=== PATIENT | male | born 1945 | race Caucasian/White ===

== ENCOUNTER 2017-06-17 13:01 | Inpatient (IN) | payer MEDICARE ==
[~2017-06-17] VITALS: Ht 163.8 cm; Wt 109.0 kg
[2017-06-17] VITALS (7 sets, daily range): BP systolic 127–149; BP diastolic 63–99; PULSE 53–91; RESP 16–19; TEMP 98–98.4; O2SAT 95–98
[~2017-06-17 13:01] MED LIST: ACCU40TA10 PO; ALBU2.5I INH; ALBU8I INH; ASPI325T PO; CARV6.252 PO; FURO1TAB93 PO; GUAI600 PO; OSEL75 PO; PRED5PAK PO; SPIR25TA PO; Z.0.OXYGENDME NC
[2017-06-17] MEDS ORDERED: SODIUM CHLORIDE 0.9% FLUSH 10 ML FLUSH IVF PRN (14:00)
[2017-06-17 14:16] LABS: BASOPHIL # 0.1 TH/MM3 (0-0.2); BASOPHIL % 0.9 % (0.0-2.0); EOSINOPHIL # 0.2 TH/MM3 (0-0.4); EOSINOPHIL % 2.3 % (0.0-4.0); HEMATOCRIT 36.9 % (39.0-51.0); HEMOGLOBIN 12.3 GM/DL (13.0-17.0); LYMPH % 12.1 % (9.0-44.0); LYMPHOCYTE # 0.8 TH/MM3 (1.0-4.8); MEAN CELL VOLUME 94.3 FL (80.0-100.0); MEAN CORPUSCULAR HEMOGLOBIN 31.4 PG (27.0-34.0); MEAN CORPUSCULAR HGB CONC 33.3 % (32.0-36.0); MEAN PLATELET VOLUME 9.1 FL (7.0-11.0); MONO % 11.8 % (0.0-8.0); MONOCYTE # 0.8 TH/MM3 (0-0.9); NEUT % 72.9 % (16.0-70.0); PLATELET COUNT 195 TH/MM3 (150-450); RED BLOOD COUNT 3.91 MIL/MM3 (4.50-5.90); RED CELL DISTRIBUTION WIDTH 14.6 % (11.6-17.2); WHITE BLOOD COUNT 6.9 TH/MM3 (4.0-11.0)
[2017-06-17 14:30] LABS: INTERNATIONAL NORMALIZED RATIO 1.5 RATIO
[2017-06-17 14:31] LABS: PROTHROMBIN TIME - PATIENT 14.8 SEC (9.8-11.6)
[2017-06-17] MEDS ORDERED: CARV12.52 PO (14:35)
[2017-06-17] MEDS ORDERED: DIGO1TAB59 PO (14:35)
[2017-06-17] MEDS ORDERED: VENTAER INH (14:35)
[2017-06-17] MEDS ORDERED: TORS20TA PO (14:35)
[2017-06-17] MEDS ORDERED: EDOX1TAB5 PO (14:35)
[2017-06-17] MEDS ORDERED: AMIO200T PO (14:35)
[2017-06-17 14:46] LABS: ALBUMIN 3.3 GM/DL (3.4-5.0); ALKALINE PHOSPHATASE 63 U/L (45-117); ALT (GPT) 22 U/L (12-78); AST (GOT) 37 U/L (15-37); BICARBONATE 37.2 MEQ/L (21.0-32.0); BLOOD UREA NITROGEN 28 MG/DL (7-18); CALCIUM 9.2 MG/DL (8.5-10.1); CHLORIDE 95 MEQ/L (98-107); CREATININE 1.65 MG/DL (0.60-1.30); GLOMERULAR FILTRATION RATE 41 ML/MIN (>89); GLUCOSE,RANDOM 87 MG/DL (74-106); SODIUM (NA) 135 MEQ/L (136-145); TOTAL BILIRUBIN ADULT 0.4 MG/DL (0.2-1.0); TOTAL PROTEIN 8.7 GM/DL (6.4-8.2); TROPONIN I 0.07 NG/ML (0.02-0.05)
--- NOTE | 2017-06-17 15:54 | RADRPT ---
EXAM DATE/TIME: 06/17/2017 14:04 [place] COMPARISON: No previous studies available for comparison. INDICATIONS : Shortness of breath. MEDICAL HISTORY : Chronic obstructive pulmonary disease. SURGICAL HISTORY : Pacemaker. ENCOUNTER: Initial ACUITY: 4 - 6 days PAIN SCORE: 0/10 LOCATION: Bilateral chest FINDINGS: Left-sided pacemaker has its tip in the right ventricle. No pneumothorax is noted. The heart is mildl y prominent. A metallic stent is noted overlying the cardiac shadow. The pulmonary vascular pattern i s normal. The lungs are clear. CONCLUSION: Cardiomegaly. No acute focal pulmonary infiltrate or pulmonary vascular congestion. Bob Ernst MD on June 17, 2017 at 15:50 Board Certified Radiologist. This report was verified electronically.
[2017-06-17] MEDS ORDERED: LACTULOSE SYRUP 20 GM/30 ML CUP PO PRN (16:00)
[2017-06-17] MEDS ORDERED: ACETAMINOPHEN 325 MG TAB PO PRN (16:00)
[2017-06-17] MEDS ORDERED: BISACODYL 10 MG SUPP RECTAL PRN (16:00)
[2017-06-17] MEDS ORDERED: SODIUM CHLORIDE 0.9% FLUSH 10 ML FLUSH IV FLUSH PRN (16:00)
[2017-06-17] MEDS ORDERED: SENNOSIDES 8.6 MG TAB PO PRN (16:00)
[2017-06-17] MEDS ORDERED: MAGNESIUM HYDROXIDE SUSP 30 ML CUP PO PRN (16:00)
[2017-06-17] MEDS ORDERED: ONDANSETRON HCL 4 MG/2 ML VIAL IVP PRN (16:00)
[2017-06-17] MEDS ORDERED: TEMAZEPAM 15 MG CAP PO PRN (16:00)
[2017-06-17] MEDS ORDERED: NALOXONE HCL 0.4 MG/ML AMP IV PUSH PRN (16:00)
[2017-06-17] MEDS ORDERED: ALBUTEROL SULFATE 90 MCG/ACT HFA 8 GM INHALER INH PRN (16:00)
--- NOTE | 2017-06-17 16:16 | PD ---
HPI Chief Complaint: Cardiac Complaint Time Seen by Provider: 13:58 Travel History International Travel<30 days: No Contact w/Intl Traveler<30days: No Traveled to known affect area: No History of Present Illness HPI This is a 71-year-old male with a history of aortic stenosis who status post TAVRs procedure, cardiomyopathy, who presents at the request of his coach wirer for admission for fluid overload. According to him, he was previously on Lasix however recently they have changed him to torsemide. He has not been diuresing well and his coach wirer sent him here for admission for this diuresis. He denies any chest pain, chest pressure. He does report shortness of breath on exertion. He states he can only walk about 20 feet before becoming winded. There are no other complaints at the time of my examination. PFSH Past Medical History Hx Anticoagulant Therapy: Yes Arthritis: No Asthma: Yes (as a kid) Heart Rhythm Problems: Yes Cancer: No Cardiovascular Problems: Yes High Cholesterol: Yes Chest Pain: No Congestive Heart Failure: No COPD: Yes Diabetes: No Diminished Hearing: No GERD: No Genitourinary: No Hiatal Hernia: No Hypertension: Yes Immune Disorder: No Kidney Stones: Yes (25 years ago) Musculoskeletal: Yes (LEFT KNEE SURGERY 40 years ago) Neurologic: No Psychiatric: No Reproductive: No Respiratory: Yes (COPD) Immunizations Current: No Renal Failure: No Sickle Cell Disease: No Sleep Apnea: No Thyroid Disease: Yes (HYPOTHYROID) Ulcer: No Past Surgical History Abdominal Surgery: No AICD: Yes Arteriovenous Shunt: No Body Medical Devices: eyel lens Cardiac Surgery: Yes (AID WITH PACEMAKER) Ear Surgery: No Endocrine Surgery: No Eye Surgery: Yes Genitourinary Surgery: No Gynecologic Surgery: No Hysterectomy: Yes Insulin Pump: No Joint Replacement: No Oral Surgery: No Pacemaker: Yes Thoracic Surgery: No Other Surgery: Yes (back) Social History Alcohol Use: No Tobacco Use: Yes (quit 15 years ago) Substance Use: No Allergies-Medications (Allergen,Severity, Reaction): Coded Allergies: No Known Allergies (Verified , 07/09/15) Reported Meds & Prescriptions Reported Meds & Active Scripts Active Reported Digitek (Digoxin) 125 Mcg Tab 0.125 Mg PO DAILY Savaysa (Edoxaban) 60 Mg Tab 60 Mg PO DAILY Ventolin Hfa 18 GM Inh (Albuterol Sulfate) 90 Mcg/Act Aer 2 Puff INH Q4-6H PRN Carvedilol 12.5 Mg Tab 12.5 Mg PO BID Amiodarone (Amiodarone HCl) 200 Mg Tab 200 Mg PO DAILY Torsemide 20 Mg Tab 40 Mg PO BID Review of Systems Except as stated in HPI: all other systems reviewed are Neg General / Constitutional: No: Fever, Chills HENT: No: Headaches, Lightheadedness, Neck Pain Cardiovascular: No: Chest Pain or Discomfort, Palpitations Respiratory: Positive: Shortness of Breath, No: Cough, Wheezing Gastrointestinal: No: Nausea, Vomiting, Abdominal Pain Genitourinary: No: Dysuria, Decreased Urinary Output Musculoskeletal: No: Weakness, Pain Neurologic: No: Weakness, Dizziness, Headache Physical Exam Narrative GENERAL: Well-developed well-nourished male in mild respiratory discomfort. SKIN: Focused skin assessment warm/dry. HEAD: Atraumatic. Normocephalic. EYES: Pupils equal and round. No scleral icterus. No injection or drainage. ENT: No nasal bleeding or discharge. Mucous membranes pink and moist. NECK: Trachea midline. No JVD. Supple. CARDIOVASCULAR: Irregularly irregular with a rate in the 80s. RESPIRATORY: Bilateral basilar rales. No wheezing appreciated. GASTROINTESTINAL: Abdomen soft, non-tender, nondistended. MUSCULOSKELETAL: No obvious deformities. No clubbing. No cyanosis. 1+ edema bilaterally in the pretibial area. NEUROLOGICAL: Awake and alert. No obvious cranial nerve deficits. Motor grossly within normal limits. Normal speech. Data Data Last Documented VS Vital Signs Date Time Temp Pulse Resp B/P (MAP) Pulse Ox O2 Delivery O2 Flow Rate FiO2 06/17/17 15:45 76 16 135/73 (93) 98 Nasal Cannula 2.00 06/17/17 13:02 98.4 Orders Orders Complete Blood Count With Diff (06/17/17 13:59) Comprehensive Metabolic Panel (06/17/17 13:59) B-Type Natriuretic Peptide (06/17/17 13:59) Act Partial Throm Time (Ptt) (06/17/17 13:59) Prothrombin Time / Inr (Pt) (06/17/17 13:59) Ckmb (Isoenzyme) Profile (06/17/17 13:59) Troponin I (06/17/17 13:59) Iv Access Insert/Monitor (06/17/17 13:59) Electrocardiogram (06/17/17 13:59) Ecg Monitoring (06/17/17 13:59) Oximetry (06/17/17 13:59) Oxygen Administration (06/17/17 13:59) Chest, Single Ap (06/17/17 13:59) Sodium Chloride 0.9% Flush (Ns Flush) (06/17/17 14:00) CKMB (06/17/17 14:00) CKMB% (06/17/17 14:00) Albuterol Hfa Inh (Proair Hfa Inh) (06/17/17 16:00) Amiodarone (Cordarone) (06/18/17 09:00) Carvedilol (Coreg) (06/17/17 21:00) Digoxin (Lanoxin) (06/18/17 09:00) Edoxaban (Savaysa) (06/18/17 09:00) Torsemide (Demadex) (06/17/17 21:00) Admit To Inpatient (06/17/17 ) Vital Signs (Adult) Q4H (06/17/17 15:50) Activity Oob With Assistance (06/17/17 15:50) [place] Soaping Machine Operator / Telemetry .CONTINUOUS (06/17/17 15:50) Intake + Output CLAIR.QSHIFT (06/17/17 15:50) Diet Heart Healthy (06/17/17 Dinner) Sodium Chloride 0.9% Flush (Ns Flush) (06/17/17 16:00) Sodium Chloride 0.9% Flush (Ns Flush) (06/17/17 21:00) Acetaminophen (Tylenol) (06/17/17 16:00) Ondansetron Inj (Zofran Inj) (06/17/17 16:00) Temazepam (Restoril) (06/17/17 16:00) Basic Metabolic Panel (Bmp) (06/18/17 06:00) Complete Blood Count With Diff (06/18/17 06:00) Troponin I (06/17/17 15:50) Troponin I (06/17/17 18:50) Electrocardiogram (06/17/17 15:50) Electrocardiogram (06/17/17 18:50) Pt Request For Service (06/17/17 15:50) Case Management Consult (06/17/17 15:50) Scd Bilateral/Knee High CLAIR.BID (06/17/17 15:50) Madi Bilateral/Knee High CLAIR.QSHIFT (06/17/17 15:50) Naloxone Inj (Narcan Inj) (06/17/17 16:00) Docusate Sodium-Senna (Meaghan-Colace) (06/17/17 21:00) Magnesium Hydroxide Liq (Milk Of Magnesi (06/17/17 16:00) Sennosides (Senokot) (06/17/17 16:00) Bisacodyl Supp (Dulcolax Supp) (06/17/17 16:00) Lactulose Liq (Lactulose Liq) (06/17/17 16:00) Inpatient Certification (06/17/17 ) Consult Cardiology (06/17/17 ) Consult Nephrology (06/17/17 ) Echo 2d Comp With Doppler (06/17/17 ) Admit Order (Ed Use Only) (06/17/17 15:51) Labs Laboratory Tests Test 06/17/17 14:00 White Blood Count 6.9 TH/MM3 Red Blood Count 3.91 MIL/MM3 Hemoglobin 12.3 GM/DL Hematocrit 36.9 % Mean Corpuscular Volume 94.3 FL Mean Corpuscular Hemoglobin 31.4 PG Mean Corpuscular Hemoglobin Concent 33.3 % Red Cell Distribution Width 14.6 % Platelet Count 195 TH/MM3 Mean Platelet Volume 9.1 FL Neutrophils (%) (Auto) 72.9 % Lymphocytes (%) (Auto) 12.1 % Monocytes (%) (Auto) 11.8 % Eosinophils (%) (Auto) 2.3 % Basophils (%) (Auto) 0.9 % Neutrophils # (Auto) 5.0 TH/MM3 Lymphocytes # (Auto) 0.8 TH/MM3 Monocytes # (Auto) 0.8 TH/MM3 Eosinophils # (Auto) 0.2 TH/MM3 Basophils # (Auto) 0.1 TH/MM3 CBC Comment DIFF FINAL Differential Comment Prothrombin Time 14.8 SEC Prothromb Time International Ratio 1.5 RATIO Activated Partial Thromboplast Time 32.4 SEC Blood Urea Nitrogen 28 MG/DL Creatinine 1.65 MG/DL Random Glucose 87 MG/DL Total Protein 8.7 GM/DL Albumin 3.3 GM/DL Calcium Level 9.2 MG/DL Alkaline Phosphatase 63 U/L Aspartate Amino Transf (AST/SGOT) 37 U/L Alanine Aminotransferase (ALT/SGPT) 22 U/L Total Bilirubin 0.4 MG/DL Sodium Level 135 MEQ/L Potassium Level 5.5 MEQ/L Chloride Level 95 MEQ/L Carbon Dioxide Level 37.2 MEQ/L Anion Gap 3 MEQ/L Estimat Glomerular Filtration Rate 41 ML/MIN Total Creatine Kinase 134 U/L Creatine Kinase MB 0.6 NG/ML Troponin I 0.07 NG/ML B-Type Natriuretic Peptide 234 PG/ML MDM Medical Decision Making Medical Screen Exam Complete: Yes Emergency Medical Condition: Yes Differential Diagnosis CHF exacerbation versus pneumonia versus renal failure Narrative Course 71-year-old male sent from his doctor's office for fluid overload and diuresis. Patient states he has recently been changed from furosemide to torsemide. He believes this is not working well. He denies any chest pain, chest pressure. He has recently had a TAVRs procedure. Patient has potassium of 5.5. He is BUN and creatinine are also elevated with a creatinine of 1.65. The last creatinine that I have on record is normal from 2016. The troponin is also slightly elevated at 0.07. Chest x-ray shows mild fluid overload. The patient will be admitted to the hospital. The case was discussed with Dr. Figueroa, [facility], who is agreeable to the admission. At this point will place him under observation status. Diagnosis Primary Impression: CHF (congestive heart failure) Additional Impressions: Atrial fibrillation Acute kidney injury Hyperkalemia History of cardiomyopathy Admitting Information Admitting Physician Requests: Observation José Luis Finley MD Jun 17, 2017 16:15
--- NOTE | 2017-06-17 16:47 | PD.CONS ---
HPI Service Nephrology Consult Requested By [facility] Reason for Consult CHELSEY, fluid overload Primary Care Physician Marquez Fields MD History of Present Illness This is a very pleasant 71 y/o male. He was referred for admission by his dowel sticker operator Dr. King for fluid overload s/p TAVR nearly one month ago. He has a complex cardiac hx including A fib, s/p TAVR as mentioned above, Cardiomyopathy, EF was 10% now read as 25-30%, hx of AICD placement. He was on Spironolactone 25 mg BID and Torsemide 20 BID that was just changed from furosemide. He has been reporting fatigue and shortness of breath, weight gain. On arrival his creatinine was 1.65. In 2016 it was around 1. Today his K is also noted to be 5.5. He is on oxygen, has edema/anasarca, and we were consulted to assist with renal and diuretic management. (Lyly Costello) Review of Systems Constitutional: COMPLAINS OF: Fatigue, Weight gain, DENIES: Weight loss, Change in appetite Respiratory: COMPLAINS OF: Shortness of breath, DENIES: Sputum production Cardiovascular: COMPLAINS OF: Lower Extremity Edema Gastrointestinal: DENIES: Abdominal pain (Lyly Costello) Past Family Social History Allergies: Coded Allergies: No Known Allergies (Verified , 07/09/15) Past Medical History ASHD, cardiomyopathy, ventricular tachycardia CAD, Hx anterior [place] A fib Murmur Hyperlipidemia COPD DJD Obesity s/p TAVR Past Surgical History TAVR 05/20/17 [employer] ICD (LLQ abd) Reported Medications Digitek (Digoxin) 125 Mcg Tab 0.125 Mg PO DAILY Savaysa (Edoxaban) 60 Mg Tab 60 Mg PO DAILY Ventolin Hfa 18 GM Inh (Albuterol Sulfate) 90 Mcg/Act Aer 2 Puff INH Q4-6H PRN Carvedilol 12.5 Mg Tab 12.5 Mg PO BID Amiodarone (Amiodarone HCl) 200 Mg Tab 200 Mg PO DAILY Torsemide 20 Mg Tab 40 Mg PO BID Aldactone 25 mg po BID Albuterol sulfate 2.5mg/3ml prn Active Ordered Medications Current Medications Medications (Trade) Dose Ordered Sig/Marta Route Start Time Stop Time Status Last Admin (Proair Hfa Inh) 2 puff Q4HR PRN INH 06/17/17 16:00 (Cordarone) 200 mg DAILY PO 06/18/17 09:00 (Coreg) 12.5 mg BID PO 06/17/17 21:00 (Lanoxin) 0.125 mg DAILY PO 06/18/17 09:00 (Savaysa) 60 mg DAILY PO 06/18/17 09:00 UNV (Demadex) 40 mg BID PO 06/17/17 21:00 (NS Flush) 2 ml UNSCH PRN IV FLUSH 06/17/17 16:00 (NS Flush) 2 ml BID IV FLUSH 06/17/17 21:00 (Tylenol) 650 mg Q4H PRN PO 06/17/17 16:00 (Zofran Inj) 4 mg Q6H PRN IVP 06/17/17 16:00 (Restoril) 15 mg HS PRN PO 06/17/17 16:00 (Narcan Inj) 0.4 mg UNSCH PRN IV PUSH 06/17/17 16:00 (Meaghan-Colace) 1 tab BID PO 06/17/17 21:00 (Milk Of Magnesia Liq) 30 ml Q12H PRN PO 06/17/17 16:00 (Senokot) 17.2 mg Q12H PRN PO 06/17/17 16:00 (Dulcolax Supp) 10 mg DAILY PRN RECTAL 06/17/17 16:00 (Lactulose Liq) 30 ml DAILY PRN PO 06/17/17 16:00 Family History Mother, uterine CA Other information unrelated Social History Former smoker Uses oxygen Retired No ETOH (Lyly Costello) Physical Exam Vital Signs Vital Signs Date Time Temp Pulse Resp B/P (MAP) Pulse Ox O2 Delivery O2 Flow Rate FiO2 06/17/17 15:45 76 16 135/73 (93) 98 Nasal Cannula 2.00 06/17/17 14:01 98 Nasal Cannula 2.00 06/17/17 14:01 98 Nasal Cannula 2.00 06/17/17 13:56 98 Nasal Cannula 2.00 06/17/17 13:02 98.4 71 19 133/99 (110) 95 Physical Exam Elderly male, dyspneic on oxygen Awake, A&Ox3, no neuro deficit CV: S1/S2, irreg irreg, quiet precordium , no murmurs or rubs Resp: Diminished in bases, crackles present, shallow respirations GI: obese, soft, NT/ND, normal BS ; ICD left abdomen Ext: 2+ edema, pulses strong Skin: intact Laboratory Laboratory Tests Test 06/17/17 14:00 White Blood Count 6.9 Red Blood Count 3.91 Hemoglobin 12.3 Hematocrit 36.9 Mean Corpuscular Volume 94.3 Mean Corpuscular Hemoglobin 31.4 Mean Corpuscular Hemoglobin Concent 33.3 Red Cell Distribution Width 14.6 Platelet Count 195 Mean Platelet Volume 9.1 Neutrophils (%) (Auto) 72.9 Lymphocytes (%) (Auto) 12.1 Monocytes (%) (Auto) 11.8 Eosinophils (%) (Auto) 2.3 Basophils (%) (Auto) 0.9 Neutrophils # (Auto) 5.0 Lymphocytes # (Auto) 0.8 Monocytes # (Auto) 0.8 Eosinophils # (Auto) 0.2 Basophils # (Auto) 0.1 CBC Comment DIFF FINAL Differential Comment Prothrombin Time 14.8 Prothromb Time International Ratio 1.5 Activated Partial Thromboplast Time 32.4 Blood Urea Nitrogen 28 Creatinine 1.65 Random Glucose 87 Total Protein 8.7 Albumin 3.3 Calcium Level 9.2 Alkaline Phosphatase 63 Aspartate Amino Transf (AST/SGOT) 37 Alanine Aminotransferase (ALT/SGPT) 22 Total Bilirubin 0.4 Sodium Level 135 Potassium Level 5.5 Chloride Level 95 Carbon Dioxide Level 37.2 Anion Gap 3 Estimat Glomerular Filtration Rate 41 Total Creatine Kinase 134 Creatine Kinase MB 0.6 Troponin I 0.07 B-Type Natriuretic Peptide 234 (Lyly Costello) Result Diagram: 06/17/17 1400 06/17/17 1400 Imaging Last 72 hours Impressions Chest X-Ray 06/17/17 1359 Signed Impressions: Service Date/Time: Saturday, June 17, 2017 14:04 - CONCLUSION: Cardiomegaly. No acute focal pulmonary infiltrate or pulmonary vascular congestion. Bob Ernst MD (Lyly Costello) Assessment and Plan Problem List: (1) Acute kidney injury ICD Codes: N17.9 - Acute kidney failure, unspecified Status: Acute Plan: He had normal renal function in 2016 CHELSEY may be due to CHF exacerbation and increased renal vein pressure Needs diuresis, change to Lasix 40 mg IV BID, give a dose now Follow urine output, I/O, daily weights Follow renal function, repeat labs in AM including phosphorus level K 5.5, hold Spironolactone for now Avoid nephrotoxic agents Avoid IVF administration (2) CHF (congestive heart failure) ICD Codes: I50.9 - Heart failure, unspecified Status: Chronic Plan: Diuresis as above. (3) History of cardiomyopathy ICD Codes: Z86.79 - Personal history of other diseases of the circulatory system Status: Acute Plan: Cardiology to be consulted, appreciate recommendations On oxygen (4) Atrial fibrillation ICD Codes: I48.91 - Unspecified atrial fibrillation Status: Chronic Plan: On digoxin, amiodarone Obtain digoxin level in AM (5) Hypertension ICD Codes: I10 - Essential (primary) hypertension Status: Chronic Plan: Continue home medications (Lyly Costello) Problem List: (1) Acute kidney injury ICD Codes: N17.9 - Acute kidney failure, unspecified Status: Acute Plan: He had normal renal function in 2016 CHELSEY may be due to CHF exacerbation and increased renal vein pressure Needs diuresis, change to Lasix 40 mg IV BID, give a dose now Follow urine output, I/O, daily weights Follow renal function, repeat labs in AM including phosphorus level K 5.5, hold Spironolactone for now Avoid nephrotoxic agents Avoid IVF administration (2) CHF (congestive heart failure) ICD Codes: I50.9 - Heart failure, unspecified Status: Chronic Plan: Diuresis as above. (3) History of cardiomyopathy ICD Codes: Z86.79 - Personal history of other diseases of the circulatory system Status: Acute Plan: Cardiology to be consulted, appreciate recommendations On oxygen (4) Atrial fibrillation ICD Codes: I48.91 - Unspecified atrial fibrillation Status: Chronic Plan: On digoxin, amiodarone Obtain digoxin level in AM (5) Hypertension ICD Codes: I10 - Essential (primary) hypertension Status: Chronic Plan: Continue home medications Assessment and Plan patient was seen and examined. Agree with above assessment and plan. Start IV Lasix. Obtain UA. Obtain bilateral renal US. Temporarily suspend Spironolactone due to hyperkalemia. (Jessee Murrieta MD) Lyly Costello Jun 17, 2017 16:47 Jessee Murrieta MD Jun 17, 2017 19:27
[2017-06-17] MEDS ORDERED: FUROSEMIDE 40 MG/4 ML VIAL IV PUSH ONE (17:00)
[2017-06-17] MEDS: FUROSEMIDE 40 MG/4 ML VIAL IV PUSH SCH (18:11)
--- NOTE | 2017-06-17 18:18 | HHI.HP ---
HPI Service [facility] Primary Care Physician Marquez Fields MD Admission Diagnosis chf, acute kidney injury, recent TAVRS procedure, Diagnoses: Chief Complaint: sob Travel History International Travel<30 Days: No Contact w/Intl Traveler <30 Da: No Traveled to Known Affected Are: No History of Present Illness 71-year-old male with PMH of COPD, chronic respiratory failure on 2L at night, hypertension, hyperlipidemia, A. fib with AICD, recent TAVR who came to the emergency room with complains of sob. He was referred for admission by his job placement counselor Dr. King for fluid overload s/p TAVR nearly one month ago. He has a complex cardiac hx including A fib, s/p TAVR as mentioned above, Cardiomyopathy, EF was 10% now read as 25-30%, hx of AICD placement 25 years ago. He was on Spironolactone 25 mg BID and Torsemide 20 BID that was just changed from furosemide. He has been reporting fatigue and shortness of breath, weight gain worsening. He noticed LE edema 2 days ago worsening as well as sob progressively gettign worse. On arrival his creatinine was 1.65. In 2016 it was around 1. Today his K is also noted to be 5.5. He is on oxygen, has edema/ anasarca. Review of Systems Except as stated in HPI: all other systems reviewed are Neg Past Family Social History Past Medical History COPD, hypertension, hyperlipidemia, A. fib with AICD Past Surgical History AICD Cataract eye surgery Pineal cyst removal Tonsillectomy Recent TAVR Reported Medications Reported Meds & Active Scripts Active Reported Digitek (Digoxin) 125 Mcg Tab 0.125 Mg PO DAILY Savaysa (Edoxaban) 60 Mg Tab 60 Mg PO DAILY Ventolin Hfa 18 GM Inh (Albuterol Sulfate) 90 Mcg/Act Aer 2 Puff INH Q4-6H PRN Carvedilol 12.5 Mg Tab 12.5 Mg PO BID Amiodarone (Amiodarone HCl) 200 Mg Tab 200 Mg PO DAILY Torsemide 20 Mg Tab 40 Mg PO BID Allergies: Coded Allergies: No Known Allergies (Verified , 07/09/15) Family History Father CAD/massive of eye at the age of 57 Brother with heart problems Social History Former smoker used to smoke 1-2 PPD since the age of 12. Quit in 1991 EtOH use occasionally Denies illicit drug use Physical Exam Vital Signs Vital Signs Date Time Temp Pulse Resp B/P (MAP) Pulse Ox O2 Delivery O2 Flow Rate FiO2 06/17/17 17:12 80 16 149/69 (95) 98 Nasal Cannula 2.00 06/17/17 15:45 76 16 135/73 (93) 98 Nasal Cannula 2.00 06/17/17 14:01 98 Nasal Cannula 2.00 06/17/17 14:01 98 Nasal Cannula 2.00 06/17/17 13:56 98 Nasal Cannula 2.00 06/17/17 13:02 98.4 71 19 133/99 (110) 95 Physical Exam GENERAL: This is a well-nourished, well-developed patient, in no apparent distress. SKIN: No rashes, ecchymoses or lesions. Cool and dry. HEAD: Atraumatic. Normocephalic. No temporal or scalp tenderness. EYES: Pupils equal round and reactive. Extraocular motions intact. No scleral icterus. No injection or drainage. ENT: Nose without bleeding, purulent drainage or septal hematoma. Throat without erythema, tonsillar hypertrophy or exudate. Uvula midline. Airway patent. NECK: Trachea midline. No JVD or lymphadenopathy. Supple, nontender, no meningeal signs. CARDIOVASCULAR: Regular rate and rhythm without murmurs, gallops, or rubs. RESPIRATORY: Breath sounds decreased bilaterally. No wheezes, rales, or rhonchi. GASTROINTESTINAL: Abdomen soft, non-tender, nondistended. No hepato-splenomegaly , or palpable masses. No guarding. MUSCULOSKELETAL: Extremities without clubbing, cyanosis, 4+ edema/anasarca. No joint tenderness, effusion, or edema noted. No calf tenderness. Negative Homans sign bilaterally. NEUROLOGICAL: Awake and alert. Cranial nerves II through XII intact. Motor and sensory grossly within normal limits. Five out of 5 muscle strength in all muscle groups. Normal speech. Laboratory Laboratory Tests Test 06/17/17 14:00 06/17/17 16:28 White Blood Count 6.9 Red Blood Count 3.91 Hemoglobin 12.3 Hematocrit 36.9 Mean Corpuscular Volume 94.3 Mean Corpuscular Hemoglobin 31.4 Mean Corpuscular Hemoglobin Concent 33.3 Red Cell Distribution Width 14.6 Platelet Count 195 Mean Platelet Volume 9.1 Neutrophils (%) (Auto) 72.9 Lymphocytes (%) (Auto) 12.1 Monocytes (%) (Auto) 11.8 Eosinophils (%) (Auto) 2.3 Basophils (%) (Auto) 0.9 Neutrophils # (Auto) 5.0 Lymphocytes # (Auto) 0.8 Monocytes # (Auto) 0.8 Eosinophils # (Auto) 0.2 Basophils # (Auto) 0.1 CBC Comment DIFF FINAL Differential Comment Prothrombin Time 14.8 Prothromb Time International Ratio 1.5 Activated Partial Thromboplast Time 32.4 Blood Urea Nitrogen 28 Creatinine 1.65 Random Glucose 87 Total Protein 8.7 Albumin 3.3 Calcium Level 9.2 Alkaline Phosphatase 63 Aspartate Amino Transf (AST/SGOT) 37 Alanine Aminotransferase (ALT/SGPT) 22 Total Bilirubin 0.4 Sodium Level 135 Potassium Level 5.5 Chloride Level 95 Carbon Dioxide Level 37.2 Anion Gap 3 Estimat Glomerular Filtration Rate 41 Total Creatine Kinase 134 Creatine Kinase MB 0.6 Troponin I 0.07 B-Type Natriuretic Peptide 234 Result Diagram: 06/17/17 1400 06/17/17 1400 Imaging Last Impressions Chest X-Ray 06/17/17 1359 Signed Impressions: Service Date/Time: Saturday, June 17, 2017 14:04 - CONCLUSION: Cardiomegaly. No acute focal pulmonary infiltrate or pulmonary vascular congestion. MD Demetrice Hammond VTE Risk Assessment Caprini VTE Risk Assessment: Mod/High Risk (score >= 2) Caprini Risk Assessment Model Point Value = 1 Point Value = 2 Point Value = 3 Point Value = 5 Age 41-60 Minor surgery BMI > 25 kg/m2 Swollen legs Varicose veins or History of unexplained or recurrent spontaneous Oral contraceptives or hormone replacement Sepsis (< 1 month) Serious lung disease, including pneumonia (< 1 month) Abnormal pulmonary function Acute myocardial infarction Congestive heart failure (< 1 month) History of inflammatory bowel disease Medical patient at bed rest Age 61-74 Arthroscopic surgery Major open surgery (> 45 min) Laparoscopic surgery (> 45 min) Malignancy Confined to bed (> 72 hours) Immobilizing plaster cast Central venous access Age >= 75 History of VTE Family history of VTE Factor V Leiden Prothrombin [id number] Lupus anticoagulant Anticardiolipin antibodies Elevated serum homocysteine Heparin-induced thrombocytopenia Other congenital or acquired thrombophilia Stroke (< 1 month) Elective arthroplasty Hip, pelvis, or leg fracture Acute spinal cord injury (< 1 month) Prophylaxis Regimen Total Risk Factor Score Risk Level Prophylaxis Regimen 0-1 Low Early ambulation 2 Moderate Order ONE of the following: *Sequential Compression Device (SCD) *Heparin 5000 units SQ BID 3-4 Higher Order ONE of the following medications: *Heparin 5000 units SQ TID *Enoxaparin/Lovenox 40 mg SQ daily (WT < 150 kg, CrCl > 30 mL/min) *Enoxaparin/Lovenox 30 mg SQ daily (WT < 150 kg, CrCl > 10-29 mL/min) *Enoxaparin/Lovenox 30 mg SQ BID (WT < 150 kg, CrCl > 30 mL/min) AND/OR *Sequential Compression Device (SCD) 5 or more Highest Order ONE of the following medications: *Heparin 5000 units SQ TID (Preferred with Epidurals) *Enoxaparin/Lovenox 40 mg SQ daily (WT < 150 kg, CrCl > 30 mL/min) *Enoxaparin/Lovenox 30 mg SQ daily (WT < 150 kg, CrCl > 10-29 mL/min) *Enoxaparin/Lovenox 30 mg SQ BID (WT < 150 kg, CrCl > 30 mL/min) AND *Sequential Compression Device (SCD) Assessment and Plan Assessment and Plan CHF (congestive heart failure) with exacerbation Recent h/o TAVR continue home meds BNP in 238 on admission Start Lasix 40 mg IV BID Follow urine output, I/O, daily weights Follow renal function, repeat labs in AM 2D ECHO Consult Dr King his cardiology Dr Consult nephrology as patient also with CHELSEY, appreciate recommendations Atrial fibrillation AICD Continue home meds CHELSEY Cr 1.6 , GFR 41 on admission. Avoid nephrotoxic agents. Hold on IVF as patient with CHF exacerbation COPD DuoNeb's Oxygen support by nasal cannula, currently saturating well Hypertension Continue home medications Monitor vital signs Hyperlipidemia Continue statin Assessment and Plan DVT prophylaxis with SCDs/TEDs/ continue home savaysa Discussed Condition With Patient, nurse, ED physician. Physician Certification 2 Midnight Certification Type: Admission for Inpatient Services Order for Inpatient Services The services are ordered in accordance with Medicare regulations or non- Medicare payer requirements, as applicable. In the case of services not specified as inpatient-only, they are appropriately provided as inpatient services in accordance with the 2-midnight benchmark. Estimated LOS (days): 3 days is the estimated time the patient will need to remain in the hospital, assuming treatment plan goals are met and no additional complications. Post-Hospital Plan: Home Liliana Figueroa MD Jun 17, 2017 18:18
[2017-06-17] MEDS ORDERED: TORSEMIDE 20 MG TAB PO SCH (21:00)
[2017-06-17] MEDS: DOCUSATE SODIUM 50 MG/SENNA 8.6 MG TAB PO SCH (21:00)
[2017-06-17] MEDS: SODIUM CHLORIDE 0.9% FLUSH 10 ML FLUSH IV FLUSH SCH (22:59)
[2017-06-17] MEDS: CARVEDILOL 12.5 MG TAB PO SCH (22:59)
--- NOTE | 2017-06-17 23:00 | RADRPT ---
EXAM DATE/TIME: 06/17/2017 22:05 [facility] COMPARISON: No previous studies available for comparison. INDICATIONS : Increased BUN/Creatnine. MEDICAL HISTORY : Hypothyroidism. Myocardial infarction. Hypertension. Anticoagulant therapy. COPD. Dyspnea. Kidney sto parul. Prostate enlargement. SURGICAL HISTORY : Pacemaker. Eye surgery. Left knee surgery. ENCOUNTER: Initial ACUITY: 1 day PAIN SCORE: 0/10 LOCATION: Bilateral flank MEASUREMENTS: RIGHT KIDNEY: 9.3 x 4.1 x 5.7 cm LEFT KIDNEY: 10.8 x 3.4 x 5.7 cm FINDINGS: Examination quality less than optimal secondary to patient body habitus. RIGHT KIDNEY: Renal cortex is normal in thickness and echotexture. No hydronephrosis, stone, or mass. There is an anechoic avascular lesion in the midportion of the kidney measuring 14 mm, consistent with a simple cyst. LEFT KIDNEY: Renal cortex is normal in thickness and echotexture. No hydronephrosis, stone, or mass. BLADDER: Within normal limits given the degree of distension. CONCLUSION: No abnormality is identified to explain the abnormal laboratory values. There is no hydronephrosis. Everardo Grey MD on June 17, 2017 at 22:57 Board Certified Radiologist. This report was verified electronically.
[2017-06-18] VITALS (8 sets, daily range): BP systolic 114–132; BP diastolic 53–72; PULSE 68–82; RESP 18–20; TEMP 97.3–99; O2SAT 91–99
[2017-06-18 04:06] LABS: BASOPHIL # 0.1 TH/MM3 (0-0.2); BASOPHIL % 0.8 % (0.0-2.0); EOSINOPHIL # 0.1 TH/MM3 (0-0.4); EOSINOPHIL % 2.1 % (0.0-4.0); HEMATOCRIT 33.7 % (39.0-51.0); LYMPH % 14.7 % (9.0-44.0); MEAN CELL VOLUME 94.1 FL (80.0-100.0); MEAN CORPUSCULAR HEMOGLOBIN 30.7 PG (27.0-34.0); MEAN CORPUSCULAR HGB CONC 32.7 % (32.0-36.0); MEAN PLATELET VOLUME 8.5 FL (7.0-11.0); MONO % 11.2 % (0.0-8.0); MONOCYTE # 0.8 TH/MM3 (0-0.9); NEUT % 71.2 % (16.0-70.0); PLATELET COUNT 178 TH/MM3 (150-450); RED BLOOD COUNT 3.58 MIL/MM3 (4.50-5.90)
[2017-06-18 04:25] LABS: BICARBONATE 37.9 MEQ/L (21.0-32.0); CALCIUM 8.3 MG/DL (8.5-10.1); CREATININE 1.59 MG/DL (0.60-1.30); PHOSPHORUS 3.6 MG/DL (2.5-4.9)
[2017-06-18] MEDS: SODIUM CHLORIDE 0.9% FLUSH 10 ML FLUSH IV FLUSH SCH ×2 (07:40→21:23)
[2017-06-18] MEDS: DIGOXIN 0.125 MG TAB PO SCH (08:31)
[2017-06-18] MEDS: DOCUSATE SODIUM 50 MG/SENNA 8.6 MG TAB PO SCH ×3 (08:31→21:20)
[2017-06-18] MEDS: CARVEDILOL 12.5 MG TAB PO SCH ×2 (08:31→21:20)
[2017-06-18] MEDS: AMIODARONE 200 MG TAB PO SCH (08:31)
[2017-06-18] MEDS: FUROSEMIDE 40 MG/4 ML VIAL IV PUSH SCH ×2 (08:32→17:30)
[2017-06-18] MEDS: EDOXABAN TOSYLATE 30 MG TAB PO SCH (09:10)
[2017-06-18 10:22] LABS: BILIRUBIN, URINE NEG (NEG); BLOOD, URINE NEG (NEG); GLUCOSE,URINE NEG (NEG); HYALINE CAST, URINE 3 /lpf (RARE); KETONE, URINE NEG (NEG); NITRITE,URINE NEG (NEG); PH, URINE 6.5 (5.0-8.5); URINE COLOR LIGHT-YELLOW (YELLW/STRAW); URINE LEUKOCYTE ESTERASE NEG (NEG)
--- NOTE | 2017-06-18 11:59 | ECHRPT ---
Indication: post tavr, heart failure CONCLUSIONS Moderately dilated left ventricle. The left ventricular systolic function is severely reduced with an estimated ejection fraction less than 20%. The left atrial size is upper limits of normal. Mild mitral valve regurgitation. Trace aortic valve regurgitation. Aortic valve area is 1.6 cm. Aortic valve mean gradient is 9 mmHg. There is mild tricuspid valve regurgitation. The estimated pulmonary arterial pressure is 50.4 mmHg. BP: / HR: Rhythm: MEASUREMENTS (Male / Female) Normal Values Technical Quality:Fair 2D ECHO LV Diastolic Diameter PLAX 7.0 cm 4.2 - 5.9 / 3.9 - 5.3 cm LV Systolic Diameter PLAX 6.5 cm IVS Diastolic Thickness 0.8 cm 0.6 - 1.0 / 0.6 - 0.9 cm LVPW Diastolic Thickness 1.2 cm 0.6 - 1.0 / 0.6 - 0.9 cm LV Relative Wall Thickness 0.3 RV Internal Dim ED PLAX 2.8 cm LVOT Diameter 2.6 cm M-MODE Aortic Root Diameter MM 2.6 cm LA Systolic Diameter MM 4.1 cm LA Ao Ratio MM 1.6 DOPPLER AV Peak Velocity 219.0 cm/s AV Peak Gradient 19.2 mmHg AV Mean Gradient 9.0 mmHg AV Velocity Time Integral 40.7 cm LVOT Peak Velocity 72.9 cm/s LVOT Peak Gradient 2.1 mmHg LVOT Velocity Time Integral 12.6 cm AV Area Cont Eq vti 1.6 cm AV Area Cont Eq pk 1.8 cm LV E' Lateral Velocity 10.4 cm/s LV E' Septal Velocity 6.4 cm/s TR Peak Velocity 318.0 cm/s TR Peak Gradient 40.4 mmHg Right Atrial Pressure 10.0 mmHg Pulmonary Artery Systolic Pressu 50.4 mmHg Right Ventricular Systolic Press 50.4 mmHg FINDINGS LEFT VENTRICLE Moderately dilated left ventricle. The left ventricular systolic function is severely reduced with an estimated ejection fraction less than 20%. RIGHT VENTRICLE Normal right ventricular size and systolic function. LEFT ATRIUM The left atrial size is upper limits of normal. RIGHT ATRIUM The right atrial size is normal. ATRIAL SEPTUM Normal atrial septal thickness without atrial level shunting by limited color doppler interrogation. AORTA The aortic root and proximal ascending aorta are normal in size on limited imaging. MITRAL VALVE Structurally normal mitral valve. Mild mitral valve regurgitation. AORTIC VALVE Trace aortic valve regurgitation. Aortic valve area is 1.6 cm. Aortic valve mean gradient is 9 mmHg. TRICUSPID VALVE Structurally normal tricuspid valve. There is mild tricuspid valve regurgitation. The estimated pulmonary arterial pressure is 50.4 mmHg. PULMONARY VALVE No pulmonary valve regurgitation or stenosis. VESSELS The inferior vena cava is normal in size. PERICARDIUM No pericardial effusion. Deepak Oneil MD, FACC (Electronically Signed) Final Date:18 June 2017 11:58
--- NOTE | 2017-06-18 12:32 | HHI.NPPN ---
Subjective Renal Failure: Acute Interval History Sitting up in bed, appears comfortable. Renal function improved slightly. (Lyly Costello) Objective Data Data Vital Signs Date Time Temp Pulse Resp B/P (MAP) Pulse Ox O2 Delivery O2 Flow Rate FiO2 06/18/17 08:00 99.0 75 20 116/72 (87) 97 06/18/17 04:15 97.9 70 18 121/60 (80) 95 06/18/17 04:00 75 06/18/17 00:00 75 06/17/17 23:45 98.0 53 18 127/65 (85) 97 06/17/17 20:35 98.1 78 18 133/63 (86) 96 06/17/17 20:00 91 06/17/17 19:14 06/17/17 17:12 80 16 149/69 (95) 98 Nasal Cannula 2.00 06/17/17 15:45 76 16 135/73 (93) 98 Nasal Cannula 2.00 06/17/17 14:01 98 Nasal Cannula 2.00 06/17/17 14:01 98 Nasal Cannula 2.00 06/17/17 13:56 98 Nasal Cannula 2.00 06/17/17 13:02 98.4 71 19 133/99 (110) 95 (Lyly Costello) -: 06/18/17 0350 06/18/17 0350 Imaging Last 72 hours Impressions Chest X-Ray 06/17/17 1359 Signed Impressions: Service Date/Time: Saturday, June 17, 2017 14:04 - CONCLUSION: Cardiomegaly. No acute focal pulmonary infiltrate or pulmonary vascular congestion. Bob Ernst MD Renal Ultrasound 06/17/17 0000 Signed Impressions: Service Date/Time: Saturday, June 17, 2017 22:05 - CONCLUSION: No abnormality is identified to explain the abnormal laboratory values. There is no hydronephrosis. Everardo Grey MD (Lyly Costello) Physical Exam General Appearance: Well Developed, No Acute Distress, Comfortable, Obese (Lyly Costello) Throat Throat Exam: Oral Mucosa [place] & Moist (Lyly Costello) Pulmonary Resp Exam: Breath Sounds Equal, Crackles Resp Remarks shallow respirations (Lyly Costello) Gastrointestinal/Abdomen GI Exam: Soft, Non-Tender (Lyly Costello) Integumentary Skin Exam: Warm, Dry, Intact (Lyly Costello) Extremeties Extremities Exam: Pedal Pulses Palpable, Moderate Edema (Lyly Costello) Neurologic Neuro Exam: Alert, Awake, Oriented, Speech Clear, Moving All Extremities (Lyly Costello) Psychiatric Psych Exam: Appropriate Responses (Lyly Costello) Assessment/Plan Discussed Condition With: Patient Assessment Summary: CHELSEY/Acute Renal Failure, Anemia of CKD, Fluid/Volume Overload, CHF, Hypertension Problem List: (1) Acute kidney injury ICD Codes: N17.9 - Acute kidney failure, unspecified Status: Acute Plan: He had normal renal function in 2016 CHELSEY most likely due to CHF exacerbation and increased renal vein pressure Continue diuresis, on Lasix 40 mg IV BID Follow urine output, I/O, daily weights Follow renal function, repeat labs in AM UA unremarkable Avoid nephrotoxic agents Avoid IVF administration (2) CHF (congestive heart failure) ICD Codes: I50.9 - Heart failure, unspecified Status: Chronic Plan: Diuresis as above. EF less than 20% (3) History of cardiomyopathy ICD Codes: Z86.79 - Personal history of other diseases of the circulatory system Status: Acute Plan: Cardiology is following On oxygen (4) Atrial fibrillation ICD Codes: I48.91 - Unspecified atrial fibrillation Status: Chronic Plan: On digoxin, amiodarone Digoxin level is acceptable (5) Hypertension ICD Codes: I10 - Essential (primary) hypertension Status: Chronic Plan: Continue home medications (Lyly Costello) Plan patient was seen and examined. Agree with above assessment and plan. (Jessee Murrieta MD) Lyly Costello Jun 18, 2017 12:31 Jessee Murrieta MD Jun 18, 2017 14:34
--- NOTE | 2017-06-18 13:49 | PD.CONS ---
HPI Service Cardiology Physicians Consult Requested By Dr Figueroa Reason for Consult CHF Primary Care Physician Marquez Fields MD History of Present Illness The patient is a 71 year old male known to our practice with a cardiac history of ischemic cardiomyopathy and ventricular tachycardia s/p ICD, atrial fibrillation on NOAC, s/p recent TAVR at , and HLD. Other notable history of severe COPD and CKD. The patient presented to the office yesterday for follow for CHF exacerbation. The patient continued to fail outpatient, oral, diuretic therapy. He continued to complain of weight gain, orthopnea and SOB with minimal exertion. He was sent to the ER for diuresis IV with renal monitoring. Today, on evaluation, the patient feels less SOB and has less edema. (Rosalee Carey) Review of Systems Consitutional: COMPLAINS OF: Weight gain, DENIES: Fatigue, Fever, Chills, Weight loss Eyes: DENIES: Amaurosis Fugax, Change in vision HEENT: DENIES: Lightheadedness, Change in hearing Respiratory: COMPLAINS OF: Shortness of breath, DENIES: See HPI, Cough, Snoring , Wheezing, Sputum production Cardiovascular: COMPLAINS OF: See HPI, DENIES: Chest pain, Palpitations, Syncope, Tachycardia Gastrointestinal: DENIES: Nausea, Vomiting, Change in bowel habits, Reflux, Bloody stools, Melena Genitourinary: DENIES: Urinary incontinence, Difficulty voiding Integumentary: DENIES: Rash Neurologic: DENIES: Tingling or numbness, Memory problems, Poor Balance, Stroke symptoms Musculoskeletal: DENIES: Joint pain, Muscle pain, Limited range of motion, Back pain Psychiatric: DENIES: Anxiety, Depression, Sleep disturbances Hematologic: DENIES: Bruising tendencies, Bleeding tendencies Endocrine: COMPLAINS OF: Weight gain, DENIES: Weight loss, Thyroid disease ( Rosalee Carey) Past Family Social History Allergies: Coded Allergies: No Known Allergies (Verified , 07/09/15) Past Medical History See HPI Past Surgical History TAVR 05/2017 ICD generator change 02/2013 ICD generator change our 06/2003 Reported Medications Reported Meds & Active Scripts Active Reported Digitek (Digoxin) 125 Mcg Tab 0.125 Mg PO DAILY Savaysa (Edoxaban) 60 Mg Tab 60 Mg PO DAILY Ventolin Hfa 18 GM Inh (Albuterol Sulfate) 90 Mcg/Act Aer 2 Puff INH Q4-6H PRN Carvedilol 12.5 Mg Tab 12.5 Mg PO BID Amiodarone (Amiodarone HCl) 200 Mg Tab 200 Mg PO DAILY Torsemide 20 Mg Tab 40 Mg PO BID Active Ordered Medications Current Medications Medications (Trade) Dose Ordered Sig/Marta Route Start Time Stop Time Status Last Admin (Proair Hfa Inh) 2 puff Q4HR PRN INH 06/17/17 16:00 (Cordarone) 200 mg DAILY PO 06/18/17 09:00 06/18/17 08:31 (Coreg) 12.5 mg BID PO 06/17/17 21:00 06/18/17 08:31 (Lanoxin) 0.125 mg DAILY PO 06/18/17 09:00 06/18/17 08:31 (Savaysa) 30 mg DAILY PO 06/18/17 09:00 06/18/17 09:10 (NS Flush) 2 ml UNSCH PRN IV FLUSH 06/17/17 16:00 (NS Flush) 2 ml BID IV FLUSH 06/17/17 21:00 06/18/17 07:40 (Tylenol) 650 mg Q4H PRN PO 06/17/17 16:00 (Zofran Inj) 4 mg Q6H PRN IVP 06/17/17 16:00 (Restoril) 15 mg HS PRN PO 06/17/17 16:00 (Narcan Inj) 0.4 mg UNSCH PRN IV PUSH 06/17/17 16:00 (Meaghan-Colace) 1 tab BID PO 06/17/17 21:00 06/18/17 08:31 (Milk Of Magnesia Liq) 30 ml Q12H PRN PO 06/17/17 16:00 (Senokot) 17.2 mg Q12H PRN PO 06/17/17 16:00 (Dulcolax Supp) 10 mg DAILY PRN RECTAL 06/17/17 16:00 (Lactulose Liq) 30 ml DAILY PRN PO 06/17/17 16:00 (Lasix Inj) 40 mg BID@,18 IV PUSH 06/17/17 18:00 06/18/17 08:32 Family History non contributory Social History Former smoker, no ETOH, , lives with (Rosalee Carey) Physical Exam Vital Signs Vital Signs Date Time Temp Pulse Resp B/P (MAP) Pulse Ox O2 Delivery O2 Flow Rate FiO2 06/18/17 12:00 97.3 68 20 119/53 (75) 91 06/18/17 08:00 99.0 75 20 116/72 (87) 97 06/18/17 04:15 97.9 70 18 121/60 (80) 95 06/18/17 04:00 75 06/18/17 00:00 75 06/17/17 23:45 98.0 53 18 127/65 (85) 97 06/17/17 20:35 98.1 78 18 133/63 (86) 96 06/17/17 20:00 91 06/17/17 19:14 06/17/17 17:12 80 16 149/69 (95) 98 Nasal Cannula 2.00 06/17/17 15:45 76 16 135/73 (93) 98 Nasal Cannula 2.00 06/17/17 14:01 98 Nasal Cannula 2.00 06/17/17 14:01 98 Nasal Cannula 2.00 06/17/17 13:56 98 Nasal Cannula 2.00 Physical Exam GENERAL: Obese male, sitting up in the chair, NAD SKIN: Warm and dry. HEAD: Atraumatic. Normocephalic. EYES: Pupils equal and round. No scleral icterus. No injection or drainage. ENT: No nasal bleeding or discharge. Mucous membranes pink and moist. NECK: Trachea midline. CARDIOVASCULAR: Irreg irreg, reg rate, 2/6 systolic murmur RESPIRATORY: No accessory muscle use. Breath sounds equal bilaterally. rales GASTROINTESTINAL: Abdomen soft, non-tender, nondistended. MUSCULOSKELETAL: Extremities without clubbing, cyanosis. 1+ BLE edema NEUROLOGICAL: Awake and alert. No obvious cranial nerve deficits. Motor grossly within normal limits. Five out of 5 muscle strength in the arms and legs. Normal speech. PSYCHIATRIC: Appropriate mood and affect; insight and judgment normal. Laboratory Laboratory Tests Test 06/17/17 14:00 06/17/17 21:00 06/18/17 03:50 06/18/17 10:05 White Blood Count 6.9 7.0 Red Blood Count 3.91 3.58 Hemoglobin 12.3 11.0 Hematocrit 36.9 33.7 Mean Corpuscular Volume 94.3 94.1 Mean Corpuscular Hemoglobin 31.4 30.7 Mean Corpuscular Hemoglobin Concent 33.3 32.7 Red Cell Distribution Width 14.6 14.0 Platelet Count 195 178 Mean Platelet Volume 9.1 8.5 Neutrophils (%) (Auto) 72.9 71.2 Lymphocytes (%) (Auto) 12.1 14.7 Monocytes (%) (Auto) 11.8 11.2 Eosinophils (%) (Auto) 2.3 2.1 Basophils (%) (Auto) 0.9 0.8 Neutrophils # (Auto) 5.0 5.0 Lymphocytes # (Auto) 0.8 1.0 Monocytes # (Auto) 0.8 0.8 Eosinophils # (Auto) 0.2 0.1 Basophils # (Auto) 0.1 0.1 CBC Comment DIFF FINAL DIFF FINAL Differential Comment Prothrombin Time 14.8 Prothromb Time International Ratio 1.5 Activated Partial Thromboplast Time 32.4 Blood Urea Nitrogen 28 28 Creatinine 1.65 1.59 Random Glucose 87 119 Total Protein 8.7 Albumin 3.3 Calcium Level 9.2 8.3 Alkaline Phosphatase 63 Aspartate Amino Transf (AST/SGOT) 37 Alanine Aminotransferase (ALT/SGPT) 22 Total Bilirubin 0.4 Sodium Level 135 138 Potassium Level 5.5 4.1 Chloride Level 95 96 Carbon Dioxide Level 37.2 37.9 Anion Gap 3 4 Estimat Glomerular Filtration Rate 41 43 Total Creatine Kinase 134 Creatine Kinase MB 0.6 Troponin I 0.07 0.07 0.13 B-Type Natriuretic Peptide 234 Phosphorus Level 3.6 Digoxin Level 1.3 Urine Color LIGHT-YELLOW Urine Turbidity CLEAR Urine pH 6.5 Urine Specific [place] 1.007 Urine Protein NEG Urine Glucose (UA) NEG Urine Ketones NEG Urine Occult Blood NEG Urine Nitrite NEG Urine Bilirubin NEG Urine Urobilinogen LESS THAN 2.0 Urine Leukocyte Esterase NEG Urine RBC 1 Urine WBC LESS THAN 1 Urine Hyaline Casts 3 Microscopic Urinalysis Comment CULT NOT INDICATED (Rosalee Carey) Result Diagram: 06/18/17 0350 06/18/17 0350 Imaging Last 72 hours Impressions Chest X-Ray 06/17/17 1359 Signed Impressions: Service Date/Time: Saturday, June 17, 2017 14:04 - CONCLUSION: Cardiomegaly. No acute focal pulmonary infiltrate or pulmonary vascular congestion. Bob Ernst MD Renal Ultrasound 06/17/17 0000 Signed Impressions: Service Date/Time: Saturday, June 17, 2017 22:05 - CONCLUSION: No abnormality is identified to explain the abnormal laboratory values. There is no hydronephrosis. Everardo Grey MD (Rosalee Carey) Assessment and Plan Assessment and Plan Acute on chronic systolic CHF exacerbation TAVR 05/2017 @ [facility] Atrial fibrillation on NOAC (Envisage study participant) Ischemic cardiomyopathy ICD Abnormal EKG RBBB, LAHB Ventricular tachycardia PLAN Continue diuresis IV today and transition tomorrow Labwork follow up Albuterol PRN Cardiac rehab referral after discharge The patient was seen and evaluated by Dr King who completed face to face encounter and physical exam and participated in evaluation and management. (Rosalee Carey) Assessment and Plan The exam, history, and the medical decision-making described in the above note were completed with the assistance of the mid-level provider. I reviewed and agree with the findings presented. I attest that I had a [id number] encounter with the patient on the same day, and personally performed and documented my assessment and findings in the medical record. CHF much improved , anticipate d/c in am (Lashon King MD) Rosalee Carey Jun 18, 2017 13:49 Lashon King MD Jun 18, 2017 18:06
--- NOTE | 2017-06-18 14:56 | HHI.PR ---
Subjective Remarks Follow-up heart failure. He is feeling better on room air ambulating in the hallway. He wants to go home tomorrow. Discussed with RN Objective Vitals Vital Signs Date Time Temp Pulse Resp B/P (MAP) Pulse Ox O2 Delivery O2 Flow Rate FiO2 06/18/17 12:00 97.3 68 20 119/53 (75) 91 06/18/17 08:00 99.0 75 20 116/72 (87) 97 06/18/17 04:15 97.9 70 18 121/60 (80) 95 06/18/17 04:00 75 06/18/17 00:00 75 06/17/17 23:45 98.0 53 18 127/65 (85) 97 06/17/17 20:35 98.1 78 18 133/63 (86) 96 06/17/17 20:00 91 06/17/17 19:14 06/17/17 17:12 80 16 149/69 (95) 98 Nasal Cannula 2.00 06/17/17 15:45 76 16 135/73 (93) 98 Nasal Cannula 2.00 I/O 06/17/17 06/17/17 06/17/17 06/18/17 06/18/17 06/18/17 07:00 15:00 23:00 07:00 15:00 23:00 Intake Total 360 ml Output Total 500 ml 800 ml Balance -500 ml -440 ml Intake Oral 360 ml Output Urine Total 500 ml 800 ml # Bowel Movements 0 Result Diagram: 06/18/17 0350 06/18/17 0350 Imaging Last Impressions Chest X-Ray 06/17/17 1359 Signed Impressions: Service Date/Time: Saturday, June 17, 2017 14:04 - CONCLUSION: Cardiomegaly. No acute focal pulmonary infiltrate or pulmonary vascular congestion. Bob Ernst MD Renal Ultrasound 06/17/17 0000 Signed Impressions: Service Date/Time: Saturday, June 17, 2017 22:05 - CONCLUSION: No abnormality is identified to explain the abnormal laboratory values. There is no hydronephrosis. Everardo Grey MD Objective Remarks GENERAL: This is a well-nourished, well-developed patient, in no apparent distress. SKIN: No rashes, ecchymoses or lesions. Cool and dry. CARDIOVASCULAR: Regular rate and rhythm without murmurs, gallops, or rubs. RESPIRATORY: Breath sounds decreased bilaterally. No wheezes, rales, or rhonchi. GASTROINTESTINAL: Abdomen soft, non-tender, nondistended. No guarding. MUSCULOSKELETAL: Extremities without clubbing, cyanosis with bilateral lower extremity pitting. No joint tenderness, effusion, or edema noted. No calf tenderness. Negative Homans sign bilaterally. NEUROLOGICAL: Awake and alert. Cranial nerves II through XII intact. Motor and sensory grossly within normal limits. Five out of 5 muscle strength in all muscle groups. Normal speech. Procedures none A/P Problem List: (1) CHF (congestive heart failure) ICD Code: I50.9 - Heart failure, unspecified Status: Chronic Assessment and Plan Acute on chronic systolic CHF (congestive heart failure) with exacerbation Recent h/o TAVR continue home meds Improving continue IV diuresis and switch to by mouth tomorrow. Continue Coreg unable to start BLANCA inhibitor secondary to kidney dysfunction. Follow-up renal function and echo. Atrial fibrillation AICD Continue BB and NOAC CHELSEY Cr 1.6 , GFR 41 on admission. Avoid nephrotoxic agents. Hold on IVF as patient with CHF exacerbation COPD DuoNeb's Oxygen support by nasal cannula, currently saturating well Elevated troponin. Denies chest pain. Likely secondary to above. Negative cardiac catheterization recently prior to the aVR per patient. Hypertension Continue home medications Monitor vital signs Hyperlipidemia Continue statin DVT prophylaxis with SCDs/TEDs/ continue home savaysa Discharge Planning Possible discharge in the morning Hai Dill MD Jun 18, 2017 14:56
[2017-06-18] MEDS ORDERED: FURO40TA PO (14:59)
--- NOTE | 2017-06-18 14:59 | HHI.DCPOC ---
Discharge Care Plan Diagnosis: (1) CHF (congestive heart failure) Your Health Problems Are: Difficulty with ADL Exercise Tolerance Goals to Promote Your Health * To prevent worsening of your condition and complications * To maintain your health at the optimal level Directions to Meet Your Goals Take your medications as prescribed Follow your dietary instruction Follow activity as directed Keep your appointments as scheduled Take your immunizations and boosters as scheduled If your symptoms worsen call your PCP, if no PCP go to Urgent Care Center or Emergency Room Smoking is Dangerous to Your Health. Avoid second hand smoke Call the 24-hour hour crisis hotline for domestic abuse at Hai Dill MD Jun 18, 2017 14:59
--- NOTE | 2017-06-18 15:40 | EKG ---
Date Performed: 06/17/2017 Time Performed: 14:18:06 PTAGE: 71 years EKG: ATRIAL FIBRILLATION MARKED LEFT AXIS DEVIATION INTRAVENTRICULAR CONDUCTION DELAY When chayo red to previous tracing, The patient is now in atral Fibrillation. ABNORMAL ECG PREVIOUS TRACING : 05/30/2015 10.37 DOCTOR: Lashon King Interpretating Date/Time 06/18/2017 15:39:18
--- NOTE | 2017-06-18 15:40 | EKG ---
Date Performed: 06/17/2017 Time Performed: 16:28:50 PTAGE: 71 years EKG: ATRIAL FIBRILLATION WITH ABERRANT CONDUCTION OR VENTRICULAR PREMATURE COMPLEXES MARKED LEFT AXIS DEVIATION INTRAVENTRICULAR CONDUCTION DELAY When compared to previous tracing, the patient cont inues in atrial fibrillation. ABNORMAL ECG PREVIOUS TRACING : 06/17/2017 14.18 DOCTOR: Lashon King Interpretating Date/Time 06/18/2017 15:40:10
--- NOTE | 2017-06-18 15:42 | EKG ---
Date Performed: 06/17/2017 Time Performed: 22:27:14 PTAGE: 71 years EKG: ATRIAL FIBRILLATION WITH ABERRANT CONDUCTION OR VENTRICULAR PREMATURE COMPLEXES RIGHT BUNDL E BRANCH BLOCK LEFT ANTERIOR FASCICULAR BLOCK MODERATE T-WAVE ABNORMALITY, CONSIDER LATERAL ISCHEMIA When compared to previous tracing, the patient continues in atrial Fibrillation. ABNORMAL ECG PREVIOUS TRACING : 06/17/2017 16.28 DOCTOR: Lashon King Interpretating Date/Time 06/18/2017 15:41:03
[2017-06-19] VITALS: BP_SYST 11; BP_SYST 110; BP_DIAS 70; PULSE 64; PULSE 75; RESP 18; TEMP 98.6; O2SAT 98
[2017-06-19 04:00] VITALS: BP 133/77; PULSE 79; PULSE 80; RESP 20; TEMP 97.3; O2SAT 97
[2017-06-19] MEDS: SODIUM CHLORIDE 0.9% FLUSH 10 ML FLUSH IV FLUSH SCH (06:54)
[2017-06-19 07:16] LABS: BICARBONATE 36.3 MEQ/L (21.0-32.0); CALCIUM 8.1 MG/DL (8.5-10.1); CREATININE 1.5 MG/DL (0.60-1.30); MAGNESIUM 2.3 MG/DL (1.5-2.5)
[2017-06-19 08:00] VITALS: BP 134/65; PULSE 74; RESP 18; TEMP 97.7; O2SAT 98
[2017-06-19] MEDS: CARVEDILOL 12.5 MG TAB PO SCH (08:16)
[2017-06-19] MEDS: DOCUSATE SODIUM 50 MG/SENNA 8.6 MG TAB PO SCH (08:16)
[2017-06-19] MEDS: DIGOXIN 0.125 MG TAB PO SCH (08:16)
[2017-06-19] MEDS: AMIODARONE 200 MG TAB PO SCH (08:17)
[2017-06-19] MEDS: EDOXABAN TOSYLATE 30 MG TAB PO SCH (08:17)
[2017-06-19] MEDS ORDERED: FUROSEMIDE 40 MG TAB PO SCH (09:00)
[2017-06-19] MEDS ORDERED: POTASSIUM CHLORIDE 10 MEQ CONTROLLED RELEASE TAB PO ONE (09:15)
--- NOTE | 2017-06-19 10:22 | PD.CARD.PN ---
Subjective Subjective Remarks The patient feels better, less swelling, SOB improving (Rosalee Carey) Subjective Remarks The exam, history, and the medical decision-making described in the above note were completed with the assistance of the mid-level provider. I reviewed and agree with the findings presented. I attest that I had a [id number] encounter with the patient on the same day, and personally performed and documented my assessment and findings in the medical record. Much better chf , will d/c fu in 2 weeks my office (Lashon King MD) Objective Medications Current Medications Medications (Trade) Dose Ordered Sig/Marta Route Start Time Stop Time Status Last Admin (Proair Hfa Inh) 2 puff Q4HR PRN INH 06/17/17 16:00 (Cordarone) 200 mg DAILY PO 06/18/17 09:00 06/19/17 08:17 (Coreg) 12.5 mg BID PO 06/17/17 21:00 06/19/17 08:16 (Lanoxin) 0.125 mg DAILY PO 06/18/17 09:00 06/19/17 08:16 (Savaysa) 30 mg DAILY PO 06/18/17 09:00 06/19/17 08:17 (NS Flush) 2 ml UNSCH PRN IV FLUSH 06/17/17 16:00 (NS Flush) 2 ml BID IV FLUSH 06/17/17 21:00 06/19/17 06:54 (Tylenol) 650 mg Q4H PRN PO 06/17/17 16:00 (Zofran Inj) 4 mg Q6H PRN IVP 06/17/17 16:00 (Restoril) 15 mg HS PRN PO 06/17/17 16:00 (Narcan Inj) 0.4 mg UNSCH PRN IV PUSH 06/17/17 16:00 (Meaghan-Colace) 1 tab BID PO 06/17/17 21:00 06/19/17 08:16 (Milk Of Magnesia Liq) 30 ml Q12H PRN PO 06/17/17 16:00 (Senokot) 17.2 mg Q12H PRN PO 06/17/17 16:00 (Dulcolax Supp) 10 mg DAILY PRN RECTAL 06/17/17 16:00 (Lactulose Liq) 30 ml DAILY PRN PO 06/17/17 16:00 (Lasix) 40 mg BID@,18 PO 06/19/17 09:00 06/19/17 08:17 Vital Signs / I&O Vital Signs Date Time Temp Pulse Resp B/P (MAP) Pulse Ox O2 Delivery O2 Flow Rate FiO2 06/19/17 08:00 97.7 74 18 134/65 (88) 98 06/19/17 04:00 97.3 80 20 133/77 (95) 97 06/19/17 04:00 79 06/19/17 00:00 98.6 64 18 110/70 (83) 98 06/19/17 00:00 75 06/19/17 00:00 98.6 64 18 11/70 (51) 98 06/18/17 20:00 76 06/18/17 20:00 98.3 81 20 114/69 (84) 99 06/18/17 17:36 99 Nasal Cannula 2.00 06/18/17 16:00 75 06/18/17 16:00 98.0 74 20 132/62 (85) 99 06/18/17 12:00 97.3 68 20 119/53 (75) 91 06/18/17 12:00 73 I/O 06/18/17 06/18/17 06/18/17 06/19/17 06/19/17 06/19/17 07:00 15:00 23:00 07:00 15:00 23:00 Intake Total 360 ml 720 ml 480 ml Output Total 800 ml 650 ml 1000 ml Balance -440 ml 720 ml -650 ml -520 ml Intake Oral 360 ml 720 ml 480 ml Output Urine Total 800 ml 650 ml 1000 ml # Voids 4 # Bowel Movements 0 1 2 Physical Exam GENERAL: Obese male, NAD SKIN: Warm and dry. HEAD: Normocephalic. EYES: No scleral icterus. No injection or drainage. NECK: Supple, trachea midline. CARDIOVASCULAR: Irreg irreg, reg rate RESPIRATORY: Breath sounds equal bilaterally. No accessory muscle use. GASTROINTESTINAL: Abdomen soft, non-tender, nondistended. MUSCULOSKELETAL: No cyanosis, pretibial edema BACK: Nontender without obvious deformity. s. Laboratory Laboratory Tests Test 06/19/17 06:00 Blood Urea Nitrogen 29 MG/DL Creatinine 1.50 MG/DL Random Glucose 116 MG/DL Calcium Level 8.1 MG/DL Magnesium Level 2.3 MG/DL Sodium Level 136 MEQ/L Potassium Level 3.8 MEQ/L Chloride Level 95 MEQ/L Carbon Dioxide Level 36.3 MEQ/L Anion Gap 5 MEQ/L Estimat Glomerular Filtration Rate 46 ML/MIN (Rosalee Carey) Assessment and Plan Assessment and Plan Resolving acute on chronic systolic CHF exacerbation TAVR 05/2017 @ [facility] Atrial fibrillation on NOAC (Envisage study participant) Ischemic cardiomyopathy ICD Abnormal EKG RBBB, LAHB Ventricular tachycardia COPD PLAN Change from lasix to torsemide. Will need BMP follow up after discharge. Nephro to determine if okay to resume Aldactone. Albuterol PRN The patient is clear for discharge from cardiac standpoint. Follow up in the office in 1-2 weeks with Rosalee ZALDIVAR The patient was seen and evaluated by Dr King who completed face to face encounter and physical exam and participated in evaluation and management. (Rosalee Carey) Rosalee Carey Jun 19, 2017 10:22 Lashon King MD Jun 19, 2017 18:57
--- NOTE | 2017-06-19 10:45 | HHI.PR ---
Subjective Remarks Follow-up heart failure. He is doing really good ambulating in the hallway on room air. He wants to go home. Discussed with RN. Objective Vitals Vital Signs Date Time Temp Pulse Resp B/P (MAP) Pulse Ox O2 Delivery O2 Flow Rate FiO2 06/19/17 08:00 97.7 74 18 134/65 (88) 98 06/19/17 04:00 97.3 80 20 133/77 (95) 97 06/19/17 04:00 79 06/19/17 00:00 98.6 64 18 110/70 (83) 98 06/19/17 00:00 75 06/19/17 00:00 98.6 64 18 11/70 (51) 98 06/18/17 20:00 76 06/18/17 20:00 98.3 81 20 114/69 (84) 99 06/18/17 17:36 99 Nasal Cannula 2.00 06/18/17 16:00 75 06/18/17 16:00 98.0 74 20 132/62 (85) 99 06/18/17 12:00 97.3 68 20 119/53 (75) 91 06/18/17 12:00 73 I/O 06/18/17 06/18/17 06/18/17 06/19/17 06/19/17 06/19/17 07:00 15:00 23:00 07:00 15:00 23:00 Intake Total 360 ml 720 ml 480 ml Output Total 800 ml 650 ml 1000 ml Balance -440 ml 720 ml -650 ml -520 ml Intake Oral 360 ml 720 ml 480 ml Output Urine Total 800 ml 650 ml 1000 ml # Voids 4 # Bowel Movements 0 1 2 Result Diagram: 06/18/17 0350 06/19/17 0600 Imaging Last Impressions Chest X-Ray 06/17/17 1359 Signed Impressions: Service Date/Time: Saturday, June 17, 2017 14:04 - CONCLUSION: Cardiomegaly. No acute focal pulmonary infiltrate or pulmonary vascular congestion. Bob Ernst MD Renal Ultrasound 06/17/17 0000 Signed Impressions: Service Date/Time: Saturday, June 17, 2017 22:05 - CONCLUSION: No abnormality is identified to explain the abnormal laboratory values. There is no hydronephrosis. Everardo Grey MD Objective Remarks GENERAL: This is a well-nourished, well-developed patient, in no apparent distress. SKIN: No rashes, ecchymoses or lesions. Cool and dry. CARDIOVASCULAR: Regular rate and rhythm without murmurs, gallops, or rubs. RESPIRATORY: Breath sounds decreased bilaterally. No wheezes, rales, or rhonchi. GASTROINTESTINAL: Abdomen soft, non-tender, nondistended. No guarding. MUSCULOSKELETAL: Extremities without clubbing, cyanosis with bilateral lower extremity pitting. No joint tenderness, effusion, or edema noted. No calf tenderness. Negative Homans sign bilaterally. NEUROLOGICAL: Awake and alert. Cranial nerves II through XII intact. Motor and sensory grossly within normal limits. Five out of 5 muscle strength in all muscle groups. Normal speech. Procedures none A/P Problem List: (1) CHF (congestive heart failure) ICD Code: I50.9 - Heart failure, unspecified Status: Chronic Assessment and Plan Acute on chronic systolic CHF (congestive heart failure) with exacerbation Recent h/o TAVR continue home meds Improving continue diuresis with torsemide. A Aldactone has been okayed by nephrology to be started. Continue Coreg unable to start BLANCA inhibitor secondary to kidney dysfunction. EF of 20% Atrial fibrillation AICD Continue BB and NOAC CHELSEY Cr 1.6 , GFR 41 on admission. Avoid nephrotoxic agents. Hold on IVF as patient with CHF exacerbation. Improving. COPD DuoNeb's Oxygen as needed Elevated troponin. Denies chest pain. Likely secondary to above. Negative cardiac catheterization recently prior to the aVR per patient. Hypertension Continue home medications Monitor vital signs Hyperlipidemia Continue statin DVT prophylaxis with SCDs/TEDs/ continue home savaysa Discharge Planning Discharge patient to home Condition on discharge: Improved Regular Diet as tolerated Ad Jessi activity Rx written: Torsemide 20 mg twice a day and Aldactone 25 mg daily Follow-up with primary care physician, cardiology and nephrology Hai Dill MD Jun 19, 2017 10:45
[2017-06-19] MEDS ORDERED: TORS1TAB12 PO (10:46)
--- NOTE | 2017-06-19 11:17 | HHI.FF ---
Face to Face Verification Diagnosis: (1) CHF (congestive heart failure) Home Health Nursing Order: Medical education CHF education Nursing assessment with vital signs I have seen patient Edu Callejas on 06/19/17. My clinical findings support the need for the requested home health care services because: Patient has SOB I certify that my clinical findings support that this patient is homebound because: Poor cardiac reserve Hai Dill MD Jun 19, 2017 11:17
--- NOTE | 2017-06-19 11:55 | HHI.NPPN ---
Subjective Renal Failure: Acute Interval History Renal function is better. To be discharged today. (Lyly Costello) Objective Data Data Vital Signs Date Time Temp Pulse Resp B/P (MAP) Pulse Ox O2 Delivery O2 Flow Rate FiO2 06/19/17 08:00 97.7 74 18 134/65 (88) 98 06/19/17 04:00 97.3 80 20 133/77 (95) 97 06/19/17 04:00 79 06/19/17 00:00 98.6 64 18 110/70 (83) 98 06/19/17 00:00 75 06/19/17 00:00 98.6 64 18 11/70 (51) 98 06/18/17 20:00 76 06/18/17 20:00 98.3 81 20 114/69 (84) 99 06/18/17 17:36 99 Nasal Cannula 2.00 06/18/17 16:00 75 06/18/17 16:00 98.0 74 20 132/62 (85) 99 06/18/17 12:00 97.3 68 20 119/53 (75) 91 06/18/17 12:00 73 (Lyly Costello) -: 06/18/17 0350 06/19/17 0600 Imaging Last 72 hours Impressions Chest X-Ray 06/17/17 1359 Signed Impressions: Service Date/Time: Saturday, June 17, 2017 14:04 - CONCLUSION: Cardiomegaly. No acute focal pulmonary infiltrate or pulmonary vascular congestion. Bob Ernst MD Renal Ultrasound 06/17/17 0000 Signed Impressions: Service Date/Time: Saturday, June 17, 2017 22:05 - CONCLUSION: No abnormality is identified to explain the abnormal laboratory values. There is no hydronephrosis. Everardo Grey MD (Lyly Costello) Physical Exam General Appearance: Well Developed, No Acute Distress, Comfortable, Obese (Lyly Costello) Throat Throat Exam: Oral Mucosa [place] & Moist (Lyly Costello) Pulmonary Resp Exam: Breath Sounds Equal, Crackles Resp Remarks shallow respirations (Lyly Costello) Cardiology CV Exam: Irregular, Arrhythmia (Lyly Costello) Gastrointestinal/Abdomen GI Exam: Soft, Non-Tender GI Remarks PPM LLQ (Lyly Costello) Musculoskeletal MS Exam: Normal Gait, Normal Tone (Lyly Costello) Integumentary Skin Exam: Warm, Dry, Intact (Lyly Costello) Extremeties Extremities Exam: Pedal Pulses Palpable, Moderate Edema (Lyly Costello) Neurologic Neuro Exam: Alert, Awake, Oriented, Speech Clear, Moving All Extremities (Lyly Costello) Psychiatric Psych Exam: Appropriate Responses (Lyly Costello) Assessment/Plan Discussed Condition With: Patient Assessment Summary: CHELSEY/Acute Renal Failure, Anemia of CKD, Fluid/Volume Overload, CHF, Hypertension Problem List: (1) Acute kidney injury ICD Codes: N17.9 - Acute kidney failure, unspecified Status: Acute Plan: He had normal renal function in 2016 CHELSEY most likely due to CHF exacerbation and increased renal vein pressure Renal function improved. Stable for discharge. Continue diuresis, changed Torsemide 20 BID Resume Spironolactone 25 po daily Avoid nephrotoxic agents at home Avoid IVF administration (2) CHF (congestive heart failure) ICD Codes: I50.9 - Heart failure, unspecified Status: Chronic Plan: Diuresis as above. EF less than 20% (3) History of cardiomyopathy ICD Codes: Z86.79 - Personal history of other diseases of the circulatory system Status: Acute Plan: Cardiology is following On oxygen at home (4) Atrial fibrillation ICD Codes: I48.91 - Unspecified atrial fibrillation Status: Chronic Plan: On digoxin, amiodarone, Digoxin follows with cardiology after discharge (5) Hypertension ICD Codes: I10 - Essential (primary) hypertension Status: Chronic Plan: Continue home medications (Lyly Costello) Problem List: (1) Acute kidney injury ICD Codes: N17.9 - Acute kidney failure, unspecified Status: Acute Plan: He had normal renal function in 2016 CHELSEY most likely due to CHF exacerbation and increased renal vein pressure Renal function improved. Stable for discharge. Continue diuresis, changed Torsemide 20 BID Resume Spironolactone 25 po daily Avoid nephrotoxic agents at home Avoid IVF administration (2) CHF (congestive heart failure) ICD Codes: I50.9 - Heart failure, unspecified Status: Chronic Plan: Diuresis as above. EF less than 20% (3) History of cardiomyopathy ICD Codes: Z86.79 - Personal history of other diseases of the circulatory system Status: Acute Plan: Cardiology is following On oxygen at home (4) Atrial fibrillation ICD Codes: I48.91 - Unspecified atrial fibrillation Status: Chronic Plan: On digoxin, amiodarone, Digoxin follows with cardiology after discharge (5) Hypertension ICD Codes: I10 - Essential (primary) hypertension Status: Chronic Plan: Continue home medications Plan patient was seen and examined. Agree with above assessment and plan. Renal function has improved, to be discharged today. (Jessee Murrieta MD) Lyly Costello Jun 19, 2017 11:55 Jessee Murrieta MD Jun 19, 2017 17:54
[2017-06-19 12:00] VITALS: BP 112/63; PULSE 69; RESP 18; TEMP 97.9; O2SAT 98
[2017-06-19] MEDS ORDERED: SPIR25 PO (12:39)
[2017-06-19] MEDS ORDERED: TORSEMIDE 20 MG TAB PO SCH (18:00)
[2017-06-19 22:42] LABS: HEMOGLOBIN A1C 6.4 % (4.3-6.0)
== END 2017-06-19 13:29 | disposition home health service (06) | DRG 291 ==
LOC: NEPE 13:01 → NEDA 15:58 → OBSVTOIN 15:58 → N04B 19:19
PROVIDERS: ADMIT Internal Medicine; ATTEND Internal Medicine
DX: I13.0 Hypertensive heart and chronic kidney disease with heart failure and stage 1 through stage 4 chronic kidney disease, or unspecified chronic kidney disease (principal); I50.23 Acute on chronic systolic (congestive) heart failure; N17.9 Acute kidney failure, unspecified; I47.2 Ventricular tachycardia; Z68.41 Body mass index [BMI] 40.0-44.9, adult; J96.10 Chronic respiratory failure, unspecified whether with hypoxia or hypercapnia; Z99.81 Dependence on supplemental oxygen; E87.5 Hyperkalemia; J44.9 Chronic obstructive pulmonary disease, unspecified; I25.5 Ischemic cardiomyopathy; I48.91 Unspecified atrial fibrillation; I45.10 Unspecified right bundle-branch block; D63.1 Anemia in chronic kidney disease; E66.9 Obesity, unspecified; M19.90 Unspecified osteoarthritis, unspecified site; I25.10 Atherosclerotic heart disease of native coronary artery without angina pectoris; E78.5 Hyperlipidemia, unspecified; E03.9 Hypothyroidism, unspecified; N18.9 Chronic kidney disease, unspecified; R74.8 Abnormal levels of other serum enzymes; I25.2 Old myocardial infarction; Z95.810 Presence of automatic (implantable) cardiac defibrillator; Z95.2 Presence of prosthetic heart valve; Z87.891 Personal history of nicotine dependence
CPT/HCPCS: 71045; 76775; 80048; 80053; 80162; 81001; 82550; 82552; 83036; 83735; 83880; 84100; 84484; 85025; 85610; 85730; 93005; 93306; 99285; J1940

== ENCOUNTER 2017-08-28 20:05 | Inpatient (IN) | payer MEDICARE ==
[~2017-08-28] VITALS: Ht 162.6 cm; Wt 105.5 kg
[~2017-08-28 20:05] MED LIST changes: -ACCU40TA10 PO; -ALBU2.5I INH; -ALBU8I INH; +AMIO200T PO; -ASPI325T PO; +CARV12.52 PO; -CARV6.252 PO; +DIGO1TAB59 PO; +EDOX1TAB5 PO; -FURO1TAB93 PO; -GUAI600 PO; -OSEL75 PO; -PRED5PAK PO; +SPIR25 PO; -SPIR25TA PO; +TORS1TAB12 PO; +VENTAER INH; -Z.0.OXYGENDME NC
[2017-08-28 20:08] VITALS: BP 111/67; PULSE 99; RESP 34; TEMP 98.7; O2SAT 100
[2017-08-28] MEDS ORDERED: methylPREDNISolone SOD SUCC 125 MG/2 ML VIAL IV PUSH ONE (20:15)
[2017-08-28] MEDS ORDERED: SODIUM CHLORIDE 0.9% FLUSH 10 ML FLUSH IVF PRN (20:15)
[2017-08-28] MEDS ORDERED: FUROSEMIDE 100 MG/10 ML VIAL IV PUSH ONE (20:15)
[2017-08-28 20:40] VITALS: BP 138/100; PULSE 97
--- NOTE | 2017-08-28 20:49 | PD ---
HPI Chief Complaint: Respiratory Distress Time Seen by Provider: 20:09 Travel History International Travel<30 days: No Contact w/Intl Traveler<30days: No Traveled to known affect area: No History of Present Illness HPI 71-year-old male presents to the emergency department by EMS transport from home for 1 day of progressively worsening shortness of breath. Patient notes some mild increased swelling of the lower extremities. Symptoms exacerbated by exertion unable to identify alleviating factors. No report of chest pain referred neck jaw back shoulder arm or abdominal pain. Patient's had no nausea or vomiting. Patient has noted some diaphoresis. Patient has extensive past medical history that includes ischemic cardiomyopathy ventricular tachycardia with AICD, atrial fibrillation on anticoagulation aortic stenosis status post T[facility]VR at [facility] and hyperlipidemia also history of COPD and chronic kidney disease. Patient has recurrent episodes of congestive heart failure. Patient has required several admissions for failed outpatient therapy. Patient has history of dyspnea on exertion with minimal exertion. Patient is on continuous supplemental oxygen 2 L/min nasal cannula at all times. Patient this afternoon was noted to have increasing shortness of breath and upon EMS arrival O2 saturations reportedly 80% on 2 L/min nasal cannula. Patient was placed on CPAP and administered 1 sublingual nitroglycerin. Patient denies having had any chest pain and denies any chest pain at this time. Patient did not receive any diuretic prior to arrival or updraft treatments. Patient denies any recent febrile illness. Patient denies any chest pain. Patient denies any referred neck jaw back shoulder arm or abdominal pain. Patient is under the care of Dr. Fields and his casino gaming worker is Dr. King. FOR[facility]LY [facility] Past Medical History Narrative Medical Ischemic cardiomyopathy ventricular tachycardia AICD pacemaker atrial fibrillation on anticoagulation([employer] study participant-06/17/17) right bundle branch block left anterior fascicular hemiblock ventricular tachycardia COPD chronic kidney disease aortic stenosis status post TAPVR hyperlipidemia; no tobacco use; nursing notes reviewed Hx Anticoagulant Therapy: Yes Arthritis: No Asthma: Yes (as a kid) Heart Rhythm Problems: Yes (AFIB) Cancer: No Cardiovascular Problems: Yes High Cholesterol: Yes Chest Pain: Yes Congestive Heart Failure: No COPD: Yes Diabetes: No Diminished Hearing: No Endocrine: No GERD: No Genitourinary: No Hiatal Hernia: No Hypertension: Yes Immune Disorder: No Implanted Vascular Access Dvce: Yes Kidney Stones: Yes (25 years ago) Musculoskeletal: Yes (LEFT KNEE SURGERY 40 years ago) Neurologic: No Psychiatric: No Reproductive: No Respiratory: Yes (COPD) Immunizations Current: No Renal Failure: No Sickle Cell Disease: No Sleep Apnea: No Thyroid Disease: No Ulcer: No Tetanus Vaccination: > 5 Years Past Surgical History Abdominal Surgery: No AICD: Yes Arteriovenous Shunt: No Body Medical Devices: eyel lens Cardiac Surgery: Yes (AICD WITH PACEMAKER) Ear Surgery: No Endocrine Surgery: No Eye Surgery: Yes (CATARACT REMOVED) Genitourinary Surgery: No Gynecologic Surgery: No Hysterectomy: Yes Insulin Pump: No Joint Replacement: No Oral Surgery: No Pacemaker: Yes (AICD LEFT ABD) Thoracic Surgery: No Other Surgery: Yes (back) Social History Alcohol Use: No Tobacco Use: Yes Substance Use: No Allergies-Medications (Allergen,Severity, Reaction): Coded Allergies: No Known Allergies (Verified , 07/09/15) Reported Meds & Prescriptions Reported Meds & Active Scripts Active Aldactone (Spironolactone) 25 Mg Tab 25 Mg PO DAILY Reported Stiolto Respimat Inh (Tiotropium-Olodaterol Inh) 2.5-2.5 Mcg/Act Aero 2 Puff INH DAILY Sotalol (Sotalol HCl) 80 Mg Tab 80 Mg PO BID Advair Diskus Inh (Fluticasone-Salmeterol Inh) 100-50 Mcg/Blist Aer 1 Puff INH BID Rinse mouth after use. Torsemide 20 Mg Tab 20 Mg PO DAILY Digitek (Digoxin) 125 Mcg Tab 0.125 Mg PO DAILY Savaysa (Edoxaban) 60 Mg Tab 60 Mg PO DAILY Ventolin Hfa 18 GM Inh (Albuterol Sulfate) 90 Mcg/Act Aer 2 Puff INH Q4-6H PRN Carvedilol 12.5 Mg Tab 12.5 Mg PO BID Review of Systems Except as stated in HPI: all other systems reviewed are Neg General / Constitutional: No: Fever, Chills HENT: No: Congestion Cardiovascular: Positive: Diaphoresis, Dyspnea on exertion, Edema, No: Chest Pain or Discomfort, Palpitations Respiratory: Positive: Cough, Shortness of Breath, Wheezing, Orthopnea, No: Pleuritic Pain Gastrointestinal: No: Vomiting, Abdominal Pain Genitourinary: No: Decreased Urinary Output, Flank Pain Musculoskeletal: Positive: Edema, No: Pain Skin: No Rash Neurologic: No: Weakness Psychiatric: Positive: Anxiety Hematologic/Lymphatic: Positive: Easy Bruising Physical Exam Narrative GENERAL: Well-developed well-nourished obese male in obvious respiratory distress being placed on BiPAP SKIN: Warm and dry. HEAD: Normocephalic. EYES: No scleral icterus. No injection or drainage. NECK: Supple, trachea midline. No JVD or lymphadenopathy. CARDIOVASCULAR: Regular rate and rhythm without murmurs, gallops, or rubs. RESPIRATORY: Breath sounds equal bilaterally with bibasilar crackles and intermittent extra Tory wheezing. No accessory muscle use. GASTROINTESTINAL: Abdomen soft, non-tender, nondistended. MUSCULOSKELETAL: No cyanosis, 1-2+ lower extremity edema. BACK: Nontender without obvious deformity. No CVA tenderness. Data Data Last Documented VS Vital Signs Date Time Temp Pulse Resp B/P (MAP) Pulse Ox O2 Delivery O2 Flow Rate FiO2 08/28/17 23:34 95 30 08/28/17 22:27 96 31 161/77 (105) BiPAP 08/28/17 20:08 98.7 Orders Orders Complete Blood Count With Diff (08/28/17 20:10) Comprehensive Metabolic Panel (08/28/17 20:10) B-Type Natriuretic Peptide (08/28/17 20:10) Act Partial Throm Time (Ptt) (08/28/17 20:10) Prothrombin Time / Inr (Pt) (08/28/17 20:10) Magnesium (Mg) (08/28/17 20:10) Ckmb (Isoenzyme) Profile (08/28/17 20:10) Troponin I (08/28/17 20:10) Urinalysis - C+S If Indicated (08/28/17 20:10) Iv Access Insert/Monitor (08/28/17 20:10) Electrocardiogram (08/28/17 20:10) Ecg Monitoring (08/28/17 20:10) Oximetry (08/28/17 20:10) Oxygen Administration (08/28/17 20:10) Chest, Single Ap (08/28/17 20:10) Sodium Chloride 0.9% Flush (Ns Flush) (08/28/17 20:15) Methylprednisolone So Succ Inj (Solumedr (08/28/17 20:15) Albuterol-Ipratropium Neb (Duoneb Neb) (08/28/17 20:15) Furosemide Inj (Lasix Inj) (08/28/17 20:15) Resp Bipap / Cpap Non Invas Vt (08/28/17 ) Arterial Blood Gas (Abg) (08/28/17 ) Digoxin (08/28/17 20:20) Albuterol-Ipratropium Neb (Duoneb Neb) (08/28/17 21:45) Nitroglycerin 2% Oint (Nitroglycerin 2% (08/28/17 21:45) Arterial Blood Gas (Abg) (08/28/17 22:00) Admit Order (Ed Use Only) (08/28/17 ) Screw Machine Repairer / Telemetry CLAIR.Q8H (08/28/17 23:43) Diet Heart Healthy (08/29/17 Breakfast) Activity Bed Rest (08/28/17 23:43) Notify Dr: Other (08/28/17 23:43) Labs Laboratory Tests Test 08/28/17 20:20 08/28/17 21:07 08/28/17 22:48 White Blood Count 11.8 TH/MM3 Red Blood Count 3.91 MIL/MM3 Hemoglobin 11.7 GM/DL Hematocrit 37.8 % Mean Corpuscular Volume 96.6 FL Mean Corpuscular Hemoglobin 29.9 PG Mean Corpuscular Hemoglobin Concent 30.9 % Red Cell Distribution Width 16.2 % Platelet Count 212 TH/MM3 Mean Platelet Volume 9.3 FL Neutrophils (%) (Auto) 76.6 % Lymphocytes (%) (Auto) 14.4 % Monocytes (%) (Auto) 6.4 % Eosinophils (%) (Auto) 2.0 % Basophils (%) (Auto) 0.6 % Neutrophils # (Auto) 9.1 TH/MM3 Lymphocytes # (Auto) 1.7 TH/MM3 Monocytes # (Auto) 0.8 TH/MM3 Eosinophils # (Auto) 0.2 TH/MM3 Basophils # (Auto) 0.1 TH/MM3 CBC Comment DIFF FINAL Differential Comment Prothrombin Time 13.9 SEC Prothromb Time International Ratio 1.4 RATIO Activated Partial Thromboplast Time 26.1 SEC Blood Urea Nitrogen 30 MG/DL Creatinine 2.12 MG/DL Random Glucose 312 MG/DL Total Protein 8.7 GM/DL Albumin 3.3 GM/DL Calcium Level 8.8 MG/DL Magnesium Level 2.7 MG/DL Alkaline Phosphatase 70 U/L Aspartate Amino Transf (AST/SGOT) 19 U/L Alanine Aminotransferase (ALT/SGPT) 23 U/L Total Bilirubin 0.5 MG/DL Sodium Level 135 MEQ/L Potassium Level 4.7 MEQ/L Chloride Level 95 MEQ/L Carbon Dioxide Level 30.0 MEQ/L Anion Gap 10 MEQ/L Estimat Glomerular Filtration Rate 31 ML/MIN Total Creatine Kinase 51 U/L Troponin I 0.08 NG/ML B-Type Natriuretic Peptide 943 PG/ML Digoxin Level 1.0 NG/ML Blood Gas Puncture Site RT RADIAL RT RADIAL Blood Gas Patient Temperature 98.6 98.6 Blood Gas HCO3 30 mmol/L 31 mmol/L Blood Gas Base Excess 3.1 mmol/L 5.1 mmol/L Blood Gas Oxygen Saturation 99 % 97 % Arterial Blood pH 7.23 7.29 Arterial Blood Partial Pressure CO2 75 mmHg 68 mmHg Arterial Blood Partial Pressure O2 450 mmHG 139 mmHG Arterial Blood Oxygen Content 17.9 Vol % 17.3 Vol % Arterial Blood Carboxyhemoglobin 0.8 % 1.2 % Arterial Blood Methemoglobin 0.6 % 0.7 % Blood Gas Hemoglobin 12.1 G/DL 12.5 G/DL Oxygen Delivery Device BiPAP BiPAP Blood Gas Ventilator Setting IPAP 12/EPAP 8 IPAP 10/ EPAP 5 Blood Gas Inspired Oxygen 100 % 40 % MDM Medical Decision Making Medical Screen Exam Complete: Yes Emergency Medical Condition: Yes Medical Record Reviewed: Yes Interpretation(s) EKG atrial fibrillation right 90 with intraventricular conduction delay intermittent pacer spikes cxr: vascular congestion, CM CBC & BMP Diagram 08/28/17 20:20 Total Protein 8.7 H, Albumin 3.3 L, Calcium Level 8.8, Magnesium Level 2.7 H, Alkaline Phosphatase 70, Aspartate Amino Transf (AST/SGOT) 19, Alanine Aminotransferase (ALT/SGPT) 23, Total Bilirubin 0.5 Vital Signs Date Time Temp Pulse Resp B/P (MAP) Pulse Ox O2 Delivery O2 Flow Rate FiO2 08/28/17 20:40 97 138/100 (113) 08/28/17 20:32 99 BiPAP 100 08/28/17 20:11 94 32 100 CPAP 08/28/17 20:08 98.7 99 34 111/67 (82) 100 Differential Diagnosis Dyspnea, CHF, exacerbation COPD, pneumonia, PE, ACS, myocardial infarction Narrative Course ABG consistent with respiratory acidosis and hypercapnia; FiO2 increased from 100% to 50% saturations remaining 90-99% FiO2 again decreased to 40% we will repeat ABG patient is aware that should his hypercarbia persist or worsen he will require intubation and is agreeable to this. Patient reports symptomatically he feels much better and is demonstrating less work of breathing mentation remains intact lung sounds improved patient is no longer diaphoretic. Additional DuoNeb updraft administered At 10 PM labs resulted CBC is automated differential white count is minimally elevated 11,800 with stable hemoglobin 11.7 76.6% neutrophils by automated differential; coagulation studies INR is 1.4 patient is on via NOAC study protocol; chemistries remarkable for potassium of 4.7. Creatinine worsening renal function .12 CK total is 51 not elevated troponin is mildly elevated 0.08 with BNP of 943; digoxin level is 1.0; ABG performed on BiPAP 12 over8 with FiO2 100% as O2 sats 80% prior to arrival with plan for ABG at 20 minutes shows respiratory acidosis pH 7.23 with PCO2 of 75 PO2 450 and O2 sat 99% FiO2 was decreased to 50% and then shortly thereafter noted to maintain sat of 90% therefore decreased to 40% and repeat ABG obtained Patient will be admitted for congestive heart failure "acute coronary syndrome exacerbation of COPD wheezing has resolved after DuoNeb updraft 3 patient received 60 mg of Lasix IV and Nitropaste 1 inch applied to the chest wall patient reports feels clinically improved. Concern for worsening respiratory acidosis and possible need for intubation again this is discussed with patient and is aware of potential intubation intervention. ABG #2 improving resp acidosis decreased fio2 30% Critical Care Narrative Aggregate critical care time was 35 minutes. Time to perform other separately billable procedures was not included in the critical care time. My time did not include minutes spent treating any other patients simultaneously or on activities that did not directly contribute to the patient's treatment. The services I provided to this patient were to treat and/or prevent clinically significant deterioration that could result in: Respiratory arrest, myocardial infarction, I provided critical care services requiring my management, as noted below: Chart data review, documentation time, medication orders and management, vital sign assessments/reviewing monitor data, ordering and reviewing lab tests, ordering and interpreting/reviewing x-rays and diagnostic studies, care of the patient and discussion of the patient with the admitting physicians. Physician Communication Physician Communication call placed to [facility] Dr Greene admit inpatient to [facility] Diagnosis Primary Impression: CHF (congestive heart failure) Additional Impressions: COPD with acute exacerbation Respiratory acidosis Admitting Information Admitting Physician Requests: Admit Amy Smallwood MD Aug 28, 2017 20:49
[2017-08-28 20:55] LABS: AUTOMATED NEUTROPHIL # 9.1 TH/MM3 (1.8-7.7); BASOPHIL # 0.1 TH/MM3 (0-0.2); BASOPHIL % 0.6 % (0.0-2.0); EOSINOPHIL # 0.2 TH/MM3 (0-0.4); HEMATOCRIT 37.8 % (39.0-51.0); HEMOGLOBIN 11.7 GM/DL (13.0-17.0); LYMPH % 14.4 % (9.0-44.0); LYMPHOCYTE # 1.7 TH/MM3 (1.0-4.8); MEAN CELL VOLUME 96.6 FL (80.0-100.0); MEAN CORPUSCULAR HEMOGLOBIN 29.9 PG (27.0-34.0); MEAN CORPUSCULAR HGB CONC 30.9 % (32.0-36.0); MEAN PLATELET VOLUME 9.3 FL (7.0-11.0); MONO % 6.4 % (0.0-8.0); MONOCYTE # 0.8 TH/MM3 (0-0.9); NEUT % 76.6 % (16.0-70.0); PLATELET COUNT 212 TH/MM3 (150-450); RED BLOOD COUNT 3.91 MIL/MM3 (4.50-5.90); RED CELL DISTRIBUTION WIDTH 16.2 % (11.6-17.2); WHITE BLOOD COUNT 11.8 TH/MM3 (4.0-11.0)
[2017-08-28] MEDS: RESP: ALBUTEROL 2.5 MG/IPRATROPIUM 0.5 MG NEB (SCH) INH (20:59)
[2017-08-28 21:03] LABS: INTERNATIONAL NORMALIZED RATIO 1.4 RATIO; PROTHROMBIN TIME - PATIENT 13.9 SEC (9.8-11.6)
[2017-08-28] MEDS ORDERED: TIOT1AER INH (21:06)
[2017-08-28] MEDS ORDERED: TORS20TA PO (21:06)
[2017-08-28] MEDS ORDERED: SOTA80TA PO (21:06)
[2017-08-28] MEDS ORDERED: ADVA100A INH (21:06)
[2017-08-28 21:25] LABS: ALBUMIN 3.3 GM/DL (3.4-5.0); AST (GOT) 19 U/L (15-37); BLOOD UREA NITROGEN 30 MG/DL (7-18); CALCIUM 8.8 MG/DL (8.5-10.1); CHLORIDE 95 MEQ/L (98-107); CREATININE 2.12 MG/DL (0.60-1.30); GLOMERULAR FILTRATION RATE 31 ML/MIN (>89); GLUCOSE,RANDOM 312 MG/DL (74-106); MAGNESIUM 2.7 MG/DL (1.5-2.5); SODIUM (NA) 135 MEQ/L (136-145)
[2017-08-28 21:26] LABS: ALT (GPT) 23 U/L (12-78)
[2017-08-28 21:39] LABS: ALKALINE PHOSPHATASE 70 U/L (45-117); TOTAL BILIRUBIN ADULT 0.5 MG/DL (0.2-1.0); TOTAL PROTEIN 8.7 GM/DL (6.4-8.2); TROPONIN I 0.08 NG/ML (0.02-0.05)
[2017-08-28] MEDS ORDERED: RESP: ALBUTEROL 2.5 MG/IPRATROPIUM 0.5 MG NEB (SCH) NEB ONE (21:45)
[2017-08-28] MEDS ORDERED: NITROGLYCERIN 2% OINT 1 GM PACKET TOPICAL ONE (21:45)
--- NOTE | 2017-08-28 22:21 | RADRPT ---
EXAM DATE/TIME: 08/28/2017 22:05 [place] COMPARISON: CHEST SINGLE AP, June 17, 2017, 14:04. INDICATIONS : SOB. Pt unresponsive, currently on breathing treatment. MEDICAL HISTORY : Chronic obstructive pulmonary disease. Cardiomegaly. SURGICAL HISTORY : None. ENCOUNTER: Initial ACUITY: PAIN SCORE: Non-responsive. LOCATION: Bilateral chest FINDINGS: AICD apparatus is present. Prosthetic aortic valve. Cardiac silhouette is grossly stable. There is piedra [place]y bilateral interstitial and alveolar opacity which may be developing edema. CONCLUSION: Developing bilateral parenchymal opacities. Everardo Quesada MD on August 28, 2017 at 22:17 Board Certified Radiologist. This report was verified electronically.
[2017-08-28 22:27] VITALS: BP 161/77; PULSE 96; RESP 31; O2SAT 99
[2017-08-28 23:03] VITALS: O2SAT 99
[2017-08-28 23:34] VITALS: O2SAT 95
[2017-08-29] VITALS (20 sets, daily range): BP systolic 101–137; BP diastolic 46–86; PULSE 63–92; RESP 20–29; TEMP 97.3–97.9; O2SAT 92–98
[2017-08-29] MEDS ORDERED: SODIUM CHLORIDE 0.9% FLUSH 10 ML FLUSH IV FLUSH PRN (01:30)
[2017-08-29] MEDS ORDERED: GLUCAGON 1 MG/ML VIAL OTHER PRN ×2 (01:45→10:45)
[2017-08-29] MEDS ORDERED: DEXTROSE 50% IN WATER 50 ML VIAL(D50) IV PUSH PRN ×2 (01:45→10:45)
[2017-08-29] MEDS: methylPREDNISolone SOD SUCC 125 MG/2 ML VIAL IV PUSH SCH ×4 (02:23→20:54)
[2017-08-29] MEDS ORDERED: RESP: ALBUTEROL 2.5 MG/IPRATROPIUM 0.5 MG NEB (PRN) NEB (02:30)
[2017-08-29] MEDS: RESP: ALBUTEROL 2.5 MG/IPRATROPIUM 0.5 MG NEB (SCH) INH ×4 (02:59→20:03)
[2017-08-29 03:44] LABS: AUTOMATED NEUTROPHIL # 12.2 TH/MM3 (1.8-7.7); BASOPHIL % 0.2 % (0.0-2.0); HEMATOCRIT 35.3 % (39.0-51.0); HEMOGLOBIN 11.5 GM/DL (13.0-17.0); LYMPH % 2.5 % (9.0-44.0); LYMPHOCYTE # 0.3 TH/MM3 (1.0-4.8); MEAN CELL VOLUME 94.2 FL (80.0-100.0); MEAN CORPUSCULAR HEMOGLOBIN 30.8 PG (27.0-34.0); MEAN CORPUSCULAR HGB CONC 32.7 % (32.0-36.0); MEAN PLATELET VOLUME 8.7 FL (7.0-11.0); MONO % 3.3 % (0.0-8.0); MONOCYTE # 0.4 TH/MM3 (0-0.9); PLATELET COUNT 172 TH/MM3 (150-450); RED BLOOD COUNT 3.75 MIL/MM3 (4.50-5.90)
[2017-08-29] MEDS ORDERED: RESP: ALBUTEROL 2.5 MG/IPRATROPIUM 0.5 MG NEB (SCH) INH (04:00)
[2017-08-29 04:28] LABS: TROPONIN I 0.31 NG/ML (0.02-0.05)
[2017-08-29 04:36] LABS: ALBUMIN 3.3 GM/DL (3.4-5.0); ALKALINE PHOSPHATASE 62 U/L (45-117); ALT (GPT) 38 U/L (12-78); AST (GOT) 61 U/L (15-37); BLOOD UREA NITROGEN 36 MG/DL (7-18); CALCIUM 8.9 MG/DL (8.5-10.1); CHLORIDE 94 MEQ/L (98-107); GLOMERULAR FILTRATION RATE 31 ML/MIN (>89); GLUCOSE,RANDOM 160 MG/DL (74-106); SODIUM (NA) 138 MEQ/L (136-145); TOTAL BILIRUBIN ADULT 0.7 MG/DL (0.2-1.0); TOTAL PROTEIN 8.3 GM/DL (6.4-8.2)
[2017-08-29] MEDS ORDERED: HEPARIN SODIUM - SQ 10,000 UNITS/ML VIAL SQ SCH (06:00)
[2017-08-29] MEDS: BUDESONIDE-FORMOTEROL 80/4.5 MCG INHALER INH SCH ×2 (09:00→20:53)
[2017-08-29] MEDS ORDERED: NON-FORMULARY DRUG (Tiotropium-Olodaterol Inh (Stiolto Respimat Inh) 2 PUFF) INH SCH (09:00)
[2017-08-29] MEDS ORDERED: EDOXABAN TOSYLATE 60 MG TAB PO SCH (09:00)
[2017-08-29] MEDS: SODIUM CHLORIDE 0.9% FLUSH 10 ML FLUSH IV FLUSH SCH ×2 (09:15→20:55)
[2017-08-29] MEDS: SOTALOL HCL 80 MG TAB PO SCH ×2 (09:16→20:56)
[2017-08-29] MEDS: CARVEDILOL 12.5 MG TAB PO SCH ×2 (09:16→20:55)
[2017-08-29] MEDS: SPIRONOLACTONE 25 MG TAB PO SCH (09:16)
[2017-08-29] MEDS: DIGOXIN 0.125 MG TAB PO SCH (09:18)
[2017-08-29] MEDS: FUROSEMIDE 40 MG/4 ML VIAL IVP SCH ×2 (09:22→17:13)
--- NOTE | 2017-08-29 10:29 | HHI.HP ---
[facility] Service [facility] Primary Care Physician Marquez Fields MD Admission Diagnosis CHF; exac copd w/ resp acidosis Diagnoses: (1) COPD with acute exacerbation Diagnosis: Principal (2) CHF (congestive heart failure) Diagnosis: Principal (3) Hypertension (4) Atrial fibrillation Diagnosis: Secondary (5) Hyperlipidemia Diagnosis: Secondary Chief Complaint: Respiratory distress Travel History International Travel<30 Days: No Contact w/Intl Traveler <30 Da: No Traveled to Known Affected Are: No History of Present Illness Patient is a 71-year-old male who presented to the emergency department by EMS transport for progressive worsening shortness of breath it has been going on for the past day. Patient states he has had increased swelling of bilateral lower extremities. Patient also has had symptoms exacerbated by exertion. Denies any chest pain or neck pain or jaw pain or shoulder pain or abdominal pain. Patient denies any nausea vomiting. Has had some sweating and some diaphoresis. Past medical history includes ischemic cardiomyopathy. Ventricular tachycardia with an AICD placement history of atrial fibrillation on chronic anticoagulation, aortic stenosis status post TAVR , COPD and chronic kidney disease Patient is on 2 L by nasal cannula oxygen at home at all times Had worsening shortness of breath yesterday O2 sats were only 80% on 2 L. Was placed on CPAP and was given nitroglycerin by EMS his sheeter helper is Dr. King Patient has been admitted for diuresis. Review of Systems Constitutional: COMPLAINS OF: Fatigue, Weight gain, DENIES: Diaphoretic episodes, Fever, Weight loss, Chills, Dizziness, Change in appetite, Night Sweats Endocrine: DENIES: Heat/cold intolerance, Polydipsia, Polyuria, Polyphagia Eyes: DENIES: Blurred vision, Diplopia, Eye inflammation, Eye pain, Vision loss , Photosensitivity, Double Vision Ears, nose, mouth, throat: DENIES: Tinnitus, Hearing loss, Vertigo, Nasal discharge, Oral lesions, Throat pain, Hoarseness, Ear Pain Respiratory: COMPLAINS OF: Cough, Shortness of breath, DENIES: Apneas, Snoring , Wheezing, Hemoptysis, Sputum production Cardiovascular: COMPLAINS OF: Dyspnea on Exertion, Lower Extremity Edema, DENIES: Chest pain, Palpitations, Syncope, PND, Orthopnea, Claudication Gastrointestinal: DENIES: Abdominal pain, Black stools, Bloody stools, Constipation, Diarrhea, Nausea, Vomiting Genitourinary: DENIES: Sexual dysfunction, Urinary frequency Musculoskeletal: DENIES: Joint pain, Muscle aches, Stiffness, Joint Swelling, Back pain, Neck pain Integumentary: DENIES: Abnormal pigmentation, Nail changes, Pruritus, Rash Hematologic/lymphatic: DENIES: Bruising, Lymphadenopathy Immunologic/allergic: DENIES: Eczema, Urticaria Neurologic: DENIES: Abnormal gait, Headache, Localized weakness, Paresthesias, Seizures, Speech Problems, Tremor, Poor Balance Psychiatric: DENIES: Anxiety, Confusion, Mood changes, Depression, Hallucinations, Agitation, Suicidal Ideation, Homicidal Ideation, Delusions Except as stated in HPI: all other systems reviewed are Neg Past Family Social History Past Medical History Ischemic cardiomyopathy Status post AICD placement History of ventricular tachycardia AICD/pacemaker placement Atrial fibrillation on chronic anticoagulation Chronic right bundle branch block COPD Chronic kidney disease History of aortic stenosis status post TAVR Hyperlipidemia Chronic anticoagulation Hyperlipidemia History of kidney stones History of left knee surgery Past Surgical History Left knee surgery AICD/pacemaker insertion Bilateral cataract surgery with lens implants Back surgery Reported Medications Reported Meds & Active Scripts Active Aldactone (Spironolactone) 25 Mg Tab 25 Mg PO DAILY Reported Stiolto Respimat Inh (Tiotropium-Olodaterol Inh) 2.5-2.5 Mcg/Act Aero 2 Puff INH DAILY Sotalol (Sotalol HCl) 80 Mg Tab 80 Mg PO BID Advair Diskus Inh (Fluticasone-Salmeterol Inh) 100-50 Mcg/Blist Aer 1 Puff INH BID Rinse mouth after use. Torsemide 20 Mg Tab 20 Mg PO DAILY Digitek (Digoxin) 125 Mcg Tab 0.125 Mg PO DAILY Savaysa (Edoxaban) 60 Mg Tab 60 Mg PO DAILY Ventolin Hfa 18 GM Inh (Albuterol Sulfate) 90 Mcg/Act Aer 2 Puff INH Q4-6H PRN Carvedilol 12.5 Mg Tab 12.5 Mg PO BID Allergies: Coded Allergies: No Known Allergies (Verified , 07/09/15) Active Ordered Medications Current Medications Sodium Chloride (NS Flush) 2 ml UNSCH PRN IVF FLUSH AFTER USING IV ACCESS; Start 08/28/17 at 20:15; Stop 08/29/17 at 01:53; Status DC Methylprednisolone Sodium Succinate (SoluMEDROL INJ) 125 mg ONCE ONCE IV PUSH Last administered on 08/28/17at 20:18; Start 08/28/17 at 20:15; Stop 08/28/17 at 20:16; Status DC Albuterol/ Ipratropium (Duoneb Neb) 1 ampule Q15M INH Last administered on 08/28at 20:59; Start 08/28/17 at 20:15; Stop 08/28/17 at 20:31; Status DC Furosemide (Lasix Inj) 60 mg ONCE ONCE IV PUSH Last administered on 08/28/17at 20:18; Start 08/28/17 at 20:15; Stop 08/28/17 at 20:16; Status DC Albuterol/ Ipratropium (Duoneb Neb) 1 ampule ONCE ONCE NEB Last administered on 08/28/17at 22:46; Start 08/28/17 at 21:45; Stop 08/28/17 at 21:46; Status DC Nitroglycerin (Nitroglycerin 2% Oint) 1 inch ONCE ONCE TOPICAL Last administered on 08/28/17at 22:24; Start 08/28/17 at 21:45; Stop 08/28/17 at 21:46 ; Status DC Sodium Chloride (NS Flush) 2 ml BID IV FLUSH Last administered on 08/29/17at 09: 15; Start 08/29/17 at 09:00 Sodium Chloride (NS Flush) 2 ml UNSCH PRN IV FLUSH FLUSH AFTER USING IV ACCESS ; Start 08/29/17 at 01:30 Furosemide (Lasix Inj) 40 mg BID@18 IVP Last administered on 08/29/17at 09:22 ; Start 08/29/17 at 09:00 Carvedilol (Coreg) 12.5 mg BID PO Last administered on 08/29/17at 09:16; Start 08/29/17 at 09:00 Digoxin (Lanoxin) 0.125 mg DAILY PO Last administered on 08/29/17at 09:18; Start 08/29/17 at 09:00 Edoxaban (Savaysa) 60 mg DAILY PO ; Start 08/29/17 at 09:00; Stop 08/29/17 at 09 :00; Status DC Sotalol HCl (Betapace) 80 mg BID PO Last administered on 08/29/17at 09:16; Start 08/29/17 at 09:00 Spironolactone (Aldactone) 25 mg DAILY PO Last administered on 08/29/17at 09:16 ; Start 08/29/17 at 09:00 Budesonide/ Formoterol Fumarate (Symbicort 80-4.5 Mcg Inh) 2 puff BID INH ; Start 08/29/17 at 09:00 Non-Formulary Medication 2 puff DAILY INH ; Start 08/29/17 at 09:00; Stop at 09:00; Status DC Albuterol/ Ipratropium (Duoneb Neb) 1 ampule Q4HR NEB INH ; Start 08/29/17 at 04:00; Stop 08/29/17 at 04:00; Status DC Albuterol/ Ipratropium (Duoneb Neb) 1 ampule Q6HR NEB INH Last administered on 08/29/17at 09:24; Start 08/29/17 at 04:00 Methylprednisolone Sodium Succinate (SoluMEDROL INJ) 60 mg Q6H IV PUSH Last administered on 08/29/17at 09:15; Start 08/29/17 at 02:00 Dextrose (D50w (Vial) Inj) 50 ml UNSCH PRN IV PUSH HYPOGLYCEMIA-SEE COMMENTS; Start 08/29/17 at 01:45 Glucagon (Glucagon Inj) 1 mg UNSCH PRN OTHER HYPOGLYCEMIA-SEE COMMENTS; Start 08/29/17 at 01:45 Albuterol/ Ipratropium (Duoneb Neb) 1 ampule Q4HR NEB PRN NEB SOB/WHEEZING; Start 08/29/17 at 02:30 Heparin Sodium (Porcine) (Heparin Inj) 5,000 units Q8HR SQ Last administered on 08/29/17at 06:28; Start 08/29/17 at 06:00 Family History Both parents are Hypertension and cholesterol runs in the family Social History Denies any tobacco, alcohol, or illicits Lives with his Physical Exam Vital Signs Vital Signs Date Time Temp Pulse Resp B/P (MAP) Pulse Ox O2 Delivery O2 Flow Rate FiO2 08/29/17 09:27 98 Nasal Cannula 2.00 08/29/17 09:10 83 08/29/17 09:07 97.9 79 25 133/80 (97) 96 08/29/17 06:52 08/29/17 04:27 92 29 126/86 (99) 92 Nasal Cannula 2.00 08/29/17 03:10 20 95 Nasal Cannula 2.00 08/29/17 03:00 96 Nasal Cannula 2.00 08/29/17 02:59 92 30 08/29/17 02:23 81 20 120/60 (80) 92 BiPAP 30 08/29/17 01:09 87 20 137/62 (87) 94 BiPAP 30 08/28/17 23:34 95 30 08/28/17 23:03 99 40 08/28/17 22:27 96 31 161/77 (105) 99 BiPAP 40 08/28/17 20:40 97 138/100 (113) 08/28/17 20:32 99 BiPAP 100 08/28/17 20:11 94 32 100 CPAP 08/28/17 20:08 100 100 08/28/17 20:08 98.7 99 34 111/67 (82) 100 Physical Exam GENERAL: This is a well-nourished, well-developed patient, in no apparent distress. SKIN: No rashes, ecchymoses or lesions. Cool and dry. HEAD: Atraumatic. Normocephalic. No temporal or scalp tenderness. EYES: Pupils equal round and reactive. Extraocular motions intact. No scleral icterus. No injection or drainage. ENT: Nose without bleeding, purulent drainage or septal hematoma. Throat without erythema, tonsillar hypertrophy or exudate. Uvula midline. Airway patent. NECK: Trachea midline. No JVD or lymphadenopathy. Supple, nontender, no meningeal signs. CARDIOVASCULAR: IRRegular rate and rhythm without murmurs, gallops, or rubs. S1 -S2 no S3 or S4 RESPIRATORY: Clear to auscultation. Breath sounds equal bilaterally. No wheezes , rales, or rhonchi. GASTROINTESTINAL: Abdomen soft, non-tender, nondistended. No hepato-splenomegaly , or palpable masses. No guarding. MUSCULOSKELETAL: Extremities without clubbing, cyanosis, or edema. No joint tenderness, effusion, +1-+2 lower extremity edema. No calf tenderness. Negative Homans sign bilaterally. NEUROLOGICAL: Awake and alert. Cranial nerves II through XII intact. Motor and sensory grossly within normal limits. Five out of 5 muscle strength in all muscle groups. Normal speech. Insight and judgment is good Mood and behaviors appropriate Laboratory Laboratory Tests Test 08/28/17 20:20 08/28/17 21:07 08/28/17 22:48 08/29/17 01:55 White Blood Count 11.8 Red Blood Count 3.91 Hemoglobin 11.7 Hematocrit 37.8 Mean Corpuscular Volume 96.6 Mean Corpuscular Hemoglobin 29.9 Mean Corpuscular Hemoglobin Concent 30.9 Red Cell Distribution Width 16.2 Platelet Count 212 Mean Platelet Volume 9.3 Neutrophils (%) (Auto) 76.6 Lymphocytes (%) (Auto) 14.4 Monocytes (%) (Auto) 6.4 Eosinophils (%) (Auto) 2.0 Basophils (%) (Auto) 0.6 Neutrophils # (Auto) 9.1 Lymphocytes # (Auto) 1.7 Monocytes # (Auto) 0.8 Eosinophils # (Auto) 0.2 Basophils # (Auto) 0.1 CBC Comment DIFF FINAL Differential Comment Prothrombin Time 13.9 Prothromb Time International Ratio 1.4 Activated Partial Thromboplast Time 26.1 Blood Urea Nitrogen 30 Creatinine 2.12 Random Glucose 312 Total Protein 8.7 Albumin 3.3 Calcium Level 8.8 Magnesium Level 2.7 Alkaline Phosphatase 70 Aspartate Amino Transf (AST/SGOT) 19 Alanine Aminotransferase (ALT/SGPT) 23 Total Bilirubin 0.5 Sodium Level 135 Potassium Level 4.7 Chloride Level 95 Carbon Dioxide Level 30.0 Anion Gap 10 Estimat Glomerular Filtration Rate 31 Total Creatine Kinase 51 Troponin I 0.08 B-Type Natriuretic Peptide 943 Digoxin Level 1.0 Blood Gas Puncture Site RT RADIAL RT RADIAL LT RADIAL Blood Gas Patient Temperature 98.6 98.6 98.6 Blood Gas HCO3 30 31 34 Blood Gas Base Excess 3.1 5.1 8.5 Blood Gas Oxygen Saturation 99 97 90 Arterial Blood pH 7.23 7.29 7.37 Arterial Blood Partial Pressure CO2 75 68 61 Arterial Blood Partial Pressure O2 450 139 64 Arterial Blood Oxygen Content 17.9 17.3 18.1 Arterial Blood Carboxyhemoglobin 0.8 1.2 1.7 Arterial Blood Methemoglobin 0.6 0.7 0.7 Blood Gas Hemoglobin 12.1 12.5 14.4 Oxygen Delivery Device BiPAP BiPAP BIPAP Blood Gas Ventilator Setting IPAP 12/EPAP 8 IPAP 10/ EPAP 5 IPAP=10 EPAP=5 Blood Gas Inspired Oxygen 100 40 30 Test 08/29/17 03:15 White Blood Count 13.0 Red Blood Count 3.75 Hemoglobin 11.5 Hematocrit 35.3 Mean Corpuscular Volume 94.2 Mean Corpuscular Hemoglobin 30.8 Mean Corpuscular Hemoglobin Concent 32.7 Red Cell Distribution Width 16.0 Platelet Count 172 Mean Platelet Volume 8.7 Neutrophils (%) (Auto) 94.0 Lymphocytes (%) (Auto) 2.5 Monocytes (%) (Auto) 3.3 Eosinophils (%) (Auto) 0.0 Basophils (%) (Auto) 0.2 Neutrophils # (Auto) 12.2 Lymphocytes # (Auto) 0.3 Monocytes # (Auto) 0.4 Eosinophils # (Auto) 0.0 Basophils # (Auto) 0.0 CBC Comment DIFF FINAL Differential Comment Blood Urea Nitrogen 36 Creatinine 2.10 Random Glucose 160 Total Protein 8.3 Albumin 3.3 Calcium Level 8.9 Alkaline Phosphatase 62 Aspartate Amino Transf (AST/SGOT) 61 Alanine Aminotransferase (ALT/SGPT) 38 Total Bilirubin 0.7 Sodium Level 138 Potassium Level 4.9 Chloride Level 94 Carbon Dioxide Level 38.0 Anion Gap 6 Estimat Glomerular Filtration Rate 31 Total Creatine Kinase 50 Troponin I 0.31 Result Diagram: 08/29/1731408/29/17314 Imaging Last Impressions Chest X-Ray 08/28/172009 Signed Impressions: Service Date/Time: Monday, August 28, 2017 22:05 - CONCLUSION: Developing bilateral parenchymal opacities. MD Tyree Ingrami VTE Risk Assessment Caprini VTE Risk Assessment: Mod/High Risk (score >= 2) Caprini Risk Assessment Model Point Value = 1 Point Value = 2 Point Value = 3 Point Value = 5 Age 41-60 Minor surgery BMI > 25 kg/m2 Swollen legs Varicose veins or History of unexplained or recurrent spontaneous Oral contraceptives or hormone replacement Sepsis (< 1 month) Serious lung disease, including pneumonia (< 1 month) Abnormal pulmonary function Acute myocardial infarction Congestive heart failure (< 1 month) History of inflammatory bowel disease Medical patient at bed rest Age 61-74 Arthroscopic surgery Major open surgery (> 45 min) Laparoscopic surgery (> 45 min) Malignancy Confined to bed (> 72 hours) Immobilizing plaster cast Central venous access Age >= 75 History of VTE Family history of VTE Factor V Leiden Prothrombin [id number] Lupus anticoagulant Anticardiolipin antibodies Elevated serum homocysteine Heparin-induced thrombocytopenia Other congenital or acquired thrombophilia Stroke (< 1 month) Elective arthroplasty Hip, pelvis, or leg fracture Acute spinal cord injury (< 1 month) Prophylaxis Regimen Total Risk Factor Score Risk Level Prophylaxis Regimen 0-1 Low Early ambulation 2 Moderate Order ONE of the following: *Sequential Compression Device (SCD) *Heparin 5000 units SQ BID 3-4 Higher Order ONE of the following medications: *Heparin 5000 units SQ TID *Enoxaparin/Lovenox 40 mg SQ daily (WT < 150 kg, CrCl > 30 mL/min) *Enoxaparin/Lovenox 30 mg SQ daily (WT < 150 kg, CrCl > 10-29 mL/min) *Enoxaparin/Lovenox 30 mg SQ BID (WT < 150 kg, CrCl > 30 mL/min) AND/OR *Sequential Compression Device (SCD) 5 or more Highest Order ONE of the following medications: *Heparin 5000 units SQ TID (Preferred with Epidurals) *Enoxaparin/Lovenox 40 mg SQ daily (WT < 150 kg, CrCl > 30 mL/min) *Enoxaparin/Lovenox 30 mg SQ daily (WT < 150 kg, CrCl > 10-29 mL/min) *Enoxaparin/Lovenox 30 mg SQ BID (WT < 150 kg, CrCl > 30 mL/min) AND *Sequential Compression Device (SCD) Assessment and Plan Assessment and Plan Congestive heart failure exacerbation -has been diuresed -we will consult cardiology Atrial fibrillation on chronic anticoagulation study Hypertension continue current home medications Hyperlipidemia continue on statin COPD continue on neb treatments and steroids Chronic renal insufficiency monitor labs with accurate I's and O's and fluid restriction Respiratory insufficiency with chronic oxygen use History of severe aortic stenosis status post TAVR DVT and GI prophylaxis Code Status Full code Discussed Condition With Patient and RN and family and cardiology Physician Certification 2 Midnight Certification Type: Admission for Inpatient Services Order for Inpatient Services The services are ordered in accordance with Medicare regulations or non- Medicare payer requirements, as applicable. In the case of services not specified as inpatient-only, they are appropriately provided as inpatient services in accordance with the 2-midnight benchmark. Estimated LOS (days): 3 days is the estimated time the patient will need to remain in the hospital, assuming treatment plan goals are met and no additional complications. Post-Hospital Plan: Not yet determined Davonte Barcenas DO Aug 29, 2017 10:29
[2017-08-29] MEDS: PANTOPRAZOLE SOD 40 MG DELAYED RELEASE TAB PO SCH (12:16)
[2017-08-29] MEDS: INSULIN ASPART SUPPLEMENTAL SCALE SQ SCH ×3 (12:17→20:56)
[2017-08-29 13:00] LABS: TROPONIN I 0.28 NG/ML (0.02-0.05)
--- NOTE | 2017-08-29 13:21 | PD.CONS ---
HPI Service Cardiology-Dr. King. Consult Requested By Dr. Smallwood Reason for Consult CHF exacerbation-COPD w/ resp acidosis Primary Care Physician Marquez Fields MD History of Present Illness Pleasant 71 year old male well know to our practice with a past medical history of TAVR with Dr. Altamirano and Dr. Hooks 05/2017, ASHD with NV, Afib on NOAC, Vtach with medtronic ICD in place, CHF, cadriomyopathy with an EF of 28% 06/2017, CKD , and COPD/emphysema followed by Dr. Grace. He is on 2L continous oxygen at home. He arrived by EMS to ER with c/o progressively worsening SOB. He reports having increased BLE edema. Today on evaluation he reports that he is feeling much better, and breathing easier. He denies any chest pain. (JaviAugust Suzanna GONZALEZ) Review of Systems Consitutional: DENIES: Fatigue, Fever, Chills, Weight gain, Weight loss Eyes: DENIES: Amaurosis Fugax, Change in vision HEENT: DENIES: Lightheadedness, Change in hearing Respiratory: COMPLAINS OF: See HPI, Shortness of breath Cardiovascular: DENIES: See HPI, Chest pain, Palpitations, Syncope, Tachycardia Gastrointestinal: DENIES: Nausea, Vomiting, Change in bowel habits, Reflux, Bloody stools, Melena Genitourinary: DENIES: Urinary incontinence, Difficulty voiding Integumentary: DENIES: Rash Neurologic: DENIES: Tingling or numbness, Memory problems, Poor Balance, Stroke symptoms Musculoskeletal: DENIES: Joint pain, Muscle pain, Limited range of motion, Back pain Psychiatric: DENIES: Anxiety, Depression, Sleep disturbances Hematologic: DENIES: Bruising tendencies, Bleeding tendencies Endocrine: DENIES: Weight gain, Weight loss, Thyroid disease (Yissel Caldwell) Past Family Social History Allergies: Coded Allergies: No Known Allergies (Verified Allergy, Unknown, 08/29/17) sacubitril (Verified Adverse Reaction, Intermediate, 08/29/17) valsartan (Verified Adverse Reaction, Intermediate, 08/29/17) Past Medical History Aortic stenosis S/P TAVR 05/2017 ASHD, S/P anterior NV Cardiomyopathy Ventricular tachycardia, S/P Medtronic ICD placed in left lower abdomen Atrial fibrillation COPD/Emphysema Past Surgical History TAVR 05/2017 ICD placement Reported Medications Reported Meds & Active Scripts Active Aldactone (Spironolactone) 25 Mg Tab 25 Mg PO DAILY Reported Stiolto Respimat Inh (Tiotropium-Olodaterol Inh) 2.5-2.5 Mcg/Act Aero 2 Puff INH DAILY Sotalol (Sotalol HCl) 80 Mg Tab 80 Mg PO BID Advair Diskus Inh (Fluticasone-Salmeterol Inh) 100-50 Mcg/Blist Aer 1 Puff INH BID Rinse mouth after use. Torsemide 20 Mg Tab 20 Mg PO DAILY Digitek (Digoxin) 125 Mcg Tab 0.125 Mg PO DAILY Savaysa (Edoxaban) 60 Mg Tab 60 Mg PO DAILY Ventolin Hfa 18 GM Inh (Albuterol Sulfate) 90 Mcg/Act Aer 2 Puff INH Q4-6H PRN Carvedilol 12.5 Mg Tab 12.5 Mg PO BID Active Ordered Medications Current Medications Medications (Trade) Dose Ordered Sig/Marta Route Start Time Stop Time Status Last Admin (NS Flush) 2 ml BID IV FLUSH 08/29/17 09:00 08/29/17 09:15 (NS Flush) 2 ml UNSCH PRN IV FLUSH 08/29/17 01:30 (Lasix Inj) 40 mg BID@18 IVP 08/29/17 09:00 08/29/17 09:22 (Coreg) 12.5 mg BID PO 08/29/17 09:00 08/29/17 09:16 (Lanoxin) 0.125 mg DAILY PO 08/29/17 09:00 08/29/17 09:18 (Betapace) 80 mg BID PO 08/29/17 09:00 08/29/17 09:16 (Aldactone) 25 mg DAILY PO 08/29/17 09:00 08/29/17 09:16 (Symbicort 80-4.5 Mcg Inh) 2 puff BID INH 08/29/17 09:00 (Duoneb Neb) 1 ampule Q6HR NEB INH 08/29/17 04:00 08/29/17 09:24 (SoluMEDROL INJ) 60 mg Q6H IV PUSH 08/29/17 02:00 08/29/17 09:15 (Duoneb Neb) 1 ampule Q4HR NEB PRN NEB 08/29/17 02:30 (Protonix) 40 mg DAILY PO 08/29/17 10:45 08/29/17 12:16 (D50w (Vial) Inj) 50 ml UNSCH PRN IV PUSH 08/29/17 10:45 (Glucagon Inj) 1 mg UNSCH PRN OTHER 08/29/17 10:45 (NovoLOG SUPPLEMENTAL SCALE) 1 ACHS SLIDING SCALE SQ 08/29/17 12:00 08/29/17 12:17 (Savaysa) 60 mg DAILY PO 08/29/17 12:15 UNV Family History Mother: with uterine CA Social History Former smoker, no ETOH use, lives with (Shadeed,August Suzanna GONZALEZ) Physical Exam Vital Signs Vital Signs Date Time Temp Pulse Resp B/P (MAP) Pulse Ox O2 Delivery O2 Flow Rate FiO2 08/29/17 12:00 97.4 66 20 101/56 (71) 96 08/29/17 09:27 98 Nasal Cannula 2.00 08/29/17 09:10 83 08/29/17 09:07 97.9 79 25 133/80 (97) 96 08/29/17 06:52 08/29/17 04:27 92 29 126/86 (99) 92 Nasal Cannula 2.00 08/29/17 03:10 20 95 Nasal Cannula 2.00 08/29/17 03:00 96 Nasal Cannula 2.00 08/29/17 02:59 92 30 08/29/17 02:23 81 20 120/60 (80) 92 BiPAP 30 08/29/17 01:09 87 20 137/62 (87) 94 BiPAP 30 08/28/17 23:34 95 30 08/28/17 23:03 99 40 08/28/17 22:27 96 31 161/77 (105) 99 BiPAP 40 08/28/17 20:40 97 138/100 (113) 08/28/17 20:32 99 BiPAP 100 08/28/17 20:11 94 32 100 CPAP 08/28/17 20:08 100 100 08/28/17 20:08 98.7 99 34 111/67 (82) 100 Physical Exam GENERAL: Obese, pleasant elderly male, in no apparent distress SKIN: Warm and dry. HEAD: Atraumatic. Normocephalic. EYES: No injection or drainage. ENT: No nasal bleeding or discharge. Mucous membranes pink and moist. NECK: Trachea midline. No JVD. CARDIOVASCULAR: Regular rate and rhythm. RESPIRATORY: Diminished, no crackles or wheezes, on continuos oxygen GASTROINTESTINAL: Abdomen soft, non-tender, obese MUSCULOSKELETAL: 2-3+ BLE edema NEUROLOGICAL: Awake and alert. No obvious cranial nerve deficits. Motor grossly within normal limits. Five out of 5 muscle strength in the arms and legs. Normal speech. PSYCHIATRIC: Appropriate mood and affect; insight and judgment normal. Laboratory Laboratory Tests Test 08/28/17 20:20 08/28/17 21:07 08/28/17 22:48 08/29/17 01:55 White Blood Count 11.8 Red Blood Count 3.91 Hemoglobin 11.7 Hematocrit 37.8 Mean Corpuscular Volume 96.6 Mean Corpuscular Hemoglobin 29.9 Mean Corpuscular Hemoglobin Concent 30.9 Red Cell Distribution Width 16.2 Platelet Count 212 Mean Platelet Volume 9.3 Neutrophils (%) (Auto) 76.6 Lymphocytes (%) (Auto) 14.4 Monocytes (%) (Auto) 6.4 Eosinophils (%) (Auto) 2.0 Basophils (%) (Auto) 0.6 Neutrophils # (Auto) 9.1 Lymphocytes # (Auto) 1.7 Monocytes # (Auto) 0.8 Eosinophils # (Auto) 0.2 Basophils # (Auto) 0.1 CBC Comment DIFF FINAL Differential Comment Prothrombin Time 13.9 Prothromb Time International Ratio 1.4 Activated Partial Thromboplast Time 26.1 Blood Urea Nitrogen 30 Creatinine 2.12 Random Glucose 312 Total Protein 8.7 Albumin 3.3 Calcium Level 8.8 Magnesium Level 2.7 Alkaline Phosphatase 70 Aspartate Amino Transf (AST/SGOT) 19 Alanine Aminotransferase (ALT/SGPT) 23 Total Bilirubin 0.5 Sodium Level 135 Potassium Level 4.7 Chloride Level 95 Carbon Dioxide Level 30.0 Anion Gap 10 Estimat Glomerular Filtration Rate 31 Total Creatine Kinase 51 Troponin I 0.08 B-Type Natriuretic Peptide 943 Digoxin Level 1.0 Blood Gas Puncture Site RT RADIAL RT RADIAL LT RADIAL Blood Gas Patient Temperature 98.6 98.6 98.6 Blood Gas HCO3 30 31 34 Blood Gas Base Excess 3.1 5.1 8.5 Blood Gas Oxygen Saturation 99 97 90 Arterial Blood pH 7.23 7.29 7.37 Arterial Blood Partial Pressure CO2 75 68 61 Arterial Blood Partial Pressure O2 450 139 64 Arterial Blood Oxygen Content 17.9 17.3 18.1 Arterial Blood Carboxyhemoglobin 0.8 1.2 1.7 Arterial Blood Methemoglobin 0.6 0.7 0.7 Blood Gas Hemoglobin 12.1 12.5 14.4 Oxygen Delivery Device BiPAP BiPAP BIPAP Blood Gas Ventilator Setting IPAP 12/EPAP 8 IPAP 10/ EPAP 5 IPAP=10 EPAP=5 Blood Gas Inspired Oxygen 100 40 30 Test 08/29/17 03:15 08/29/17 12:12 White Blood Count 13.0 Red Blood Count 3.75 Hemoglobin 11.5 Hematocrit 35.3 Mean Corpuscular Volume 94.2 Mean Corpuscular Hemoglobin 30.8 Mean Corpuscular Hemoglobin Concent 32.7 Red Cell Distribution Width 16.0 Platelet Count 172 Mean Platelet Volume 8.7 Neutrophils (%) (Auto) 94.0 Lymphocytes (%) (Auto) 2.5 Monocytes (%) (Auto) 3.3 Eosinophils (%) (Auto) 0.0 Basophils (%) (Auto) 0.2 Neutrophils # (Auto) 12.2 Lymphocytes # (Auto) 0.3 Monocytes # (Auto) 0.4 Eosinophils # (Auto) 0.0 Basophils # (Auto) 0.0 CBC Comment DIFF FINAL Differential Comment Blood Urea Nitrogen 36 Creatinine 2.10 Random Glucose 160 Total Protein 8.3 Albumin 3.3 Calcium Level 8.9 Alkaline Phosphatase 62 Aspartate Amino Transf (AST/SGOT) 61 Alanine Aminotransferase (ALT/SGPT) 38 Total Bilirubin 0.7 Sodium Level 138 Potassium Level 4.9 Chloride Level 94 Carbon Dioxide Level 38.0 Anion Gap 6 Estimat Glomerular Filtration Rate 31 Total Creatine Kinase 50 Troponin I 0.31 (Yissel Caldwell [facility]) Result Diagram: 08/29/17 0315 08/29/17 031 Imaging Last 48 hours Impressions Chest X-Ray 08/28/172009 Signed Impressions: Service Date/Time: Monday, August 28, 2017 22:05 - CONCLUSION: Developing bilateral parenchymal opacities. Everardo Quesada MD (Yissel Caldwell [facility]) Assessment and Plan Assessment and Plan Acute on chronic systolic Congestive heart failure exacerbation COPD with acute exacerbation Respiratory Acidosis Elevated troponin CKD TAVR 05/2017 Atrial fibrillation on NOAC ([employer] study participant) Ischemic cardiomyopathy with ICD Ventricular tachycardia Elevated white count Plan Breathing improving-Continue with IV diuresis Continue home inhalers Elevated troponin-secondary to cardio/renal syndrome-low EF and elevated creatnine. No chest pain. Will continue to monitor renal function- 2.10 this AM. Will stop heparin and resume edoxaban. 60mg. Creatnine clrnc in borderline. Will order repeat chest xray and check pro-calcitonin The patient was seen and evaluated by Dr. King who completed face to face encounter and physical exam and participated in management and decision making. (Yissel Caldwell) Assessment and Plan The exam, history, and the medical decision-making described in the above note were completed with the assistance of the mid-level provider. I reviewed and agree with the findings presented. I attest that I had a [id number] encounter with the patient on the same day, and personally performed and documented my assessment and findings in the medical record. Overall doing better no chest pain, sob improving. (Lashon King MD) Yissel Caldwell Aug 29, 2017 13:21 Lashon King MD Sep 02, 2017 18:07
--- NOTE | 2017-08-29 14:24 | EKG ---
Date Performed: 08/28/2017 Time Performed: 20:01:46 PTAGE: 71 years EKG: ATRIAL FIBRILLATION MARKED LEFT AXIS DEVIATION INTRAVENTRICULAR CONDUCTION DELAY ABNORMAL E CG Compared to PREVIOUS TRACING precordial QRS complex has changed and appears more ischemic, potential ly even more acutely so. Clinical correlation is recommended. PREVIOUS TRACIN06/17/17 DOCTOR: Nitin Vergara Interpretating Date/Time 08/29/2017 14:22:57
--- NOTE | 2017-08-29 14:25 | EKG ---
Date Performed: 08/29/2017 Time Performed: 02:56:12 PTAGE: 71 years EKG: ATRIAL FIBRILLATION MARKED LEFT AXIS DEVIATION INTRAVENTRICULAR CONDUCTION DELAY Compared t o previous tracing the precordial QRS complexes are somewhat less acutely ischemic appearing ABNORMAL ECG PREVIOUS TRACING : 08/28/2017 20.01 DOCTOR: Nitin Vergara Interpretating Date/Time 08/29/2017 14:24:16
[2017-08-30] VITALS (28 sets, daily range): BP systolic 102–134; BP diastolic 60–79; PULSE 61–92; RESP 16–22; TEMP 97.8–98.1; O2SAT 92–99
[2017-08-30] MEDS: methylPREDNISolone SOD SUCC 125 MG/2 ML VIAL IV PUSH SCH ×4 (03:34→21:49)
[2017-08-30] MEDS: RESP: ALBUTEROL 2.5 MG/IPRATROPIUM 0.5 MG NEB (SCH) INH ×4 (03:47→21:11)
[2017-08-30 06:29] LABS: AUTOMATED NEUTROPHIL # 13.2 TH/MM3 (1.8-7.7); HEMATOCRIT 32.4 % (39.0-51.0); HEMOGLOBIN 10.4 GM/DL (13.0-17.0); LYMPH % 2.7 % (9.0-44.0); LYMPHOCYTE # 0.4 TH/MM3 (1.0-4.8); MEAN CELL VOLUME 93.6 FL (80.0-100.0); MEAN PLATELET VOLUME 9.1 FL (7.0-11.0); MONO % 2.4 % (0.0-8.0); MONOCYTE # 0.3 TH/MM3 (0-0.9); NEUT % 94.9 % (16.0-70.0); PLATELET COUNT 172 TH/MM3 (150-450); RED BLOOD COUNT 3.47 MIL/MM3 (4.50-5.90); RED CELL DISTRIBUTION WIDTH 15.9 % (11.6-17.2); WHITE BLOOD COUNT 13.9 TH/MM3 (4.0-11.0)
[2017-08-30 06:56] LABS: ALT (GPT) 30 U/L (12-78); AST (GOT) 22 U/L (15-37); BICARBONATE 36.5 MEQ/L (21.0-32.0); BLOOD UREA NITROGEN 47 MG/DL (7-18); CALCIUM 8.7 MG/DL (8.5-10.1); CHLORIDE 94 MEQ/L (98-107); CREATININE 2.25 MG/DL (0.60-1.30); GLOMERULAR FILTRATION RATE 29 ML/MIN (>89); GLUCOSE,RANDOM 172 MG/DL (74-106); MAGNESIUM 2.4 MG/DL (1.5-2.5); PHOSPHORUS 4.4 MG/DL (2.5-4.9); SODIUM (NA) 137 MEQ/L (136-145)
[2017-08-30 07:03] LABS: ALKALINE PHOSPHATASE 52 U/L (45-117); FREE T4 0.88 NG/DL (0.76-1.46); TOTAL BILIRUBIN ADULT 0.4 MG/DL (0.2-1.0); TOTAL PROTEIN 7.8 GM/DL (6.4-8.2)
[2017-08-30] MEDS: INSULIN ASPART SUPPLEMENTAL SCALE SQ SCH ×4 (08:00→21:51)
[2017-08-30] MEDS: CARVEDILOL 12.5 MG TAB PO SCH ×2 (08:30→21:51)
[2017-08-30] MEDS: DIGOXIN 0.125 MG TAB PO SCH (08:30)
[2017-08-30] MEDS: SPIRONOLACTONE 25 MG TAB PO SCH (08:30)
[2017-08-30] MEDS: PANTOPRAZOLE SOD 40 MG DELAYED RELEASE TAB PO SCH (08:30)
[2017-08-30] MEDS: FUROSEMIDE 40 MG/4 ML VIAL IVP SCH ×2 (08:31→18:11)
[2017-08-30] MEDS: SOTALOL HCL 80 MG TAB PO SCH ×2 (08:31→21:51)
[2017-08-30] MEDS: SODIUM CHLORIDE 0.9% FLUSH 10 ML FLUSH IV FLUSH SCH ×2 (08:31→21:49)
[2017-08-30] MEDS: BUDESONIDE-FORMOTEROL 80/4.5 MCG INHALER INH SCH ×2 (09:00→21:00)
[2017-08-30] MEDS ORDERED: EDOXABAN TOSYLATE 60 MG TAB PO SCH (09:00)
--- NOTE | 2017-08-30 10:40 | RADRPT ---
EXAM DATE/TIME: 08/30/2017 09:52 [place] COMPARISON: CHEST SINGLE AP, August 28, 2017, 22:05. INDICATIONS : Short of breath. MEDICAL HISTORY : Chronic obstructive pulmonary disease. Cardiomegaly SURGICAL HISTORY : None. ENCOUNTER: Subsequent ACUITY: 4 - 6 days PAIN SCORE: 0/10 LOCATION: Bilateral chest FINDINGS: A single view of the chest demonstrates the lungs to be symmetrically aerated without evidence of mas s, infiltrate or effusion. Left sided pacemaker wires are seen. Aortic valve replacement. Cardiomega ly. Small right pleural effusion. Pulmonary vascularity normal. The cardiomediastinal contours are un remarkable. Osseous structures are intact. CONCLUSION: Cardiomegaly. Lungs are now clear. Small right pleural effusion. Nain Dodson MD on August 30, 2017 at 10:38 Board Certified Radiologist. This report was verified electronically.
--- NOTE | 2017-08-30 11:02 | PD.CARD.PN ---
Subjective Subjective Remarks The patient states he is feeling less SOB and has less BLE edema today. No chest pain or palpitations. Objective Medications Current Medications Medications (Trade) Dose Ordered Sig/Marta Route Start Time Stop Time Status Last Admin (NS Flush) 2 ml BID IV FLUSH 08/29/17 09:00 08/30/17 08:31 (NS Flush) 2 ml UNSCH PRN IV FLUSH 08/29/17 01:30 08/30/17 03:35 (Lasix Inj) 40 mg BID@ IVP 08/29/17 09:00 08/30/17 08:31 (Coreg) 12.5 mg BID PO 08/29/17 09:00 08/30/17 08:30 (Lanoxin) 0.125 mg DAILY PO 08/29/17 09:00 08/30/17 08:30 (Betapace) 80 mg BID PO 08/29/17 09:00 08/30/17 08:31 (Aldactone) 25 mg DAILY PO 08/29/17 09:00 08/30/17 08:30 (Symbicort 80-4.5 Mcg Inh) 2 puff BID INH 08/29/17 09:00 (Duoneb Neb) 1 ampule Q6HR NEB INH 08/29/17 04:00 08/30/17 09:53 (SoluMEDROL INJ) 60 mg Q6H IV PUSH 08/29/17 02:00 08/30/17 08:31 (Duoneb Neb) 1 ampule Q4HR NEB PRN NEB 08/29/17 02:30 (Protonix) 40 mg DAILY PO 08/29/17 10:45 08/30/17 08:30 (D50w (Vial) Inj) 50 ml UNSCH PRN IV PUSH 08/29/17 10:45 (Glucagon Inj) 1 mg UNSCH PRN OTHER 08/29/17 10:45 (NovoLOG SUPPLEMENTAL SCALE) 1 ACHS SLIDING SCALE SQ 08/29/17 12:00 08/30/17 08:00 (Savaysa) 60 mg DAILY PO 08/30/17 09:00 Vital Signs / I&O Vital Signs Date Time Temp Pulse Resp B/P (MAP) Pulse Ox O2 Delivery O2 Flow Rate FiO2 08/30/17 10:00 92 08/30/17 09:55 92 Nasal Cannula 3.00 08/30/17 09:00 78 08/30/17 08:00 88 08/30/17 07:00 97.8 90 20 120/70 (87) 93 08/30/17 07:00 90 08/30/17 06:24 75 08/30/17 05:03 71 08/30/17 04:00 72 08/30/17 03:31 97.8 84 19 126/64 (84) 97 08/30/17 03:00 61 08/30/17 02:00 70 08/30/17 01:00 74 08/30/17 00:00 74 08/29/17 23:18 97.6 82 20 116/67 (83) 94 08/29/17 23:00 79 08/29/17 22:00 75 08/29/17 21:00 82 08/29/17 20:37 97.6 79 20 101/46 (64) 97 08/29/17 20:03 95 Nasal Cannula 2.00 08/29/17 20:00 78 08/29/17 19:00 70 08/29/17 17:00 97.3 66 20 125/65 (85) 96 08/29/17 16:00 63 08/29/17 12:00 77 08/29/17 12:00 97.4 66 20 101/56 (71) 96 I/O 08/29/17 08/29/17 08/29/17 08/30/17 08/30/17 08/30/17 07:00 15:00 23:00 07:00 15:00 23:00 Intake Total 558 ml 575 ml Output Total 300 ml 970 ml 575 ml Balance -300 ml -412 ml 0 ml Intake Oral 558 ml 575 ml Output Urine Total 300 ml 970 ml 575 ml Physical Exam GENERAL: Obese male in CIC SKIN: Warm and dry. HEAD: Normocephalic. EYES: No scleral icterus. No injection or drainage. NECK: Supple, trachea midline. CARDIOVASCULAR: RRR, ICD left abdomen, 1+ BLE edema RESPIRATORY: Breath sounds equal bilaterally. No accessory muscle use. GASTROINTESTINAL: Abdomen soft, non-tender, nondistended. MUSCULOSKELETAL: No cyanosis BACK: Nontender without obvious deformity. No CVA tenderness. Laboratory Laboratory Tests Test 08/29/17 12:12 08/30/17 05:35 Total Creatine Kinase 50 U/L Troponin I 0.28 NG/ML White Blood Count 13.9 TH/MM3 Red Blood Count 3.47 MIL/MM3 Hemoglobin 10.4 GM/DL Hematocrit 32.4 % Mean Corpuscular Volume 93.6 FL Mean Corpuscular Hemoglobin 30.0 PG Mean Corpuscular Hemoglobin Concent 32.0 % Red Cell Distribution Width 15.9 % Platelet Count 172 TH/MM3 Mean Platelet Volume 9.1 FL Neutrophils (%) (Auto) 94.9 % Lymphocytes (%) (Auto) 2.7 % Monocytes (%) (Auto) 2.4 % Eosinophils (%) (Auto) 0.0 % Basophils (%) (Auto) 0.0 % Neutrophils # (Auto) 13.2 TH/MM3 Lymphocytes # (Auto) 0.4 TH/MM3 Monocytes # (Auto) 0.3 TH/MM3 Eosinophils # (Auto) 0.0 TH/MM3 Basophils # (Auto) 0.0 TH/MM3 CBC Comment DIFF FINAL Differential Comment Blood Urea Nitrogen 47 MG/DL Creatinine 2.25 MG/DL Random Glucose 172 MG/DL Total Protein 7.8 GM/DL Albumin 3.0 GM/DL Calcium Level 8.7 MG/DL Phosphorus Level 4.4 MG/DL Magnesium Level 2.4 MG/DL Alkaline Phosphatase 52 U/L Aspartate Amino Transf (AST/SGOT) 22 U/L Alanine Aminotransferase (ALT/SGPT) 30 U/L Total Bilirubin 0.4 MG/DL Sodium Level 137 MEQ/L Potassium Level 4.7 MEQ/L Chloride Level 94 MEQ/L Carbon Dioxide Level 36.5 MEQ/L Anion Gap 7 MEQ/L Estimat Glomerular Filtration Rate 29 ML/MIN Free Thyroxine 0.88 NG/DL Thyroid Stimulating Hormone 3rd Gen 1.590 uIU/ML Imaging Last 24 hours Impressions Chest X-Ray 08/30/17 0000 Signed Impressions: Service Date/Time: Wednesday, August 30, 2017 09:52 - CONCLUSION: Cardiomegaly. Lungs are now clear. Small right pleural effusion. Nain Dodson MD Assessment and Plan Assessment and Plan Acute on chronic hypercapnic respiratory failure requiring NIPPV due to COPD and systolic CHF exacerbations Cardiorenal syndrome, baseline creatine 1.4 Mildly elevated troponin due to above TAVR 05/2017 Severe ischemic CMP with ICD Atrial fibrillation ASHD Plan: Decrease Sayvasa due to dosing parameters Consult Pulmonary Continue IV diuresis Continue to closely monitor Cr and electrolytes. Will continue Aldactone for now. The patient was seen and evaluated by Dr King who completed face to face encounter and physical exam and participated in evaluation and management Rosalee aCrey Aug 30, 2017 11:02
[2017-08-30 14:58] LABS: HEMOGLOBIN A1C 6.8 % (4.3-6.0)
[2017-08-30] MEDS ORDERED: PILL SPLITTER OTHER PRN (15:00)
--- NOTE | 2017-08-30 18:56 | HHI.PR ---
Subjective Remarks Patient states he is slowly improving, feels better today. He points out that he still has some edema in his ankles. He is sitting upright eating breakfast. Objective Vitals Vital Signs Date Time Temp Pulse Resp B/P (MAP) Pulse Ox O2 Delivery O2 Flow Rate FiO2 08/30/17 18:00 74 08/30/17 17:00 75 08/30/17 16:00 73 08/30/17 15:00 98.0 72 22 134/60 (84) 98 08/30/17 15:00 85 08/30/17 15:00 98 Nasal Cannula 2.00 08/30/17 14:00 75 08/30/17 13:00 76 08/30/17 12:00 82 08/30/17 11:00 72 08/30/17 11:00 98 Nasal Cannula 2.00 08/30/17 11:00 98.0 72 22 134/60 (84) 98 08/30/17 10:00 92 08/30/17 09:55 92 Nasal Cannula 3.00 08/30/17 09:00 78 08/30/17 08:00 88 08/30/17 07:00 97.8 90 20 120/70 (87) 93 08/30/17 07:00 90 08/30/17 06:24 75 08/30/17 05:03 71 08/30/17 04:00 72 08/30/17 03:31 97.8 84 19 126/64 (84) 97 08/30/17 03:00 61 08/30/17 02:00 70 08/30/17 01:00 74 08/30/17 00:00 74 08/29/17 23:18 97.6 82 20 116/67 (83) 94 08/29/17 23:00 79 08/29/17 22:00 75 08/29/17 21:00 82 08/29/17 20:37 97.6 79 20 101/46 (64) 97 08/29/17 20:03 95 Nasal Cannula 2.00 08/29/17 20:00 78 08/29/17 19:00 70 I/O 08/29/17 08/29/17 08/29/17 08/30/17 08/30/17 08/30/17 07:00 15:00 23:00 07:00 15:00 23:00 Intake Total 558 ml 575 ml 625 ml Output Total 300 ml 970 ml 575 ml 651 ml Balance -300 ml -412 ml 0 ml -26 ml Intake Oral 558 ml 575 ml 625 ml Output Urine Total 300 ml 970 ml 575 ml 650 ml Stool Total 1 ml Result Diagram: 08/30/1735 08/30/1735 Objective Remarks GENERAL: Well-nourished, obese, well-developed patient. SKIN: Warm and dry. HEAD: Normocephalic. EYES: No scleral icterus. No injection or drainage. NECK: Supple, trachea midline. No JVD or lymphadenopathy. CARDIOVASCULAR: Regular rate and rhythm without murmurs, gallops, or rubs. RESPIRATORY: Breath sounds equal bilaterally. No crackles or wheezes. No accessory muscle use. GASTROINTESTINAL: Abdomen soft, non-tender, nondistended. EXTREMITIES: No cyanosis, 2+ ankle edema NEUROLOGICAL: Awake, alert, and oriented x 3. Non-focal. A/P Problem List: (1) COPD with acute exacerbation ICD Code: J44.1 - Chronic obstructive pulmonary disease with (acute) exacerbation Status: Acute (2) CHF (congestive heart failure) ICD Code: I50.9 - Heart failure, unspecified Status: Chronic (3) Hypertension ICD Code: I10 - Essential (primary) hypertension Status: Chronic (4) Atrial fibrillation ICD Code: I48.91 - Unspecified atrial fibrillation Status: Chronic (5) Hyperlipidemia ICD Code: E78.5 - Hyperlipidemia, unspecified Status: Chronic Assessment and Plan CHF, acute on chronic systolic failure History of severe aortic stenosis,s/p TAVR Responding to diuresis, continue Lasix Continue Aldactone Monitor creatinine levels Cardiology decreased Sayvasa a due to dosing parameters Appreciate cardiology consult h/o atrial fibrillation Atrial fibrillation on NOAC ([employer] study participant) h/o COPD 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
[2017-08-30] MEDS ORDERED: DOCUSATE SODIUM 50 MG/SENNA 8.6 MG TAB PO PRN (19:00)
--- NOTE | 2017-08-30 19:26 | MB ---
cc: Latosha Reina MD, A Arab, Obeid, Dany A MD Kendrick,Marquez FLORES DATE: 08/30/2017 REASON FOR CONSULTATION: COPD and respiratory failure. HISTORY OF PRESENT ILLNESS: Mr. Callejas is a 71-year-old male who was admitted through the emergency room with increasing shortness of breath, increasing ankle edema, has known history of COPD as well as congestive heart failure. He is status post TAVR done at [facility], followed for same by Dr. Hooks. The patient has evidence of hypoxia and hypercarbia by arterial blood gas. He is on home oxygen therapy at 2 liters by nasal cannula. Denies history of fever, chills, hemoptysis, cough or expectoration. PAST MEDICAL HISTORY: 1. Chronic obstructive pulmonary disease. 2. Congestive heart failure. 3. Aortic stenosis post-TAVR. 4. Coronary artery disease, prior myocardial infarction in the past. 5. Ventricular tachycardia, status post ICD placement. 6. Atrial fibrillation. MEDICATIONS AT HOME: Include sotalol, Advair twice daily, torsemide, Digitek, Savaysa, p.r.n. albuterol and carvedilol. ALLERGIES: ENTRESTO. FAMILY HISTORY: Noncontributory. SOCIAL HISTORY: Does not smoke. Does not drink. No history of drug abuse. PHYSICAL EXAMINATION: GENERAL: The patient is alert. VITAL SIGNS: Temperature 98, pulse 84, respiration 20, blood pressure 120/60, oxygen saturation 94% on 2 liters oxygen nasal cannula. HEENT: Unremarkable. Eyes without icterus. NECK: No adenopathy. No thyroid enlargement. CHEST: A few scattered rhonchi at bases. CARDIAC: Irregularity noted. ABDOMEN: Lax, bowel sounds audible. EXTREMITIES: 2+ edema. DIAGNOSTIC STUDIES: Labs: White count 11,000; hemoglobin 11.7; hematocrit 37; platelets 212,000. Sodium 138, potassium 4.9, BUN 36, creatinine 2.1. Blood sugar at 160 upon presentation. Chest x-ray: Cardiomegaly. ____ congestion now clear. Small right pleural effusion noted. Arterial blood gas pH 7.37, pCO2 of 61, pO2 of 64. IMPRESSION: 1. Chronic obstructive pulmonary disease of severe degree. 2. Chronic respiratory failure, both hypoxic and hypercapnic. 3. Congestive heart failure. 4. Coronary artery disease. 5. Post-TAVR. 6. Status post implantable cardioverter-defibrillator placement. PLAN: The patient seems to have had worsening CHF upon presentation with clearance of his chest x-ray, and indeed he is clinically improved. His hypercapnia and respiratory acidosis is improved as well and now has a compensated respiratory acidosis. Would continue his bronchodilator therapy as well as therapy for his underlying congestive heart failure. Intravenous steroids have been given and appropriately so, may be changed to oral therapy and gradually tapered. We will follow the patient's course along with you and, depending on progress, proceed further. I do thank you for asking me to partake in Mr. Callejas's care. Latosha Reina MD WWW/DULCE , 06:49 PM , 07:25 PM
[2017-08-31] VITALS (14 sets, daily range): BP systolic 115–131; BP diastolic 67–73; PULSE 63–83; RESP 16–18; TEMP 97.5–97.7; O2SAT 96–97
[2017-08-31] MEDS: methylPREDNISolone SOD SUCC 125 MG/2 ML VIAL IV PUSH SCH ×2 (02:51→08:55)
[2017-08-31] MEDS: RESP: ALBUTEROL 2.5 MG/IPRATROPIUM 0.5 MG NEB (SCH) INH ×2 (03:17→09:59)
[2017-08-31] MEDS: BUDESONIDE-FORMOTEROL 80/4.5 MCG INHALER INH SCH (08:55)
[2017-08-31] MEDS: FUROSEMIDE 40 MG/4 ML VIAL IVP SCH (08:55)
[2017-08-31] MEDS: SPIRONOLACTONE 25 MG TAB PO SCH (08:55)
[2017-08-31] MEDS: CARVEDILOL 12.5 MG TAB PO SCH (08:56)
[2017-08-31] MEDS: SODIUM CHLORIDE 0.9% FLUSH 10 ML FLUSH IV FLUSH SCH (08:56)
[2017-08-31] MEDS: SOTALOL HCL 80 MG TAB PO SCH (08:56)
[2017-08-31] MEDS: PANTOPRAZOLE SOD 40 MG DELAYED RELEASE TAB PO SCH (08:56)
[2017-08-31] MEDS: DIGOXIN 0.125 MG TAB PO SCH (08:56)
[2017-08-31] MEDS ORDERED: EDOXABAN TOSYLATE 30 MG TAB PO SCH (09:00)
[2017-08-31] MEDS: INSULIN ASPART SUPPLEMENTAL SCALE SQ SCH ×2 (09:01→13:02)
--- NOTE | 2017-08-31 10:19 | HHI.PR ---
Subjective Remarks Patient is on 3L oxygen with good sats. Afebrile. Objective Vital Signs Vital Signs Date Time Temp Pulse Resp B/P (MAP) Pulse Ox O2 Delivery O2 Flow Rate FiO2 08/31/17 10:07 63 08/31/17 10:01 97 Nasal Cannula 3.00 08/31/17 09:33 72 08/31/17 08:00 97.5 83 18 131/67 (88) 97 08/31/17 08:00 80 08/31/17 08:00 97 Nasal Cannula 2.00 08/31/17 06:00 72 08/31/17 05:00 70 08/31/17 04:00 68 08/31/17 03:49 96 Nasal Cannula 2.00 30 08/31/17 03:49 78 16 123/73 (90) 96 08/31/17 03:00 71 08/31/17 02:00 72 08/31/17 01:00 72 08/31/17 00:00 70 08/30/17 23:00 99 Nasal Cannula 2.00 30 08/30/17 23:00 92 08/30/17 23:00 76 16 102/67 (79) 99 08/30/17 22:00 78 08/30/17 21:14 95 Nasal Cannula 3.00 08/30/17 21:00 76 08/30/17 20:20 98 Nasal Cannula 2.00 30 08/30/17 20:20 98.1 74 16 128/79 (95) 98 08/30/17 20:00 82 08/30/17 19:00 81 08/30/17 18:00 74 08/30/17 17:00 75 08/30/17 16:00 73 08/30/17 15:00 98.0 72 22 134/60 (84) 98 08/30/17 15:00 85 08/30/17 15:00 98 Nasal Cannula 2.00 08/30/17 14:00 75 08/30/17 13:00 76 08/30/17 12:00 82 08/30/17 11:00 72 08/30/17 11:00 98 Nasal Cannula 2.00 08/30/17 11:00 98.0 72 22 134/60 (84) 98 I/O 08/30/17 08/30/17 08/30/17 08/31/17 08/31/1721/18 07:00 15:00 23:00 07:00 15:00 23:00 Intake Total 575 ml 625 ml 480 ml Output Total 575 ml 651 ml 1575 ml Balance 0 ml -26 ml -1095 ml Intake Oral 575 ml 625 ml 480 ml Output Urine Total 575 ml 650 ml 1575 ml Stool Total 1 ml # Bowel Movements 0 Result Diagram: 08/30/17 0535 08/30/17 0535 Other Results Last Impressions Chest X-Ray 08/30/17 0000 Signed Impressions: Service Date/Time: Wednesday, August 30, 2017 09:52 - CONCLUSION: Cardiomegaly. Lungs are now clear. Small right pleural effusion. Nain Dodson MD Objective Remarks GENERAL: Patient is 71 yo sitting in chair in NAD SKIN: Warm and dry. HEAD: Normocephalic. EYES: No scleral icterus. No injection or drainage. NECK: Supple, trachea midline. No JVD or lymphadenopathy. CARDIOVASCULAR: Regular rate and rhythm without murmurs, gallops, or rubs. RESPIRATORY: Breath sounds equal bilaterally. No accessory muscle use. GASTROINTESTINAL: Abdomen soft, non-tender, nondistended. MUSCULOSKELETAL: No cyanosis, or edema. Neuro: Awake and alert A/P Assessment and Plan 1)Resp Insuff 2)COPD- on 2L home oxygen 3)CHF 4)Coronary artery disease. 5)Post-TAVR. 6)Status post implantable cardioverter-defibrillator placement. 7)Acute on CKD Plan Continue with oxygen keep sats >92% Bronchodilators ( Duoneb, Symbicort) Decrease Solumederol 40mg Q12 NIPPV PRN for resp distress Decrease Lasix ( patient with worsening renal function GI/DVT prophylaxis per primary team Will Bearden MD Aug 31, 2017 10:19
[2017-08-31] MEDS ORDERED: EDOX1TAB2 PO (12:50)
[2017-08-31] MEDS ORDERED: MEDR4PAK PO (12:50)
[2017-08-31] MEDS ORDERED: POTA10TA15 PO (12:50)
[2017-08-31] MEDS ORDERED: BUME2TAB PO (12:50)
--- NOTE | 2017-08-31 12:57 | HHI.FF ---
Face to Face Verification Diagnosis: (1) CHF (congestive heart failure) (2) COPD with acute exacerbation (3) Atrial fibrillation Home Health Nursing Order: Medical education Signs/symptoms of disease process CHF education Oxygen administration education Nursing assessment with vital signs I have seen patient Edu Callejas on 08/31/17. My clinical findings support the need for the requested home health care services because: Ltd mobility - disease progression Patient has SOB Deconditioned w/ increased weakness I certify that my clinical findings support that this patient is homebound because: Hx COPD- exertion dyspnea/weakness Unsteady gait/balance Unsafe to leave home unassisted Unable to use public transportation Daily weights for CHF management Handy Brian MD Aug 31, 2017 12:57
[2017-08-31] MEDS ORDERED: methylPREDNISolone SOD SUCC 40 MG/1 ML VIAL IV PUSH SCH (14:00)
--- NOTE | 2017-08-31 17:06 | HHI.DS ---
Discharge Summary Admission Date Aug 28, 2017 at 23:45 Discharge Date: Aug 31, 2017 Admitting Diagnosis CHF; exac copd w/ resp acidosis (1) COPD with acute exacerbation ICD Code: J44.1 - Chronic obstructive pulmonary disease with (acute) exacerbation Diagnosis: Principal Status: Acute (2) CHF (congestive heart failure) ICD Code: I50.9 - Heart failure, unspecified Diagnosis: Principal Status: Chronic (3) Hypertension ICD Code: I10 - Essential (primary) hypertension Status: Chronic (4) Atrial fibrillation ICD Code: I48.91 - Unspecified atrial fibrillation Diagnosis: Secondary Status: Chronic (5) Hyperlipidemia ICD Code: E78.5 - Hyperlipidemia, unspecified Diagnosis: Secondary Status: Chronic Procedures none Brief History - From Admission Patient is a 71-year-old male who presented to the emergency department by EMS transport for progressive worsening shortness of breath it has been going on for the past day. Patient states he has had increased swelling of bilateral lower extremities. Patient also has had symptoms exacerbated by exertion. Denies any chest pain or neck pain or jaw pain or shoulder pain or abdominal pain. Patient denies any nausea vomiting. Has had some sweating and some diaphoresis. Past medical history includes ischemic cardiomyopathy. Ventricular tachycardia with an AICD placement history of atrial fibrillation on chronic anticoagulation, aortic stenosis status post TAVR , COPD and chronic kidney disease Patient is on 2 L by nasal cannula oxygen at home at all times Had worsening shortness of breath yesterday O2 sats were only 80% on 2 L. Was placed on CPAP and was given nitroglycerin by EMS his die cutter operator is Dr. King Patient has been admitted for diuresis. CBC/BMP: 08/30/17 0535 08/30/17 0535 Significant Findings Laboratory Tests Test 08/28/17 20:20 08/28/17 21:07 08/28/17 22:48 08/29/17 01:55 White Blood Count 11.8 TH/MM3 (4.0-11.0) Red Blood Count 3.91 MIL/MM3 (4.50-5.90) Hemoglobin 11.7 GM/DL (13.0-17.0) Hematocrit 37.8 % (39.0-51.0) Mean Corpuscular Hemoglobin Concent 30.9 % (32.0-36.0) Neutrophils (%) (Auto) 76.6 % (16.0-70.0) Neutrophils # (Auto) 9.1 TH/MM3 (1.8-7.7) Prothrombin Time 13.9 SEC (9.8-11.6) Blood Urea Nitrogen 30 MG/DL (7-18) Creatinine 2.12 MG/DL (0.60-1.30) Random Glucose 312 MG/DL (74-106) Total Protein 8.7 GM/DL (6.4-8.2) Albumin 3.3 GM/DL (3.4-5.0) Magnesium Level 2.7 MG/DL (1.5-2.5) Sodium Level 135 MEQ/L (136-145) Chloride Level 95 MEQ/L (98-107) Estimat Glomerular Filtration Rate 31 ML/MIN (>89) Troponin I 0.08 NG/ML (0.02-0.05) B-Type Natriuretic Peptide 943 PG/ML (0-100) Blood Gas HCO3 30 mmol/L (22-26) 31 mmol/L (22-26) 34 mmol/L (22-26) Blood Gas Base Excess 3.1 mmol/L (-2-2) 5.1 mmol/L (-2-2) 8.5 mmol/L (-2-2) Arterial Blood pH 7.23 (7.380-7.420) 7.29 (7.380-7.420) 7.37 (7.380-7.420) Arterial Blood Partial Pressure CO2 75 mmHg (38-42) 68 mmHg (38-42) 61 mmHg (38-42) Arterial Blood Partial Pressure O2 450 mmHG (61-120) 139 mmHG (61-120) Test 08/29/17 03:15 08/29/17 12:12 08/30/17 05:35 White Blood Count 13.0 TH/MM3 (4.0-11.0) 13.9 TH/MM3 (4.0-11.0) Red Blood Count 3.75 MIL/MM3 (4.50-5.90) 3.47 MIL/MM3 (4.50-5.90) Hemoglobin 11.5 GM/DL (13.0-17.0) 10.4 GM/DL (13.0-17.0) Hematocrit 35.3 % (39.0-51.0) 32.4 % (39.0-51.0) Neutrophils (%) (Auto) 94.0 % (16.0-70.0) 94.9 % (16.0-70.0) Lymphocytes (%) (Auto) 2.5 % (9.0-44.0) 2.7 % (9.0-44.0) Neutrophils # (Auto) 12.2 TH/MM3 (1.8-7.7) 13.2 TH/MM3 (1.8-7.7) Lymphocytes # (Auto) 0.3 TH/MM3 (1.0-4.8) 0.4 TH/MM3 (1.0-4.8) Blood Urea Nitrogen 36 MG/DL (7-18) 47 MG/DL (7-18) Creatinine 2.10 MG/DL (0.60-1.30) 2.25 MG/DL (0.60-1.30) Random Glucose 160 MG/DL (74-106) 172 MG/DL (74-106) Total Protein 8.3 GM/DL (6.4-8.2) Albumin 3.3 GM/DL (3.4-5.0) 3.0 GM/DL (3.4-5.0) Aspartate Amino Transf (AST/SGOT) 61 U/L (15-37) Chloride Level 94 MEQ/L (98-107) 94 MEQ/L (98-107) Carbon Dioxide Level 38.0 MEQ/L (21.0-32.0) 36.5 MEQ/L (21.0-32.0) Estimat Glomerular Filtration Rate 31 ML/MIN (>89) 29 ML/MIN (>89) Troponin I 0.31 NG/ML (0.02-0.05) 0.28 NG/ML (0.02-0.05) Hemoglobin A1c 6.8 % (4.3-6.0) Procalcitonin 3.15 ng/mL (0.00-0.08) PE at Discharge GENERAL: Well-nourished, obese, well-developed patient. SKIN: Warm and dry. HEAD: Normocephalic. EYES: No scleral icterus. No injection or drainage. NECK: Supple, trachea midline. No JVD or lymphadenopathy. CARDIOVASCULAR: Regular rate and rhythm without murmurs, gallops, or rubs. RESPIRATORY: Breath sounds equal bilaterally. No crackles or wheezes. No accessory muscle use. GASTROINTESTINAL: Abdomen soft, non-tender, nondistended. EXTREMITIES: No cyanosis, 2+ ankle edema NEUROLOGICAL: Awake, alert, and oriented x 3. Non-focal. Hospital Course 71-year-old male with a history of COPD and CHF presented to the ER with shortness of breath. He responded well to therapy with IV Lasix over a 3 day stay. Today he feels he is at his baseline. He has been cleared by cardiology for discharge. He still has some residual ankle edema and I suggested that he take Bumex to get ahead of this. He will be weighing himself daily and working with home health care providers to manage his CHF and fluid overload. Pt Condition on Discharge: Good Discharge Disposition: Disch w/ Home Health Serv Discharge Time: <= 30 minutes Discharge Instructions DIET: Follow Instructions for: Heart Healthy Diet Activities you can perform: Regular-No Restrictions Handy Brian MD Aug 31, 2017 17:06
== END 2017-08-31 14:02 | disposition home health service (06) | DRG 291 ==
LOC: NEPC 20:05 → NEDA 23:45 → NEDH 08-29 04:37 → HCIS 08-29 06:44
PROVIDERS: ADMIT Family Medicine; ATTEND Family Medicine
PROC: 5A09357 Assistance with Respiratory Ventilation, Less than 24 Consecutive Hours, Continuous Positive Airway Pressure (ICD-10-PCS; principal; 2017-08-28)
DX: I13.0 Hypertensive heart and chronic kidney disease with heart failure and stage 1 through stage 4 chronic kidney disease, or unspecified chronic kidney disease (principal); I50.23 Acute on chronic systolic (congestive) heart failure; J96.21 Acute and chronic respiratory failure with hypoxia; E87.2 Acidosis; J96.22 Acute and chronic respiratory failure with hypercapnia; J44.1 Chronic obstructive pulmonary disease with (acute) exacerbation; I24.9 Acute ischemic heart disease, unspecified; Z99.81 Dependence on supplemental oxygen; I48.91 Unspecified atrial fibrillation; Z79.01 Long term (current) use of anticoagulants; Z72.0 Tobacco use; I25.5 Ischemic cardiomyopathy; Z95.810 Presence of automatic (implantable) cardiac defibrillator; Z95.2 Presence of prosthetic heart valve; Z87.442 Personal history of urinary calculi; Z86.79 Personal history of other diseases of the circulatory system; Z82.49 Family history of ischemic heart disease and other diseases of the circulatory system; E78.5 Hyperlipidemia, unspecified; E66.9 Obesity, unspecified; Z68.39 Body mass index [BMI] 39.0-39.9, adult; N18.9 Chronic kidney disease, unspecified; I25.2 Old myocardial infarction; I25.10 Atherosclerotic heart disease of native coronary artery without angina pectoris
CPT/HCPCS: 36600; 71045; 80053; 80162; 82550; 82805; 82948; 83036; 83735; 83880; 84100; 84145; 84439; 84443; 84484; 85025; 85610; 85730; 93005; 94002; 94003; 94640; 94664; 96374; 96375; J1644; J1815; J1940; J2930

== ENCOUNTER 2017-12-14 23:30 | Inpatient (IN) ==
--- NOTE | 2017-12-14 23:54 | ED ---
HPI General Chief Complaint: Shortness of Breath/Dyspnea Stated Complaint: Diff breathing Time Seen by Provider: 12/14/17 23:39 Source: patient and EMS Mode of arrival: EMS Limitations: physical limitation History of Present Illness 72-year-old male complains of shortness of breath. Patient states that the symptoms started today. Patient has history of COPD and CHF. Patient has been using nebulizer treatment at home. EMS was called. Patient was given Lasix [address] to the ED. Patient also was given BiPAP on the way to the ED. Patient denies any chest pain. Patient refused intubation with ET tube to help with his breathing. Patient has history of hypertension, ischemic cardiomyopathy, ventricular tachycardia with status post AICD placement, atrial fibrillation, aortic stenosis status post TAPVR, chronic kidney disease. Complaint: shortness of breath Onset (ago): hour(s) Severity: severe Consistency/Duration: constant Relieving factors: nothing Exacerbating factors: nothing Known history of: COPD and congestive heart failure Associated symptoms: denies other symptoms Treatment prior to arrival: oxygen, NIPPV and diuretics Related Data Home oxygen amount: none Home Medications Medication Instructions Recorded Confirmed bumetanide 2 mg PO DAILY 12/14/17 12/14/17 carvedilol 12.5 mg PO BID 12/14/17 12/14/17 Allergies Allergy/AdvReac Type Severity Reaction Status Date / Time sacubitril AdvReac Intermediate Verified 08/29/17 12:58 valsartan AdvReac Intermediate Verified 08/29/17 12:58 No Known Allergies Allergy Unknown Uncoded 08/29/17 12:58 Review of Systems Except as stated in HPI: all other systems reviewed are negative PMFSH Social History Social History Second Hand Smoke Exposure: No Smoking Status: Former smoker Tobacco Type: Cigarettes How Often Do You Have a Drink Containing Alcohol: Monthly or less Recent Travel in [facility] within the Last 8 Weeks: No Recent Out of Country Travel within the Last 8 Weeks: No Immunization History Tetanus Immunization: Unsure Hx Influenza Vaccine This Season: No Exam Narrative Exam Narrative: GENERAL: Well-nourished, well-developed patient. SKIN: Focused skin assessment warm/dry. HEAD: Normocephalic. EYES: No scleral icterus. No injection or drainage. NECK: Supple, trachea midline. No JVD or lymphadenopathy. CARDIOVASCULAR: Regular rate and rhythm without murmurs, gallops, or rubs. RESPIRATORY: Patient has decreased breath sounds bilaterally. Rhonchi at the bases. GASTROINTESTINAL: Abdomen soft, non-tender, nondistended. MUSCULOSKELETAL: +2 pitting edema lower extremity. BACK: Nontender without obvious deformity. No CVA tenderness. Neurologic exam: Patient is with mild lethargy however answer questions appropriately. No obvious focal neurologic deficit. Course Initial Documented Vital Signs Temperature 97.4 F L 12/14/17 23:34 Pulse Rate 103 H 12/14/17 23:34 Respiratory Rate 28 H 12/14/17 23:34 Blood Pressure 146/81 H 12/14/17 23:34 Pulse Oximetry 89 L 12/14/17 23:34 Last Documented Vital Signs Temperature 97.4 F L 12/14/17 23:34 Pulse Rate 86 12/15/17 00:49 Respiratory Rate 22 12/15/17 00:49 Blood Pressure 143/84 H 12/15/17 00:49 Pulse Oximetry 95 12/15/17 01:[address] [facility] Narrative Medical decision making narrative: 72-year-old male with shortness of breath. History of COPD and CHF. Patient was given Lasix 100 mg IV prior to arrival by EMS. Patient given albuterol with Atrovent unit dose treatment 1 in the ED. Continue with BiPAP. Patient refused intubation. Differential Diagnosis Differential Diagnosis: Differential diagnosis including acute exacerbation COPD , acute exacerbation CHF, pneumonia, PE, pneumothorax. Lab Data Result diagrams: 12/14/17 23:59 12/14/17 23:59 Lab Results 12/14/17 12/14/17 12/14/17 Range/Units 23:44 23:59 23:59 WBC 11.7 H (4.0-11.0) th/mm3 RBC 3.30 L (4.50-5.90) mil/mm3 Hgb 10.1 L (13.0-17.0) gm/dL Hct 32.5 L (39.0-51.0) % MCV 98.5 (80.0-100.0) fL MCH 30.7 (27.0-34.0) pg MCHC 31.1 L (32.0-36.0) % RDW 17.5 H (11.6-17.2) % Plt Count 279 (150-450) th/mm3 MPV 8.9 (7.0-11.0) fL Neut % (Auto) 85.2 H (16.0-70.0) % Lymph % (Auto) 7.0 L (9.0-44.0) % [place] % (Auto) 6.2 (0.0-8.0) % Eos % (Auto) 0.8 (0.0-4.0) % Baso % (Auto) 0.8 (0.0-2.0) % Neut # (Auto) 9.9 H (1.8-7.7) th/mm3 Lymph # (Auto) 0.8 L (1.0-4.8) th/mm3 [place] # (Auto) 0.7 (0.0-0.9) th/mm3 Eos # (Auto) 0.1 (0.0-0.4) th/mm3 Baso # (Auto) 0.1 (0.0-0.2) th/mm3 WBC Differential . Differential Comment Auto diff final PT (9.8-11.6) sec INR Ratio APTT (24.3-30.1) sec D-Dimer Quant (PE/DVT) (0.00-0.50) mg/L FEU Puncture Site Left radial Patient Temperature 98.6 O2 Saturation 93 (90-100) % ABG pH 7.30 L (7.380-7.420) ABG pCO2 80 H* (38-42) mmHg ABG pO2 88 (61-120) mmHg ABG HCO3 38 H (22-26) mmol/L ABG O2 Content 13.5 (12.0-20.0) Vol % ABG Base Excess 11.6 H (-2-2) mmol/L ABG Methemoglobin 0.6 (0-2) % Alessio Test Present Hemoglobin 10.2 L (12.0-16.0) G/DL Carboxyhemoglobin 1.7 (0-4) % O2 Delivery Device Bipap Vent Setting 15/5 Inspired O2 40 % Critical Value Yes Sodium 134 L (136-145) meq/L Potassium 3.9 (3.5-5.1) meq/L Chloride 87 L (98-107) meq/L Carbon Dioxide 39.3 H (21.0-32.0) meq/L Anion Gap 8 (5-15) meq/L BUN 43 H (7-18) mg/dL Creatinine 2.54 H (0.60-1.30) mg/dL Estimated GFR 25 L (>89) mL/min Random Glucose 288 H (74-106) mg/dL Lactic Acid (0.4-2.0) mmol/L Calcium 8.7 (8.5-10.1) mg/dL Total Bilirubin 0.6 (0.2-1.0) mg/dL AST 17 (15-37) U/L ALT 18 (12-78) U/L Alkaline Phosphatase 63 (45-117) U/L Total Creatine Kinase (39-308) U/L Troponin I 0.06 H (0.02-0.05) ng/mL B-Natriuretic Peptide (0-100) pg/mL Total Protein 8.3 H (6.4-8.2) g/dL Albumin 3.2 L (3.4-5.0) g/dL Urine Color (Yellw/Straw) Urine Clarity (Clear) Urine pH (5.0-8.5) Ur Specific [place] (1.002-1.035) Urine Protein (Neg-Trace) mg/dL Urine Glucose (UA) (Negative) mg/dL Urine Ketones (Negative) mg/dL Urine Occult Blood (Negative) Urine Nitrate (Negative) Urine Bilirubin (Negative) Urine Urobilinogen (Less than 2) mg/dL Ur Leukocyte Esterase (Negative) Urine RBC (0-3) /hpf Urine WBC (0-5) /hpf Ur Squamous Epith Cells (0-5) /hpf Amorphous Sediment (None) /hpf Urine Bacteria (None) /hpf Hyaline Casts (0-3) /lpf Urine Mucus (Occasional) /lpf Micro UA Comment Urine Culture Comments Digoxin (0.8-2.0) ng/mL 12/14/17 12/14/17 12/14/17 Range/Units 23:59 23:59 23:59 WBC (4.0-11.0) th/mm3 RBC (4.50-5.90) mil/mm3 Hgb (13.0-17.0) gm/dL Hct (39.0-51.0) % MCV (80.0-100.0) fL MCH (27.0-34.0) pg MCHC (32.0-36.0) % RDW (11.6-17.2) % Plt Count (150-450) th/mm3 MPV (7.0-11.0) fL Neut % (Auto) (16.0-70.0) % Lymph % (Auto) (9.0-44.0) % [place] % (Auto) (0.0-8.0) % Eos % (Auto) (0.0-4.0) % Baso % (Auto) (0.0-2.0) % Neut # (Auto) (1.8-7.7) th/mm3 Lymph # (Auto) (1.0-4.8) th/mm3 [place] # (Auto) (0.0-0.9) th/mm3 Eos # (Auto) (0.0-0.4) th/mm3 Baso # (Auto) (0.0-0.2) th/mm3 WBC Differential Differential Comment PT 13.3 H (9.8-11.6) sec INR 1.3 Ratio APTT 25.3 (24.3-30.1) sec D-Dimer Quant (PE/DVT) 1.77 H (0.00-0.50) mg/L FEU Puncture Site Patient Temperature O2 Saturation (90-100) % ABG pH (7.380-7.420) ABG pCO2 (38-42) mmHg ABG pO2 (61-120) mmHg ABG HCO3 (22-26) mmol/L ABG O2 Content (12.0-20.0) Vol % ABG Base Excess (-2-2) mmol/L ABG Methemoglobin (0-2) % Alessio Test Hemoglobin (12.0-16.0) G/DL Carboxyhemoglobin (0-4) % O2 Delivery Device Vent Setting Inspired O2 % Critical Value Sodium (136-145) meq/L Potassium (3.5-5.1) meq/L Chloride (98-107) meq/L Carbon Dioxide (21.0-32.0) meq/L Anion Gap (5-15) meq/L BUN (7-18) mg/dL Creatinine (0.60-1.30) mg/dL Estimated GFR (>89) mL/min Random Glucose (74-106) mg/dL Lactic Acid (0.4-2.0) mmol/L Calcium (8.5-10.1) mg/dL Total Bilirubin (0.2-1.0) mg/dL AST (15-37) U/L ALT (12-78) U/L Alkaline Phosphatase (45-117) U/L Total Creatine Kinase 30 L (39-308) U/L Troponin I (0.02-0.05) ng/mL B-Natriuretic Peptide 642 H (0-100) pg/mL Total Protein (6.4-8.2) g/dL Albumin (3.4-5.0) g/dL Urine Color (Yellw/Straw) Urine Clarity (Clear) Urine pH (5.0-8.5) Ur Specific [place] (1.002-1.035) Urine Protein (Neg-Trace) mg/dL Urine Glucose (UA) (Negative) mg/dL Urine Ketones (Negative) mg/dL Urine Occult Blood (Negative) Urine Nitrate (Negative) Urine Bilirubin (Negative) Urine Urobilinogen (Less than 2) mg/dL Ur Leukocyte Esterase (Negative) Urine RBC (0-3) /hpf Urine WBC (0-5) /hpf Ur Squamous Epith Cells (0-5) /hpf Amorphous Sediment (None) /hpf Urine Bacteria (None) /hpf Hyaline Casts (0-3) /lpf Urine Mucus (Occasional) /lpf Micro UA Comment Urine Culture Comments Digoxin 0.5 L (0.8-2.0) ng/mL 12/14/17 12/15/17 12/15/17 Range/Units 23:59 00:15 01:04 WBC (4.0-11.0) th/mm3 RBC (4.50-5.90) mil/mm3 Hgb (13.0-17.0) gm/dL Hct (39.0-51.0) % MCV (80.0-100.0) fL MCH (27.0-34.0) pg MCHC (32.0-36.0) % RDW (11.6-17.2) % Plt Count (150-450) th/mm3 MPV (7.0-11.0) fL Neut % (Auto) (16.0-70.0) % Lymph % (Auto) (9.0-44.0) % [place] % (Auto) (0.0-8.0) % Eos % (Auto) (0.0-4.0) % Baso % (Auto) (0.0-2.0) % Neut # (Auto) (1.8-7.7) th/mm3 Lymph # (Auto) (1.0-4.8) th/mm3 [place] # (Auto) (0.0-0.9) th/mm3 Eos # (Auto) (0.0-0.4) th/mm3 Baso # (Auto) (0.0-0.2) th/mm3 WBC Differential Differential Comment PT (9.8-11.6) sec INR Ratio APTT (24.3-30.1) sec D-Dimer Quant (PE/DVT) (0.00-0.50) mg/L FEU Puncture Site Left radial Patient Temperature 98.6 O2 Saturation 93 (90-100) % ABG pH 7.34 L (7.380-7.420) ABG pCO2 71 H* (38-42) mmHg ABG pO2 86 (61-120) mmHg ABG HCO3 37 H (22-26) mmol/L ABG O2 Content 13.4 (12.0-20.0) Vol % ABG Base Excess 10.9 H (-2-2) mmol/L ABG Methemoglobin 1.0 (0-2) % Alessio Test Present Hemoglobin 10.1 L (12.0-16.0) G/DL Carboxyhemoglobin 2.1 (0-4) % O2 Delivery Device Bipap Vent Setting 15/5 Inspired O2 35 % Critical Value Yes Sodium (136-145) meq/L Potassium (3.5-5.1) meq/L Chloride (98-107) meq/L Carbon Dioxide (21.0-32.0) meq/L Anion Gap (5-15) meq/L BUN (7-18) mg/dL Creatinine (0.60-1.30) mg/dL Estimated GFR (>89) mL/min Random Glucose (74-106) mg/dL Lactic Acid 3.8 H (0.4-2.0) mmol/L Calcium (8.5-10.1) mg/dL Total Bilirubin (0.2-1.0) mg/dL AST (15-37) U/L ALT (12-78) U/L Alkaline Phosphatase (45-117) U/L Total Creatine Kinase (39-308) U/L Troponin I (0.02-0.05) ng/mL B-Natriuretic Peptide (0-100) pg/mL Total Protein (6.4-8.2) g/dL Albumin (3.4-5.0) g/dL Urine Color [place] (Yellw/Straw) Urine Clarity Cloudy H (Clear) Urine pH 5.0 (5.0-8.5) Ur Specific [place] 1.013 (1.002-1.035) Urine Protein 30 H (Neg-Trace) mg/dL Urine Glucose (UA) Negative (Negative) mg/dL Urine Ketones Negative (Negative) mg/dL Urine Occult Blood Moderate H (Negative) Urine Nitrate Negative (Negative) Urine Bilirubin Negative (Negative) Urine Urobilinogen 4 or greater (Less than 2) mg/dL Ur Leukocyte Esterase Negative (Negative) Urine RBC Less than 1 (0-3) /hpf Urine WBC 1 (0-5) /hpf Ur Squamous Epith Cells <1 (0-5) /hpf Amorphous Sediment Rare H (None) /hpf Urine Bacteria Rare H (None) /hpf Hyaline Casts 81 (0-3) /lpf Urine Mucus Few H (Occasional) /lpf Micro UA Comment Cath-culture ind Urine Culture Comments Cath-cult indicated Digoxin (0.8-2.0) ng/mL Imaging Data Radiologist's impression: Chest X-Ray 12/14/17 23:40 CONCLUSION: 1. Interval development of ill-defined areas of opacity in the medial right lung suggesting pulmonary edema. 2. Stable cardiomegaly and right pleural effusion. Discharge Plan Discharge Disposition Patient Disposition: 30 Still Patient Discharge Details Diagnosis: CHF exacerbation, CKD (chronic kidney disease) stage 4, GFR 15-29 ml/min Physicians Team ED Provider: Manuelito Hernandez Primary Care Provider: Marquez Fields Rxs /Orders / Referrals /Forms Prescriptions: No Action carvedilol 12.5 mg Tablet 12.5 mg PO BID RF: 0 bumetanide 2 mg Tablet 2 mg PO DAILY RF: 0 Discharge Interventions Interventions: Vital Signs Last Done: 12/15/17 00:49 Status ED Status: With Doctor
[2017-12-15 00:11] LABS: Baso # (Auto) 0.1 th/mm3 (0.0-0.2); Baso % (Auto) 0.8 % (0.0-2.0); Eos # (Auto) 0.1 th/mm3 (0.0-0.4); Eos % (Auto) 0.8 % (0.0-4.0); Hematocrit 32.5 % (39.0-51.0); Hemoglobin 10.1 gm/dL (13.0-17.0); Lymph # (Auto) 0.8 th/mm3 (1.0-4.8); Mean Corpuscular HGB Conc 31.1 % (32.0-36.0); Mean Corpuscular Hemoglobin 30.7 pg (27.0-34.0); Mean Corpuscular Volume 98.5 fL (80.0-100.0); Mean Platelet Volume 8.9 fL (7.0-11.0); Mono # (Auto) 0.7 th/mm3 (0.0-0.9); Mono % (Auto) 6.2 % (0.0-8.0); Neut # (Auto) 9.9 th/mm3 (1.8-7.7); Neut % (Auto) 85.2 % (16.0-70.0); Platelet Count 279 th/mm3 (150-450); Red Cell Distribution Width 17.5 % (11.6-17.2); White Blood Count 11.7 th/mm3 (4.0-11.0)
--- NOTE | 2017-12-15 00:11 | XR ---
EXAM DATE: 12/15/2017 12:02 AM EDT AGE/SEX: 72 years / Male INDICATIONS: Shortness of breath worsening over the past few days. CLINICAL DATA: This is the patient's initial encounter. Patient reports that signs and symptoms have been present for 2 days and indicates a pain score of 2/10. MEDICAL/SURGICAL HISTORY: . Chronic obstructive pulmonary disease. Pacemaker. COMPARISON: [facility] [place], CHEST SINGLE AP, 08/30/2017. . FINDINGS: There is ill-defined opacity in the central right lung causing indistinctness of the central bronchop ulmonary markings. There is associated peribronchial thickening. Stable appearance to the mild indist inctness of the left central bronchopulmonary markings. Cardiomegaly stable from prior. Portions of b oth hemidiaphragms remain well delineated. There is persistent thickening inferolateral pleura on the right side characteristic of pleural effusion. Cardiac pacer leads and aortic valve prosthesis in pl celi. CONCLUSION: 1. Interval development of ill-defined areas of opacity in the medial right lung suggesting pulmonar y edema. 2. Stable cardiomegaly and right pleural effusion. Electronically signed by: Martin Snyder MD 12/15/2017 12:10 AM EDT
[2017-12-15 00:19] LABS: ABG Base Excess 11.6 mmol/L (-2-2); ABG PCO2 80 mmHg (38-42); ABG PO2 88 mmHg (61-120)
[2017-12-15 00:22] LABS: Activated Partial Thrombo Time 25.3 sec (24.3-30.1); INR 1.3 Ratio; Prothrombin Time 13.3 sec (9.8-11.6)
[2017-12-15 00:23] LABS: Alanine Aminotransferase 18 U/L (12-78); Albumin 3.2 g/dL (3.4-5.0); Anion Gap 8 meq/L (5-15); Aspartate Aminotransferase 17 U/L (15-37); Blood Urea Nitrogen 43 mg/dL (7-18); Calcium 8.7 mg/dL (8.5-10.1); Carbon Dioxide 39.3 meq/L (21.0-32.0); Chloride 87 meq/L (98-107); Glomerular Filtration Rate 25 mL/min (>89); Glucose,Random 288 mg/dL (74-106); Potassium 3.9 meq/L (3.5-5.1); Sodium 134 meq/L (136-145)
[2017-12-15 00:24] LABS: D-Dimer 1.77 mg/L FEU (0.00-0.50)
[2017-12-15 00:27] LABS: Alkaline Phosphatase 63 U/L (45-117); Total Protein 8.3 g/dL (6.4-8.2); Troponin I 0.06 ng/mL (0.02-0.05)
[2017-12-15 01:04] LABS: Amorphous Sediment,Urine Rare /hpf; Bacteria,Urine Rare /hpf; Bilirubin,Urine Negative (Negative); Clarity,Urine Cloudy (Clear); Color,Urine Amber (Yellw/Straw); Glucose,Urine (UA) Negative (Negative); Hyaline Casts,Urine 81 /lpf (0-3); Leukocyte Esterase,Urine Negative (Negative); Mucus,Urine Few /lpf (Occasional); Nitrite,Urine Negative (Negative); Specific Gravity,Urine 1.013 (1.002-1.035); Squamous Epithelial Cell,Urine <1 /hpf (0-5); Urobilinogen,Urine 4 or Greater mg/dL (Less than 2)
[2017-12-15 01:14] LABS: Digoxin 0.5 ng/mL (0.8-2.0)
[2017-12-15 01:16] LABS: ABG Base Excess 10.9 mmol/L (-2-2); ABG PCO2 71 mmHg (38-42); ABG PO2 86 mmHg (61-120)
[2017-12-15] MEDS ORDERED: Temazepam 15 MG Capsule PO PRN (03:56)
[2017-12-15] MEDS ORDERED: Bisacodyl 10 MG Supp RECTAL PRN (03:56)
[2017-12-15] MEDS ORDERED: Acetaminophen 325 MG Tablet PO PRN (03:56)
[2017-12-15] MEDS ORDERED: Chlorhexidine Gluconate 2% 1 Pack (2 Cloths) TOPICAL PRN (04:00)
--- NOTE | 2017-12-15 04:49 | P.HPIM ---
History of Present Illness Primary Care Physician: Marquez Fields MD History of Present Illness: This is a 72-year-old male with PMH of HTN, CHF (Echo 06/18/2017 with EF <20%), CAD, COPD, h/o AICD and s/p AVR who was brought to the ER by EMS for severe SOB. S/p Lasix 100mg IV and started on CPAP by EMS for respiratory failure, on arrival to ER pt w/ persistent hypoxia, O2 sat 89% on BIPAP, pt refusing intubation. Denies c/o chest pain, cough or sick contacts. Follows w/ Dr. King as outpatient, notes he has appt on Saturday. BP 146/81, HR 103, O2 sat 89% on 40% FiO2, Afebrile. Currently BP 112/60, HR 68, O2 sat 96% on 35% FiO2, appears much more comfortable. WBC 11.7. INR 1.3. Initial ABG with pH 7.30, PCO2 80, PO2 88, repeat ABG pH 7.34, PCO2 71, PO2 86. Creatinine 2.54, previously 2.25 on 08/30/2017. Lactic Acid 3.8. Troponin 0.06. BNP 642. UA with mild bacteriuria. CXR w/ pulmonary edema and right pleural effusion. - Diagnosis (1) CHF (congestive heart failure) (2) Hypoxia (3) COPD (chronic obstructive pulmonary disease) (4) Elevated troponin (5) Renal insufficiency Inpatient Certification: I certify that the inpatient services were ordered in accordance with Medicare regulations governing the order. This includes certification that hospital inpatient services are reasonable and necessary and in the case of services not specified as inpatient-only under 42 CFR 419.22(n), that they are appropriately provided as inpatient services in accordance to with the 2-midnight benchmark under 43 CFR 412.3(e) Estimated Total Length of Stay (Days): 2 Plans for Post Hospital Care: Not yet determined Review of Systems PAST FAMILY HISTORY: Reviewed. No h/o DM or CAD All other systems reviewed negative except as stated in HPI PMFSH - History History Provided By: Patient - Tobacco History Second Hand Smoke Exposure: No Tobacco Use In Past 30 Days: No Smoking Status: Former smoker Tobacco Type: Cigarettes - Alcohol History How Often Do You Have a Drink Containing Alcohol: Monthly or less - Travel History Recent Travel in the [facility] Within the Last 8 Weeks: No Recent Travel Out of the Country Within the Last 8 Weeks: No - Immunization History Tetanus Immunization: Unsure Hx Influenza Vaccine This Season: No Medications and Allergies Active Medications: Active Medications Acetaminophen (Tylenol) 650 mg PO Q4H PRN PRN Reason: Temp > 100.4 Al Hydroxide/Mg Hydroxide (Milk Of Magnesia Liq) 30 ml PO Q12H PRN PRN Reason: Mild Constipation Bisacodyl (Dulcolax Supp) 10 mg RECTAL DAILY PRN PRN Reason: SEVERE CONSITIPATION Chlorhexidine Gluconate (Chlorhexidine 2% Cloth) 3 pack TOPICAL DAILY@0400 ELENI Stop: 12/20/17 03:59 Chlorhexidine Gluconate (Chlorhexidine 2% Cloth) 3 pack TOPICAL DAILY@0400 PRN PRN Reason: Extra cloth needed Stop: 12/20/17 03:59 Furosemide (Lasix Inj) 40 mg IV.PUSH BID@0900,1800 ELENI Heparin Sodium (Porcine) (Heparin Inj) 5,000 units SQ Q12H ELENI Levofloxacin/Dextrose (Levaquin 750 Mg Premix Inj) 150 mls @ 100 mls/hr IV.SIG Q48H ELENI Lactulose (Lactulose Liq) 30 ml PO DAILY PRN PRN Reason: SEVERE CONSITIPATION Ondansetron HCl (Zofran Inj) 4 mg IV.PUSH Q6H PRN PRN Reason: NAUSEA OR VOMITING Senna/Docusate Sodium (Meaghan-Colace) 1 tab PO BID ELENI Sennosides (Senokot) 17.2 mg PO Q12H PRN PRN Reason: Moderate Constipation Temazepam (Restoril) 15 mg PO HS PRN PRN Reason: INSOMNIA Allergies Allergy/AdvReac Type Severity Reaction Status Date / Time sacubitril AdvReac Intermediate Verified 08/29/17 12:58 valsartan AdvReac Intermediate Verified 08/29/17 12:58 No Known Allergies Allergy Unknown Uncoded 08/29/17 12:58 Home Medications Medication Instructions Recorded Confirmed Type bumetanide 2 mg PO DAILY 12/14/17 12/14/17 History carvedilol 12.5 mg PO BID 12/14/17 12/14/17 History Exam Vital signs: Vital Signs 12/14/17 23:34 12/14/17 23:42 12/14/17 23:45 Temperature 97.4 F L Pulse Rate 103 H 90 Respiratory Rate 28 H 24 Blood Pressure 146/81 H Pulse Oximetry 89 L 99 96 12/15/17 00:06 12/15/17 00:49 12/15/17 01:55 Temperature Pulse Rate 89 86 Respiratory Rate 28 H 22 Blood Pressure 143/84 H Pulse Oximetry 96 95 12/15/17 03:54 Temperature Pulse Rate 68 Respiratory Rate 22 Blood Pressure 112/60 Pulse Oximetry 96 Intake & Output 12/14/17 12/14/17 12/15/17 06:59 18:59 06:59 Weight 110 kg Narrative: PE: GENERAL: Very pleasant elderly white male in no acute distress. Currently on BiPAP, resting comfortably. at bedside. HEENT: PERRLA, EOMI. No scleral icterus or conjunctival pallor. No lid lag or facial droop. CARDIOVASCULAR: Regular rate and rhythm. No obvious murmurs to auscultation. No chest tenderness to palpation. RESPIRATORY: No obvious rhonchi or wheezing. Clear to auscultation. Breath sounds equal bilaterally. GASTROINTESTINAL: Abdomen soft, non-tender, nondistended. BS normal. MUSCULOSKELETAL: Extremities without clubbing, cyanosis. +2edema. No obvious deformities. NEUROLOGICAL: Awake, alert and oriented x4. No focal neurologic deficits. Moving both upper and lower extremities spontaneously. Results - Labs CBC & Chem 7: 12/14/17 23:59 12/14/17 23:59 Labs: Short CBC 12/14/17 Range/Units 23:59 WBC 11.7 H (4.0-11.0) th/mm3 Hgb 10.1 L (13.0-17.0) gm/dL Hct 32.5 L (39.0-51.0) % Plt Count 279 (150-450) th/mm3 BMP 12/14/17 23:59 Sodium 134 L Potassium 3.9 Chloride 87 L Carbon Dioxide 39.3 H BUN 43 H Creatinine 2.54 H Calcium 8.7 Cardiac Enzymes 12/14/17 12/14/17 Range/Units 23:59 23:59 Total Creatine Kinase 30 L (39-308) U/L Troponin I 0.06 H (0.02-0.05) ng/mL Liver Function 12/14/17 Range/Units 23:59 Total Bilirubin 0.6 (0.2-1.0) mg/dL AST 17 (15-37) U/L ALT 18 (12-78) U/L Alkaline Phosphatase 63 (45-117) U/L Albumin 3.2 L (3.4-5.0) g/dL Urine 12/15/17 Range/Units 00:15 Urine Color Anjana (Yellw/Straw) Urine Clarity Cloudy H (Clear) Urine pH 5.0 (5.0-8.5) Ur Specific [place] 1.013 (1.002-1.035) Urine Protein 30 H (Neg-Trace) mg/dL Urine Glucose (UA) Negative (Negative) mg/dL - Imaging Impressions Chest X-Ray 12/14/17 23:40 CONCLUSION: 1. Interval development of ill-defined areas of opacity in the medial right lung suggesting pulmonary edema. 2. Stable cardiomegaly and right pleural effusion. Caprini VTE Risk Assessment Caprini VTE Risk Assessment: No/Low Risk (score <= 1) Caprini Risk Assessment Model: Point Value = 1 Point Value = 2 Point Value = 3 Point Value = 5 Age 41-60 Minor surgery BMI > 25 kg/m2 Swollen legs Varicose veins or History of unexplained or recurrent spontaneous Oral contraceptives or hormone replacement Sepsis (< 1 month) Serious lung disease, including pneumonia (< 1 month) Abnormal pulmonary function Acute myocardial infarction Congestive heart failure (< 1 month) History of inflammatory bowel disease Medical patient at bed rest Age 61-74 Arthroscopic surgery Major open surgery (> 45 min) Laparoscopic surgery (> 45 min) Malignancy Confined to bed (> 72 hours) Immobilizing plaster cast Central venous access Age >= 75 History of VTE Family history of VTE Factor V Leiden Prothrombin [id number] Lupus anticoagulant Anticardiolipin antibodies Elevated serum homocysteine Heparin-induced thrombocytopenia Other congenital or acquired thrombophilia Stroke (< 1 month) Elective arthroplasty Hip, pelvis, or leg fracture Acute spinal cord injury (< 1 month) Prophylaxis Regimen: Total Risk Factor Score Risk Level Prophylaxis Regimen 0-1 Low Early ambulation 2 Moderate Order ONE of the following: *Sequential Compression Device (SCD) *Heparin 5000 units SQ BID 3-4 Higher Order ONE of the following medications: *Heparin 5000 units SQ TID *Enoxaparin/Lovenox 40 mg SQ daily (WT < 150 kg, CrCl > 30 mL/min) *Enoxaparin/Lovenox 30 mg SQ daily (WT < 150 kg, CrCl > 10-29 mL/min) *Enoxaparin/Lovenox 30 mg SQ BID (WT < 150 kg, CrCl > 30 mL/min) AND/OR *Sequential Compression Device (SCD) 5 or more Highest Order ONE of the following medications: *Heparin 5000 units SQ TID (Preferred with Epidurals) *Enoxaparin/Lovenox 40 mg SQ daily (WT < 150 kg, CrCl > 30 mL/min) *Enoxaparin/Lovenox 30 mg SQ daily (WT < 150 kg, CrCl > 10-29 mL/min) *Enoxaparin/Lovenox 30 mg SQ BID (WT < 150 kg, CrCl > 30 mL/min) AND *Sequential Compression Device (SCD) Assessment and Plan - Assessment (1) CHF (congestive heart failure) Code(s): I50.9 - Heart failure, unspecified Status: Acute (2) Hypoxia Code(s): R09.02 - Hypoxemia Status: Acute (3) COPD (chronic obstructive pulmonary disease) Code(s): J44.9 - Chronic obstructive pulmonary disease, unspecified Status: Acute (4) Elevated troponin Code(s): R74.8 - Abnormal levels of other serum enzymes Status: Acute (5) Renal insufficiency Code(s): N28.9 - Disorder of kidney and ureter, unspecified Status: Acute - Plan A/P: 1. CHF: Acute on Chronic. Systolic. Echo 06/18/17 w/ EF <20%, h/o AICD, s/p Lasix 100mg IV by EMS, CXR w/ pulmonary congestion and pleural effusion, continue w/ diuresis, monitor I/O. Follows w/ Dr. King as outpatient, will consult for further evaluation/recommendations. 2. Hypoxia: Multifactorial, secondary to CHF/fluid overload and COPD w/ hypercapnic respiratory failure, continue BIPAP, wean as toleratd. Will admit to ICU for close monitoring, repeat ABG, clinically improved at this time. 3. Elevated Trop: likely secondary to Acute CHF and demand ischemia from hypoxia, initial trop 0.06, will check serial cardiac enzymes for trend. 4. COPD: Chronic Respiratory Failure w/ Acute Exacerbation. Severe. Associated w/ hypercapnic respiratory failure, CO2 80, repeat 71, will continue BIPAP, repeat ABG. Solu-Medrol, DuoNeb, Symbicort. 5. Renal Insufficiency: Creatinine 2.54, previously 2.25 on 08/30/17, Monitor I /O, caution w/ diuresis, repeat labs in am. Check U/a to eval for UTI. 6. DVT Prophylaxis: Heparin sq 7. Social work for d/c planning as needed 8. Case discussed w/ ER physician at length, labs/records/imaging reviewed by me.
[2017-12-15] MEDS: Chlorhexidine Gluconate 2% 1 Pack (2 Cloths) TOPICAL SCH (05:26)
[2017-12-15] MEDS: Senna/Docusate Sodium 8.6/50 MG Tablet PO SCH ×2 (08:36→20:18)
--- NOTE | 2017-12-15 08:46 | ECG ---
Date Performed: 12/14/2017 Time Performed: 23:37:16 PTAGE: 72 years EKG: Sinus rhythm MARKED LEFT AXIS DEVIATION INTRAVENTRICULAR CONDUCTION DELAY ABNORMAL ECG Since the PREVIOUS TRACING , no significant change noted DOCTOR: Adriana Gamble Interpretating Date/Time 12/15/2017 08:44:15
[2017-12-15] MEDS ORDERED: Heparin - SQ 10,000 UNITS/ML Vial SQ SCH (09:00)
[2017-12-15 09:40] LABS: ABG Base Excess 16.7 mmol/L (-2-2); ABG PCO2 70 mmHg (38-42); ABG PO2 91 mmHG (61-120)
--- NOTE | 2017-12-15 10:07 | P.PN ---
Subjective Interval history: F/U CHF. Better tolerating NC. Admits to fluid indiscretion Physical Exam Vital signs: Vital Signs 12/14/17 23:34 12/14/17 23:42 12/14/17 23:45 Temperature 97.4 F L Pulse Rate 103 H 90 Respiratory Rate 28 H 24 Blood Pressure 146/81 H Pulse Oximetry 89 L 99 96 12/15/17 00:06 12/15/17 00:49 12/15/17 01:55 Temperature Pulse Rate 89 86 Respiratory Rate 28 H 22 Blood Pressure 143/84 H Pulse Oximetry 96 95 12/15/17 03:54 12/15/17 05:29 12/15/17 06:00 Temperature Pulse Rate 68 70 Respiratory Rate 22 Blood Pressure 112/60 Pulse Oximetry 96 99 94 L Intake & Output 12/14/17 12/15/17 12/15/17 18:59 06:59 18:59 Intake Total 150 / 150 Balance 150 / 150 Weight 97 kg Intake: IV 150 / 150 Levaquin 750 mg Premix Inj 150 150 / 150 ML @ 100 mls/hr IV.SIG Q48H ELENI Rx#:[id number] Other: Weight On Admission 97 kg Narrative: GENERAL: Very pleasant elderly white male in no acute distress. Currently onNC , resting comfortably. at bedside. CARDIOVASCULAR: Regular rate and rhythm. No obvious murmurs to auscultation. No chest tenderness to palpation. RESPIRATORY: No obvious rhonchi or wheezing. Clear to auscultation. Breath sounds equal bilaterally. GASTROINTESTINAL: Abdomen soft, non-tender, nondistended. BS normal. MUSCULOSKELETAL: Extremities without clubbing, cyanosis. +2edema. No obvious deformities. NEUROLOGICAL: Awake, alert and oriented x4. No focal neurologic deficits. Moving both upper and lower extremities spontaneously. - Urinary Catheter Management Indwelling Urethral Catheter Cath placed during this visit: yes Reason for continuing: Hourly intake/output Insertion date: 12/15/17 Insertion time: 00:00 Results - Labs CBC & Chem 7: 12/14/17 23:59 12/14/17 23:59 Laboratory Results - last 24 hr 12/14/17 12/14/17 12/14/17 23:44 23:59 23:59 WBC 11.7 H RBC 3.30 L Hgb 10.1 L Hct 32.5 L MCV 98.5 MCH 30.7 MCHC 31.1 L RDW 17.5 H Plt Count 279 MPV 8.9 Neut % (Auto) 85.2 H Lymph % (Auto) 7.0 L Wolfe % (Auto) 6.2 Eos % (Auto) 0.8 Baso % (Auto) 0.8 Neut # (Auto) 9.9 H Lymph # (Auto) 0.8 L Wolfe # (Auto) 0.7 Eos # (Auto) 0.1 Baso # (Auto) 0.1 WBC Differential . Differential Comment Auto diff final PT INR APTT D-Dimer Quant (PE/DVT) Puncture Site Left radial Patient Temperature 98.6 O2 Saturation 93 ABG pH 7.30 L ABG pCO2 80 H* ABG pO2 88 ABG HCO3 38 H ABG O2 Content 13.5 ABG Base Excess 11.6 H ABG Methemoglobin 0.6 Alessio Test Present Hemoglobin 10.2 L Carboxyhemoglobin 1.7 O2 Delivery Device Bipap Vent Setting 15/5 Inspired O2 40 Critical Value Yes Sodium 134 L Potassium 3.9 Chloride 87 L Carbon Dioxide 39.3 H Anion Gap 8 BUN 43 H Creatinine 2.54 H Estimated GFR 25 L Random Glucose 288 H Lactic Acid Calcium 8.7 Total Bilirubin 0.6 AST 17 ALT 18 Alkaline Phosphatase 63 Total Creatine Kinase Troponin I 0.06 H B-Natriuretic Peptide Total Protein 8.3 H Albumin 3.2 L Urine Color Urine Clarity Urine pH Ur Specific [place] Urine Protein Urine Glucose (UA) Urine Ketones Urine Occult Blood Urine Nitrate Urine Bilirubin Urine Urobilinogen Ur Leukocyte Esterase Urine RBC Urine WBC Ur Squamous Epith Cells Amorphous Sediment Urine Bacteria Hyaline Casts Urine Mucus Micro UA Comment Urine Culture Comments Digoxin 12/14/17 12/14/17 12/14/17 23:59 23:59 23:59 WBC RBC Hgb Hct MCV MCH MCHC RDW Plt Count MPV Neut % (Auto) Lymph % (Auto) Wolfe % (Auto) Eos % (Auto) Baso % (Auto) Neut # (Auto) Lymph # (Auto) Wolfe # (Auto) Eos # (Auto) Baso # (Auto) WBC Differential Differential Comment PT 13.3 H INR 1.3 APTT 25.3 D-Dimer Quant (PE/DVT) 1.77 H Puncture Site Patient Temperature O2 Saturation ABG pH ABG pCO2 ABG pO2 ABG HCO3 ABG O2 Content ABG Base Excess ABG Methemoglobin Alessio Test Hemoglobin Carboxyhemoglobin O2 Delivery Device Vent Setting Inspired O2 Critical Value Sodium Potassium Chloride Carbon Dioxide Anion Gap BUN Creatinine Estimated GFR Random Glucose Lactic Acid Calcium Total Bilirubin AST ALT Alkaline Phosphatase Total Creatine Kinase 30 L Troponin I B-Natriuretic Peptide 642 H Total Protein Albumin Urine Color Urine Clarity Urine pH Ur Specific [place] Urine Protein Urine Glucose (UA) Urine Ketones Urine Occult Blood Urine Nitrate Urine Bilirubin Urine Urobilinogen Ur Leukocyte Esterase Urine RBC Urine WBC Ur Squamous Epith Cells Amorphous Sediment Urine Bacteria Hyaline Casts Urine Mucus Micro UA Comment Urine Culture Comments Digoxin 0.5 L 12/14/17 12/15/17 12/15/17 23:59 00:15 01:04 WBC RBC Hgb Hct MCV MCH MCHC RDW Plt Count MPV Neut % (Auto) Lymph % (Auto) Wolfe % (Auto) Eos % (Auto) Baso % (Auto) Neut # (Auto) Lymph # (Auto) Wolfe # (Auto) Eos # (Auto) Baso # (Auto) WBC Differential Differential Comment PT INR APTT D-Dimer Quant (PE/DVT) Puncture Site Left radial Patient Temperature 98.6 O2 Saturation 93 ABG pH 7.34 L ABG pCO2 71 H* ABG pO2 86 ABG HCO3 37 H ABG O2 Content 13.4 ABG Base Excess 10.9 H ABG Methemoglobin 1.0 Alessio Test Present Hemoglobin 10.1 L Carboxyhemoglobin 2.1 O2 Delivery Device Bipap Vent Setting 15/5 Inspired O2 35 Critical Value Yes Sodium Potassium Chloride Carbon Dioxide Anion Gap BUN Creatinine Estimated GFR Random Glucose Lactic Acid 3.8 H Calcium Total Bilirubin AST ALT Alkaline Phosphatase Total Creatine Kinase Troponin I B-Natriuretic Peptide Total Protein Albumin Urine Color Anjana Urine Clarity Cloudy H Urine pH 5.0 Ur Specific [place] 1.013 Urine Protein 30 H Urine Glucose (UA) Negative Urine Ketones Negative Urine Occult Blood Moderate H Urine Nitrate Negative Urine Bilirubin Negative Urine Urobilinogen 4 or greater Ur Leukocyte Esterase Negative Urine RBC Less than 1 Urine WBC 1 Ur Squamous Epith Cells <1 Amorphous Sediment Rare H Urine Bacteria Rare H Hyaline Casts 81 Urine Mucus Few H Micro UA Comment Cath-culture ind Urine Culture Comments Cath-cult indicated Digoxin 12/15/17 12/15/17 08:16 09:25 WBC RBC Hgb Hct MCV MCH MCHC RDW Plt Count MPV Neut % (Auto) Lymph % (Auto) Wolfe % (Auto) Eos % (Auto) Baso % (Auto) Neut # (Auto) Lymph # (Auto) Wolfe # (Auto) Eos # (Auto) Baso # (Auto) WBC Differential Differential Comment PT INR APTT D-Dimer Quant (PE/DVT) Puncture Site Right radial Patient Temperature 98.6 O2 Saturation 93 ABG pH 7.40 ABG pCO2 70 H* ABG pO2 91 ABG HCO3 43 H ABG O2 Content 13.1 ABG Base Excess 16.7 H ABG Methemoglobin 1.6 Alessio Test Present Hemoglobin 9.9 L Carboxyhemoglobin 2.3 O2 Delivery Device Bipap Vent Setting 12/+5 Inspired O2 35 Critical Value Yes Sodium Potassium Chloride Carbon Dioxide Anion Gap BUN Creatinine Estimated GFR Random Glucose Lactic Acid 1.7 Calcium Total Bilirubin AST ALT Alkaline Phosphatase Total Creatine Kinase Troponin I B-Natriuretic Peptide Total Protein Albumin Urine Color Urine Clarity Urine pH Ur Specific [place] Urine Protein Urine Glucose (UA) Urine Ketones Urine Occult Blood Urine Nitrate Urine Bilirubin Urine Urobilinogen Ur Leukocyte Esterase Urine RBC Urine WBC Ur Squamous Epith Cells Amorphous Sediment Urine Bacteria Hyaline Casts Urine Mucus Micro UA Comment Urine Culture Comments Digoxin - Imaging Impressions Chest X-Ray 12/14/17 23:40 CONCLUSION: 1. Interval development of ill-defined areas of opacity in the medial right lung suggesting pulmonary edema. 2. Stable cardiomegaly and right pleural effusion. - Procedures BIPAP Assessment and Plan - Assessment (1) CHF (congestive heart failure) Code(s): I50.9 - Heart failure, unspecified Status: Acute (2) Hypoxia Code(s): R09.02 - Hypoxemia Status: Acute (3) COPD (chronic obstructive pulmonary disease) Code(s): J44.9 - Chronic obstructive pulmonary disease, unspecified Status: Acute (4) Elevated troponin Code(s): R74.8 - Abnormal levels of other serum enzymes Status: Acute (5) Renal insufficiency Code(s): N28.9 - Disorder of kidney and ureter, unspecified Status: Acute - Plan 1. CHF: Acute on Chronic. Systolic. Echo 06/18/17 w/ EF <20%, h/o AICD, s/p Lasix 100mg IV by EMS, CXR w/ pulmonary congestion and pleural effusion, continue w/ diuresis, monitor I/O. Follows w/ Dr. King as outpatient, will consult for further evaluation/recommendations. Improving ct IV lasix. Unable to start BALNCA 2/2 kidney dysfunction allergic to sacubitril and ARB 2. Hypoxia: Multifactorial, secondary to CHF/fluid overload and COPD w/ hypercapnic respiratory failure, continue BIPAP prn. Improving hx RAFAEL ff by Dr Grace CPAP to be delivered after dc 3. Elevated Trop: likely secondary to Acute CHF and demand ischemia from hypoxia, initial trop 0.06, will check serial cardiac enzymes for trend. 4. COPD: Chronic Respiratory Failure w/ Acute Exacerbation. Severe. Associated w/ hypercapnic respiratory failure, CO2 80, repeat 71, will continue BIPAP prn, repeat ABG. Nebs prn and Levaquin switch to po 5. CKD stage 4: Creatinine 2.54, previously 2.25 on 08/30/17, Monitor I/O, caution w/ diuresis, repeat labs in am. Abnormal UA on abx 6. DVT Prophylaxis: Heparin sq RN to complete med list PT If stable transfer to floor in am Discharge Planning: C vs snf
[2017-12-15] MEDS: levoFLOXacin 750 MG Tablet PO SCH (11:58)
[2017-12-15] MEDS ORDERED: TRELEGY ELLIPTA 100 MCG PO SCH (13:00)
--- NOTE | 2017-12-15 14:08 | MB ---
cc: Maverick Torres MD DATE: 12/15/2017 REASON FOR CONSULTATION: Elevated BUN and creatinine, for evaluation. HISTORY OF PRESENT ILLNESS: This is a 72-year-old male with a past medical history of hypertension, ischemic heart disease with congestive heart failure and low ejection fraction of less than 20%, chronic obstructive pulmonary disease and possible chronic kidney disease, came to the hospital with complaint of worsening shortness of breath. I was called to see the patient because of elevated BUN and creatinine. The patient was found to have a creatinine of 2.5 on admission. Looking back, his previous labs, it looked like his creatinine has been in the range of 2.1 and 1.5. The patient has been taking the diuretics including the Bumex and spironolactone at home and he noticed that he has worsening swelling of the legs and worsening shortness of breath. He denies any dysuria, hematuria or difficulty in passing urine. The patient denies any known history of renal disease, but looking back, it seems like his creatinine was elevated last 5-6 months. He is feeling better since he came in here. His breathing is improved. Currently, still with nasal cannula. Denies taking any nonsteroidal anti-inflammatory drugs. There is no history of nausea, vomiting or diarrhea. PAST MEDICAL HISTORY: Hypertension, ischemic heart disease, congestive heart failure, chronic obstructive pulmonary disease, chronic kidney disease. PAST SURGICAL HISTORY: History of cardiac catheterization done in the past. REVIEW OF SYSTEMS: There is no history of fever. No headache, dizziness or blurring of vision. He has worsening shortness of breath. There is no chest pain. No palpitation. He has mild cough which is mainly dry. There is no sputum. Has increased swelling of both legs. No dysuria, hematuria or difficulty in passing urine. SOCIAL HISTORY: The patient is . He has past history of smoking. No history of heavy alcoholism. FAMILY HISTORY: Noncontributory. ALLERGIES: HE IS ALLERGIC TO VALSARTAN, SACUBITRIL. MEDICATIONS: Currently, he is on following medications: 1. Tylenol as needed. 2. Albuterol as needed. 3. Dulcolax. 4. Coreg 12.5 mg b.i.d. 5. Lasix 40 mg IV twice a day. 6. Lactulose p.r.n. 7. Levaquin 750 mg q. 48 hours. 8. Zofran as needed. 9. Meaghan-Colace as needed. 10. Senokot as needed. PHYSICAL EXAMINATION: GENERAL: The patient is awake, alert. He is not in acute distress. VITAL SIGNS: His last blood pressure is 112/60, temperature is 97.4, oxygen saturation on 40% is 94%. HEENT: Pupils are mid constricted. Nonicteric sclerae. Conjunctivae are pale. NECK: Supple. JVD is slightly elevated. LUNGS: The patient has bilateral good air entry with occasional wheezing. HEART: S1, S2. Regular rate and rhythm. ABDOMEN: Soft, lax. There is no tenderness. Bowel sounds positive. EXTREMITIES: He has 1+ edema bilaterally. INVESTIGATIONS: WBC count is 11.7, hemoglobin 10.1, platelet count 279, neutrophils 85.2%. Blood gas showing pH of 7.30 and a pCO2 of 80 with pO2 of 88. Sodium 134, potassium 3.9, chloride 87, bicarbonate 39.3, BUN 43, creatinine 2.5. Creatinine kinase 30, troponin-I 0.06, albumin 3.2, total protein is 8.3. Urinalysis showing cloudy urine with protein of 30. Digoxin level was 0.5. IMAGING STUDIES: The patient has a chest x-ray done, which shows that there is an ill-defined opacity in the mid right lung suggesting of pulmonary edema, stable cardiomegaly, right pleural effusion. ASSESSMENT AND PLAN: 1. Congestive heart failure with fluid overload status. 2. Chronic kidney disease and acute kidney injury. 3. Hypertension. 4. Chronic obstructive pulmonary disease. 5. Anemia. 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 There is some acute worsening, could be cardiorenal syndrome, but I agree with continuing diuretics at the present time. Get ultrasound of the kidneys. Get the serum protein electrophoresis, since he has anemia also, and I agree with continuing the diuretic and follow urine output and the BUN and creatinine. Try to keep him in the negative fluid balance. Thank you for the consultation. Avoid nephrotoxins. I will follow the patient while he is in the hospital. MD JERALD Fishman/CONNIE , 01:32 PM , 01:46 PM
--- NOTE | 2017-12-15 14:31 | US ---
EXAM DATE: 12/15/2017 2:26 PM EDT AGE/SEX: 72 years / Male INDICATIONS: Increased BUN/creatinine. CLINICAL DATA: This is the patient's subsequent encounter. Patient reports that signs and symptoms h ave been present for 2 days and indicates a pain score of 0/10. MEDICAL/SURGICAL HISTORY: . Hypothyroidism. Myocardial infarction. Hypertension. Anticoagulant therapy. COPD. Dyspnea. Kidney stones. Prostate enlargement. . Pacemaker. Eye surgery. Left knee lester praful. COMPARISON: [facility] – [place], US KIDNEY/RENAL/BLADDER, 06/17/2017. . MEASUREMENTS: Right Kidney:__9.3 x 5.4 x 6.1 cm Left Kidney:__9.8 x 4.1 x 5.0 cm FINDINGS: There is no hydronephrosis. Right renal cyst measures up to 1.6 cm in diameter. Kidneys are echogenic . No perinephric fluid. Incidental left pleural effusion. CONCLUSION: 1. Echogenic kidneys characteristic of medical renal disease. Small right renal cyst. No hydronephro sis. Electronically signed by: Osei Duran MD 12/15/2017 2:30 PM EDT
[2017-12-15] MEDS ORDERED: EDOXABAN 60 MG PO ONE (19:00)
--- NOTE | 2017-12-15 19:19 | MB ---
cc: Hermes Levy MD DATE: 12/15/2017 REFERRING PHYSICIAN: Hai Dill PRIMARY CARE PHYSICIAN: Dr. Marquez Fields FURNITURE REPRODUCER: Dr. King REASON FOR CONSULTATION: Asked to evaluate patient with congestive heart failure. HISTORY OF PRESENT ILLNESS: Edu Callejas is a very pleasant 72-year-old gentleman with a past medical history significant for hypertension, coronary artery disease, COPD, congestive heart failure, aortic valve stenosis, status post TAVR. He was admitted for severe, rapidly progressive shortness of breath. In the emergency room, he was noted to have severe respiratory distress and was placed on CPAP. He was noted to have severe persistent hypoxia, O2 saturation in the 80s. He refused intubation. He denies associated chest pain. His congestive heart failure fortunately has largely resolved. This afternoon, he is conversant, on nasal cannula. He offers no complaints of chest pain. His shortness of breath is about the same. PRESENT MEDICATIONS: Acetaminophen, Milk of Magnesia, Dulcolax, Lasix 40 mg b.i.d., heparin 5000 units every 12 hours, levofloxacin, lactulose, Zofran, temazepam. ALLERGIES: SACUBITRIL, VALSARTAN. HOME MEDICATIONS: Bumex and carvedilol. PAST MEDICAL HISTORY: As above, congestive heart failure attributed to his chronic and acute systolic dysfunction, COPD, chronic renal insufficiency. PAST SURGICAL HISTORY: Status post AICD and TAVR. SOCIAL HISTORY: He stopped smoking more than 20 years ago. No significant alcohol use. REVIEW OF SYSTEMS: As above. A 12-point review of systems reviewed and noted. No recent fever, chills, cough and sputum production. No recent gastrointestinal and genitourinary symptoms. PHYSICAL EXAMINATION: VITAL SIGNS: Afebrile, pulse 66, respirations 20, blood pressure 120/61, O2 saturation 99%, 2 liters nasal cannula. HEENT, NECK: He is anicteric. PERRLA. No xanthelasmas, increased JVD. No carotid bruit. LUNGS: Bibasilar crackles. HEART: Regular rate and rhythm, 2/6 systolic murmur, left upper sternal border. ABDOMEN: Soft and nontender. EXTREMITIES: Trace edema. LABORATORY DATA: WBC 11.7, hemoglobin is 10.1, hematocrit 32.5, platelet count is 279,000. Sodium 134, potassium 3.9, BUN 43, creatinine 2.54. Troponin 0.06, 0.12. INR is 1.3. D-dimer 1.77. IMPRESSION: 1. Congestive heart failure due to acute on chronic systolic dysfunction. 2. Status post transcatheter aortic valve replacement. 3. History of cardiomyopathy. 4. Hypertension. 5. Acute on chronic renal insufficiency. 6. Status post automatic implantable cardioverter/defibrillator, no discharge. PLAN: 1. Continue IV Lasix diuresis as systolic blood pressure and creatinine tolerates. 2. Nitro paste 1 inch every 6 hours. 3. Medications reviewed. He has been placed on edoxaban for anticoagulation. 4. Dr. King will return in a.m. Thank you for allowing me to contribute to the patient's care. Thank you for this consultation. MD PAIGE Hendricks/DAIANA , 06:51 PM , 07:01 PM MTDKali
[2017-12-15] MEDS: Carvedilol 12.5 MG Tablet PO SCH (20:18)
[2017-12-16 04:24] LABS: Baso % (Auto) 0.3 % (0.0-2.0); Eos % (Auto) 0.1 % (0.0-4.0); Hematocrit 29.2 % (39.0-51.0); Hemoglobin 9.1 gm/dL (13.0-17.0); Lymph # (Auto) 0.6 th/mm3 (1.0-4.8); Lymph % (Auto) 4.6 % (9.0-44.0); Mean Corpuscular HGB Conc 31.4 % (32.0-36.0); Mean Corpuscular Hemoglobin 29.9 pg (27.0-34.0); Mean Corpuscular Volume 95.2 fL (80.0-100.0); Mean Platelet Volume 8.8 fL (7.0-11.0); Mono # (Auto) 0.6 th/mm3 (0.0-0.9); Mono % (Auto) 5.3 % (0.0-8.0); Neut # (Auto) 10.8 th/mm3 (1.8-7.7); Neut % (Auto) 89.7 % (16.0-70.0); Platelet Count 223 th/mm3 (150-450); Red Blood Count 3.06 mil/mm3 (4.50-5.90); Red Cell Distribution Width 17.6 % (11.6-17.2)
[2017-12-16 04:53] LABS: Alanine Aminotransferase 16 U/L (12-78); Albumin 2.8 g/dL (3.4-5.0); Alkaline Phosphatase 57 U/L (45-117); Anion Gap 11 meq/L (5-15); Aspartate Aminotransferase 22 U/L (15-37); Blood Urea Nitrogen 43 mg/dL (7-18); Calcium 8.6 mg/dL (8.5-10.1); Carbon Dioxide 39.2 meq/L (21.0-32.0); Chloride 85 meq/L (98-107); Glomerular Filtration Rate 28 mL/min (>89); Glucose,Random 117 mg/dL (74-106); Phosphorus 3.7 mg/dL (2.5-4.9); Potassium 3.8 meq/L (3.5-5.1); Sodium 135 meq/L (136-145); Total Protein 7.7 g/dL (6.4-8.2)
[2017-12-16 05:05] LABS: ABG Base Excess 14.8 mmol/L (-2-2); ABG PCO2 69 mmHg (38-42); ABG PO2 77 mmHG (61-120)
[2017-12-16] MEDS: Chlorhexidine Gluconate 2% 1 Pack (2 Cloths) TOPICAL SCH (05:21)
--- NOTE | 2017-12-16 08:21 | P.PN ---
Subjective Interval history: f/U CHF. Developed SOB last night placed on BIPAP. Dw RN to wean Physical Exam Vital signs: Vital Signs 12/15/17 14:46 12/15/17 15:00 12/15/17 15:01 Temperature Pulse Rate 69 65 65 Respiratory Rate 30 H 30 H 33 H Blood Pressure 107/58 L Pulse Oximetry 95 98 98 12/15/17 16:00 12/15/17 20:00 12/15/17 23:30 Temperature 96.9 F L Pulse Rate 66 66 Respiratory Rate 30 H 20 Blood Pressure 120/61 142/80 H Pulse Oximetry 99 98 99 12/16/17 00:00 12/16/17 04:00 12/16/17 04:51 Temperature 97.2 F L 98.1 F Pulse Rate 68 81 Respiratory Rate 28 H 22 Blood Pressure 168/80 H 133/82 Pulse Oximetry 98 98 96 12/16/17 07:38 Temperature Pulse Rate Respiratory Rate Blood Pressure Pulse Oximetry 95 Intake & Output 12/15/17 12/16/17 12/16/17 18:59 06:59 18:59 Intake Total 480 / 480 Output Total 950 / 950 Balance -470 / -470 Weight 96.6 kg Intake: Oral 480 / 480 Output: Urine 950 / 950 Other: # Voids 4 Date of Last Bowel Movement 12/15/17 Narrative: GENERAL: Very pleasant elderly white male is critically ill on BIPap CARDIOVASCULAR: Regular rate and rhythm. No obvious murmurs to auscultation. No chest tenderness to palpation. RESPIRATORY: No obvious rhonchi or wheezing. Decreased breath sounds equal bilaterally. GASTROINTESTINAL: Abdomen soft, non-tender, nondistended. BS normal. MUSCULOSKELETAL: Extremities without clubbing, cyanosis. +2edema. No obvious deformities. NEUROLOGICAL: Awake, alert and oriented x4. No focal neurologic deficits. Moving both upper and lower extremities spontaneously. - Urinary Catheter Management Indwelling Urethral Catheter Cath placed during this visit: yes, but has since been removed by the nurse Reason for continuing: Hourly intake/output Insertion date: 12/15/17 Insertion time: 00:00 Removal date: 12/15/17 Removal time: 10:00 Results - Labs CBC & Chem 7: 12/16/17 03:58 12/16/17 03:58 Laboratory Results - last 24 hr 12/15/17 12/15/17 12/15/17 05:00 08:16 09:25 WBC RBC Hgb Hct MCV MCH MCHC RDW Plt Count MPV Neut % (Auto) Lymph % (Auto) Mills % (Auto) Eos % (Auto) Baso % (Auto) Neut # (Auto) Lymph # (Auto) Mills # (Auto) Eos # (Auto) Baso # (Auto) WBC Differential Differential Comment Puncture Site Right radial Patient Temperature 98.6 O2 Saturation 93 ABG pH 7.40 ABG pCO2 70 H* ABG pO2 91 ABG HCO3 43 H ABG O2 Content 13.1 ABG Base Excess 16.7 H ABG Methemoglobin 1.6 Alessio Test Present Hemoglobin 9.9 L Carboxyhemoglobin 2.3 O2 Delivery Device Bipap Vent Setting 12/+5 Inspired O2 35 Critical Value Yes Sodium Potassium Chloride Carbon Dioxide Anion Gap BUN Creatinine Estimated GFR POC Glucose Random Glucose Lactic Acid 1.7 Calcium Phosphorus Total Bilirubin AST ALT Alkaline Phosphatase Troponin I Total Protein Total Protein (PEP) Albumin Nasal Screen MRSA (PCR) Not detected 12/15/17 12/15/17 12/16/17 13:40 19:47 03:58 WBC 12.0 H RBC 3.06 L Hgb 9.1 L Hct 29.2 L MCV 95.2 MCH 29.9 MCHC 31.4 L RDW 17.6 H Plt Count 223 MPV 8.8 Neut % (Auto) 89.7 H Lymph % (Auto) 4.6 L Mills % (Auto) 5.3 Eos % (Auto) 0.1 Baso % (Auto) 0.3 Neut # (Auto) 10.8 H Lymph # (Auto) 0.6 L Mills # (Auto) 0.6 Eos # (Auto) 0.0 Baso # (Auto) 0.0 WBC Differential . Differential Comment Auto diff final Puncture Site Patient Temperature O2 Saturation ABG pH ABG pCO2 ABG pO2 ABG HCO3 ABG O2 Content ABG Base Excess ABG Methemoglobin Alessio Test Hemoglobin Carboxyhemoglobin O2 Delivery Device Vent Setting Inspired O2 Critical Value Sodium Potassium Chloride Carbon Dioxide Anion Gap BUN Creatinine Estimated GFR POC Glucose 212 H Random Glucose Lactic Acid Calcium Phosphorus Total Bilirubin AST ALT Alkaline Phosphatase Troponin I 0.12 H Total Protein Total Protein (PEP) Albumin Nasal Screen MRSA (PCR) 12/16/17 12/16/17 03:58 04:50 WBC RBC Hgb Hct MCV MCH MCHC RDW Plt Count MPV Neut % (Auto) Lymph % (Auto) Mills % (Auto) Eos % (Auto) Baso % (Auto) Neut # (Auto) Lymph # (Auto) Mills # (Auto) Eos # (Auto) Baso # (Auto) WBC Differential Differential Comment Puncture Site Left radial Patient Temperature 98.6 O2 Saturation 91 ABG pH 7.39 ABG pCO2 69 H* ABG pO2 77 ABG HCO3 41 H ABG O2 Content 12.2 ABG Base Excess 14.8 H ABG Methemoglobin 1.4 Alessio Test Present Hemoglobin 9.5 L Carboxyhemoglobin 2.2 O2 Delivery Device Bipap Vent Setting 12ipap/5epap Inspired O2 35 Critical Value Yes Sodium 135 L Potassium 3.8 Chloride 85 L Carbon Dioxide 39.2 H Anion Gap 11 BUN 43 H Creatinine 2.27 H Estimated GFR 28 L POC Glucose Random Glucose 117 H D Lactic Acid Calcium 8.6 Phosphorus 3.7 Total Bilirubin 0.9 AST 22 ALT 16 Alkaline Phosphatase 57 Troponin I Total Protein 7.7 D Total Protein (PEP) 7.7 Albumin 2.8 L Nasal Screen MRSA (PCR) - Imaging Impressions Abdomen/Bladder Ultrasound 12/15/17 00:00 CONCLUSION: 1. Echogenic kidneys characteristic of medical renal disease. Small right renal cyst. No hydronephrosis. - Procedures BIPAP Assessment and Plan - Assessment (1) CHF (congestive heart failure) Code(s): I50.9 - Heart failure, unspecified Status: Acute (2) Hypoxia Code(s): R09.02 - Hypoxemia Status: Acute (3) COPD (chronic obstructive pulmonary disease) Code(s): J44.9 - Chronic obstructive pulmonary disease, unspecified Status: Acute (4) Elevated troponin Code(s): R74.8 - Abnormal levels of other serum enzymes Status: Acute (5) Renal insufficiency Code(s): N28.9 - Disorder of kidney and ureter, unspecified Status: Acute - Plan 1. CHF: Acute on Chronic. Systolic. Echo 06/18/17 w/ EF <20%, h/o AICD, s/p Lasix 100mg IV by EMS, CXR w/ pulmonary congestion and pleural effusion, continue w/ diuresis, monitor I/O. Follows w/ Dr. King as outpatient, will consult for further evaluation/recommendations. Improving ct IV lasix. Unable to start BLANCA 2/2 kidney dysfunction allergic to sacubitril and ARB 2. Acute on chronic hypercapnic respiratory failure: Multifactorial, secondary to CHF/fluid overload and COPD. Hx RAFAEL ff by Dr Grace CPAP to be delivered after dc. ABG 7.39/69/77 on BIPAP / 35% 3. NSTEMI: likely secondary to Acute CHF and demand ischemia from hypoxia. Start asa ct BB and NTP 4. COPD: Chronic Respiratory Failure w/ Acute Exacerbation. Severe. As above continue BIPAP then wean, repeat ABG. Nebs prn and Levaquin switch to po 5. CKD stage 4: Creatinine 2.54, previously 2.25 on 08/30/17, Monitor I/O, caution w/ diuresis, repeat labs in am. 6. Abnormal UA on abx 7. DVT Prophylaxis: Edoxaban PT Discharge Planning: Keep in ICU he is critically ill hi likelihood of decompensation requiring intubation C vs snf
[2017-12-16] MEDS: Senna/Docusate Sodium 8.6/50 MG Tablet PO SCH ×2 (08:33→22:15)
[2017-12-16] MEDS: EDOXABAN 60 MG PO SCH (08:34)
[2017-12-16] MEDS: Carvedilol 12.5 MG Tablet PO SCH ×3 (08:35→22:14)
--- NOTE | 2017-12-16 14:43 | P.CONCA ---
History of Present Illness Service: Cardiology Consult date: 12/16/17 Primary Care Provider: Marquez Fields MD Family Provider: Lashon King MD History of Present Illness: Pleasant 71-year-old male well known to our practice with a past medical history of ASHD, cardiomyopathy, V. tach status post Medtr[employer] ICD placed in the left lower abdomen, aortic stenosis status post TAVR with Dr. Altamirano May 2017, atrial fibrillation, and severe COPD. He reports that last week he had signs of fluid buildup and was instructed by our office to increase his diuretics he reports that he felt better, until Saturday after being out with his he became short of breath and a VAC was called. He reports since admission his breathing has improved significantly. He denies any chest pain. Review of Systems Constitutional: Reports weakness Cardiovascular: Reports shortness of breath, Reports shortness of breath with activity Respiratory: Reports shortness of breath with activity PMFSH - History History Provided By: Patient - Medical History Medical History: Medical History (Last Updated 12/16/17 @ 14:42 by August Shade) Aortic stenosis (Chronic) V-tach (Chronic) Arteriosclerotic heart disease (ASHD) (Chronic) - Tobacco History Second Hand Smoke Exposure: No Tobacco Use In Past 30 Days: No Smoking Status: Former smoker Tobacco Type: Cigarettes - Alcohol History How Often Do You Have a Drink Containing Alcohol: Never - Substance Use History Substance History: No History of Abuse - Travel History Recent Travel in the [place] Within the Last 8 Weeks: No Recent Travel Out of the Country Within the Last 8 Weeks: No - Immunization History Tetanus Immunization: Unsure Hx Influenza Vaccine This Season: No Medications and Allergies Active Medications: Active Medications Acetaminophen (Tylenol) 650 mg PO Q4H PRN PRN Reason: Temp > 100.4 Albuterol (Albuterol Neb (Prn)) 2.5 mg NEB Q8HR NEB PRN PRN Reason: DYSPNEA Aspirin (Ecotrin) 81 mg PO DAILY [facility] Last Admin: 12/16/17 08:49 Dose: 81 mg Bisacodyl (Dulcolax Supp) 10 mg RECTAL DAILY PRN PRN Reason: SEVERE CONSITIPATION Carvedilol (Coreg) 12.5 mg PO BID [facility] Last Admin: 12/16/17 08:35 Dose: 12.5 mg Chlorhexidine Gluconate (Chlorhexidine 2% Cloth) 3 pack TOPICAL DAILY@0400 [facility] Stop: 12/20/17 03:59 Last Admin: 12/16/17 05:21 Dose: 3 pack Chlorhexidine Gluconate (Chlorhexidine 2% Cloth) 3 pack TOPICAL DAILY@0400 PRN PRN Reason: Extra cloth needed Stop: 12/20/17 03:59 Edoxaban (Savaysa) 60 mg PO DAILY [facility] Last Admin: 12/16/17 08:34 Dose: 60 mg Furosemide (Lasix Inj) 40 mg IV.PUSH BID@0900,1800 [facility] Last Admin: 12/16/17 08:49 Dose: 40 mg Lactulose (Lactulose Liq) 30 ml PO DAILY PRN PRN Reason: SEVERE CONSITIPATION Levofloxacin (Levaquin) 750 mg PO Q48H [facility] Stop: 12/20/17 10:59 Last Admin: 12/15/17 11:58 Dose: 750 mg Ondansetron HCl (Zofran Inj) 4 mg IV.PUSH Q6H PRN PRN Reason: NAUSEA OR VOMITING Patient Own Medication - ( Trelegy Ellipta 100 Mcg) 1 each PO DAILY [facility] Last Admin: 12/15/17 17:28 Dose: Not Given Senna/Docusate Sodium (Meaghan-Colace) 1 tab PO BID [facility] Last Admin: 12/16/17 08:33 Dose: 1 tab Sennosides (Senokot) 17.2 mg PO Q12H PRN PRN Reason: Moderate Constipation Allergies Allergy/AdvReac Type Severity Reaction Status Date / Time sacubitril AdvReac Intermediate Verified 08/29/17 12:58 valsartan AdvReac Intermediate Verified 08/29/17 12:58 No Known Allergies Allergy Unknown Uncoded 08/29/17 12:58 Home Medications Medication Instructions Recorded Confirmed Type bumetanide 2 mg PO DAILY 12/14/17 12/14/17 History carvedilol 12.5 mg PO BID 12/14/17 12/14/17 History Trelegy Ellipta 100 mcg PO DAILY [facility] 12/15/17 12/15/17 History edoxaban 60 mg PO DAILY [facility] 12/15/17 12/15/17 History spironolactone See Label Instructions .ROUTE 12/15/17 12/15/17 History .COMPLEX Exam Vital signs: Vital Signs 12/15/17 14:46 12/15/17 15:00 12/15/17 15:01 Temperature Pulse Rate 69 65 65 Respiratory Rate 30 H 30 H 33 H Blood Pressure 107/58 L Pulse Oximetry 95 98 98 12/15/17 16:00 12/15/17 20:00 12/15/17 23:30 Temperature 96.9 F L Pulse Rate 66 66 Respiratory Rate 30 H 20 Blood Pressure 120/61 142/80 H Pulse Oximetry 99 98 99 12/16/17 00:00 12/16/17 04:00 12/16/17 04:51 Temperature 97.2 F L 98.1 F Pulse Rate 68 81 Respiratory Rate 28 H 22 Blood Pressure 168/80 H 133/82 Pulse Oximetry 98 98 96 12/16/17 07:38 12/16/17 08:00 12/16/17 12:00 Temperature 97.5 F L 98 F Pulse Rate 66 69 Respiratory Rate 28 H 26 H Blood Pressure 138/78 129/60 Pulse Oximetry 95 92 L 99 Intake & Output 12/15/17 12/16/17 12/16/17 18:59 06:59 18:59 Intake Total 480 / 480 Output Total 950 / 950 Balance -470 / -470 Weight 96.6 kg Intake: Oral 480 / 480 Output: Urine 950 / 950 Other: # Voids 4 Date of Last Bowel Movement 12/15/17 12/15/17 - Constitutional no acute distress - Routine HEENT Exam Head: Present: normocephalic, atraumatic Eye: Present: normal accommodation ENT: Present: mucous membranes moist - Routine Neck Exam Present: supple - Routine Respiratory Exam Present: diminished air movement - Routine Cardiovascular Exam Present: irregularly irregular Comments: paced - Routine Abdominal Exam Present: soft, distended - Routine Extremities Exam Present: full ROM - Routine Skin Exam Present: intact Comments: ICD in left lower abdomen - Routine Neurological Exam Present: alert, oriented X3 Results 12/16/17 03:58 12/16/17 03:58 Cardiac Enzymes 12/15/17 12/16/17 Range/Units 13:40 03:58 AST 22 (15-37) U/L Troponin I 0.12 H (0.02-0.05) ng/mL CBC 12/16/17 Range/Units 03:58 WBC 12.0 H (4.0-11.0) th/mm3 RBC 3.06 L (4.50-5.90) mil/mm3 Hgb 9.1 L (13.0-17.0) gm/dL Hct 29.2 L (39.0-51.0) % Plt Count 223 (150-450) th/mm3 Neut # (Auto) 10.8 H (1.8-7.7) th/mm3 Lymph # (Auto) 0.6 L (1.0-4.8) th/mm3 [place] # (Auto) 0.6 (0.0-0.9) th/mm3 Eos # (Auto) 0.0 (0.0-0.4) th/mm3 Baso # (Auto) 0.0 (0.0-0.2) th/mm3 Comprehensive Metabolic Panel 12/16/17 Range/Units 03:58 Sodium 135 L (136-145) meq/L Potassium 3.8 (3.5-5.1) meq/L Chloride 85 L (98-107) meq/L Carbon Dioxide 39.2 H (21.0-32.0) meq/L BUN 43 H (7-18) mg/dL Creatinine 2.27 H (0.60-1.30) mg/dL Calcium 8.6 (8.5-10.1) mg/dL AST 22 (15-37) U/L ALT 16 (12-78) U/L Alkaline Phosphatase 57 (45-117) U/L Total Protein 7.7 D (6.4-8.2) g/dL Albumin 2.8 L (3.4-5.0) g/dL Intake and Output 12/15/17 12/16/17 12/16/17 22:59 06:59 14:59 Intake Total 480 / 480 Output Total 950 / 950 Balance -470 / -470 Intake: Oral 480 / 480 Output: Urine 950 / 950 Other: # Voids 4 Date of Last Bowel Movement 12/15/17 12/15/17 Weight 96.6 kg Assessment and Plan - Plan Acute on chronic systolic heart failure Atrial fibrillation COPD exacerbation Renal insufficiency UTI Anemia -EF low, ICD in place. Will continue with IV diuresis and careful monitoring of renal function. Breathing has improved when compared to yesterday. Troponin elevated, secondary to CHF and COPD exacerbation. Pt denies any chest pain. Will increase coreg to 25 mg BID. Will also adjust ICD baseline HR. -Continues on Savaysa -Pulmonary following -Nephrology following. Will repeat BMP in AM -Currently on levaquin for UTI. Will consider resuming sotalol once Levaquin in DCd. -Will repeat CBC in AM. The patient was seen and evaluated by Dr. King who completed face to face encounter and physical exam and participated in care, management, and decision making. Code Status: Full Discussed Condition With: Nurse and
--- NOTE | 2017-12-16 15:33 | P.PNNP ---
Subjective Interval history: Reports mild shortness of breath. Bilateral lower extremity edema. Creatinine has improved at 2.27/ <Valentina Aponte - Last Filed: 12/16/17 15:23> Physical Exam Vital signs: Vital Signs 12/15/17 16:00 12/15/17 20:00 12/15/17 23:30 Temperature 96.9 F L Pulse Rate 66 66 Respiratory Rate 30 H 20 Blood Pressure 120/61 142/80 H Pulse Oximetry 99 98 99 12/16/17 00:00 12/16/17 04:00 12/16/17 04:51 Temperature 97.2 F L 98.1 F Pulse Rate 68 81 Respiratory Rate 28 H 22 Blood Pressure 168/80 H 133/82 Pulse Oximetry 98 98 96 12/16/17 07:38 12/16/17 08:00 12/16/17 12:00 Temperature 97.5 F L 98 F Pulse Rate 66 69 Respiratory Rate 28 H 26 H Blood Pressure 138/78 129/60 Pulse Oximetry 95 92 L 99 Intake & Output 12/15/17 12/16/17 12/16/17 18:59 06:59 18:59 Intake Total 480 / 480 Output Total 950 / 950 Balance -470 / -470 Weight 96.6 kg Intake: Oral 480 / 480 Output: Urine 950 / 950 Other: # Voids 4 Date of Last Bowel Movement 12/15/17 12/15/17 Narrative: GENERAL: Alert and oriented. at bedside. HEENT: No scleral icterus or conjunctival pallor. No lid lag or facial droop. CARDIOVASCULAR: No obvious murmurs to auscultation. No chest tenderness to palpation. RESPIRATORY: Clear to auscultation. Breath sounds equal bilaterally. GASTROINTESTINAL: Abdomen soft, non-tender, nondistended. BS normal. MUSCULOSKELETAL: Extremities without clubbing, cyanosis. +2edema. No obvious deformities. NEUROLOGICAL:Moving both upper and lower extremities spontaneously. - Urinary Catheter Management Indwelling Urethral Catheter Cath placed during this visit: yes, but has since been removed by the nurse Reason for continuing: Hourly intake/output Insertion date: 12/15/17 Insertion time: 00:00 Removal date: 12/15/17 Removal time: 10:00 <Valentina Aponte - Last Filed: 12/16/17 15:23> Vital signs: Vital Signs 12/16/17 23:48 12/17/17 00:00 12/17/17 01:20 Temperature 98.4 F Pulse Rate 62 53 L Respiratory Rate 23 Blood Pressure 119/60 Pulse Oximetry 95 91 L 12/17/17 03:20 12/17/17 03:48 12/17/17 04:00 Temperature 97.9 F Pulse Rate 51 L 43 L Respiratory Rate 27 H Blood Pressure 117/54 L Pulse Oximetry 98 98 12/17/17 05:00 12/17/17 07:00 12/17/17 08:00 Temperature Pulse Rate 67 64 59 L Respiratory Rate 21 Blood Pressure Pulse Oximetry 90 L 12/17/17 08:01 12/17/17 08:07 12/17/17 09:00 Temperature Pulse Rate 59 L 52 L Respiratory Rate 26 H 26 H Blood Pressure 104/55 L 105/53 L Pulse Oximetry 96 100 99 12/17/17 10:00 12/17/17 11:00 12/17/17 12:00 Temperature Pulse Rate 64 66 60 Respiratory Rate 23 31 H 29 H Blood Pressure 116/56 L 126/60 Pulse Oximetry 89 L 98 98 12/17/17 12:01 12/17/17 13:00 12/17/17 16:00 Temperature Pulse Rate 59 L 63 63 Respiratory Rate 35 H 28 H Blood Pressure 117/56 L Pulse Oximetry 96 82 L 12/17/17 16:01 12/17/17 17:00 12/17/17 18:00 Temperature Pulse Rate 62 61 70 Respiratory Rate 29 H 26 H 29 H Blood Pressure 113/53 L 116/66 Pulse Oximetry 95 89 L 97 12/17/17 18:01 12/17/17 20:00 Temperature Pulse Rate 72 72 Respiratory Rate 35 H Blood Pressure 125/66 Pulse Oximetry 94 L Intake & Output 12/17/17 12/17/17 12/18/17 06:59 18:59 06:59 Intake Total 100 / 100 Output Total 600 / 600 700 / 700 Balance -500 / -500 -700 / -700 Weight 94.5 kg Intake: Oral 100 / 100 Output: Urine 600 / 600 700 / 700 Stool 0 / 0 Other: # Voids 5 # Incontinent Voids 0 Date of Last Bowel Movement 12/16/17 12/15/17 12/15/17 # Bowel Movements 0 # Incontinent Bowel Movements 0 - Urinary Catheter Management Indwelling Urethral Catheter Cath placed during this visit: no <Maverick Torres - Last Filed: 12/17/17 21:28> Assessment and Plan - Assessment (1) Renal insufficiency Code(s): N28.9 - Disorder of kidney and ureter, unspecified Status: Acute Plan: Acute kidney injury with creatinine of 2.54 on day of consult CHELSEY could be related to cardiorenal syndrome. 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 Renal ultrasound echogenic kidneys characteristic of medical renal disease. Small right renal cyst. No hydronephrosis. Creatinine is improving at 2.27 Continue lasix SPEP pending Follow urine output and the BUN and creatinine. Avoid nephrotoxins. Labs in AM <Valentina Aponte - Last Filed: 12/16/17 15:23> - Assessment (1) Renal insufficiency Code(s): N28.9 - Disorder of kidney and ureter, unspecified Status: Acute - Attending Attestation Patient seen and examined, agree with above. Creatinine is slightly better. Continue diuretics, keep in negative fluid balance. Follow the urine out put and BMP. <Maverick Torres - Last Filed: 12/17/17 21:28>
[2017-12-17 06:12] LABS: Hematocrit 26.9 % (39.0-51.0); Hemoglobin 8.7 gm/dL (13.0-17.0); Mean Corpuscular HGB Conc 32.3 % (32.0-36.0); Mean Corpuscular Hemoglobin 30.7 pg (27.0-34.0); Mean Platelet Volume 8.5 fL (7.0-11.0); Platelet Count 203 th/mm3 (150-450); Red Blood Count 2.83 mil/mm3 (4.50-5.90); Red Cell Distribution Width 17.7 % (11.6-17.2); White Blood Count 8.8 th/mm3 (4.0-11.0)
[2017-12-17 06:32] LABS: Calcium 8.7 mg/dL (8.5-10.1); Magnesium 2.3 mg/dL (1.5-2.5); Potassium 3.5 meq/L (3.5-5.1)
--- NOTE | 2017-12-17 07:42 | ECG ---
Date Performed: 12/15/2017 Time Performed: 23:02:44 PTAGE: 72 years EKG: Sinus rhythm with PAC(s). Left axis deviation RBBB with left anterior fascicular block Lateral T wave changes may be due to myocardial ischemia Abnormal ECG NO PREVIOUS TRACING DOCTOR: Asuncion Mayberry Interpretating Date/Time 12/17/2017 07:36:58
[2017-12-17] MEDS: Senna/Docusate Sodium 8.6/50 MG Tablet PO SCH ×2 (09:28→20:10)
[2017-12-17] MEDS: Carvedilol 12.5 MG Tablet PO SCH ×2 (09:29→20:10)
[2017-12-17] MEDS: EDOXABAN 60 MG PO SCH (09:29)
[2017-12-17] MEDS: Chlorhexidine Gluconate 2% 1 Pack (2 Cloths) TOPICAL SCH (09:29)
--- NOTE | 2017-12-17 09:33 | P.DCO ---
- Occupational Therapy Order: Evaluate and treat, Improve ADL, Gross motor coordination - Home Health Nursing Order: Medical education, CHF education, Oxygen administration education - Certification I have seen patient Edu Callejas on 12/17/17. My clinical findings support the need for the requested home health care services because: Patient has SOB I certify that my clinical findings support that this patient is homebound because: Poor cardiac reserve
--- NOTE | 2017-12-17 09:41 | P.PNNP ---
Subjective Interval history: Sitting on side of bed with at bedside. Creatinine continues to improve at 2.18 today. No shortness of breath. Mild lower extremity edema. <Valentina Aponte - Last Filed: 12/17/17 14:05> Physical Exam Vital signs: Vital Signs 12/16/17 12:00 12/16/17 16:00 12/16/17 19:54 Temperature 98 F 97.9 F Pulse Rate 69 71 Respiratory Rate 26 H 24 Blood Pressure 129/60 140/102 H Pulse Oximetry 99 98 95 12/16/17 20:00 12/16/17 23:48 12/17/17 00:00 Temperature 98.3 F 98.4 F Pulse Rate 42 L 62 Respiratory Rate 30 H 23 Blood Pressure 115/56 L 119/60 Pulse Oximetry 92 L 95 91 L 12/17/17 01:20 12/17/17 03:20 12/17/17 03:48 Temperature Pulse Rate 53 L 51 L Respiratory Rate Blood Pressure Pulse Oximetry 98 12/17/17 04:00 12/17/17 05:00 12/17/17 08:07 Temperature 97.9 F Pulse Rate 43 L 67 Respiratory Rate 27 H Blood Pressure 117/54 L Pulse Oximetry 98 100 Intake & Output 12/16/17 12/17/17 12/17/17 18:59 06:59 18:59 Intake Total 600 / 600 100 / 100 Output Total 940 / 940 600 / 600 Balance -340 / -340 -500 / -500 Weight 94.5 kg Intake: Oral 600 / 600 100 / 100 Output: Urine 940 / 940 600 / 600 Stool 0 / 0 Other: # Voids 5 # Incontinent Voids 0 Date of Last Bowel Movement 12/16/17 # Bowel Movements 0 # Incontinent Bowel Movements 0 Narrative: GENERAL: Alert and oriented. at bedside. HEENT: No scleral icterus or conjunctival pallor. No lid lag or facial droop. CARDIOVASCULAR: No obvious murmurs to auscultation. No chest tenderness to palpation. RESPIRATORY: Clear to auscultation. Breath sounds equal bilaterally. GASTROINTESTINAL: Abdomen soft, non-tender, nondistended. BS normal. MUSCULOSKELETAL: Extremities without clubbing, cyanosis. +1 edema. No obvious deformities. NEUROLOGICAL:Moving both upper and lower extremities spontaneously. - Urinary Catheter Management Indwelling Urethral Catheter Cath placed during this visit: yes, but has since been removed by the nurse Reason for continuing: Hourly intake/output Insertion date: 12/15/17 Insertion time: 00:00 Removal date: 12/15/17 Removal time: 10:00 <Valentina Aponte - Last Filed: 12/17/17 14:05> Vital signs: Vital Signs 12/16/17 23:48 12/17/17 00:00 12/17/17 01:20 Temperature 98.4 F Pulse Rate 62 53 L Respiratory Rate 23 Blood Pressure 119/60 Pulse Oximetry 95 91 L 12/17/17 03:20 12/17/17 03:48 12/17/17 04:00 Temperature 97.9 F Pulse Rate 51 L 43 L Respiratory Rate 27 H Blood Pressure 117/54 L Pulse Oximetry 98 98 12/17/17 05:00 12/17/17 07:00 12/17/17 08:00 Temperature Pulse Rate 67 64 59 L Respiratory Rate 21 Blood Pressure Pulse Oximetry 90 L 12/17/17 08:01 12/17/17 08:07 12/17/17 09:00 Temperature Pulse Rate 59 L 52 L Respiratory Rate 26 H 26 H Blood Pressure 104/55 L 105/53 L Pulse Oximetry 96 100 99 12/17/17 10:00 12/17/17 11:00 12/17/17 12:00 Temperature Pulse Rate 64 66 60 Respiratory Rate 23 31 H 29 H Blood Pressure 116/56 L 126/60 Pulse Oximetry 89 L 98 98 12/17/17 12:01 12/17/17 13:00 12/17/17 16:00 Temperature Pulse Rate 59 L 63 63 Respiratory Rate 35 H 28 H Blood Pressure 117/56 L Pulse Oximetry 96 82 L 12/17/17 16:01 12/17/17 17:00 12/17/17 18:00 Temperature Pulse Rate 62 61 70 Respiratory Rate 29 H 26 H 29 H Blood Pressure 113/53 L 116/66 Pulse Oximetry 95 89 L 97 12/17/17 18:01 12/17/17 20:00 Temperature Pulse Rate 72 72 Respiratory Rate 35 H Blood Pressure 125/66 Pulse Oximetry 94 L Intake & Output 12/17/17 12/17/17 12/18/17 06:59 18:59 06:59 Intake Total 100 / 100 Output Total 600 / 600 700 / 700 Balance -500 / -500 -700 / -700 Weight 94.5 kg Intake: Oral 100 / 100 Output: Urine 600 / 600 700 / 700 Stool 0 / 0 Other: # Voids 5 # Incontinent Voids 0 Date of Last Bowel Movement 12/16/17 12/15/17 12/15/17 # Bowel Movements 0 # Incontinent Bowel Movements 0 - Urinary Catheter Management Indwelling Urethral Catheter Cath placed during this visit: no <Maverick Torres - Last Filed: 12/17/17 21:29> Assessment and Plan - Assessment (1) Renal insufficiency Code(s): N28.9 - Disorder of kidney and ureter, unspecified Status: Acute Plan: Acute kidney injury with creatinine of 2.54 on day of consult CHELSEY could be related to cardiorenal syndrome. 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 Creatinine at 2.25 on 08/30/17 Renal ultrasound echogenic kidneys characteristic of medical renal disease. Small right renal cyst. No hydronephrosis. Creatinine is improving at 2.19 from 2.27 Continue lasix SPEP pending Follow urine output and the BUN and creatinine. Avoid nephrotoxins. Labs in AM <Valentina Aponte - Last Filed: 12/17/17 14:05> - Assessment (1) Renal insufficiency Code(s): N28.9 - Disorder of kidney and ureter, unspecified Status: Acute - Attending Attestation Patient seen and examined, agree with above. Creatinine is slightly better, Continue Lasix, has an element of CHELSEY also with chronic kidney disease. <Maverick Torres - Last Filed: 12/17/17 21:29>
--- NOTE | 2017-12-17 10:11 | P.PN ---
Subjective Interval history: F/u SOB. Feels better no SOB was on BIPAP for 4 hrs last night (denies he was SOB) Physical Exam Vital signs: Vital Signs 12/16/17 12:00 12/16/17 16:00 12/16/17 19:54 Temperature 98 F 97.9 F Pulse Rate 69 71 Respiratory Rate 26 H 24 Blood Pressure 129/60 140/102 H Pulse Oximetry 99 98 95 12/16/17 20:00 12/16/17 23:48 12/17/17 00:00 Temperature 98.3 F 98.4 F Pulse Rate 42 L 62 Respiratory Rate 30 H 23 Blood Pressure 115/56 L 119/60 Pulse Oximetry 92 L 95 91 L 12/17/17 01:20 12/17/17 03:20 12/17/17 03:48 Temperature Pulse Rate 53 L 51 L Respiratory Rate Blood Pressure Pulse Oximetry 98 12/17/17 04:00 12/17/17 05:00 12/17/17 08:07 Temperature 97.9 F Pulse Rate 43 L 67 Respiratory Rate 27 H Blood Pressure 117/54 L Pulse Oximetry 98 100 Intake & Output 12/16/17 12/17/17 12/17/17 18:59 06:59 18:59 Intake Total 600 / 600 100 / 100 Output Total 940 / 940 600 / 600 Balance -340 / -340 -500 / -500 Weight 94.5 kg Intake: Oral 600 / 600 100 / 100 Output: Urine 940 / 940 600 / 600 Stool 0 / 0 Other: # Voids 5 # Incontinent Voids 0 Date of Last Bowel Movement 12/16/17 # Bowel Movements 0 # Incontinent Bowel Movements 0 Narrative: GENERAL: Alert and oriented on 5L at bedside. HEENT: No scleral icterus or conjunctival pallor. No lid lag or facial droop. CARDIOVASCULAR: No obvious murmurs to auscultation. No chest tenderness to palpation. RESPIRATORY: Clear to auscultation. Breath sounds equal bilaterally. GASTROINTESTINAL: Abdomen soft, non-tender, nondistended. BS normal. MUSCULOSKELETAL: Extremities without clubbing, cyanosis. +2edema which is improving. No obvious deformities. NEUROLOGICAL:Moving both upper and lower extremities spontaneously. - Urinary Catheter Management Indwelling Urethral Catheter Cath placed during this visit: yes, but has since been removed by the nurse Reason for continuing: Hourly intake/output Insertion date: 12/15/17 Insertion time: 00:00 Removal date: 12/15/17 Removal time: 10:00 Results - Labs CBC & Chem 7: 12/17/17 05:20 12/17/17 05:20 Laboratory Results - last 24 hr 12/16/17 12/17/17 12/17/17 15:51 05:20 05:20 WBC 8.8 RBC 2.83 L Hgb 8.7 L Hct 26.9 L MCV 95.0 MCH 30.7 MCHC 32.3 RDW 17.7 H Plt Count 203 MPV 8.5 Sodium 135 L Potassium 3.5 Chloride 86 L Carbon Dioxide 41.0 H Anion Gap 8 BUN 47 H Creatinine 2.18 H Estimated GFR 30 L POC Glucose 136 H Random Glucose 103 Calcium 8.7 Magnesium 2.3 Microbiology 12/15/17 00:15 Catheterized Urine Urine Culture - Final No growth in 48 hours 12/14/17 23:55 Blood - Peripheral Aerobic Blood Culture - Preliminary No growth in 1 day 12/14/17 23:55 Blood - Peripheral Anaerobic Blood Culture - Preliminary No growth in 1 day 12/14/17 23:59 Blood - Peripheral Aerobic Blood Culture - Preliminary No growth in 1 day 12/14/17 23:59 Blood - Peripheral Anaerobic Blood Culture - Preliminary No growth in 1 day - Procedures BIPAP Assessment and Plan - Assessment (1) CHF (congestive heart failure) Code(s): I50.9 - Heart failure, unspecified Status: Acute (2) Hypoxia Code(s): R09.02 - Hypoxemia Status: Acute (3) COPD (chronic obstructive pulmonary disease) Code(s): J44.9 - Chronic obstructive pulmonary disease, unspecified Status: Acute (4) Elevated troponin Code(s): R74.8 - Abnormal levels of other serum enzymes Status: Acute (5) Renal insufficiency Code(s): N28.9 - Disorder of kidney and ureter, unspecified Status: Acute - Plan 1. CHF: Acute on Chronic. Systolic. Echo 06/18/17 w/ EF <20%, h/o AICD, s/p Lasix 100mg IV by EMS, CXR w/ pulmonary congestion and pleural effusion, continue w/ diuresis, monitor I/O. Follows w/ Dr. King as outpatient, will consult for further evaluation/recommendations. Improving ct IV lasix. Unable to start BLANCA 2/2 kidney dysfunction allergic to sacubitril and ARB 2. Acute on chronic hypercapnic respiratory failure: Multifactorial, secondary to CHF/fluid overload and COPD. Hx RAFAEL ff by Dr Grace CPAP to be delivered after dc. ABG 7.39/69/77 on BIPAP / 35%. Improving on 5L. Wean to baseline increase activity 3. NSTEMI: likely secondary to Acute CHF and demand ischemia from hypoxia.Ct asa and BB . NTP dc by cards 4. COPD: Chronic Respiratory Failure w/ Acute Exacerbation. Severe. As above continue BIPAP then wean, repeat ABG prn. Nebs prn and Levaquin switch to po 5. CKD stage 4: Creatinine 2.54, previously 2.25 on 08/30/17, Monitor I/O, caution w/ diuresis, repeat labs in am. Improving 6. Abnormal UA on abx , cx NGTD 7. DVT Prophylaxis: Edoxaban PT Discharge Planning: Stable to floor HHC vs snf
[2017-12-17] MEDS: levoFLOXacin 750 MG Tablet PO SCH (11:27)
--- NOTE | 2017-12-17 14:23 | P.PNCA ---
Subjective Interval history: Patient sitting on side of bed. in room with him. He reports feeling much better today. Edema has improved, breathing has improved. He is diuresing well. Creatinine has improved. He continues on o2 @5L. Pulmonary consulted. Physical Exam Vital signs: Vital Signs 12/16/17 16:00 12/16/17 19:54 12/16/17 20:00 Temperature 97.9 F 98.3 F Pulse Rate 71 42 L Respiratory Rate 24 30 H Blood Pressure 140/102 H 115/56 L Pulse Oximetry 98 95 92 L 12/16/17 23:48 12/17/17 00:00 12/17/17 01:20 Temperature 98.4 F Pulse Rate 62 53 L Respiratory Rate 23 Blood Pressure 119/60 Pulse Oximetry 95 91 L 12/17/17 03:20 12/17/17 03:48 12/17/17 04:00 Temperature 97.9 F Pulse Rate 51 L 43 L Respiratory Rate 27 H Blood Pressure 117/54 L Pulse Oximetry 98 98 12/17/17 05:00 12/17/17 07:00 12/17/17 08:00 Temperature Pulse Rate 67 64 59 L Respiratory Rate 21 Blood Pressure Pulse Oximetry 90 L 12/17/17 08:01 12/17/17 08:07 12/17/17 09:00 Temperature Pulse Rate 59 L 52 L Respiratory Rate 26 H 26 H Blood Pressure 104/55 L 105/53 L Pulse Oximetry 96 100 99 12/17/17 10:00 12/17/17 11:00 12/17/17 12:00 Temperature Pulse Rate 64 66 60 Respiratory Rate 23 31 H 29 H Blood Pressure 116/56 L 126/60 Pulse Oximetry 89 L 98 98 12/17/17 12:01 12/17/17 13:00 Temperature Pulse Rate 59 L 63 Respiratory Rate 35 H Blood Pressure 117/56 L Pulse Oximetry 96 Intake & Output 12/16/17 12/17/17 12/17/17 18:59 06:59 18:59 Intake Total 600 / 600 100 / 100 Output Total 940 / 940 600 / 600 Balance -340 / -340 -500 / -500 Weight 94.5 kg Intake: Oral 600 / 600 100 / 100 Output: Urine 940 / 940 600 / 600 Stool 0 / 0 Other: # Voids 5 # Incontinent Voids 0 Date of Last Bowel Movement 12/16/17 12/15/17 # Bowel Movements 0 # Incontinent Bowel Movements 0 - Constitutional no acute distress - Routine HEENT Exam Head: Present: atraumatic Eye: Present: normal accommodation ENT: Present: mucous membranes moist - Routine Neck Exam Present: supple - Routine Respiratory Exam Present: diminished air movement - Routine Cardiovascular Exam Present: irregularly irregular - Routine Abdominal Exam Comments: round - Routine Skin Exam Present: intact - Routine Neurological Exam Present: alert, oriented X3 - Routine Psychiatric Exam Present: normal affect, cooperative, good insight - Urinary Catheter Management Indwelling Urethral Catheter Cath placed during this visit: yes, but has since been removed by the nurse Reason for continuing: Hourly intake/output Insertion date: 12/15/17 Insertion time: 00:00 Removal date: 12/15/17 Removal time: 10:00 Assessment and Plan - Plan Acute on chronic systolic heart failure Atrial fibrillation COPD exacerbation Renal insufficiency UTI Anemia -EF low, ICD in place. Will continue with IV diuresis and careful monitoring of renal function. Breathing and edema have improved. Troponin elevated, secondary to CHF and COPD exacerbation. Pt denies any chest pain. Continues on coreg. -Continues on Savaysa, no issues with bleeding. -Pulmonary consulted. -Nephrology following. Creatnine improved 2.18 this AM. -Currently on levaquin for UTI. Will consider resuming sotalol once Levaquin in DCd. -Hgb trending down. Will repeat CBC in AM. The patient was seen and evaluated by Dr. King who completed face to face encounter and physical exam and participated in care, management, and decision making. Code Status: Full code Discussed Condition With: and nurse
--- NOTE | 2017-12-17 23:06 | P.PN ---
Subjective Interval history: ALERT NO SOB Physical Exam Vital signs: Vital Signs 12/16/17 23:48 12/17/17 00:00 12/17/17 01:20 Temperature 98.4 F Pulse Rate 62 53 L Respiratory Rate 23 Blood Pressure 119/60 Pulse Oximetry 95 91 L 12/17/17 03:20 12/17/17 03:48 12/17/17 04:00 Temperature 97.9 F Pulse Rate 51 L 43 L Respiratory Rate 27 H Blood Pressure 117/54 L Pulse Oximetry 98 98 12/17/17 05:00 12/17/17 07:00 12/17/17 08:00 Temperature Pulse Rate 67 64 59 L Respiratory Rate 21 Blood Pressure Pulse Oximetry 90 L 12/17/17 08:01 12/17/17 08:07 12/17/17 09:00 Temperature Pulse Rate 59 L 52 L Respiratory Rate 26 H 26 H Blood Pressure 104/55 L 105/53 L Pulse Oximetry 96 100 99 12/17/17 10:00 12/17/17 11:00 12/17/17 12:00 Temperature Pulse Rate 64 66 60 Respiratory Rate 23 31 H 29 H Blood Pressure 116/56 L 126/60 Pulse Oximetry 89 L 98 98 12/17/17 12:01 12/17/17 13:00 12/17/17 16:00 Temperature Pulse Rate 59 L 63 63 Respiratory Rate 35 H 28 H Blood Pressure 117/56 L Pulse Oximetry 96 82 L 12/17/17 16:01 12/17/17 17:00 12/17/17 18:00 Temperature Pulse Rate 62 61 70 Respiratory Rate 29 H 26 H 29 H Blood Pressure 113/53 L 116/66 Pulse Oximetry 95 89 L 97 12/17/17 18:01 12/17/17 20:00 Temperature Pulse Rate 72 72 Respiratory Rate 35 H Blood Pressure 125/66 Pulse Oximetry 94 L Intake & Output 12/17/17 12/17/17 12/18/17 06:59 18:59 06:59 Intake Total 100 / 100 Output Total 600 / 600 700 / 700 Balance -500 / -500 -700 / -700 Weight 94.5 kg Intake: Oral 100 / 100 Output: Urine 600 / 600 700 / 700 Stool 0 / 0 Other: # Voids 5 # Incontinent Voids 0 Date of Last Bowel Movement 12/16/17 12/15/17 12/15/17 # Bowel Movements 0 # Incontinent Bowel Movements 0 Narrative: GENERAL: Alert and oriented. at bedside. HEENT: No scleral icterus or conjunctival pallor. No lid lag or facial droop. CARDIOVASCULAR: No obvious murmurs to auscultation. No chest tenderness to palpation. RESPIRATORY: Clear to auscultation. Breath sounds equal bilaterally. GASTROINTESTINAL: Abdomen soft, non-tender, nondistended. BS normal. MUSCULOSKELETAL: Extremities without clubbing, cyanosis. +1 edema. No obvious deformities. NEUROLOGICAL:Moving both upper and lower extremities spontaneously. - Urinary Catheter Management Indwelling Urethral Catheter Cath placed during this visit: yes, but has since been removed by the nurse Reason for continuing: Hourly intake/output Insertion date: 12/15/17 Insertion time: 00:00 Removal date: 12/15/17 Removal time: 10:00 Results - Labs CBC & Chem 7: 12/17/17 05:20 12/17/17 05:20 Laboratory Results - last 24 hr 12/17/17 12/17/17 05:20 05:20 WBC 8.8 RBC 2.83 L Hgb 8.7 L Hct 26.9 L MCV 95.0 MCH 30.7 MCHC 32.3 RDW 17.7 H Plt Count 203 MPV 8.5 Sodium 135 L Potassium 3.5 Chloride 86 L Carbon Dioxide 41.0 H Anion Gap 8 BUN 47 H Creatinine 2.18 H Estimated GFR 30 L Random Glucose 103 Calcium 8.7 Magnesium 2.3 Microbiology 12/14/17 23:55 Blood - Peripheral Aerobic Blood Culture - Preliminary No growth in 2 days 12/14/17 23:55 Blood - Peripheral Anaerobic Blood Culture - Preliminary No growth in 2 days 12/14/17 23:59 Blood - Peripheral Aerobic Blood Culture - Preliminary No growth in 2 days 12/14/17 23:59 Blood - Peripheral Anaerobic Blood Culture - Preliminary No growth in 2 days 12/15/17 00:15 Catheterized Urine Urine Culture - Final No growth in 48 hours - Procedures BIPAP Assessment and Plan - Plan IMPRESSION COPD CHF RENAL INSUFFICIENCY PLAN O2 NEEDED BRONCHODILATOR THERAPY CARDIOLOGY FOLLOWING CXRAY
--- NOTE | 2017-12-18 04:58 | XR ---
EXAM DATE: 12/18/2017 4:55 AM EDT AGE/SEX: 72 years / Male INDICATIONS: Shortness of breath. CLINICAL DATA: This is the patient's subsequent encounter. Patient reports that signs and symptoms h ave been present for 4 - 6 days and indicates a pain score of Nonresponsive. MEDICAL/SURGICAL HISTORY: Chronic obstructive pulmonary disease. Pacemaker. COMPARISON: C, CHEST 1V SINGLE AP, 12/14/2017. . FINDINGS: Mild alveolar and interstitial infiltrates are noted, with improved aeration since previous study. Th ere are bilateral effusions. Pacer/ICD lead again noted. Cardiomegaly. Osseous structures are intact. CONCLUSION: Improved aeration of both lungs since the previous study. Electronically signed by: Phil Cruz MD 12/18/2017 4:57 AM EDT
[2017-12-18 06:10] LABS: Baso # (Auto) 0.1 th/mm3 (0.0-0.2); Baso % (Auto) 0.6 % (0.0-2.0); Eos # (Auto) 0.1 th/mm3 (0.0-0.4); Eos % (Auto) 1.1 % (0.0-4.0); Hematocrit 27.9 % (39.0-51.0); Hemoglobin 9.2 gm/dL (13.0-17.0); Lymph # (Auto) 0.8 th/mm3 (1.0-4.8); Lymph % (Auto) 8.9 % (9.0-44.0); Mean Corpuscular HGB Conc 32.8 % (32.0-36.0); Mean Corpuscular Hemoglobin 31.4 pg (27.0-34.0); Mean Corpuscular Volume 95.7 fL (80.0-100.0); Mean Platelet Volume 8.6 fL (7.0-11.0); Mono # (Auto) 0.7 th/mm3 (0.0-0.9); Mono % (Auto) 7.6 % (0.0-8.0); Neut # (Auto) 7.1 th/mm3 (1.8-7.7); Neut % (Auto) 81.8 % (16.0-70.0); Platelet Count 211 th/mm3 (150-450); Red Blood Count 2.92 mil/mm3 (4.50-5.90); Red Cell Distribution Width 17.2 % (11.6-17.2); White Blood Count 8.7 th/mm3 (4.0-11.0)
[2017-12-18 06:33] LABS: Calcium 8.8 mg/dL (8.5-10.1); Carbon Dioxide 38.5 meq/L (21.0-32.0); Magnesium 2.3 mg/dL (1.5-2.5); Potassium 3.9 meq/L (3.5-5.1)
[2017-12-18] MEDS: Chlorhexidine Gluconate 2% 1 Pack (2 Cloths) TOPICAL SCH (06:57)
[2017-12-18 08:35] VITALS: O2SAT 92
[2017-12-18] MEDS: EDOXABAN 60 MG PO SCH (09:06)
[2017-12-18] MEDS: Senna/Docusate Sodium 8.6/50 MG Tablet PO SCH (09:06)
[2017-12-18] MEDS: Carvedilol 12.5 MG Tablet PO SCH (09:06)
[2017-12-18 09:34] VITALS: BP 133/53; PULSE 52; RESP 26; TEMP 98.3
--- NOTE | 2017-12-18 09:56 | P.PNCA ---
<Shadeed,August - Last Filed: 12/18/17 09:51> Subjective Interval history: Doing well this AM. Did not require BiPap over night. Reports breathing has improved significantly overnight. at bedside. Pt reports he is ready to go home. Edema has improved. Creatinine is stable. Physical Exam Vital signs: Vital Signs 12/17/17 10:00 12/17/17 11:00 12/17/17 12:00 Temperature Pulse Rate 64 66 60 Respiratory Rate 23 31 H 29 H Blood Pressure 116/56 L 126/60 Pulse Oximetry 89 L 98 98 12/17/17 12:01 12/17/17 13:00 12/17/17 16:00 Temperature Pulse Rate 59 L 63 63 Respiratory Rate 35 H 28 H Blood Pressure 117/56 L Pulse Oximetry 96 82 L 12/17/17 16:01 12/17/17 17:00 12/17/17 18:00 Temperature Pulse Rate 62 61 70 Respiratory Rate 29 H 26 H 29 H Blood Pressure 113/53 L 116/66 Pulse Oximetry 95 89 L 97 12/17/17 18:01 12/17/17 20:00 12/18/17 00:00 Temperature 98.5 F 98.8 F Pulse Rate 72 88 88 Respiratory Rate 35 H 20 20 Blood Pressure 125/66 143/83 H 139/71 Pulse Oximetry 94 L 93 L 94 L 12/18/17 04:00 12/18/17 08:00 12/18/17 08:01 Temperature 97.8 F 98.3 F Pulse Rate 52 L 54 L 52 L Respiratory Rate 21 16 26 H Blood Pressure 92/55 L 133/53 L Pulse Oximetry 95 100 96 12/18/17 08:34 Temperature Pulse Rate Respiratory Rate Blood Pressure Pulse Oximetry 92 L Intake & Output 12/17/17 12/18/17 12/18/17 18:59 06:59 18:59 Intake Total 250 / 250 Output Total 700 / 700 1300 / 1300 Balance -700 / -700 -1050 / -1050 Weight 95 kg Intake: Oral 250 / 250 Output: Urine 700 / 700 1300 / 1300 Stool 0 / 0 Other: # Incontinent Voids 0 Date of Last Bowel Movement 12/15/17 12/15/17 12/15/17 # Bowel Movements 0 # Incontinent Bowel Movements 0 - Constitutional no acute distress - Routine HEENT Exam Head: Present: normocephalic, atraumatic Eye: Present: normal accommodation ENT: Present: mucous membranes moist - Routine Neck Exam Present: supple - Routine Respiratory Exam Present: distant breath sounds - Routine Cardiovascular Exam Present: irregularly irregular - Routine Abdominal Exam Comments: round - Routine Skin Exam Present: intact - Routine Neurological Exam Present: alert, oriented X3 - Detailed Neurological Exam: Coma Scale Eye Opening: Spontaneous Verbal Response: Oriented Motor Response: Obey commands [place] Coma Scale Total: 15 - Routine Psychiatric Exam Present: normal affect, cooperative - Urinary Catheter Management Indwelling Urethral Catheter Cath placed during this visit: yes, but has since been removed by the nurse Reason for continuing: Hourly intake/output Insertion date: 12/15/17 Insertion time: 00:00 Removal date: 12/15/17 Removal time: 10:00 Assessment and Plan - Plan Acute on chronic systolic heart failure Atrial fibrillation COPD exacerbation Renal insufficiency UTI Anemia -EF low, ICD in place. Breathing and edema have improved with IV diuresis. -Continues on Savaysa, no issues with bleeding. -Nephrology following. Creatinine stable -Currently on levaquin for UTI. Will consider resuming sotalol once Levaquin in DCd. Patient is cleared from a cardiac standpoint for discharge home with home health and PT. Will resume home medications. Hold sotalol until antibiotics completed. Will see in office in 1-2 weeks for hospital follow up. Encouraged patient to ambulate in hallway with nurse prior to discharge. The patient was seen and evaluated by Dr. King who completed face to face encounter and physical exam and participated in care, management, and decision making. Code Status: Full Discussed Condition With: Nurse and <Lashon King - Last Filed: 12/18/17 15:15> Physical Exam Vital signs: Vital Signs 12/17/17 16:00 12/17/17 16:01 12/17/17 17:00 Temperature Pulse Rate 63 62 61 Respiratory Rate 28 H 29 H 26 H Blood Pressure 113/53 L 116/66 Pulse Oximetry 82 L 95 89 L 12/17/17 18:00 12/17/17 18:01 12/17/17 20:00 Temperature 98.5 F Pulse Rate 70 72 88 Respiratory Rate 29 H 35 H 20 Blood Pressure 125/66 143/83 H Pulse Oximetry 97 94 L 93 L 12/18/17 00:00 12/18/17 04:00 12/18/17 08:00 Temperature 98.8 F 97.8 F 98.3 F Pulse Rate 88 52 L 54 L Respiratory Rate 20 21 16 Blood Pressure 139/71 92/55 L Pulse Oximetry 94 L 95 100 12/18/17 08:01 12/18/17 08:34 Temperature Pulse Rate 52 L Respiratory Rate 26 H Blood Pressure 133/53 L Pulse Oximetry 96 92 L Intake & Output 12/17/17 12/18/17 12/18/17 18:59 06:59 18:59 Intake Total 250 / 250 Output Total 700 / 700 1300 / 1300 400 / 400 Balance -700 / -700 -1050 / -1050 -400 / -400 Weight 95 kg Intake: Oral 250 / 250 Output: Urine 700 / 700 1300 / 1300 400 / 400 Stool 0 / 0 Other: # Incontinent Voids 0 Date of Last Bowel Movement 12/15/17 12/15/17 12/15/17 # Bowel Movements 0 # Incontinent Bowel Movements 0 - Urinary Catheter Management Indwelling Urethral Catheter Cath placed during this visit: no Assessment and Plan - Attending Attestation The exam, history, and the medical decision-making described in the above note were completed with the assistance of the mid-level provider. I reviewed and agree with the findings presented. I attest that I had a [id number] encounter with the patient on the same day, and personally performed and documented my assessment and findings in the medical record. Slow improvement
--- NOTE | 2017-12-18 10:07 | P.DS ---
Date of admission: 12/15/17 03:57 Primary care physician: Marquez Fields MD Brief History from admission: This is a 72-year-old male with PMH of HTN, CHF (Echo 06/18/2017 with EF <20%), CAD, COPD, h/o AICD and s/p AVR who was brought to the ER by EMS for severe SOB. S/p Lasix 100mg IV and started on CPAP by EMS for respiratory failure, on arrival to ER pt w/ persistent hypoxia, O2 sat 89% on BIPAP, pt refusing intubation. Denies c/o chest pain, cough or sick contacts. Follows w/ Dr. King as outpatient, notes he has appt on Saturday. BP 146/81, HR 103, O2 sat 89% on 40% FiO2, Afebrile. Currently BP 112/60, HR 68, O2 sat 96% on 35% FiO2, appears much more comfortable. WBC 11.7. INR 1.3. Initial ABG with pH 7.30, PCO2 80, PO2 88, repeat ABG pH 7.34, PCO2 71, PO2 86. Creatinine 2.54, previously 2.25 on 08/30/2017. Lactic Acid 3.8. Troponin 0.06. BNP 642. UA with mild bacteriuria. CXR w/ pulmonary edema and right pleural effusion. DS: Diagnosis - Discharge Diagnosis (1) CHF (congestive heart failure) Status: Acute (2) Hypoxia Status: Acute (3) COPD (chronic obstructive pulmonary disease) Status: Acute (4) Elevated troponin Status: Acute (5) Renal insufficiency Status: Acute DS: Medications - Discharge Medications Prescriptions: aspirin 81 mg PO DAILY #30 tab carvedilol [Coreg] 25 mg PO BID #60 tab furosemide 40 mg PO BID@0900,1800 #60 tab levofloxacin 750 mg PO Q48H #2 tab DS: Summary Hospital Course: 1. CHF: Acute on Chronic. Systolic. Echo 06/18/17 w/ EF <20%, h/o AICD, s/p Lasix 100mg IV by EMS, CXR w/ pulmonary congestion and pleural effusion, continue w/ diuresis, monitor I/O. Follows w/ Dr. King as outpatient, will consult for further evaluation/recommendations. Improved ct lasix. Unable to start BLANCA 2/2 kidney dysfunction allergic to sacubitril and ARB 2. Acute on chronic hypercapnic respiratory failure: Multifactorial, secondary to CHF/fluid overload and COPD. Hx RAFAEL ff by Dr Grace CPAP to be delivered after dc. ABG 7.39/69/77 on BIPAP 12/ 35%. Improved back on baseline 3L. 3. NSTEMI: likely secondary to Acute CHF and demand ischemia from hypoxia.Ct asa and BB . NTP dc by cards 4. COPD: Chronic Respiratory Failure w/ Acute Exacerbation. Severe. As above continue BIPAP then wean, repeat ABG prn. Nebs prn and Levaquin switched to po 5. CKD stage 4: Creatinine 2.54, previously 2.25 on 08/30/17, Monitor I/O, caution w/ diuresis, repeat labs o/p. Improving 6. DVT Prophylaxis: Edoxaban PT - Time Spent with Patient Total time spent providing and/or coordinating discharge services: Greater than 30 minutes - Quality: VTE Deep Vein Thrombosis/Pulmonary Embolism Present on Admission: No Exam Vital signs: Vital Signs 12/17/17 11:00 12/17/17 12:00 12/17/17 12:01 Temperature Pulse Rate 66 60 59 L Respiratory Rate 31 H 29 H 35 H Blood Pressure 126/60 117/56 L Pulse Oximetry 98 98 96 12/17/17 13:00 12/17/17 16:00 12/17/17 16:01 Temperature Pulse Rate 63 63 62 Respiratory Rate 28 H 29 H Blood Pressure 113/53 L Pulse Oximetry 82 L 95 12/17/17 17:00 12/17/17 18:00 12/17/17 18:01 Temperature Pulse Rate 61 70 72 Respiratory Rate 26 H 29 H 35 H Blood Pressure 116/66 125/66 Pulse Oximetry 89 L 97 94 L 12/17/17 20:00 12/18/17 00:00 12/18/17 04:00 Temperature 98.5 F 98.8 F 97.8 F Pulse Rate 88 88 52 L Respiratory Rate 20 20 21 Blood Pressure 143/83 H 139/71 92/55 L Pulse Oximetry 93 L 94 L 95 12/18/17 08:00 12/18/17 08:01 12/18/17 08:34 Temperature 98.3 F Pulse Rate 54 L 52 L Respiratory Rate 16 26 H Blood Pressure 133/53 L Pulse Oximetry 100 96 92 L Intake & Output 12/17/17 12/18/17 12/18/17 18:59 06:59 18:59 Intake Total 250 / 250 Output Total 700 / 700 1300 / 1300 Balance -700 / -700 -1050 / -1050 Weight 95 kg Intake: Oral 250 / 250 Output: Urine 700 / 700 1300 / 1300 Stool 0 / 0 Other: # Incontinent Voids 0 Date of Last Bowel Movement 12/15/17 12/15/17 12/15/17 # Bowel Movements 0 # Incontinent Bowel Movements 0 Narrative: GENERAL: Alert and oriented on 5L at bedside. HEENT: No scleral icterus or conjunctival pallor. No lid lag or facial droop. CARDIOVASCULAR: No obvious murmurs to auscultation. No chest tenderness to palpation. RESPIRATORY: Clear to auscultation. Breath sounds equal bilaterally. GASTROINTESTINAL: Abdomen soft, non-tender, nondistended. BS normal. MUSCULOSKELETAL: Extremities without clubbing, cyanosis. +2edema which is improving. No obvious deformities. NEUROLOGICAL:Moving both upper and lower extremities spontaneously. Results Procedures completed during hospitalization: BIPAP Labs on day of discharge: Labs from last 24 hours 12/18/17 12/18/17 04:51 04:51 WBC 8.7 RBC 2.92 L Hgb 9.2 L Hct 27.9 L MCV 95.7 MCH 31.4 MCHC 32.8 RDW 17.2 Plt Count 211 MPV 8.6 Neut % (Auto) 81.8 H Lymph % (Auto) 8.9 L [place] % (Auto) 7.6 Eos % (Auto) 1.1 Baso % (Auto) 0.6 Neut # (Auto) 7.1 Lymph # (Auto) 0.8 L [place] # (Auto) 0.7 Eos # (Auto) 0.1 Baso # (Auto) 0.1 WBC Differential . Differential Comment Auto diff final Sodium 136 Potassium 3.9 Chloride 89 L Carbon Dioxide 38.5 H Anion Gap 9 BUN 39 H Creatinine 1.85 H Estimated GFR 36 L Random Glucose 93 Calcium 8.8 Magnesium 2.3 Preliminary micro results at discharge 12/14/17 23:55 Aerobic Blood Culture - Preliminary Blood - Peripheral No growth in 2 days Anaerobic Blood Culture - Preliminary No growth in 2 days 12/14/17 23:59 Aerobic Blood Culture - Preliminary Blood - Peripheral No growth in 2 days Anaerobic Blood Culture - Preliminary No growth in 2 days - Impressions ITS Impressions Abdomen/Bladder Ultrasound 12/15/17 00:00 CONCLUSION: 1. Echogenic kidneys characteristic of medical renal disease. Small right renal cyst. No hydronephrosis. Chest X-Ray 12/18/17 06:00 CONCLUSION: Improved aeration of both lungs since the previous study. Discharge Plan - Discharge Disposition Patient Disposition: /Home Health Service - Discharge Condition Condition: Stable - Discharge Order Discharge Orders: Discharge Order (Routine); Ordered 12/18/17 Ordered By: Hai Dill - Physicians Team Primary Care Provider: Marquez Fields Attending Provider: Hai Dill Other Providers: Hermes Levy MD ; Maverick Torres MD ; North Goins MD ; Latosha Reina MD
--- NOTE | 2017-12-18 10:12 | P.PNNP ---
Subjective Interval history: Up out of bed, in good spirits. Plans for discharge today. Creatinine at 1.85. <Valentina Aponte - Last Filed: 12/18/17 10:10> Physical Exam Vital signs: Vital Signs 12/17/17 11:00 12/17/17 12:00 12/17/17 12:01 Temperature Pulse Rate 66 60 59 L Respiratory Rate 31 H 29 H 35 H Blood Pressure 126/60 117/56 L Pulse Oximetry 98 98 96 12/17/17 13:00 12/17/17 16:00 12/17/17 16:01 Temperature Pulse Rate 63 63 62 Respiratory Rate 28 H 29 H Blood Pressure 113/53 L Pulse Oximetry 82 L 95 12/17/17 17:00 12/17/17 18:00 12/17/17 18:01 Temperature Pulse Rate 61 70 72 Respiratory Rate 26 H 29 H 35 H Blood Pressure 116/66 125/66 Pulse Oximetry 89 L 97 94 L 12/17/17 20:00 12/18/17 00:00 12/18/17 04:00 Temperature 98.5 F 98.8 F 97.8 F Pulse Rate 88 88 52 L Respiratory Rate 20 20 21 Blood Pressure 143/83 H 139/71 92/55 L Pulse Oximetry 93 L 94 L 95 12/18/17 08:00 12/18/17 08:01 12/18/17 08:34 Temperature 98.3 F Pulse Rate 54 L 52 L Respiratory Rate 16 26 H Blood Pressure 133/53 L Pulse Oximetry 100 96 92 L Intake & Output 12/17/17 12/18/17 12/18/17 18:59 06:59 18:59 Intake Total 250 / 250 Output Total 700 / 700 1300 / 1300 Balance -700 / -700 -1050 / -1050 Weight 95 kg Intake: Oral 250 / 250 Output: Urine 700 / 700 1300 / 1300 Stool 0 / 0 Other: # Incontinent Voids 0 Date of Last Bowel Movement 12/15/17 12/15/17 12/15/17 # Bowel Movements 0 # Incontinent Bowel Movements 0 Narrative: GENERAL: Alert and oriented. at bedside. HEENT: No scleral icterus or conjunctival pallor. No lid lag or facial droop. CARDIOVASCULAR: No obvious murmurs to auscultation. No chest tenderness to palpation. RESPIRATORY: Clear to auscultation. Breath sounds equal bilaterally. GASTROINTESTINAL: Abdomen soft, non-tender, nondistended. BS normal. MUSCULOSKELETAL: Extremities without clubbing, cyanosis. +1 edema. No obvious deformities. NEUROLOGICAL:Moving both upper and lower extremities spontaneously. - Urinary Catheter Management Indwelling Urethral Catheter Cath placed during this visit: yes, but has since been removed by the nurse Reason for continuing: Hourly intake/output Insertion date: 12/15/17 Insertion time: 00:00 Removal date: 12/15/17 Removal time: 10:00 <Valentina Aponte - Last Filed: 12/18/17 10:10> Vital signs: Vital Signs 12/18/17 00:00 12/18/17 04:00 12/18/17 08:00 Temperature 98.8 F 97.8 F 98.3 F Pulse Rate 88 52 L 54 L Respiratory Rate 20 21 16 Blood Pressure 139/71 92/55 L Pulse Oximetry 94 L 95 100 12/18/17 08:01 12/18/17 08:34 Temperature Pulse Rate 52 L Respiratory Rate 26 H Blood Pressure 133/53 L Pulse Oximetry 96 92 L Intake & Output 12/18/17 12/18/17 12/19/17 06:59 18:59 06:59 Intake Total 250 / 250 Output Total 1300 / 1300 400 / 400 Balance -1050 / -1050 -400 / -400 Weight 95 kg Intake: Oral 250 / 250 Output: Urine 1300 / 1300 400 / 400 Stool 0 / 0 Other: # Incontinent Voids 0 Date of Last Bowel Movement 12/15/17 12/15/17 # Bowel Movements 0 # Incontinent Bowel Movements 0 - Urinary Catheter Management Indwelling Urethral Catheter Cath placed during this visit: no <Maverick Torres - Last Filed: 12/18/17 21:17> Assessment and Plan - Assessment (1) Renal insufficiency Code(s): N28.9 - Disorder of kidney and ureter, unspecified Status: Acute Plan: Acute kidney injury with creatinine of 2.54 on day of consult CHELSEY could be related to cardiorenal syndrome. 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 Creatinine at 2.25 on 08/30/17 Renal ultrasound echogenic kidneys characteristic of medical renal disease. Small right renal cyst. No hydronephrosis. Creatinine Continues to improve at 1.85 from 2.19 Recommend to continue lasix SPEP pending, can follow up outpatient Follow urine output and the BUN and creatinine. Avoid nephrotoxins. Plans for discharge home today. Will need to be followed by Nephrology outpatient. Recommend follow up in 2 weeks. <Valentina Aponte - Last Filed: 12/18/17 10:10> - Assessment (1) Renal insufficiency Code(s): N28.9 - Disorder of kidney and ureter, unspecified Status: Acute - Attending Attestation Creatinine is stable. For discharge today, continue diuretics. <Maverick Torres - Last Filed: 12/18/17 21:17>
[2017-12-18] MEDS ORDERED: Furosemide 40 MG Tablet PO SCH (18:00)
[2017-12-20] MEDS ORDERED: Etomidate Inj 40 MG/20 ML Vial IV.PUSH ONE ×2 (17:28→17:32)
[2017-12-20] MEDS ORDERED: Propofol Inj 500 MG/50 ML Vial ONE (17:29)
== END 2017-12-18 10:50 | disposition home health service (06) ==
LOC: NEPE 23:30 → NEDA 12-15 03:57 → HIMC 12-15 04:55
PROVIDERS: ADMIT Internal Medicine; ATTEND Internal Medicine

== ENCOUNTER 2018-01-09 18:31 | Inpatient (IN) ==
[2018-01-09] MEDS ORDERED: Succinylcholine Inj 200 MG/10 ML Vial IV.PUSH ONE (18:44)
[2018-01-09] MEDS ORDERED: MethylPREDNISolone Sod Succinate Inj 125 MG/2 ML Vial IV.PUSH ONE (18:44)
[2018-01-09] MEDS ORDERED: Etomidate Inj 20 MG/10 ML Ampul IV.PUSH ONE (18:44)
--- NOTE | 2018-01-09 18:55 | ED ---
HPI General Chief Complaint: Shortness of Breath/Dyspnea Stated Complaint: Evac/Respiratory Time Seen by Provider: 01/09/18 18:44 Source: EMS Mode of arrival: EMS Limitations: altered mental status and physical limitation History of Present Illness The patient is a 72-year-old male who presents to the emergency department via EMS for shortness of breath. EMS states that she was going to come to the emergency department for shortness of breath via private vehicle, however, shortness of breath had progressed and he called EMS. EMS states when they arrived the patient was awake, alert, and oriented. The patient was placed on oxygen, however, his breathing progressively worsened in route to the emergency department. According to EMS the patient has a history of congestive heart failure and COPD, uses inhalers at home. In route to the hospital the patient became more lethargic and unresponsive, they started bagging the patient via bag valve ventilation as he arrived in the emergency department. The patient was unable to answer any questions or follow commands upon arrival and was emergently abated. Related Data Home Medications Medication Instructions Recorded Confirmed edoxaban 60 mg PO DAILY NEB 12/15/17 01/09/18 tiotropium-olodaterol [Stiolto 2 puff INHALATION DAILY 01/09/18 01/09/18 Respimat] Previous Rx's Medication Instructions Recorded aspirin 81 mg PO DAILY #30 tab 12/17/17 carvedilol [Coreg] 25 mg PO BID #60 tab 12/17/17 furosemide 40 mg PO BID@0900,1800 #60 tab 12/18/17 Allergies Allergy/AdvReac Type Severity Reaction Status Date / Time sacubitril AdvReac Intermediate Verified 08/29/17 12:58 valsartan AdvReac Intermediate Verified 08/29/17 12:58 No Known Allergies Allergy Unknown Uncoded 08/29/17 12:58 Review of Systems ROS Unobtainable ROS Unobtainable: unobtainable due to mental status PMFSH Medical History Medical History COPD (chronic obstructive pulmonary disease) (Acute) CHF (congestive heart failure) (Acute) Aortic stenosis (Chronic) V-tach (Chronic) Arteriosclerotic heart disease (ASHD) (Chronic) A-fib (Acute) Social History Social History Substance History: No History of Abuse Second Hand Smoke Exposure: No Smoking Status: Former smoker Tobacco Type: Cigarettes How Often Do You Have a Drink Containing Alcohol: Never Recent Travel in [facility] within the Last 8 Weeks: No Recent Out of Country Travel within the Last 8 Weeks: No Exam Narrative Exam Narrative: GENERAL: 72-year-old male who was being bagged via bag valve ventilation upon arrival. Nonverbal. Not following commands. SKIN: Focused skin assessment warm/dry. HEAD: Atraumatic. Normocephalic. EYES: Pupils equal and round. 3 mm bilateral. ENT: No nasal bleeding or discharge. Mucous membranes pink and moist. NECK: Trachea midline. No JVD. CARDIOVASCULAR: Regular, tachycardic with a heart rate in the 120s. RESPIRATORY: Tachypnea with a respiratory rate of 36. Significantly diminished breath sounds in the left base with prolonged expiratory phase. GASTROINTESTINAL: Abdomen soft, non-tender, nondistended. No rebound tenderness. MUSCULOSKELETAL: No obvious deformities. No clubbing. No cyanosis. Bilateral pitting edema lower extremities. NEUROLOGICAL: Eyes closed, nonverbal, withdraws to pain. PSYCHIATRIC: Unable to assess. Procedures Intubation Time Out Performed: Yes Sedative: etomidate Mg Given: 20 Paralytic: succinylcholine Mg Given: 100 Laryngoscope: Pablo ET Tube Size: 8 ET Tube Uncuffed: No Tube Secured Depth (cm): 22 Tube Secured Location: lips Tube Placement Confirmation: visualized tube passing through cords, equal breath sounds bilaterally, no breath sounds over epigastrium and confirmation by capnometry Patient Tolerated Procedure: well and no complications Intubation Complications: none Course Initial Documented Vital Signs Pulse Rate 104 H 01/09/18 18:37 Respiratory Rate 32 H 01/09/18 18:37 Blood Pressure 147/93 H 01/09/18 18:37 Pulse Oximetry 99 01/09/18 18:37 Last Documented Vital Signs Temperature 98.2 F 01/09/18 19:01 Pulse Rate 72 01/09/18 19:15 Respiratory Rate 16 01/09/18 19:15 Blood Pressure 105/58 L 01/09/18 19:15 Pulse Oximetry 100 01/09/18 19:01 Sign Out Sign Out Data: Patient Sign Out occurred on 01/09/18 at 19:13. Patient's care was discussed, and care was transferred from Herman Rose MD to Majo Madrid MD. Sign Out Comment: 72-year-old male who arrived in respiratory distress. Intubated, will require admission to the intensive care unit once chest x-ray has been obtained and laboratory evaluation has been obtained. The patient received etomidate and succinylcholine, propofol drip was ordered. Blood culture and lactic acid were sent to lab. The patient does have a history of CHF and COPD. Last updated by Herman Rose MD at 01/09/18 18:59 Post-Handoff Eval: Chest x-ray shows the ET tube to be in good position. Also shows evidence of pulmonary edema. Lasix ordered. Labs show slight elevation in troponin to 0.06. Lactic acid is elevated. Patient properly sedated. He will be admitted for further management. Medical Decision Making MDM Narrative Medical decision making narrative: IV was established, labs are drawn and sent, the patient was placed on cardiac telemetry monitoring and continuous pulse oximetry monitoring. The patient was moved to trauma Suite 3, was intubated using rapid sequence intubation with 20 mg of etomidate and 100 mg of succinylcholine with a 8.0 endotracheal tube at 22 cm right lip. Postintubation chest x-ray was obtained. Alatorre catheter was established. Blood cultures and lactic acid were sent to lab. The patient was signed out to the oncoming physician at 7 PM. The patient will require admission to the intensive care unit. Medical Screen Exam Complete: Yes Emergency Medical Condition: Yes Differential Diagnosis Differential Diagnosis: Differential diagnosis includes COPD, CHF, pulmonary embolism, pneumonia, pleural effusion, respiratory distress, ARDS, aspiration pneumonia. Lab Data Result diagrams: 01/09/18 19:00 01/09/18 19:00 Lab Results 01/09/18 01/09/18 01/09/18 Range/Units 19:00 19:00 19:00 WBC 10.8 (4.0-11.0) th/mm3 RBC 3.46 L (4.50-5.90) mil/mm3 Hgb 10.2 L (13.0-17.0) gm/dL Hct 33.5 L (39.0-51.0) % MCV 96.7 (80.0-100.0) fL MCH 29.4 (27.0-34.0) pg MCHC 30.4 L (32.0-36.0) % RDW 17.5 H (11.6-17.2) % Plt Count 269 (150-450) th/mm3 MPV 8.9 (7.0-11.0) fL Neut % (Auto) 86.6 H (16.0-70.0) % Lymph % (Auto) 6.2 L (9.0-44.0) % [place] % (Auto) 6.2 (0.0-8.0) % Eos % (Auto) 0.5 (0.0-4.0) % Baso % (Auto) 0.5 (0.0-2.0) % Neut # (Auto) 9.4 H (1.8-7.7) th/mm3 Lymph # (Auto) 0.7 L (1.0-4.8) th/mm3 [place] # (Auto) 0.7 (0.0-0.9) th/mm3 Eos # (Auto) 0.1 (0.0-0.4) th/mm3 Baso # (Auto) 0.1 (0.0-0.2) th/mm3 WBC Differential . Differential Comment Auto diff final PT 14.7 H (9.8-11.6) sec INR 1.5 Ratio APTT 26.8 (24.3-30.1) sec Puncture Site Patient Temperature O2 Saturation (90-100) % ABG pH (7.380-7.420) ABG pCO2 (38-42) mmHg ABG pO2 (61-120) mmHg ABG HCO3 (22-26) mmol/L ABG O2 Content (12.0-20.0) Vol % ABG Base Excess (-2-2) mmol/L ABG Methemoglobin (0-2) % Alessio Test Hemoglobin (12.0-16.0) G/DL Carboxyhemoglobin (0-4) % O2 Delivery Device Vent Setting Inspired O2 % Critical Value Sodium 138 (136-145) meq/L Potassium 4.2 (3.5-5.1) meq/L Chloride 99 (98-107) meq/L Carbon Dioxide 28.2 (21.0-32.0) meq/L Anion Gap 11 (5-15) meq/L BUN 18 (7-18) mg/dL Creatinine 1.72 H (0.60-1.30) mg/dL Estimated GFR 39 L (>89) mL/min Random Glucose 263 H (74-106) mg/dL Lactic Acid (0.4-2.0) mmol/L Calcium 8.1 L (8.5-10.1) mg/dL Magnesium 2.1 (1.5-2.5) mg/dL Total Bilirubin 0.5 (0.2-1.0) mg/dL AST 20 (15-37) U/L ALT 15 (12-78) U/L Alkaline Phosphatase 63 (45-117) U/L Total Creatine Kinase 54 (39-308) U/L Troponin I 0.06 H (0.02-0.05) ng/mL Total Protein 7.9 (6.4-8.2) g/dL Albumin 3.0 L (3.4-5.0) g/dL Urine Color (Yellw/Straw) Urine Clarity (Clear) Urine pH (5.0-8.5) Ur Specific [place] (1.002-1.035) Urine Protein (Neg-Trace) mg/dL Urine Glucose (UA) (Negative) mg/dL Urine Ketones (Negative) mg/dL Urine Occult Blood (Negative) Urine Nitrate (Negative) Urine Bilirubin (Negative) Urine Urobilinogen (Less than 2) mg/dL Ur Leukocyte Esterase (Negative) Urine RBC (0-3) /hpf Urine WBC (0-5) /hpf Ur Squamous Epith Cells (0-5) /hpf Urine Bacteria (None) /hpf Hyaline Casts (0-3) /lpf Urine Mucus (Occasional) /lpf Micro UA Comment Ur Microscopic Review Urine Culture Comments 01/09/18 01/09/18 01/09/18 Range/Units 19:00 19:00 19:29 WBC (4.0-11.0) th/mm3 RBC (4.50-5.90) mil/mm3 Hgb (13.0-17.0) gm/dL Hct (39.0-51.0) % MCV (80.0-100.0) fL MCH (27.0-34.0) pg MCHC (32.0-36.0) % RDW (11.6-17.2) % Plt Count (150-450) th/mm3 MPV (7.0-11.0) fL Neut % (Auto) (16.0-70.0) % Lymph % (Auto) (9.0-44.0) % [place] % (Auto) (0.0-8.0) % Eos % (Auto) (0.0-4.0) % Baso % (Auto) (0.0-2.0) % Neut # (Auto) (1.8-7.7) th/mm3 Lymph # (Auto) (1.0-4.8) th/mm3 [place] # (Auto) (0.0-0.9) th/mm3 Eos # (Auto) (0.0-0.4) th/mm3 Baso # (Auto) (0.0-0.2) th/mm3 WBC Differential Differential Comment PT (9.8-11.6) sec INR Ratio APTT (24.3-30.1) sec Puncture Site Right radial Patient Temperature 98.6 O2 Saturation 98 (90-100) % ABG pH 7.33 L (7.380-7.420) ABG pCO2 59 H* (38-42) mmHg ABG pO2 325 H (61-120) mmHg ABG HCO3 31 H (22-26) mmol/L ABG O2 Content 13.5 (12.0-20.0) Vol % ABG Base Excess 5.1 H (-2-2) mmol/L ABG Methemoglobin 0.6 (0-2) % Alessio Test + Hemoglobin 9.2 L (12.0-16.0) G/DL Carboxyhemoglobin 1.9 (0-4) % O2 Delivery Device Ventilator Vent Setting Ac 16/500/+5peep Inspired O2 100 % Critical Value Yes Sodium (136-145) meq/L Potassium (3.5-5.1) meq/L Chloride (98-107) meq/L Carbon Dioxide (21.0-32.0) meq/L Anion Gap (5-15) meq/L BUN (7-18) mg/dL Creatinine (0.60-1.30) mg/dL Estimated GFR (>89) mL/min Random Glucose (74-106) mg/dL Lactic Acid 3.9 H (0.4-2.0) mmol/L Calcium (8.5-10.1) mg/dL Magnesium (1.5-2.5) mg/dL Total Bilirubin (0.2-1.0) mg/dL AST (15-37) U/L ALT (12-78) U/L Alkaline Phosphatase (45-117) U/L Total Creatine Kinase (39-308) U/L Troponin I (0.02-0.05) ng/mL Total Protein (6.4-8.2) g/dL Albumin (3.4-5.0) g/dL Urine Color Yellow (Yellw/Straw) Urine Clarity Hazy H (Clear) Urine pH 5.0 (5.0-8.5) Ur Specific [place] 1.009 (1.002-1.035) Urine Protein 100 H (Neg-Trace) mg/dL Urine Glucose (UA) Negative (Negative) mg/dL Urine Ketones Negative (Negative) mg/dL Urine Occult Blood Small H (Negative) Urine Nitrate Negative (Negative) Urine Bilirubin Negative (Negative) Urine Urobilinogen Less than 2 (Less than 2) mg/dL Ur Leukocyte Esterase Negative (Negative) Urine RBC 5 H (0-3) /hpf Urine WBC 2 (0-5) /hpf Ur Squamous Epith Cells <1 (0-5) /hpf Urine Bacteria Occasional H (None) /hpf Hyaline Casts 21 (0-3) /lpf Urine Mucus Few H (Occasional) /lpf Micro UA Comment Cath-culture ind Ur Microscopic Review Not Reportable Urine Culture Comments Cath-cult indicated Imaging Data Radiologist's impression: Chest X-Ray 01/09/18 00:00 CONCLUSION: ET tube in good position. Diffuse consolidation likely related to edema/CHF. Discharge Plan Discharge Disposition Patient Disposition: 30 Still Patient Discharge Condition Condition: Critical Discharge Details Diagnosis: Acute respiratory distress Physicians Team ED Provider: Majo Madrid Primary Care Provider: Marquez Fields Rxs /Orders / Referrals /Forms Prescriptions: No Action tiotropium-olodaterol [Stiolto Respimat] 2.5-2.5 mcg/actuation Mist 2 puff INHALATION DAILY RF: 0 edoxaban 60 mg PO DAILY NEB RF: 0 carvedilol [Coreg] 12.5 mg Tablet 25 mg PO BID Qty: 60 RF: 0 aspirin 81 mg Tablet,Delayed Release (Dr/Ec) 81 mg PO DAILY Qty: 30 RF: 0 furosemide 40 mg Tablet 40 mg PO BID@0900,1800 Qty: 60 RF: 0 Status ED Status: With Doctor
[2018-01-09] MEDS: Propofol 1000 mg/100 ml Inj 1,000 MG/100 ML BOTTLE IV.CONT PRN ×2 (19:00→23:27)
[2018-01-09 19:31] LABS: Baso # (Auto) 0.1 th/mm3 (0.0-0.2); Baso % (Auto) 0.5 % (0.0-2.0); Eos # (Auto) 0.1 th/mm3 (0.0-0.4); Eos % (Auto) 0.5 % (0.0-4.0); Hematocrit 33.5 % (39.0-51.0); Hemoglobin 10.2 gm/dL (13.0-17.0); Lymph # (Auto) 0.7 th/mm3 (1.0-4.8); Lymph % (Auto) 6.2 % (9.0-44.0); Mean Corpuscular Hemoglobin 29.4 pg (27.0-34.0); Mean Corpuscular Volume 96.7 fL (80.0-100.0); Mean Platelet Volume 8.9 fL (7.0-11.0); Mono # (Auto) 0.7 th/mm3 (0.0-0.9); Mono % (Auto) 6.2 % (0.0-8.0); Neut # (Auto) 9.4 th/mm3 (1.8-7.7); Neut % (Auto) 86.6 % (16.0-70.0); Platelet Count 269 th/mm3 (150-450); Red Blood Count 3.46 mil/mm3 (4.50-5.90); Red Cell Distribution Width 17.5 % (11.6-17.2); White Blood Count 10.8 th/mm3 (4.0-11.0)
[2018-01-09 19:37] LABS: Mean Corpuscular HGB Conc 30.4 % (32.0-36.0)
[2018-01-09 19:46] LABS: Activated Partial Thrombo Time 26.8 sec (24.3-30.1); INR 1.5 Ratio; Prothrombin Time 14.7 sec (9.8-11.6)
--- NOTE | 2018-01-09 19:46 | XR ---
EXAM DATE: 01/09/2018 6:51 PM EDT AGE/SEX: 72 years / Male INDICATIONS: Post intubation CLINICAL DATA: This is the patient's initial encounter. Patient reports that signs and symptoms have been present for 1 day and indicates a pain score of Nonresponsive. MEDICAL/SURGICAL HISTORY: . Chronic obstructive pulmonary disease. . Pacemaker. COMPARISON: [facility], CHEST 1V SINGLE AP, 12/18/2017. . FINDINGS: The patient is intubated with the tip of ET tube 3.6 cm from the marquita. There is a pacing lead seen to enter through the left subclavian approach. The leads extend into the upper abdomen. The patient a ppears to have an TAVR aortic valve prosthesis in place. The heart size is enlarged. Lungs are essent ially diffuse mixed interstitial and alveolar consolidation. CONCLUSION: ET tube in good position. Diffuse consolidation likely related to edema/CHF. Electronically signed by: Everardo Cooley MD 01/09/2018 7:45 PM EDT
[2018-01-09 19:47] LABS: Bacteria,Urine Occasional /hpf; Bilirubin,Urine Negative (Negative); Clarity,Urine Hazy (Clear); Color,Urine Yellow (Yellw/Straw); Glucose,Urine (UA) Negative (Negative); Hyaline Casts,Urine 21 /lpf (0-3); Leukocyte Esterase,Urine Negative (Negative); Mucus,Urine Few /lpf (Occasional); Nitrite,Urine Negative (Negative); Specific Gravity,Urine 1.009 (1.002-1.035); Squamous Epithelial Cell,Urine <1 /hpf (0-5)
[2018-01-09 19:48] LABS: ABG Base Excess 5.1 mmol/L (-2-2); ABG PCO2 59 mmHg (38-42); ABG PO2 325 mmHg (61-120)
[2018-01-09 19:54] LABS: Alanine Aminotransferase 15 U/L (12-78)
[2018-01-09 19:55] LABS: Anion Gap 11 meq/L (5-15); Aspartate Aminotransferase 20 U/L (15-37); Blood Urea Nitrogen 18 mg/dL (7-18); Calcium 8.1 mg/dL (8.5-10.1); Carbon Dioxide 28.2 meq/L (21.0-32.0); Chloride 99 meq/L (98-107); Glomerular Filtration Rate 39 mL/min (>89); Glucose,Random 263 mg/dL (74-106); Magnesium 2.1 mg/dL (1.5-2.5); Potassium 4.2 meq/L (3.5-5.1); Sodium 138 meq/L (136-145)
[2018-01-09 19:58] LABS: Alkaline Phosphatase 63 U/L (45-117); Total Protein 7.9 g/dL (6.4-8.2); Troponin I 0.06 ng/mL (0.02-0.05)
[2018-01-09 20:05] LABS: Creatine Kinase 54 U/L (39-308)
--- NOTE | 2018-01-09 21:37 | P.HPCC ---
History of Present Illness Primary Care Physician: Mraquez Fields MD History of Present Illness: 72-year-old male presents for shortness of breath. EMS states that he was going to come to the emergency department for shortness of breath via private vehicle, however, shortness of breath had progressed and he called EMS. EMS states when they arrived the patient was awake, alert, and oriented. The patient was placed on oxygen, however, his breathing progressively worsened in route to the emergency department. According to EMS the patient has a history of congestive heart failure and COPD, uses inhalers at home. In route to the hospital the patient became more lethargic and unresponsive, they started bagging the patient via bag valve ventilation as he arrived in the emergency department. The patient was unable to answer any questions or follow commands upon arrival and was emergently intubated by ED attending. Inpatient Certification: I certify that the inpatient services were ordered in accordance with Medicare regulations governing the order. This includes certification that hospital inpatient services are reasonable and necessary and in the case of services not specified as inpatient-only under 42 CFR 419.22(n), that they are appropriately provided as inpatient services in accordance to with the 2-midnight benchmark under 43 CFR 412.3(e) Review of Systems unobtainable due to endotracheal tube PMFSH - History History Provided By: Family Member - Medical History Medical History: Medical History (Last Updated 01/09/18 @ 19:30 by Paris Macdonald RN) COPD (chronic obstructive pulmonary disease) (Acute) CHF (congestive heart failure) (Acute) Aortic stenosis (Chronic) V-tach (Chronic) Arteriosclerotic heart disease (ASHD) (Chronic) A-fib - Tobacco History Second Hand Smoke Exposure: No Smoking Status: Former smoker Tobacco Type: Cigarettes - Alcohol History How Often Do You Have a Drink Containing Alcohol: Never - Substance Use History Substance History: No History of Abuse - Travel History Recent Travel in the [place] Within the Last 8 Weeks: No Recent Travel Out of the Country Within the Last 8 Weeks: No - Immunization History Tetanus Immunization: >5 Years Hx Influenza Vaccine This Season: No Medications and Allergies Active Medications: Active Medications Propofol (Diprivan 1000 Mg/100 Ml Inj) 1,000 mg in 100 mls @ 3 mls/hr IV.CONT TITRATE PRN; Protocol PRN Reason: Per Protocol Last Titration: 01/09/18 20:47 Dose: 40 mcg/kg/min, 24 mls/hr Current Medications Acetaminophen (Tylenol) 650 mg PO Q6H PRN PRN Reason: PAIN 1-10 AND/OR FEVER >101F Al Hydroxide/Mg Hydroxide (Milk Of Magnesia Liq) 30 ml PO Q12H PRN PRN Reason: Mild Constipation Albuterol (Duoneb Neb (Prn)) 1 ampul NEB Q2HR NEB PRN PRN Reason: WHEEZING Aspirin (Ecotrin) 81 mg PO DAILY ELENI Bisacodyl (Dulcolax Supp) 10 mg RECTAL DAILY PRN PRN Reason: SEVERE CONSITIPATION Carvedilol (Coreg) 25 mg PO BID ELENI Chlorhexidine Gluconate (Peridex 0.12% Oral Kit) 15 ml OROPHARYNG BID@0800, 2000 [facility] Chlorhexidine Gluconate (Chlorhexidine 2% Cloth) 3 pack TOPICAL DAILY@0400 ELENI Stop: 01/15/18 03:59 Chlorhexidine Gluconate (Chlorhexidine 2% Cloth) 3 pack TOPICAL DAILY@0400 PRN PRN Reason: Extra cloth needed Stop: 01/15/18 03:59 Famotidine (Pepcid Pf Inj) 10 mg IV.PUSH Q12HR ELENI Furosemide (Lasix) 40 mg PO BID@0900,1800 ELENI Furosemide (Lasix Inj) 20 mg IV.PUSH Q6H ELENI Stop: 01/10/18 16:01 Last Admin: 01/09/18 23:26 Dose: 20 mg Propofol (Diprivan 1000 Mg/100 Ml Inj) 1,000 mg in 100 mls @ 3 mls/hr IV.CONT TITRATE PRN; Protocol PRN Reason: Per Protocol Last Admin: 01/09/18 23:27 Dose: 40 mcg/kg/min, 24 mls/hr Lactulose (Lactulose Liq) 30 ml PO DAILY PRN PRN Reason: SEVERE CONSITIPATION Metoclopramide HCl (Reglan Inj) 5 mg IV.PUSH Q6HR ELENI; Protocol Last Admin: 01/09/18 23:26 Dose: 5 mg Midazolam HCl (Versed Inj) 2 mg IV.PUSH Q1H PRN PRN Reason: SEDATION Morphine Sulfate (Morphine Inj) 2 mg IV.PUSH Q2H PRN PRN Reason: PAIN SCALE 6 TO 10 Non-Formulary Medication (Edoxaban) 60 mg PO DAILY NEB ELENI Ondansetron HCl (Zofran Inj) 4 mg IV.PUSH Q6H PRN PRN Reason: NAUSEA OR VOMITING Pt:Stiolto Respimat 0 each INH DAILY [facility] Senna/Docusate Sodium (Meaghan-Colace) 1 tab PO BID [facility] Sennosides (Senokot) 17.2 mg PO Q12H PRN PRN Reason: Moderate Constipation Sodium Chloride (Ns Flush) 2 ml IV.FLUSH BID ELENI Sodium Chloride (Ns Flush) 2 ml IV.FLUSH PRN PRN PRN Reason: FLUSH AFTER USING IV ACCESS Allergies Allergy/AdvReac Type Severity Reaction Status Date / Time sacubitril AdvReac Intermediate Verified 08/29/17 12:58 valsartan AdvReac Intermediate Verified 08/29/17 12:58 No Known Allergies Allergy Unknown Uncoded 08/29/17 12:58 Home Medications Medication Instructions Recorded Confirmed Type edoxaban 60 mg PO DAILY NEB 12/15/17 01/09/18 History tiotropium-olodaterol [Stiolto 2 puff INHALATION DAILY 01/09/18 01/09/18 History Respimat] Results - Labs CBC & Chem 7: 01/10/18 03:57 01/09/18 19:00 Labs: Short CBC 01/09/18 Range/Units 19:00 WBC 10.8 (4.0-11.0) th/mm3 Hgb 10.2 L (13.0-17.0) gm/dL Hct 33.5 L (39.0-51.0) % Plt Count 269 (150-450) th/mm3 BMP 01/09/18 19:00 Sodium 138 Potassium 4.2 Chloride 99 Carbon Dioxide 28.2 BUN 18 Creatinine 1.72 H Calcium 8.1 L Cardiac Enzymes 01/09/18 Range/Units 19:00 Total Creatine Kinase 54 (39-308) U/L Troponin I 0.06 H (0.02-0.05) ng/mL Liver Function 01/09/18 Range/Units 19:00 Total Bilirubin 0.5 (0.2-1.0) mg/dL AST 20 (15-37) U/L ALT 15 (12-78) U/L Alkaline Phosphatase 63 (45-117) U/L Albumin 3.0 L (3.4-5.0) g/dL Urine 01/09/18 Range/Units 19:00 Urine Color Yellow (Yellw/Straw) Urine Clarity Hazy H (Clear) Urine pH 5.0 (5.0-8.5) Ur Specific [place]y 1.009 (1.002-1.035) Urine Protein 100 H (Neg-Trace) mg/dL Urine Glucose (UA) Negative (Negative) mg/dL - Imaging Impressions Chest X-Ray 01/09/18 00:00 CONCLUSION: ET tube in good position. Diffuse consolidation likely related to edema/CHF. Exam Vital signs: Vital Signs 01/09/18 18:37 01/09/18 18:39 01/09/18 19:01 Temperature 98.2 F Pulse Rate 104 H 112 H 88 Respiratory Rate 32 H 17 13 Blood Pressure 147/93 H 152/76 H 117/55 L Pulse Oximetry 99 100 100 01/09/18 19:15 01/09/18 20:00 01/09/18 20:50 Temperature Pulse Rate 72 58 L Respiratory Rate 16 18 18 Blood Pressure 105/58 L 113/62 Pulse Oximetry 100 98 01/09/18 21:00 01/09/18 21:20 Temperature Pulse Rate 56 L 57 L Respiratory Rate 18 18 Blood Pressure 105/57 L 111/57 L Pulse Oximetry 100 100 Intake & Output 01/09/18 01/09/18 01/10/18 06:59 18:59 06:59 Weight 100 kg - Constitutional obese, chronically ill appearing, somnolent - Routine HEENT Exam Head: Present: normocephalic, atraumatic Eye: Present: PERRL ENT: Present: mucous membranes moist - Routine Neck Exam Present: supple. Absent: JVD, carotid bruit - Routine Chest/Breast/Axilla Exam Chest wall: Absent: mass - Routine Respiratory Exam Present: patient mechanically ventilated. Absent: rhonchi, stridor, wheezes - Routine Cardiovascular Exam Present: S1, S2. Absent: murmur, gallop, rubs - Routine Abdominal Exam Present: soft, normoactive bowel sounds. Absent: tenderness, distended - Routine Extremities Exam Absent: cyanosis, clubbing, edema - Routine Skin Exam Absent: intact, cyanosis, erythema - Routine Neurological Exam Present: moving all extremities Septic Shock Reassessment Septic shock perfusion: reassessment completed Caprini VTE Risk Assessment Caprini VTE Risk Assessment: Moderate/High Risk (score >= 2) Caprini Risk Assessment Model: Point Value = 1 Point Value = 2 Point Value = 3 Point Value = 5 Age 41-60 Minor surgery BMI > 25 kg/m2 Swollen legs Varicose veins or History of unexplained or recurrent spontaneous Oral contraceptives or hormone replacement Sepsis (< 1 month) Serious lung disease, including pneumonia (< 1 month) Abnormal pulmonary function Acute myocardial infarction Congestive heart failure (< 1 month) History of inflammatory bowel disease Medical patient at bed rest Age 61-74 Arthroscopic surgery Major open surgery (> 45 min) Laparoscopic surgery (> 45 min) Malignancy Confined to bed (> 72 hours) Immobilizing plaster cast Central venous access Age >= 75 History of VTE Family history of VTE Factor V Leiden Prothrombin [id number] Lupus anticoagulant Anticardiolipin antibodies Elevated serum homocysteine Heparin-induced thrombocytopenia Other congenital or acquired thrombophilia Stroke (< 1 month) Elective arthroplasty Hip, pelvis, or leg fracture Acute spinal cord injury (< 1 month) Prophylaxis Regimen: Total Risk Factor Score Risk Level Prophylaxis Regimen 0-1 Low Early ambulation 2 Moderate Order ONE of the following: *Sequential Compression Device (SCD) *Heparin 5000 units SQ BID 3-4 Higher Order ONE of the following medications: *Heparin 5000 units SQ TID *Enoxaparin/Lovenox 40 mg SQ daily (WT < 150 kg, CrCl > 30 mL/min) *Enoxaparin/Lovenox 30 mg SQ daily (WT < 150 kg, CrCl > 10-29 mL/min) *Enoxaparin/Lovenox 30 mg SQ BID (WT < 150 kg, CrCl > 30 mL/min) AND/OR *Sequential Compression Device (SCD) 5 or more Highest Order ONE of the following medications: *Heparin 5000 units SQ TID (Preferred with Epidurals) *Enoxaparin/Lovenox 40 mg SQ daily (WT < 150 kg, CrCl > 30 mL/min) *Enoxaparin/Lovenox 30 mg SQ daily (WT < 150 kg, CrCl > 10-29 mL/min) *Enoxaparin/Lovenox 30 mg SQ BID (WT < 150 kg, CrCl > 30 mL/min) AND *Sequential Compression Device (SCD) Assessment and Plan - Assessment and Plan Plan: Respiratory failure -CHF exacerbation -Fluid overload -Vent bundle -Mechanical ventilation -Diuresis -DuoNeb's as needed -SBT daily CHF exacerbation -Continue diuresis -Series of troponins and EKG to rule out ACS -2D echo pending -Coreg COPD -DuoNeb scheduled and as needed -No indication for steroids at this time Coronary artery disease -Aspirin -Coreg -Series of troponins and EKGs Atrial fibrillation -Rate controlled with beta-vivi -Edoxaban DVT GI prophylaxis -Teds SCDs -Edoxaban -Pepcid 35 minutes of critical care
[2018-01-09] MEDS ORDERED: Morphine Inj 4 MG/ML Vial IV.PUSH PRN (21:38)
[2018-01-09] MEDS ORDERED: Bisacodyl 10 MG Supp RECTAL PRN (21:38)
[2018-01-09] MEDS ORDERED: Acetaminophen 325 MG Tablet PO PRN (21:38)
[2018-01-09] MEDS: Oral Hygiene Kit OROPHARYNG SCH (23:27)
[2018-01-10] MEDS ORDERED: Chlorhexidine Gluconate 2% 1 Pack (2 Cloths) TOPICAL PRN (04:00)
[2018-01-10 05:23] LABS: Baso % (Auto) 0.2 % (0.0-2.0); Eos # (Auto) 0.1 th/mm3 (0.0-0.4); Eos % (Auto) 0.7 % (0.0-4.0); Hematocrit 30.4 % (39.0-51.0); Hemoglobin 9.8 gm/dL (13.0-17.0); Lymph # (Auto) 0.4 th/mm3 (1.0-4.8); Mean Corpuscular HGB Conc 32.3 % (32.0-36.0); Mean Corpuscular Hemoglobin 30.1 pg (27.0-34.0); Mean Corpuscular Volume 93.1 fL (80.0-100.0); Mean Platelet Volume 9.2 fL (7.0-11.0); Mono # (Auto) 0.2 th/mm3 (0.0-0.9); Mono % (Auto) 1.9 % (0.0-8.0); Neut # (Auto) 8.4 th/mm3 (1.8-7.7); Neut % (Auto) 93.2 % (16.0-70.0); Platelet Count 212 th/mm3 (150-450); Red Blood Count 3.26 mil/mm3 (4.50-5.90); Red Cell Distribution Width 17.3 % (11.6-17.2); White Blood Count 9.1 th/mm3 (4.0-11.0)
[2018-01-10 05:28] LABS: Activated Partial Thrombo Time 26.7 sec (24.3-30.1); INR 1.3 Ratio; Prothrombin Time 13.5 sec (9.8-11.6)
[2018-01-10] MEDS: Oral Hygiene Kit OROPHARYNG SCH ×3 (05:51→15:55)
[2018-01-10] MEDS: Chlorhexidine Gluconate 2% 1 Pack (2 Cloths) TOPICAL SCH (05:51)
[2018-01-10 06:01] LABS: Alanine Aminotransferase 13 U/L (12-78); Albumin 2.9 g/dL (3.4-5.0); Alkaline Phosphatase 53 U/L (45-117); Anion Gap 11 meq/L (5-15); Aspartate Aminotransferase 14 U/L (15-37); Blood Urea Nitrogen 23 mg/dL (7-18); Calcium 8.7 mg/dL (8.5-10.1); Carbon Dioxide 33.4 meq/L (21.0-32.0); Chloride 97 meq/L (98-107); Glomerular Filtration Rate 38 mL/min (>89); Glucose,Random 166 mg/dL (74-106); Magnesium 2.4 mg/dL (1.5-2.5); Phosphorus 2.1 mg/dL (2.5-4.9); Potassium 3.3 meq/L (3.5-5.1); Sodium 141 meq/L (136-145); Total Protein 7.5 g/dL (6.4-8.2)
[2018-01-10] MEDS ORDERED: Potassium Phosphate 500 MG Soluble Tablet PO PRN ×2 (07:02)
[2018-01-10] MEDS ORDERED: Potassium Chloride 25 MEQ Effervescent Tablet PO PRN (07:02)
[2018-01-10] MEDS ORDERED: Potassium Chlor 40 mEq Premix 40 MEQ/100 ML PIGGYBACK IV.SIG PRN ×2 (07:02)
[2018-01-10] MEDS ORDERED: Sodium Phosphate Inj 30 MMOL in Sodium Chlor 0.9% Inj 250 ML IV.SIG PRN (07:02)
[2018-01-10] MEDS ORDERED: Magnesium Sulfate Inj 2 GM in Sodium Chlor 0.9% Inj 96 ML IV.SIG PRN (07:02)
[2018-01-10] MEDS ORDERED: Potassium Phosphate Inj 30 MMOL in Sodium Chlor 0.9% Inj 250 ML IV.SIG PRN (07:02)
[2018-01-10] MEDS ORDERED: Magnesium Sulfate Inj 4 GM in Sodium Chlor 0.9% Inj 92 ML IV.SIG PRN (07:02)
[2018-01-10] MEDS ORDERED: Potassium Chlor 20 mEq Premix 20 MEQ/100 ML PIGGYBACK IV.SIG PRN (07:02)
[2018-01-10] MEDS ORDERED: Magnesium Oxide 400 MG Tablet PO PRN (07:02)
[2018-01-10] MEDS: Chlorhexidine 0.12% Oral Kit 15 ML UDC OROPHARYNG SCH ×2 (07:58→21:00)
[2018-01-10] MEDS ORDERED: EDOXABAN 60 MG PO SCH (08:00)
[2018-01-10] MEDS: Carvedilol 12.5 MG Tablet PO SCH ×2 (08:07→21:14)
[2018-01-10] MEDS: Famotidine PF Inj 20 MG/2 ML Vial IV.PUSH SCH ×2 (08:08→21:14)
[2018-01-10] MEDS: Senna/Docusate Sodium 8.6/50 MG Tablet PO SCH ×2 (08:08→21:13)
[2018-01-10] MEDS: Furosemide 40 MG Tablet PO SCH ×2 (08:08→17:54)
[2018-01-10 08:13] LABS: Magnesium 2.4 mg/dL (1.5-2.5); Phosphorus 2.4 mg/dL (2.5-4.9); Potassium 3.3 meq/L (3.5-5.1)
--- NOTE | 2018-01-10 08:56 | P.PNCC ---
Subjective Subjective Remarks/Hospital Course: 72-year-old male presents for shortness of breath. EMS states that he was going to come to the emergency department for shortness of breath via private vehicle, however, shortness of breath had progressed and he called EMS. EMS states when they arrived the patient was awake, alert, and oriented. The patient was placed on oxygen, however, his breathing progressively worsened in route to the emergency department. According to EMS the patient has a history of congestive heart failure and COPD, uses inhalers at home. In route to the hospital the patient became more lethargic and unresponsive, they started bagging the patient via bag valve ventilation as he arrived in the emergency department. The patient was unable to answer any questions or follow commands upon arrival and was emergently intubated by ED attending 01/10 Patient is intubated placed on CPAP, awake and alert. Afebrile. Objective Vital Signs / I&O: Vital Signs 01/09/18 18:37 01/09/18 18:39 01/09/18 19:01 Temperature 98.2 F Pulse Rate 104 H 112 H 88 Respiratory Rate 32 H 17 13 Blood Pressure 147/93 H 152/76 H 117/55 L Pulse Oximetry 99 100 100 01/09/18 19:15 01/09/18 20:00 01/09/18 20:50 Temperature Pulse Rate 72 58 L Respiratory Rate 16 18 18 Blood Pressure 105/58 L 113/62 Pulse Oximetry 100 98 01/09/18 21:00 01/09/18 21:20 01/10/18 00:00 Temperature 98.2 F Pulse Rate 56 L 57 L 53 L Respiratory Rate 18 18 18 Blood Pressure 105/57 L 111/57 L 106/54 L Pulse Oximetry 100 100 97 01/10/18 04:00 Temperature 98.2 F Pulse Rate 53 L Respiratory Rate 18 Blood Pressure 106/54 L Pulse Oximetry 97 Intake & Output 01/09/18 01/10/18 01/10/18 18:59 06:59 18:59 Intake Total 100 / 100 Balance 100 / 100 Weight 100 kg Intake: IV 100 / 100 Diprivan 1000 mg/100 ml Inj 1, 100 / 100 000 mg In 100 ml @ 5 MCG/KG/MIN 3 mls/hr IV.CONT TITRATE PRN Rx#:[id number] Result Diagrams: 01/10/18 03:57 01/10/18 07:21 Other Results: Laboratory Results - last 12 hr 01/09/18 01/10/18 01/10/18 22:15 00:55 03:57 WBC 9.1 RBC 3.26 L Hgb 9.8 L Hct 30.4 L MCV 93.1 D MCH 30.1 MCHC 32.3 RDW 17.3 H Plt Count 212 MPV 9.2 Neut % (Auto) 93.2 H Lymph % (Auto) 4.0 L [place] % (Auto) 1.9 Eos % (Auto) 0.7 Baso % (Auto) 0.2 Neut # (Auto) 8.4 H Lymph # (Auto) 0.4 L [place] # (Auto) 0.2 Eos # (Auto) 0.1 Baso # (Auto) 0.0 WBC Differential . Differential Comment Auto diff final PT INR APTT Sodium Potassium Chloride Carbon Dioxide Anion Gap BUN Creatinine Estimated GFR Random Glucose Calcium Phosphorus Magnesium Total Bilirubin AST ALT Alkaline Phosphatase Troponin I 0.08 H Total Protein Albumin Nasal Screen MRSA (PCR) Not detected 01/10/18 01/10/18 01/10/18 03:57 03:57 07:21 WBC RBC Hgb Hct MCV MCH MCHC RDW Plt Count MPV Neut % (Auto) Lymph % (Auto) [place] % (Auto) Eos % (Auto) Baso % (Auto) Neut # (Auto) Lymph # (Auto) [place] # (Auto) Eos # (Auto) Baso # (Auto) WBC Differential Differential Comment PT 13.5 H INR 1.3 APTT 26.7 Sodium 141 Potassium 3.3 L D Chloride 97 L Carbon Dioxide 33.4 H Anion Gap 11 BUN 23 H Creatinine 1.76 H Estimated GFR 38 L Random Glucose 166 H Calcium 8.7 Phosphorus 2.1 L Magnesium 2.4 Total Bilirubin 0.8 AST 14 L ALT 13 Alkaline Phosphatase 53 Troponin I 0.05 Total Protein 7.5 Albumin 2.9 L Nasal Screen MRSA (PCR) 01/10/18 07:21 WBC RBC Hgb Hct MCV MCH MCHC RDW Plt Count MPV Neut % (Auto) Lymph % (Auto) [place] % (Auto) Eos % (Auto) Baso % (Auto) Neut # (Auto) Lymph # (Auto) [place] # (Auto) Eos # (Auto) Baso # (Auto) WBC Differential Differential Comment PT INR APTT Sodium Potassium 3.3 L Chloride Carbon Dioxide Anion Gap BUN Creatinine 1.76 H Estimated GFR 38 L Random Glucose Calcium Phosphorus 2.4 L Magnesium 2.4 Total Bilirubin AST ALT Alkaline Phosphatase Troponin I Total Protein Albumin Nasal Screen MRSA (PCR) Imaging: Chest X-Ray 01/09/18 00:00 CONCLUSION: ET tube in good position. Diffuse consolidation likely related to edema/CHF. Objective Remarks: GENERAL: Patient is 72 yo intubated SKIN: Warm and dry. HEAD: Normocephalic. EYES: No scleral icterus. No injection or drainage. NECK: Supple, trachea midline. No JVD or lymphadenopathy. CARDIOVASCULAR: Regular rate and rhythm without murmurs, gallops, or rubs. RESPIRATORY: Breath sounds equal bilaterally. No accessory muscle use. GASTROINTESTINAL: Abdomen soft, non-tender, nondistended. Neuro: Intubated Assessment and Plan - Assessment and Plan Plan: VDRF CHF exacerbation Cardiomyopathy, V. tach status post [employer] ICD COPD Coronary artery disease Atrial fibrillation Lactic acidemia CHELSEY Hypokalemia Anemia Obesity Plan Neuro: Monitor neuro status. Diprivan infusion if needed for sedation Pulm: Continue with vent support keep sats >92% Bronchodilators, ICU vent bundle SBT daily as nick. Check CXR and ABG CV: Monitor HR and BP keep MAP>65mmHg Lactic acid 3.9, recheck level On Coreg 25mg BID, Lasix 40mg BID, ASA 81 mg daily Check echo, cards eval : Monitor renal function, I/O',s, electrolytes replacement per protocol. Need K replacement today GI: On Pepcid for GI prophylaxis, on tube feeds- Jevity 1.5 with goal rate 55ml/ hr ID: Monitor for signs of infections ( Fever, WBC) Follow up on blood and urine cx Heme: Monitor CBC Endo: SSI for glycemic control DVT GI prophylaxis -Teds SCDs -Edoxaban -Pepcid Level 3
[2018-01-10] MEDS ORDERED: PT:STIOLTO RESPIMAT INH SCH (09:00)
[2018-01-10] MEDS ORDERED: Non-Formulary Drug (Tiotropium-Olodaterol [Stiolto Respimat] 2 PUFF) INHALATION SCH (09:00)
[2018-01-10] MEDS ORDERED: Dextrose 50% in Water 50 ML Vial IV.PUSH PRN (09:01)
--- NOTE | 2018-01-10 09:31 | XR ---
EXAM DATE: 01/10/2018 9:25 AM EDT AGE/SEX: 72 years / Male INDICATIONS: Short of breath, respiratory failure CLINICAL DATA: This is the patient's subsequent encounter. Patient reports that signs and symptoms h ave been present for 2 days and indicates a pain score of Nonresponsive. MEDICAL/SURGICAL HISTORY: Chronic obstructive pulmonary disease. Cardiovascular disease. . TAV R COMPARISON: [facility], CHEST 1V SINGLE AP, 01/09/2018. . FINDINGS: The cardiac silhouette is enlarged in transverse diameter. There is left lower lobe atelec tasis versus pneumonia. There are findings of congestive heart failure with interstitial and alveolar opacity bilaterally. A defibrillator device is in place via a left sided approach. CONCLUSION: Cardiomegaly and findings of congestive heart failure. There has been no significant change when com pared to the prior exam. Electronically signed by: Lj Oliveira MD 01/10/2018 9:30 AM EDT
[2018-01-10 09:43] LABS: ABG Base Excess 7.8 mmol/L (-2-2); ABG PCO2 52 mmHg (38-42); ABG PO2 87 mmHG (61-120)
--- NOTE | 2018-01-10 09:45 | ECG ---
Date Performed: 01/10/2018 Time Performed: 04:04:56 PTAGE: 72 years EKG: Sinus bradycardia IVCD Left bundle branch block Abnormal ECG Since PREVIOUS TRACING , no significant change noted PREVIOUS TRACIN01/09/2018 18.46 DOCTOR: Lj Deluca Interpretating Date/Time 01/10/2018 09:43:42
--- NOTE | 2018-01-10 09:50 | ECG ---
Date Performed: 01/09/2018 Time Performed: 18:46:03 PTAGE: 72 years EKG: Sinus rhythm MARKED LEFT AXIS DEVIATION INTRAVENTRICULAR CONDUCTION DELAY ABNORMAL ECG Since the PREVIOUS TRACING , no significant change noted PREVIOUS TRACING DOCTOR: jL Deluca Interpretating Date/Time 01/10/2018 09:48:50
--- NOTE | 2018-01-10 11:08 | P.DIET ---
Nutritional Evaluation Type of nutrition evaluation: initial Nutrition consult regarding: Tube Feeding Objective - Diagnosis Respiratory Failure - Objective % IBW: 149 (IBW = 148#) Body Weight Used for Calculations: IBW (67.3 kg) Energy Needs - Lower Range (kCal/kg): 25 Energy Needs - Upper Range (kCal/kg): 30 Lower Limit kCal/kg (kCals): 1,683 Upper Limit kCal/kg (kCals): 2,019 Lower Limit Protein Factor (Grams per Kg): 1.0 Upper Limit Protein Factor (Grams per Kg): 1.5 Lower Protein Needs (Protein): 67 Upper Protein Needs (Protein): 101 Dietitian Reviewed in Medical Record: Curent medications, Intake & Output, Labs , Medical history, Tube feeding Objective Comments: glu 166 Assessment Assessment: Pt is at high nutrition risk 2' to the need for TFing. Current order is for Jevity 1.5 @ 55 mls/hr goal. Recommend change to Glucerna 1.5 @ 45 mls/hr goal to provide 1620 kcals, 89 gms protein and 820 mls of free water. Some additional kcals will be provided by propofol (1.1 kcal/ml). Recommendations: Glucerna 1.5 @ 45 mls/hr goal Dietitian to Monitor: Lab values, Glucose level, Intake & Output, Tube feeding tolerance, Weight change, Medical course
[2018-01-10] MEDS: Insulin NovoLOG Aspart Correctional Sugar Inj SQ SCH ×3 (12:49→21:00)
[2018-01-10] MEDS ORDERED: EDOXABAN 30 MG PO ONE ×2 (16:00)
[2018-01-10] MEDS: Propofol 1000 mg/100 ml Inj 1,000 MG/100 ML BOTTLE IV.CONT PRN ×2 (16:40→22:29)
--- NOTE | 2018-01-10 18:43 | P.CONCA ---
History of Present Illness Service: Cardiology Consult date: 01/10/18 Reason for Consult: CHF Primary Care Provider: Marquez Fields MD Family Provider: Lashon King MD Chief Complaint: SOB History of Present Illness: Mr. Callejas is a 72 year old known to Dr. King. He has a history of ischemic cardiomyopathy with EF 25-30%, S/P ICD, CAD with diffuse disease of the LAD, severe aortic stenosis S/P TAVR, hypertension, hyperlipidemia, chronic atrial fibrillation, moderate pulmonary hypertension. His reports he had sudden onset of shortness of breath last night. They got in the car to come to the hospital when the shortness of breath became severe. EMS was called and patient was brought to the ED for further evaluation and management. While in transit, the patient deteriorated, became unresponsive. He was intubated upon arrival to ED. BNP 833. Troponin 0.08, 0.06. CXR - cardiomegaly, CHF. He is currently in the ICU - intubated, sedated, FIO2 40%. He has been diuresing well. Review of Systems unobtainable due to endotracheal tube PMFSH - History History Provided By: Family Member - Medical History Medical History: Medical History (Last Updated 01/09/18 @ 19:30 by Paris Macdonald RN) COPD (chronic obstructive pulmonary disease) (Acute) CHF (congestive heart failure) (Acute) Aortic stenosis (Chronic) V-tach (Chronic) Arteriosclerotic heart disease (ASHD) (Chronic) A-fib - Tobacco History Second Hand Smoke Exposure: No Smoking Status: Former smoker Tobacco Type: Cigarettes - Alcohol History How Often Do You Have a Drink Containing Alcohol: Never - Substance Use History Substance History: No History of Abuse - Travel History Recent Travel in the [facility] Within the Last 8 Weeks: No Recent Travel Out of the Country Within the Last 8 Weeks: No - Immunization History Tetanus Immunization: >5 Years Hx Influenza Vaccine This Season: No Medications and Allergies Active Medications: Active Medications Acetaminophen (Tylenol) 650 mg PO Q6H PRN PRN Reason: PAIN 1-10 AND/OR FEVER >101F Al Hydroxide/Mg Hydroxide (Milk Of Magnesia Liq) 30 ml PO Q12H PRN PRN Reason: Mild Constipation Albuterol (Duoneb Neb (Prn)) 1 ampul NEB Q2HR NEB PRN PRN Reason: WHEEZING Albuterol (Duoneb Neb ([facility])) 1 ampul NEB Q6HR NEB [facility] Last Admin: 01/10/18 15:11 Dose: 1 ampul Aspirin (Ecotrin) 81 mg PO DAILY [facility] Last Admin: 01/10/18 08:07 Dose: 81 mg Bisacodyl (Dulcolax Supp) 10 mg RECTAL DAILY PRN PRN Reason: SEVERE CONSITIPATION Carvedilol (Coreg) 25 mg PO BID [facility] Last Admin: 01/10/18 08:07 Dose: 25 mg Chlorhexidine Gluconate (Peridex 0.12% Oral Kit) 15 ml OROPHARYNG BID@0800, 2000 [facility] Last Admin: 01/10/18 07:58 Dose: 15 ml Chlorhexidine Gluconate (Chlorhexidine 2% Cloth) 3 pack TOPICAL DAILY@0400 [facility] Stop: 01/15/18 03:59 Last Admin: 01/10/18 05:51 Dose: 3 pack Chlorhexidine Gluconate (Chlorhexidine 2% Cloth) 3 pack TOPICAL DAILY@0400 PRN PRN Reason: Extra cloth needed Stop: 01/15/18 03:59 Dextrose (D50w Vial) 50 ml IV.PUSH UNSCH PRN PRN Reason: PER HYPOGLYCEMIA PROTOCOL Edoxaban (Savaysa) 30 mg PO DAILY@0800 [facility] Famotidine (Pepcid Pf Inj) 10 mg IV.PUSH Q12HR [facility] Last Admin: 01/10/18 08:08 Dose: 10 mg Furosemide (Lasix) 40 mg PO BID@0900,1800 [facility] Last Admin: 01/10/18 17:54 Dose: Not Given Glucagon (Glucagon Inj) 1 mg OTHER PRN PRN PRN Reason: for Hypoglycemia Protocol Propofol (Diprivan 1000 Mg/100 Ml Inj) 1,000 mg in 100 mls @ 3 mls/hr IV.CONT TITRATE PRN; Protocol PRN Reason: Per Protocol Last Admin: 01/10/18 16:40 Dose: 25 mcg/kg/min, 15 mls/hr Magnesium Sulfate Inj 4 gm/ (Sodium Chloride) 100 mls @ 50 mls/hr IV.SIG UNSCH PRN PRN Reason: For Magnesium 0.9 - 1.1 mg/dL Magnesium Sulfate Inj 2 gm/ (Sodium Chloride) 100 mls @ 50 mls/hr IV.SIG UNSCH PRN PRN Reason: For Magnesium 1.2 - 1.6 mg/dL Potassium Chloride (Kcl 40 Meq Premix Inj) 40 meq in 100 mls @ 25 mls/hr IV.SIG Q2H PRN PRN Reason: For Potassium 2.8 - 3.2 mEq/L Potassium Chloride (Kcl 20 Meq Premix Inj) 20 meq in 100 mls @ 50 mls/hr IV.SIG Q2H PRN PRN Reason: For Potassium 3.3 - 3.5 mEq/L Potassium Chloride (Kcl 40 Meq Premix Inj) 40 meq in 100 mls @ 25 mls/hr IV.SIG UNSCH PRN PRN Reason: For Potassium 3.3 - 3.5 mEq/L Potassium Chloride (Kcl 20 Meq Premix Inj) 20 meq in 100 mls @ 50 mls/hr IV.SIG Q2H PRN PRN Reason: For Potassium 2.8 - 3.2 mEq/L Potassium Phosphate 30 mmol/ (Sodium Chloride) 260 mls @ 42 mls/hr IV.SIG UNSCH PRN PRN Reason: SEE LABEL COMMENTS Last Admin: 01/10/18 07:58 Dose: 42 mls/hr Sodium Phosphate 30 mmol/ (Sodium Chloride) 260 mls @ 42 mls/hr IV.SIG UNSCH PRN PRN Reason: For Phosphorus < 2.5 mg/dL Insulin Aspart (Novolog Insulin Correctional Sugar Inj) 0 unit SQ Q4HR ELENI; Protocol Last Admin: 01/10/18 15:55 Dose: 1 unit Lactulose (Lactulose Liq) 30 ml PO DAILY PRN PRN Reason: SEVERE CONSITIPATION Magnesium Oxide (Mag-Ox) 800 mg PO UNSCH PRN PRN Reason: For Magnesium 1.2 - 1.6 mg/dL Metoclopramide HCl (Reglan Inj) 5 mg IV.PUSH Q6HR ELENI; Protocol Last Admin: 01/10/18 12:50 Dose: 5 mg Midazolam HCl (Versed Inj) 2 mg IV.PUSH Q1H PRN PRN Reason: SEDATION Morphine Sulfate (Morphine Inj) 2 mg IV.PUSH Q2H PRN PRN Reason: PAIN SCALE 6 TO 10 Ondansetron HCl (Zofran Inj) 4 mg IV.PUSH Q6H PRN PRN Reason: NAUSEA OR VOMITING Pt:Stiolto Respimat 0 each INH DAILY [facility] Potassium Bicarb/Potassium Chloride (K-Lyte Cl Eff) 50 meq PO UNSCH PRN PRN Reason: For Potassium 3.3 - 3.5 mEq/L Potassium Phosphate (K-Phos Original) 2,000 mg PO Q4H PRN PRN Reason: Phosphorus Less Than 2.5 mg/dL Potassium Phosphate (K-Phos Original) 2,000 mg PO UNSCH PRN PRN Reason: SEE LABEL COMMENTS Senna/Docusate Sodium (Meaghan-Colace) 1 tab PO BID [facility] Last Admin: 01/10/18 08:08 Dose: 1 tab Sennosides (Senokot) 17.2 mg PO Q12H PRN PRN Reason: Moderate Constipation Sodium Chloride (Ns Flush) 2 ml IV.FLUSH BID [facility] Last Admin: 01/10/18 08:08 Dose: 2 ml Sodium Chloride (Ns Flush) 2 ml IV.FLUSH PRN PRN PRN Reason: FLUSH AFTER USING IV ACCESS Allergies Allergy/AdvReac Type Severity Reaction Status Date / Time sacubitril AdvReac Intermediate Verified 08/29/17 12:58 valsartan AdvReac Intermediate Verified 08/29/17 12:58 No Known Allergies Allergy Unknown Uncoded 08/29/17 12:58 Home Medications Medication Instructions Recorded Confirmed Type edoxaban 60 mg PO DAILY NEB 12/15/17 01/09/18 History tiotropium-olodaterol [Stiolto 2 puff INHALATION DAILY 01/09/18 01/09/18 History Respimat] Exam Vital signs: Vital Signs 01/09/18 18:37 01/09/18 18:39 01/09/18 19:01 Temperature 98.2 F Pulse Rate 104 H 112 H 88 Respiratory Rate 32 H 17 13 Blood Pressure 147/93 H 152/76 H 117/55 L Pulse Oximetry 99 100 100 01/09/18 19:15 01/09/18 20:00 01/09/18 20:50 Temperature Pulse Rate 72 58 L Respiratory Rate 16 18 18 Blood Pressure 105/58 L 113/62 Pulse Oximetry 100 98 01/09/18 21:00 01/09/18 21:20 01/09/18 22:03 Temperature Pulse Rate 56 L 57 L 67 Respiratory Rate 18 18 25 H Blood Pressure 105/57 L 111/57 L Pulse Oximetry 100 100 98 01/09/18 22:07 01/09/18 23:00 01/09/18 23:01 Temperature Pulse Rate 59 L 53 L 53 L Respiratory Rate 18 18 18 Blood Pressure 119/56 L 103/51 L Pulse Oximetry 99 98 99 01/10/18 00:00 01/10/18 01:00 01/10/18 02:00 Temperature 98.2 F Pulse Rate 53 L 53 L 52 L Respiratory Rate 18 18 18 Blood Pressure 106/54 L 110/54 L Pulse Oximetry 97 97 97 01/10/18 02:01 01/10/18 03:00 01/10/18 03:01 Temperature Pulse Rate 52 L 53 L 52 L Respiratory Rate 18 18 18 Blood Pressure 97/53 L 110/53 L Pulse Oximetry 98 97 98 01/10/18 04:00 01/10/18 04:01 01/10/18 05:00 Temperature 98.2 F Pulse Rate 58 L 56 L 51 L Respiratory Rate 20 19 18 Blood Pressure 106/54 L 114/57 L Pulse Oximetry 99 99 96 01/10/18 05:01 01/10/18 06:00 01/10/18 07:00 Temperature Pulse Rate 52 L 52 L 79 Respiratory Rate 18 18 20 Blood Pressure 96/53 L 103/53 L 122/66 Pulse Oximetry 96 96 94 L 01/10/18 08:00 01/10/18 08:01 01/10/18 09:00 Temperature 98.9 F Pulse Rate 99 H 100 H 76 Respiratory Rate 30 H 33 H 18 Blood Pressure 125/90 125/90 Pulse Oximetry 88 L 88 L 95 01/10/18 09:01 01/10/18 09:03 01/10/18 10:00 Temperature Pulse Rate 75 72 Respiratory Rate 18 20 23 Blood Pressure 103/59 L Pulse Oximetry 96 97 97 01/10/18 10:44 01/10/18 11:00 01/10/18 11:04 Temperature Pulse Rate 70 57 L 56 L Respiratory Rate 20 18 18 Blood Pressure 122/61 103/52 L Pulse Oximetry 97 96 96 01/10/18 12:00 01/10/18 12:10 01/10/18 13:00 Temperature 97.5 F L Pulse Rate 55 L 57 L Respiratory Rate 18 18 18 Blood Pressure 104/57 L 108/54 L Pulse Oximetry 96 95 96 01/10/18 14:00 01/10/18 15:00 01/10/18 15:01 Temperature Pulse Rate 53 L 56 L 58 L Respiratory Rate 18 18 18 Blood Pressure 109/59 L 102/57 L Pulse Oximetry 97 98 98 01/10/18 15:11 01/10/18 16:00 Temperature 99.0 F Pulse Rate 81 71 Respiratory Rate 18 18 Blood Pressure 106/56 L Pulse Oximetry 100 100 Intake & Output 01/09/18 01/10/18 01/10/18 18:59 06:59 18:59 Intake Total 200 / 200 Balance 200 / 200 Weight 100 kg Intake: IV 200 / 200 Diprivan 1000 mg/100 ml Inj 1, 200 / 200 000 mg In 100 ml @ 5 MCG/KG/MIN 3 mls/hr IV.CONT TITRATE PRN Rx#:[id number] Narrative: GENERAL: Intubated, sedated. SKIN: Warm and dry. HEAD: Atraumatic. Normocephalic. EYES: Pupils equal, round, reactive to light. No scleral icterus. No injection or drainage. ENT: No nasal bleeding or discharge. Moist mucous membranes. Nonerythematous oropharynx. NECK: Trachea midline. No JVD. CARDIOVASCULAR: Regular rate, sinus rhythm. Flow murmur over the aortic valve, no gallops, no rubs. RESPIRATORY: Intubated. FiO2 40%. Respirations even, unlabored. Bibasilar crackles. GASTROINTESTINAL: Abdomen soft, non-tender, nondistended, normal active bowel sounds. OGT with TF. MUSCULOSKELETAL: 2+ BLE edema. Extremities without clubbing or cyanosis. No obvious deformities. NEUROLOGICAL: Sedated. Opens eyes to verbal command. Follows simple commands. PSYCHIATRIC: Calm. Results 01/10/18 03:57 01/10/18 07:21 Cardiac Enzymes 01/09/18 01/09/18 01/10/18 Range/Units 19:00 19:00 00:55 AST 20 (15-37) U/L Troponin I 0.06 H 0.08 H (0.02-0.05) ng/mL B-Natriuretic Peptide 833 H (0-100) pg/mL 01/10/18 01/10/18 Range/Units 03:57 07:21 AST 14 L (15-37) U/L Troponin I 0.05 (0.02-0.05) ng/mL B-Natriuretic Peptide (0-100) pg/mL Coagulation 01/09/18 01/09/18 01/10/18 Range/Units 19:00 19:00 03:57 PT 14.7 H 13.5 H (9.8-11.6) sec APTT 26.8 26.7 (24.3-30.1) sec B-Natriuretic Peptide 833 H (0-100) pg/mL CBC 01/09/18 01/10/18 Range/Units 19:00 03:57 WBC 10.8 9.1 (4.0-11.0) th/mm3 RBC 3.46 L 3.26 L (4.50-5.90) mil/mm3 Hgb 10.2 L 9.8 L (13.0-17.0) gm/dL Hct 33.5 L 30.4 L (39.0-51.0) % Plt Count 269 212 (150-450) th/mm3 Neut # (Auto) 9.4 H 8.4 H (1.8-7.7) th/mm3 Lymph # (Auto) 0.7 L 0.4 L (1.0-4.8) th/mm3 [place] # (Auto) 0.7 0.2 (0.0-0.9) th/mm3 Eos # (Auto) 0.1 0.1 (0.0-0.4) th/mm3 Baso # (Auto) 0.1 0.0 (0.0-0.2) th/mm3 Comprehensive Metabolic Panel 01/09/18 01/10/18 01/10/18 Range/Units 19:00 03:57 07:21 Sodium 138 141 (136-145) meq/L Potassium 4.2 3.3 L D 3.3 L (3.5-5.1) meq/L Chloride 99 97 L (98-107) meq/L Carbon Dioxide 28.2 33.4 H (21.0-32.0) meq/L BUN 18 23 H (7-18) mg/dL Creatinine 1.72 H 1.76 H 1.76 H (0.60-1.30) mg/dL Calcium 8.1 L 8.7 (8.5-10.1) mg/dL AST 20 14 L (15-37) U/L ALT 15 13 (12-78) U/L Alkaline Phosphatase 63 53 (45-117) U/L Total Protein 7.9 7.5 (6.4-8.2) g/dL Albumin 3.0 L 2.9 L (3.4-5.0) g/dL Intake and Output 01/10/18 01/10/18 01/10/18 06:59 14:59 22:59 Intake Total 200 / 200 Balance 200 / 200 Intake: IV 200 / 200 Diprivan 1000 mg/100 ml Inj 1, 200 / 200 000 mg In 100 ml @ 5 MCG/KG/MIN 3 mls/hr IV.CONT TITRATE PRN Rx#:[id number] Assessment and Plan - Assessment (1) CHF (congestive heart failure) Code(s): I50.9 - Heart failure, unspecified Status: Acute (2) Acute respiratory failure Code(s): J96.00 - Acute respiratory failure, unspecified whether with hypoxia or hypercapnia Status: Acute (3) Ischemic cardiomyopathy Code(s): I25.5 - Ischemic cardiomyopathy Status: Acute (4) V-tach Code(s): I47.2 - Ventricular tachycardia Status: Chronic - Plan Continue diuresis. Monitor I&O, electrolytes, renal function and BNP. Some NSVT. He has ICD. Continue beta vivi. Wean vent as tolerated. Dr. Rodriguez to cover the weekend. Code Status: Full Discussed Condition With: Dr Aguilera
[2018-01-11] MEDS: Oral Hygiene Kit OROPHARYNG SCH ×5 (00:14→23:54)
[2018-01-11] MEDS: Potassium Chlor 20 mEq Premix 20 MEQ/100 ML PIGGYBACK IV.SIG PRN ×2 (00:14→02:18)
[2018-01-11] MEDS: Insulin NovoLOG Aspart Correctional Sugar Inj SQ SCH ×7 (00:40→23:54)
[2018-01-11] MEDS: Chlorhexidine Gluconate 2% 1 Pack (2 Cloths) TOPICAL SCH (04:18)
[2018-01-11] MEDS: Propofol 1000 mg/100 ml Inj 1,000 MG/100 ML BOTTLE IV.CONT PRN ×2 (05:03→13:53)
[2018-01-11 05:04] LABS: Baso % (Auto) 0.1 % (0.0-2.0); Hematocrit 25.6 % (39.0-51.0); Hemoglobin 8.5 gm/dL (13.0-17.0); Lymph # (Auto) 0.4 th/mm3 (1.0-4.8); Lymph % (Auto) 2.4 % (9.0-44.0); Mean Corpuscular Hemoglobin 30.6 pg (27.0-34.0); Mean Corpuscular Volume 92.8 fL (80.0-100.0); Mean Platelet Volume 8.9 fL (7.0-11.0); Mono # (Auto) 0.9 th/mm3 (0.0-0.9); Mono % (Auto) 6.4 % (0.0-8.0); Neut # (Auto) 13.4 th/mm3 (1.8-7.7); Neut % (Auto) 91.1 % (16.0-70.0); Platelet Count 207 th/mm3 (150-450); Red Blood Count 2.76 mil/mm3 (4.50-5.90); Red Cell Distribution Width 17.2 % (11.6-17.2); White Blood Count 14.7 th/mm3 (4.0-11.0)
[2018-01-11 05:34] LABS: Calcium 7.9 mg/dL (8.5-10.1); Carbon Dioxide 34.1 meq/L (21.0-32.0); Magnesium 2.4 mg/dL (1.5-2.5); Potassium 3.8 meq/L (3.5-5.1)
--- NOTE | 2018-01-11 08:03 | P.PNCC ---
Subjective Subjective Remarks/Hospital Course: 72-year-old male presents for shortness of breath. EMS states that he was going to come to the emergency department for shortness of breath via private vehicle, however, shortness of breath had progressed and he called EMS. EMS states when they arrived the patient was awake, alert, and oriented. The patient was placed on oxygen, however, his breathing progressively worsened in route to the emergency department. According to EMS the patient has a history of congestive heart failure and COPD, uses inhalers at home. In route to the hospital the patient became more lethargic and unresponsive, they started bagging the patient via bag valve ventilation as he arrived in the emergency department. The patient was unable to answer any questions or follow commands upon arrival and was emergently intubated by ED attending 01/10 Patient is intubated placed on CPAP, awake and alert. Afebrile. 01/11 Patient is sedated with Diprivan and intubated. Afebrile, had short run of asymptomatic non sustained Vtach yesterday. Objective Vital Signs / I&O: Vital Signs 01/10/18 08:00 01/10/18 08:01 01/10/18 09:00 Temperature 98.9 F Pulse Rate 99 H 100 H 76 Respiratory Rate 30 H 33 H 18 Blood Pressure 125/90 125/90 Pulse Oximetry 88 L 88 L 95 01/10/18 09:01 01/10/18 09:03 01/10/18 10:00 Temperature Pulse Rate 75 72 Respiratory Rate 18 20 23 Blood Pressure 103/59 L Pulse Oximetry 96 97 97 01/10/18 10:44 01/10/18 11:00 01/10/18 11:04 Temperature Pulse Rate 70 57 L 56 L Respiratory Rate 20 18 18 Blood Pressure 122/61 103/52 L Pulse Oximetry 97 96 96 01/10/18 12:00 01/10/18 12:10 01/10/18 13:00 Temperature 97.5 F L Pulse Rate 55 L 57 L Respiratory Rate 18 18 18 Blood Pressure 104/57 L 108/54 L Pulse Oximetry 96 95 96 01/10/18 14:00 01/10/18 15:00 01/10/18 15:01 Temperature Pulse Rate 53 L 56 L 58 L Respiratory Rate 18 18 18 Blood Pressure 109/59 L 102/57 L Pulse Oximetry 97 98 98 01/10/18 15:11 01/10/18 16:00 01/10/18 17:00 Temperature 99.0 F Pulse Rate 81 71 65 Respiratory Rate 18 18 18 Blood Pressure 106/56 L 111/57 L Pulse Oximetry 100 100 98 01/10/18 18:00 01/10/18 19:00 01/10/18 20:00 Temperature 98.1 F Pulse Rate 65 66 65 Respiratory Rate 18 18 18 Blood Pressure 111/57 L 113/55 L Pulse Oximetry 98 99 99 01/10/18 20:01 01/10/18 21:00 01/10/18 21:25 Temperature Pulse Rate 53 L 51 L 56 L Respiratory Rate 18 18 18 Blood Pressure 100/55 L 105/58 L Pulse Oximetry 99 100 100 01/10/18 22:00 01/10/18 22:01 01/10/18 23:00 Temperature Pulse Rate 52 L 53 L 52 L Respiratory Rate 18 18 18 Blood Pressure 105/52 L Pulse Oximetry 96 96 96 01/10/18 23:01 01/11/18 00:00 01/11/18 00:01 Temperature 97.7 F Pulse Rate 52 L 50 L 50 L Respiratory Rate 18 18 18 Blood Pressure 110/55 L 95/53 L Pulse Oximetry 97 96 97 01/11/18 00:15 01/11/18 01:00 01/11/18 01:01 Temperature Pulse Rate 62 68 Respiratory Rate 18 18 19 Blood Pressure 122/59 L Pulse Oximetry 96 100 100 01/11/18 02:00 01/11/18 02:01 01/11/18 03:00 Temperature Pulse Rate 64 64 62 Respiratory Rate 19 20 18 Blood Pressure 118/58 L 122/58 L Pulse Oximetry 100 100 100 01/11/18 04:00 01/11/18 04:01 01/11/18 04:58 Temperature 97.8 F Pulse Rate 51 L 53 L 59 L Respiratory Rate 18 18 18 Blood Pressure 111/54 L Pulse Oximetry 100 99 01/11/18 04:59 01/11/18 05:00 01/11/18 06:00 Temperature Pulse Rate 50 L 50 L Respiratory Rate 19 18 Blood Pressure 113/57 L Pulse Oximetry 99 99 Intake & Output 01/10/18 01/11/18 01/11/18 18:59 06:59 18:59 Intake Total 648 / 648 400 / 400 828 / 828 Output Total 1325 / 1325 625 / 625 Balance -677 / -677 400 / 400 203 / 203 Weight 101.5 kg Intake: IV 260 / 260 400 / 400 Diprivan 1000 mg/100 ml Inj 1, 200 / 200 000 mg In 100 ml @ 5 MCG/KG/MIN 3 mls/hr IV.CONT TITRATE PRN Rx#:[id number] KCl 20 mEq Premix Inj 20 meq In 200 / 200 100 ml @ 50 mls/hr IV.SIG Q2H PRN Rx#:[id number] Potassium Phosphate Inj 30 MMOL 260 / 260 In NS Inj 250 ML @ 42 mls/hr IV.SIG UNSCH PRN Rx#:[id number] Tube Feeding 388 / 388 648 / 648 Tube Irrigant 180 / 180 Output: Urine Amount (Catheter) 1325 / 1325 625 / 625 Indwelling Urethral Catheter 1325 / 1325 625 / 625 Result Diagrams: 01/11/18 04:22 01/11/18 04:22 Other Results: Laboratory Results - last 12 hr 01/10/18 01/10/18 01/11/18 20:17 23:02 00:13 WBC RBC Hgb Hct MCV MCH MCHC RDW Plt Count MPV Neut % (Auto) Lymph % (Auto) [place] % (Auto) Eos % (Auto) Baso % (Auto) Neut # (Auto) Lymph # (Auto) [place] # (Auto) Eos # (Auto) Baso # (Auto) WBC Differential Differential Comment Sodium Potassium 3.4 L Chloride Carbon Dioxide Anion Gap BUN Creatinine Estimated GFR POC Glucose 204 H 218 H Random Glucose Calcium Phosphorus Magnesium B-Natriuretic Peptide 01/11/18 01/11/18 01/11/18 04:14 04:22 04:22 WBC 14.7 H RBC 2.76 L Hgb 8.5 L Hct 25.6 L MCV 92.8 MCH 30.6 MCHC 33.0 RDW 17.2 Plt Count 207 MPV 8.9 Neut % (Auto) 91.1 H Lymph % (Auto) 2.4 L [place] % (Auto) 6.4 Eos % (Auto) 0.0 Baso % (Auto) 0.1 Neut # (Auto) 13.4 H Lymph # (Auto) 0.4 L [place] # (Auto) 0.9 Eos # (Auto) 0.0 Baso # (Auto) 0.0 WBC Differential . Differential Comment Auto diff final Sodium 143 Potassium 3.8 Chloride 100 Carbon Dioxide 34.1 H Anion Gap 9 BUN 30 H Creatinine 1.73 H Estimated GFR 39 L POC Glucose 207 H Random Glucose 178 H Calcium 7.9 L D Phosphorus 3.0 Magnesium 2.4 B-Natriuretic Peptide 01/11/18 04:22 WBC RBC Hgb Hct MCV MCH MCHC RDW Plt Count MPV Neut % (Auto) Lymph % (Auto) [place] % (Auto) Eos % (Auto) Baso % (Auto) Neut # (Auto) Lymph # (Auto) [place] # (Auto) Eos # (Auto) Baso # (Auto) WBC Differential Differential Comment Sodium Potassium Chloride Carbon Dioxide Anion Gap BUN Creatinine Estimated GFR POC Glucose Random Glucose Calcium Phosphorus Magnesium B-Natriuretic Peptide 336 H Imaging: Chest X-Ray 01/10/18 08:56 CONCLUSION: Cardiomegaly and findings of congestive heart failure. There has been no significant change when compared to the prior exam. Objective Remarks: GENERAL: Patient is 72 yo intubated SKIN: Warm and dry. HEAD: Normocephalic. EYES: No scleral icterus. No injection or drainage. NECK: Supple, trachea midline. No JVD or lymphadenopathy. CARDIOVASCULAR: Regular rate and rhythm without murmurs, gallops, or rubs. RESPIRATORY: Breath sounds equal bilaterally. No accessory muscle use. GASTROINTESTINAL: Abdomen soft, non-tender, nondistended. Neuro: Intubated, sedated Assessment and Plan - Assessment and Plan Plan: VDRF CHF exacerbation Cardiomyopathy, Non sustained V. tach status post Medtr[employer] ICD COPD Coronary artery disease Atrial fibrillation Lactic acidemia CHELSEY Hypokalemia Anemia Obesity Plan Neuro: Monitor neuro status. Diprivan infusion for sedation. Daily sedation vacation Pulm: Continue with vent support keep sats >92% Bronchodilators, ICU vent bundle SBT daily as nick. Check CXR today CXR 01/10: CHF pattern CV: Monitor HR and BP keep MAP>65mmHg Lactic acid resolved 1.2 01/10 On Coreg 25mg BID, Lasix 40mg BID, ASA 81 mg daily Cards is following : Monitor renal function, I/O',s, electrolytes replacement per protocol. GI: On Pepcid for GI prophylaxis, on tube feeds- Jevity 1.5 @55ml/hr ID: Monitor for signs of infections ( Fever, WBC) Follow up on blood and urine [id number] Heme: Monitor CBC Endo: SSI for glycemic control DVT GI prophylaxis -Teds SCDs -Edoxaban -Pepcid Level 3
[2018-01-11] MEDS: Chlorhexidine 0.12% Oral Kit 15 ML UDC OROPHARYNG SCH ×2 (08:20→21:01)
[2018-01-11] MEDS: Carvedilol 12.5 MG Tablet PO SCH ×2 (08:21→21:01)
[2018-01-11] MEDS: EDOXABAN 30 MG PO SCH (08:21)
[2018-01-11] MEDS: Famotidine PF Inj 20 MG/2 ML Vial IV.PUSH SCH ×2 (08:21→21:01)
[2018-01-11] MEDS: Senna/Docusate Sodium 8.6/50 MG Tablet PO SCH ×2 (08:21→21:02)
--- NOTE | 2018-01-11 08:30 | XR ---
EXAM DATE: 01/11/2018 8:22 AM EDT AGE/SEX: 72 years / Male INDICATIONS: Shortness of breath. CLINICAL DATA: This is the patient's subsequent encounter. Patient reports that signs and symptoms h ave been present for 3 days and indicates a pain score of Nonresponsive. MEDICAL/SURGICAL HISTORY: . Chronic obstructive pulmonary disease. Cardiovascular disease. . TAVR. COMPARISON: [facility], CHEST 1V SINGLE AP, 01/10/2018. . FINDINGS: There is bilateral patchy airspace disease noted. Endotracheal tube tip at the inferior margin the cl avicles. Single lead pacer/ICD device again noted. There is cardiomegaly. There may be a small left e ffusion. Enteric tube courses beneath the diaphragm. CONCLUSION: Stable appearance of the chest. Electronically signed by: Phil Cruz MD 01/11/2018 8:29 AM EDT
--- NOTE | 2018-01-11 08:30 | P.PNCA ---
Subjective Interval history: Awake and alert on ventilator support. Follows commands. No distress. Physical Exam Vital signs: Vital Signs 01/10/18 09:00 01/10/18 09:01 01/10/18 09:03 Temperature Pulse Rate 76 75 Respiratory Rate 18 18 20 Blood Pressure 103/59 L Pulse Oximetry 95 96 97 01/10/18 10:00 01/10/18 10:44 01/10/18 11:00 Temperature Pulse Rate 72 70 57 L Respiratory Rate 23 20 18 Blood Pressure 122/61 Pulse Oximetry 97 97 96 01/10/18 11:04 01/10/18 12:00 01/10/18 12:10 Temperature 97.5 F L Pulse Rate 56 L 55 L Respiratory Rate 18 18 18 Blood Pressure 103/52 L 104/57 L Pulse Oximetry 96 96 95 01/10/18 13:00 01/10/18 14:00 01/10/18 15:00 Temperature Pulse Rate 57 L 53 L 56 L Respiratory Rate 18 18 18 Blood Pressure 108/54 L 109/59 L Pulse Oximetry 96 97 98 01/10/18 15:01 01/10/18 15:11 01/10/18 16:00 Temperature 99.0 F Pulse Rate 58 L 81 71 Respiratory Rate 18 18 18 Blood Pressure 102/57 L 106/56 L Pulse Oximetry 98 100 100 01/10/18 17:00 01/10/18 18:00 01/10/18 19:00 Temperature Pulse Rate 65 65 66 Respiratory Rate 18 18 18 Blood Pressure 111/57 L 111/57 L 113/55 L Pulse Oximetry 98 98 99 01/10/18 20:00 01/10/18 20:01 01/10/18 21:00 Temperature 98.1 F Pulse Rate 65 53 L 51 L Respiratory Rate 18 18 18 Blood Pressure 100/55 L 105/58 L Pulse Oximetry 99 99 100 01/10/18 21:25 01/10/18 22:00 01/10/18 22:01 Temperature Pulse Rate 56 L 52 L 53 L Respiratory Rate 18 18 18 Blood Pressure 105/52 L Pulse Oximetry 100 96 96 01/10/18 23:00 01/10/18 23:01 01/11/18 00:00 Temperature 97.7 F Pulse Rate 52 L 52 L 50 L Respiratory Rate 18 18 18 Blood Pressure 110/55 L Pulse Oximetry 96 97 96 01/11/18 00:01 01/11/18 00:15 01/11/18 01:00 Temperature Pulse Rate 50 L 62 Respiratory Rate 18 18 18 Blood Pressure 95/53 L Pulse Oximetry 97 96 100 01/11/18 01:01 01/11/18 02:00 01/11/18 02:01 Temperature Pulse Rate 68 64 64 Respiratory Rate 19 19 20 Blood Pressure 122/59 L 118/58 L Pulse Oximetry 100 100 100 01/11/18 03:00 01/11/18 04:00 01/11/18 04:01 Temperature 97.8 F Pulse Rate 62 51 L 53 L Respiratory Rate 18 18 18 Blood Pressure 122/58 L 111/54 L Pulse Oximetry 100 100 99 01/11/18 04:58 01/11/18 04:59 01/11/18 05:00 Temperature Pulse Rate 59 L 50 L Respiratory Rate 18 19 18 Blood Pressure 113/57 L Pulse Oximetry 99 99 01/11/18 06:00 01/11/18 08:00 Temperature Pulse Rate 50 L Respiratory Rate 20 Blood Pressure Pulse Oximetry 98 Intake & Output 01/10/18 01/11/18 01/11/18 18:59 06:59 18:59 Intake Total 648 / 648 400 / 400 828 / 828 Output Total 1325 / 1325 625 / 625 Balance -677 / -677 400 / 400 203 / 203 Weight 101.5 kg Intake: IV 260 / 260 400 / 400 Diprivan 1000 mg/100 ml Inj 1, 200 / 200 000 mg In 100 ml @ 5 MCG/KG/MIN 3 mls/hr IV.CONT TITRATE PRN Rx#:[id number] KCl 20 mEq Premix Inj 20 meq In 200 / 200 100 ml @ 50 mls/hr IV.SIG Q2H PRN Rx#:[id number] Potassium Phosphate Inj 30 MMOL 260 / 260 In NS Inj 250 ML @ 42 mls/hr IV.SIG UNSCH PRN Rx#:[id number] Tube Feeding 388 / 388 648 / 648 Tube Irrigant 180 / 180 Output: Urine Amount (Catheter) 1325 / 1325 625 / 625 Indwelling Urethral Catheter 1325 / 1325 625 / 625 - Constitutional no acute distress - Routine HEENT Exam Eye: Present: EOMI - Routine Neck Exam Present: supple - Routine Respiratory Exam Present: CTA bilaterally - Routine Cardiovascular Exam Present: RRR, S1, S2, murmur - Routine Extremities Exam Present: edema - Routine Skin Exam Present: intact - Routine Neurological Exam Present: alert - Urinary Catheter Management Indwelling Urethral Catheter Cath placed during this visit: yes Reason for continuing: Hourly intake/output Insertion date: 01/09/18 Insertion time: 19:14 Assessment and Plan - Assessment (1) CHF exacerbation Code(s): I50.9 - Heart failure, unspecified Status: Acute (2) Aortic stenosis Code(s): I35.0 - Nonrheumatic aortic (valve) stenosis Status: Acute (3) S/P TAVR (transcatheter aortic valve replacement) Code(s): Z95.2 - Presence of prosthetic heart valve Status: Acute (4) Anemia Code(s): D64.9 - Anemia, unspecified Status: Acute (5) Ischemic cardiomyopathy Code(s): I25.5 - Ischemic cardiomyopathy Status: Acute (6) Hypoxia Code(s): R09.02 - Hypoxemia Status: Acute (7) V-tach Code(s): I47.2 - Ventricular tachycardia Status: Chronic Plan: NSVT, stable. S/P ICD - Plan Continue diuresis. Monitor I&O, electrolytes, renal function and BNP. Anemia follow Hgb, will check stool OB. Some NSVT. He has ICD. Continue beta vivi. Wean vent as tolerated. Echo pending. Following with you. Discussed findings and plans with and staff developer. (1) CHF exacerbation Qualifiers: Heart failure type: unspecified Qualified Code(s): I50.9 - Heart failure, unspecified
--- NOTE | 2018-01-11 16:42 | ECHRPT ---
Indication: Heart Failure CONCLUSIONS The left ventricular systolic function is severely reduced with an estimated ejection fraction less than 20%. There is diffuse global hypokinesis with distinct regional wall motion abnormalities. Severely dilated left ventricle. Mild concentric left ventricular hypertrophy. The left atrial size is severely dilated. There is a pacemaker wire present in the right atrial cavity. Mitral annular calcification is present. Severe mitral valve regurgitation. There is an aortic valve prosthesis. Aortic valve area is 0.88 cm. Aortic valve mean gradient is 18 mmHg. Pacemaker wire is present within the right ventricular cavity. There is moderate tricuspid regurgitation. The estimated pulmonary arterial pressure is 63 mmHg. Mild pulmonary valve regurgitation. A left sided pleural effusion is present. BP: / HR: Rhythm: MEASUREMENTS (Male / Female) Normal Values Technical Quality:Fair 2D ECHO LV Diastolic Diameter PLAX 6.9 cm 4.2 - 5.9 / 3.9 - 5.3 cm LV Systolic Diameter PLAX 6.2 cm IVS Diastolic Thickness 1.3 cm 0.6 - 1.0 / 0.6 - 0.9 cm LVPW Diastolic Thickness 1.2 cm 0.6 - 1.0 / 0.6 - 0.9 cm LV Relative Wall Thickness 0.4 RV Internal Dim ED PLAX 3.5 cm LVOT Diameter 1.8 cm LA Systolic Diameter LX 5.2 cm 3.0 - 4.0 / 2.7 - 3.8 cm M-MODE Aortic Root Diameter MM 1.9 cm LA Systolic Diameter MM 4.9 cm LA Ao Ratio MM 2.6 DOPPLER AV Peak Velocity 284.0 cm/s AV Peak Gradient 32.3 mmHg AV Mean Gradient 18.0 mmHg AV Velocity Time Integral 59.3 cm LVOT Peak Velocity 107.0 cm/s LVOT Peak Gradient 4.6 mmHg LVOT Velocity Time Integral 20.4 cm AV Area Cont Eq vti 0.9 cm AV Area Cont Eq pk 1.0 cm MV Area PHT 4.2 cm Mitral E Point Velocity 92.8 cm/s Mitral A Point Velocity 44.9 cm/s Mitral E to A Ratio 2.1 LV E' Lateral Velocity 5.1 cm/s Mitral E to LV E' Lateral Ratio 18.3 LV E' Septal Velocity 2.6 cm/s Mitral E to LV E' Septal Ratio 35.6 TR Peak Velocity 364.0 cm/s TR Peak Gradient 53.0 mmHg Right Atrial Pressure 10.0 mmHg Pulmonary Artery Systolic Pressu 63.0 mmHg Right Ventricular Systolic Press 63.0 mmHg FINDINGS LEFT VENTRICLE The left ventricular systolic function is severely reduced with an estimated ejection fraction less than 20%. There is diffuse global hypokinesis with distinct regional wall motion abnormalities. Severely dilated left ventricle. Mild concentric left ventricular hypertrophy. RIGHT VENTRICLE Normal right ventricular size and systolic function. LEFT ATRIUM The left atrial size is severely dilated. RIGHT ATRIUM There is a pacemaker wire present in the right atrial cavity. ATRIAL SEPTUM Normal atrial septal thickness without atrial level shunting by limited color doppler interrogation. AORTA The aortic root and proximal ascending aorta are normal in size on limited imaging. MITRAL VALVE Mitral annular calcification is present. Severe mitral valve regurgitation. AORTIC VALVE There is an aortic valve prosthesis. Aortic valve area is 0.88 cm. Aortic valve mean gradient is 18 mmHg. TRICUSPID VALVE Pacemaker wire is present within the right ventricular cavity. Structurally normal tricuspid valve. There is moderate tricuspid regurgitation. The estimated pulmonary arterial pressure is 63 mmHg. PULMONARY VALVE Mild pulmonary valve regurgitation. VESSELS The inferior vena cava is normal in size. PERICARDIUM A left sided pleural effusion is present. Nitin Rivera MD, FACC, [facility] [place] (Electronically Signed) Final Date:11 January 2018 16:41
[2018-01-12] MEDS: Chlorhexidine Gluconate 2% 1 Pack (2 Cloths) TOPICAL SCH (04:30)
[2018-01-12] MEDS: Propofol 1000 mg/100 ml Inj 1,000 MG/100 ML BOTTLE IV.CONT PRN (04:30)
[2018-01-12] MEDS: Oral Hygiene Kit OROPHARYNG SCH ×4 (04:30→23:44)
[2018-01-12] MEDS: Insulin NovoLOG Aspart Correctional Sugar Inj SQ SCH ×6 (05:00→23:44)
[2018-01-12 05:27] LABS: Eos % (Auto) 0.2 % (0.0-4.0); Hematocrit 28.9 % (39.0-51.0); Hemoglobin 8.9 gm/dL (13.0-17.0); Lymph # (Auto) 0.7 th/mm3 (1.0-4.8); Lymph % (Auto) 5.4 % (9.0-44.0); Mean Corpuscular Hemoglobin 28.9 pg (27.0-34.0); Mean Corpuscular Volume 93.9 fL (80.0-100.0); Mean Platelet Volume 9.2 fL (7.0-11.0); Mono % (Auto) 8.4 % (0.0-8.0); Neut # (Auto) 10.8 th/mm3 (1.8-7.7); Platelet Count 207 th/mm3 (150-450); Red Blood Count 3.08 mil/mm3 (4.50-5.90); Red Cell Distribution Width 17.7 % (11.6-17.2); White Blood Count 12.6 th/mm3 (4.0-11.0)
[2018-01-12 05:28] LABS: Mean Corpuscular HGB Conc 30.7 % (32.0-36.0)
[2018-01-12 05:44] LABS: Carbon Dioxide 35.4 meq/L (21.0-32.0); Magnesium 2.6 mg/dL (1.5-2.5); Phosphorus 2.9 mg/dL (2.5-4.9); Potassium 3.3 meq/L (3.5-5.1)
--- NOTE | 2018-01-12 07:41 | P.PNCA ---
Subjective Interval history: Still on vent support but progressing well. No distress. Physical Exam Vital signs: Vital Signs 01/11/18 08:00 01/11/18 08:01 01/11/18 09:00 Temperature 97.7 F Pulse Rate 64 54 L 69 Respiratory Rate 19 14 24 Blood Pressure 114/58 L 114/57 L Pulse Oximetry 100 100 94 L 01/11/18 09:50 01/11/18 10:00 01/11/18 10:01 Temperature Pulse Rate 58 L 60 69 Respiratory Rate 22 22 24 Blood Pressure 126/61 Pulse Oximetry 100 99 01/11/18 11:00 01/11/18 11:01 01/11/18 11:53 Temperature Pulse Rate 60 61 Respiratory Rate 23 23 18 Blood Pressure 133/64 Pulse Oximetry 100 100 98 01/11/18 12:00 01/11/18 14:00 01/11/18 16:00 Temperature 98.4 F Pulse Rate 67 69 85 Respiratory Rate 22 Blood Pressure 142/70 H Pulse Oximetry 100 01/11/18 16:13 01/11/18 16:27 01/11/18 18:00 Temperature Pulse Rate 83 69 Respiratory Rate 26 H 20 Blood Pressure Pulse Oximetry 98 01/11/18 20:00 01/11/18 21:30 01/11/18 21:32 Temperature 98.5 F Pulse Rate 74 72 Respiratory Rate 22 21 21 Blood Pressure 129/58 L Pulse Oximetry 93 L 98 01/11/18 22:00 01/12/18 00:00 01/12/18 00:05 Temperature 98.3 F Pulse Rate 75 79 Respiratory Rate 23 23 Blood Pressure 105/58 L Pulse Oximetry 94 L 97 01/12/18 02:00 01/12/18 04:00 01/12/18 04:20 Temperature 98.7 F Pulse Rate 65 62 Respiratory Rate 18 18 Blood Pressure 113/67 Pulse Oximetry 100 97 01/12/18 06:00 Temperature Pulse Rate 58 L Respiratory Rate Blood Pressure Pulse Oximetry Intake & Output 01/11/18 01/12/18 01/12/18 18:59 06:59 18:59 Intake Total 1703 / 1703 950 / 950 Output Total 1525 / 1525 1150 / 1150 Balance 178 / 178 -200 / -200 Weight 101.5 kg 100 kg Intake: IV 100 / 100 100 / 100 Diprivan 1000 mg/100 ml Inj 1, 100 / 100 100 / 100 000 mg In 100 ml @ 5 MCG/KG/MIN 3 mls/hr IV.CONT TITRATE PRN Rx#:[id number] Tube Feeding 1223 / 1223 650 / 650 Tube Irrigant 180 / 180 Water Bolus Amount 200 / 200 200 / 200 Output: Urine Amount (Catheter) 1525 / 1525 1150 / 1150 Indwelling Urethral Catheter 1525 / 1525 1150 / 1150 - Constitutional no acute distress - Routine Neck Exam Present: supple - Routine Respiratory Exam Present: CTA bilaterally - Routine Cardiovascular Exam Present: RRR, S1, S2, murmur - Routine Extremities Exam Present: pulses intact - Urinary Catheter Management Indwelling Urethral Catheter Cath placed during this visit: yes Reason for continuing: Chronic Urinary Retention Insertion date: 01/09/18 Insertion time: 19:14 Assessment and Plan - Assessment (1) CHF exacerbation Code(s): I50.9 - Heart failure, unspecified Status: Acute Plan: Improving, weaning off vent. (2) Aortic stenosis Code(s): I35.0 - Nonrheumatic aortic (valve) stenosis Status: Acute (3) S/P TAVR (transcatheter aortic valve replacement) Code(s): Z95.2 - Presence of prosthetic heart valve Status: Acute Plan: stable (4) Anemia Code(s): D64.9 - Anemia, unspecified Status: Acute (5) Ischemic cardiomyopathy Code(s): I25.5 - Ischemic cardiomyopathy Status: Acute Plan: ECHO results: The left ventricular systolic function is severely reduced with an estimated ejection fraction less than 20%. There is diffuse global hypokinesis with distinct regional wall motion abnormalities. Severely dilated left ventricle. Mild concentric left ventricular hypertrophy. The left atrial size is severely dilated. There is a pacemaker wire present in the right atrial cavity. Mitral annular calcification is present. Severe mitral valve regurgitation. There is an aortic valve prosthesis. Aortic valve area is 0.88 cm. Aortic valve mean gradient is 18 mmHg. Pacemaker wire is present within the right ventricular cavity. There is moderate tricuspid regurgitation. The estimated pulmonary arterial pressure is 63 mmHg. Mild pulmonary valve regurgitation. A left sided pleural effusion is present. (6) Hypoxia Code(s): R09.02 - Hypoxemia Status: Acute (7) V-tach Code(s): I47.2 - Ventricular tachycardia Status: Chronic Plan: NSVT, stable. S/P ICD (8) Mitral regurgitation Code(s): I34.0 - Nonrheumatic mitral (valve) insufficiency Status: Acute - Plan Continue diuresis. Monitor I&O, electrolytes, renal function. Anemia follow Hgb, will check stool OB. Some NSVT. He has ICD. Continue beta vivi. Wean vent as tolerated. Echo reviewed. Following with you. Discussed findings and plans with and staff appraiser. (1) CHF exacerbation Qualifiers: Heart failure type: unspecified Qualified Code(s): I50.9 - Heart failure, unspecified
--- NOTE | 2018-01-12 07:41 | P.PNCC ---
Subjective Subjective Remarks/Hospital Course: 72-year-old male presents for shortness of breath. EMS states that he was going to come to the emergency department for shortness of breath via private vehicle, however, shortness of breath had progressed and he called EMS. EMS states when they arrived the patient was awake, alert, and oriented. The patient was placed on oxygen, however, his breathing progressively worsened in route to the emergency department. According to EMS the patient has a history of congestive heart failure and COPD, uses inhalers at home. In route to the hospital the patient became more lethargic and unresponsive, they started bagging the patient via bag valve ventilation as he arrived in the emergency department. The patient was unable to answer any questions or follow commands upon arrival and was emergently intubated by ED attending 01/10 Patient is intubated placed on CPAP, awake and alert. Afebrile. 01/11 Patient is sedated with Diprivan and intubated. Afebrile, had short run of asymptomatic non sustained Vtach yesterday. 01/12 No events overnight. Sedated and intubated. Objective Vital Signs / I&O: Vital Signs 01/11/18 08:00 01/11/18 08:01 01/11/18 09:00 Temperature 97.7 F Pulse Rate 64 54 L 69 Respiratory Rate 19 14 24 Blood Pressure 114/58 L 114/57 L Pulse Oximetry 100 100 94 L 01/11/18 09:50 01/11/18 10:00 01/11/18 10:01 Temperature Pulse Rate 58 L 60 69 Respiratory Rate 22 22 24 Blood Pressure 126/61 Pulse Oximetry 100 99 01/11/18 11:00 01/11/18 11:01 01/11/18 11:53 Temperature Pulse Rate 60 61 Respiratory Rate 23 23 18 Blood Pressure 133/64 Pulse Oximetry 100 100 98 01/11/18 12:00 01/11/18 14:00 01/11/18 16:00 Temperature 98.4 F Pulse Rate 67 69 85 Respiratory Rate 22 Blood Pressure 142/70 H Pulse Oximetry 100 01/11/18 16:13 01/11/18 16:27 01/11/18 18:00 Temperature Pulse Rate 83 69 Respiratory Rate 26 H 20 Blood Pressure Pulse Oximetry 98 01/11/18 20:00 01/11/18 21:30 01/11/18 21:32 Temperature 98.5 F Pulse Rate 74 72 Respiratory Rate 22 21 21 Blood Pressure 129/58 L Pulse Oximetry 93 L 98 01/11/18 22:00 01/12/18 00:00 01/12/18 00:05 Temperature 98.3 F Pulse Rate 75 79 Respiratory Rate 23 23 Blood Pressure 105/58 L Pulse Oximetry 94 L 97 01/12/18 02:00 01/12/18 04:00 01/12/18 04:20 Temperature 98.7 F Pulse Rate 65 62 Respiratory Rate 18 18 Blood Pressure 113/67 Pulse Oximetry 100 97 01/12/18 06:00 Temperature Pulse Rate 58 L Respiratory Rate Blood Pressure Pulse Oximetry Intake & Output 01/11/18 01/12/18 01/12/18 18:59 06:59 18:59 Intake Total 1703 / 1703 950 / 950 Output Total 1525 / 1525 1150 / 1150 Balance 178 / 178 -200 / -200 Weight 101.5 kg 100 kg Intake: IV 100 / 100 100 / 100 Diprivan 1000 mg/100 ml Inj 1, 100 / 100 100 / 100 000 mg In 100 ml @ 5 MCG/KG/MIN 3 mls/hr IV.CONT TITRATE PRN Rx#:[id number] Tube Feeding 1223 / 1223 650 / 650 Tube Irrigant 180 / 180 Water Bolus Amount 200 / 200 200 / 200 Output: Urine Amount (Catheter) 1525 / 1525 1150 / 1150 Indwelling Urethral Catheter 1525 / 1525 1150 / 1150 Result Diagrams: 01/12/18 04:25 01/12/18 04:25 Other Results: Laboratory Results - last 12 hr 01/11/18 01/11/18 01/12/18 20:52 23:43 04:25 WBC 12.6 H RBC 3.08 L Hgb 8.9 L Hct 28.9 L MCV 93.9 MCH 28.9 MCHC 30.7 L RDW 17.7 H Plt Count 207 MPV 9.2 Neut % (Auto) 86.0 H Lymph % (Auto) 5.4 L [place] % (Auto) 8.4 H Eos % (Auto) 0.2 Baso % (Auto) 0.0 Neut # (Auto) 10.8 H Lymph # (Auto) 0.7 L [place] # (Auto) 1.0 H Eos # (Auto) 0.0 Baso # (Auto) 0.0 WBC Differential . Differential Comment Auto diff final Sodium Potassium Chloride Carbon Dioxide Anion Gap BUN Creatinine Estimated GFR POC Glucose 168 H 179 H Random Glucose Calcium Phosphorus Magnesium B-Natriuretic Peptide 01/12/18 01/12/18 01/12/18 04:25 04:25 04:34 WBC RBC Hgb Hct MCV MCH MCHC RDW Plt Count MPV Neut % (Auto) Lymph % (Auto) [place] % (Auto) Eos % (Auto) Baso % (Auto) Neut # (Auto) Lymph # (Auto) [place] # (Auto) Eos # (Auto) Baso # (Auto) WBC Differential Differential Comment Sodium 146 H Potassium 3.3 L Chloride 101 Carbon Dioxide 35.4 H Anion Gap 10 BUN 33 H Creatinine 1.67 H Estimated GFR 40 L POC Glucose 179 H Random Glucose 147 H Calcium 8.0 L Phosphorus 2.9 Magnesium 2.6 H B-Natriuretic Peptide 455 H Imaging: Chest X-Ray 01/11/18 08:04 CONCLUSION: Stable appearance of the chest. Objective Remarks: GENERAL: Patient is 72 yo intubated SKIN: Warm and dry. HEAD: Normocephalic. EYES: No scleral icterus. No injection or drainage. NECK: Supple, trachea midline. No JVD or lymphadenopathy. CARDIOVASCULAR: Regular rate and rhythm without murmurs, gallops, or rubs. RESPIRATORY: Breath sounds equal bilaterally. No accessory muscle use. GASTROINTESTINAL: Abdomen soft, non-tender, nondistended. Neuro: Intubated, sedated Assessment and Plan - Assessment and Plan Plan: VDRF CHF exacerbation Cardiomyopathy, Non sustained V. tach status post Medtronic ICD COPD Coronary artery disease Atrial fibrillation Lactic acidemia CHELSEY Hypokalemia Anemia Obesity Plan Neuro: Monitor neuro status. Diprivan infusion for sedation. Daily sedation vacation Pulm: Continue with vent support keep sats >92% Bronchodilators, ICU vent bundle SBT daily as nick. Solumederol 60mg Q8, Symbicort CV: Monitor HR and BP keep MAP>65mmHg Lactic acid resolved 1.2 01/10 On Coreg 25mg BID, Lasix 40mg BID, ASA 81 mg daily Echo showed EF <20%, PAP 63mmHg Cards is following : Monitor renal function, I/O',s, electrolytes replacement per protocol. Will need K replacement today Cr: 1.67 today from 1.73, On Lasix 40mg BID Add Free water 250ml Q8, GI: On Pepcid for GI prophylaxis, on tube feeds- Jevity 1.5 @55ml/hr ID: Monitor for signs of infections ( Fever, WBC) Follow up on blood and urine cx-NGTD Heme: Monitor CBC Endo: SSI for glycemic control DVT GI prophylaxis -Teds SCDs -Edoxaban -Pepcid Level 3
[2018-01-12] MEDS: Famotidine PF Inj 20 MG/2 ML Vial IV.PUSH SCH ×2 (08:35→20:26)
[2018-01-12] MEDS: Senna/Docusate Sodium 8.6/50 MG Tablet PO SCH ×2 (08:36→20:26)
[2018-01-12] MEDS: Carvedilol 12.5 MG Tablet PO SCH ×2 (08:36→20:26)
[2018-01-12] MEDS: EDOXABAN 30 MG PO SCH (08:36)
[2018-01-12] MEDS: Chlorhexidine 0.12% Oral Kit 15 ML UDC OROPHARYNG SCH ×2 (08:36→20:33)
[2018-01-12] MEDS: Potassium Chlor 20 mEq Premix 20 MEQ/100 ML PIGGYBACK IV.SIG PRN ×2 (09:24→12:41)
[2018-01-12 12:53] LABS: ABG Base Excess 12.7 mmol/L (-2-2); ABG PCO2 58 mmHg (38-42); ABG PO2 97 mmHG (61-120)
[2018-01-12] MEDS: MethylPREDNISolone Sod Succinate Inj 125 MG/2 ML Vial IV.PUSH SCH ×2 (14:00→21:34)
[2018-01-12] MEDS: Budesonide-Formoterol 160/4.5 MCG 6 GM Inhaler INH SCH ×2 (14:40→20:26)
[2018-01-13] MEDS: Oral Hygiene Kit OROPHARYNG SCH ×2 (04:50→18:13)
[2018-01-13] MEDS: Insulin NovoLOG Aspart Correctional Sugar Inj SQ SCH ×5 (04:50→21:01)
[2018-01-13] MEDS: Chlorhexidine Gluconate 2% 1 Pack (2 Cloths) TOPICAL SCH (04:50)
[2018-01-13] MEDS: MethylPREDNISolone Sod Succinate Inj 125 MG/2 ML Vial IV.PUSH SCH ×3 (06:26→21:14)
--- NOTE | 2018-01-13 06:56 | P.PNCC ---
Subjective Subjective Remarks/Hospital Course: 72-year-old male presents for shortness of breath. EMS states that he was going to come to the emergency department for shortness of breath via private vehicle, however, shortness of breath had progressed and he called EMS. EMS states when they arrived the patient was awake, alert, and oriented. The patient was placed on oxygen, however, his breathing progressively worsened in route to the emergency department. According to EMS the patient has a history of congestive heart failure and COPD, uses inhalers at home. In route to the hospital the patient became more lethargic and unresponsive, they started bagging the patient via bag valve ventilation as he arrived in the emergency department. The patient was unable to answer any questions or follow commands upon arrival and was emergently intubated by ED attending 01/10 Patient is intubated placed on CPAP, awake and alert. Afebrile. 01/11 Patient is sedated with Diprivan and intubated. Afebrile, had short run of asymptomatic non sustained Vtach yesterday. 01/12 No events overnight. Sedated and intubated. 01/13 Patient s/p extubation yesterday on 4L oxygen. Afebrile. Objective Vital Signs / I&O: Vital Signs 01/12/18 08:00 01/12/18 10:00 01/12/18 10:46 Temperature 98.5 F Pulse Rate 86 64 67 Respiratory Rate 29 H 25 H Blood Pressure 122/63 Pulse Oximetry 98 01/12/18 12:00 01/12/18 13:33 01/12/18 13:41 Temperature 98.7 F Pulse Rate 66 87 Respiratory Rate 29 H 22 Blood Pressure 95/51 L Pulse Oximetry 100 96 01/12/18 14:00 01/12/18 16:00 01/12/18 18:00 Temperature 98.5 F Pulse Rate 93 H 91 H 100 H Respiratory Rate 31 H Blood Pressure 103/57 L Pulse Oximetry 94 L 01/12/18 20:00 01/12/18 20:10 01/12/18 20:11 Temperature 98.6 F Pulse Rate 95 H 95 H Respiratory Rate 28 H 18 Blood Pressure 114/53 L Pulse Oximetry 94 L 94 L 01/12/18 22:00 01/13/18 00:00 01/13/18 02:00 Temperature 98.7 F Pulse Rate 82 71 61 Respiratory Rate 22 Blood Pressure 110/50 L Pulse Oximetry 94 L 01/13/18 04:00 01/13/18 04:08 01/13/18 06:00 Temperature 98.6 F Pulse Rate 74 64 61 Respiratory Rate 22 16 Blood Pressure 106/53 L Pulse Oximetry 100 Intake & Output 01/12/18 01/12/18 01/13/18 06:59 18:59 06:59 Intake Total 950 / 950 400 / 400 48 / 48 Output Total 1150 / 1150 1000 / 1000 1000 / 1000 Balance -200 / -200 -600 / -600 -952 / -952 Weight 100 kg 98 kg Intake: IV 100 / 100 200 / 200 48 / 48 Diprivan 1000 mg/100 ml Inj 1, 100 / 100 48 / 48 000 mg In 100 ml @ 5 MCG/KG/MIN 3 mls/hr IV.CONT TITRATE PRN Rx#:[id number] KCl 20 mEq Premix Inj 20 meq In 200 / 200 100 ml @ 50 mls/hr IV.SIG Q2H PRN Rx#:[id number] Oral 0 / 0 Oral Supplement 0 / 0 Tube Feeding 650 / 650 0 / 0 Water Bolus Amount 200 / 200 200 / 200 Output: Urine 1000 / 1000 Stool 0 / 0 0 / 0 Urine Amount (Catheter) 1150 / 1150 1000 / 1000 Indwelling Urethral Catheter 1150 / 1150 1000 / 1000 Result Diagrams: 01/13/18 05:09 01/13/18 05:09 Other Results: Laboratory Results - last 12 hr 01/12/18 01/12/18 01/13/18 20:17 23:24 04:24 POC Glucose 184 H 172 H 165 H Imaging: Chest X-Ray 01/11/18 08:04 CONCLUSION: Stable appearance of the chest. Objective Remarks: GENERAL: Patient is 72 yo lying in bed in NAD SKIN: Warm and dry. HEAD: Normocephalic. EYES: No scleral icterus. No injection or drainage. NECK: Supple, trachea midline. No JVD or lymphadenopathy. CARDIOVASCULAR: Regular rate and rhythm without murmurs, gallops, or rubs. RESPIRATORY: Breath sounds equal bilaterally. No accessory muscle use. GASTROINTESTINAL: Abdomen soft, non-tender, nondistended. Neuro: Awake and alert Assessment and Plan - Assessment and Plan Plan: VDRF- Extubated 01/12 CHF exacerbation Cardiomyopathy, Non sustained V. tach status post Medtronic ICD COPD- On 3L home oxygen Coronary artery disease Atrial fibrillation Lactic acidemia CHELSEY Hypokalemia Anemia Obesity/ RAFAEL Plan Neuro: Awake and alert, avoid sedatives Pulm: Continue with oxygen keep sats >92% Bronchodilators, Symbicort, Solumederol 60mg Q8, CV: Monitor HR and BP keep MAP>65mmHg Lactic acid resolved 1.2 01/10 On Coreg 25mg BID, Lasix 40mg BID, ASA 81 mg daily Echo showed EF <20%, PAP 63mmHg Cards is following : Monitor renal function, I/O',s, electrolytes replacement per protocol. On Lasix 40mg BID GI: On Pepcid for GI prophylaxis, PO diet ID: Monitor for signs of infections ( Fever, WBC) blood and urine cx-NGTD Heme: Monitor CBC Endo: SSI for glycemic control DVT GI prophylaxis -Teds SCDs -Edoxaban -Pepcid Will sign off and transfer care to [facility] Level 2
[2018-01-13 07:41] LABS: Baso % (Auto) 0.2 % (0.0-2.0); Hematocrit 28.9 % (39.0-51.0); Lymph # (Auto) 0.2 th/mm3 (1.0-4.8); Lymph % (Auto) 2.5 % (9.0-44.0); Mean Corpuscular HGB Conc 31.2 % (32.0-36.0); Mean Corpuscular Volume 95.9 fL (80.0-100.0); Mean Platelet Volume 9.9 fL (7.0-11.0); Mono # (Auto) 0.2 th/mm3 (0.0-0.9); Mono % (Auto) 2.1 % (0.0-8.0); Neut # (Auto) 9.2 th/mm3 (1.8-7.7); Neut % (Auto) 95.2 % (16.0-70.0); Platelet Count 216 th/mm3 (150-450); Red Blood Count 3.02 mil/mm3 (4.50-5.90); Red Cell Distribution Width 17.7 % (11.6-17.2); White Blood Count 9.6 th/mm3 (4.0-11.0)
[2018-01-13 07:42] LABS: Calcium 8.6 mg/dL (8.5-10.1); Carbon Dioxide 39.9 meq/L (21.0-32.0); Magnesium 2.9 mg/dL (1.5-2.5); Phosphorus 4.9 mg/dL (2.5-4.9); Potassium 4.3 meq/L (3.5-5.1)
--- NOTE | 2018-01-13 09:05 | P.PNCA ---
Subjective Interval history: Extubated off vent support. Sitting up at side of bed. Feels well. No complaints. Physical Exam Vital signs: Vital Signs 01/12/18 10:00 01/12/18 10:46 01/12/18 12:00 Temperature 98.7 F Pulse Rate 64 67 66 Respiratory Rate 25 H 29 H Blood Pressure 95/51 L Pulse Oximetry 100 01/12/18 13:33 01/12/18 13:41 01/12/18 14:00 Temperature Pulse Rate 87 93 H Respiratory Rate 22 Blood Pressure Pulse Oximetry 96 01/12/18 16:00 01/12/18 18:00 01/12/18 20:00 Temperature 98.5 F 98.6 F Pulse Rate 91 H 100 H 95 H Respiratory Rate 31 H 28 H Blood Pressure 103/57 L 114/53 L Pulse Oximetry 94 L 94 L 01/12/18 20:10 01/12/18 20:11 01/12/18 22:00 Temperature Pulse Rate 95 H 82 Respiratory Rate 18 Blood Pressure Pulse Oximetry 94 L 01/13/18 00:00 01/13/18 02:00 01/13/18 04:00 Temperature 98.7 F 98.6 F Pulse Rate 71 61 74 Respiratory Rate 22 22 Blood Pressure 110/50 L 106/53 L Pulse Oximetry 94 L 100 01/13/18 04:08 01/13/18 06:00 Temperature Pulse Rate 64 61 Respiratory Rate 16 Blood Pressure Pulse Oximetry Intake & Output 01/12/18 01/13/18 01/13/18 18:59 06:59 18:59 Intake Total 400 / 400 48 / 48 Output Total 1000 / 1000 1000 / 1000 Balance -600 / -600 -952 / -952 Weight 98 kg Intake: IV 200 / 200 48 / 48 Diprivan 1000 mg/100 ml Inj 1, 48 / 48 000 mg In 100 ml @ 5 MCG/KG/MIN 3 mls/hr IV.CONT TITRATE PRN Rx#:[id number] KCl 20 mEq Premix Inj 20 meq In 200 / 200 100 ml @ 50 mls/hr IV.SIG Q2H PRN Rx#:[id number] Oral 0 / 0 Oral Supplement 0 / 0 Tube Feeding 0 / 0 Water Bolus Amount 200 / 200 Output: Urine 1000 / 1000 Stool 0 / 0 0 / 0 Urine Amount (Catheter) 1000 / 1000 Indwelling Urethral Catheter 1000 / 1000 - Constitutional no acute distress - Routine Neck Exam Present: supple - Routine Respiratory Exam Present: CTA bilaterally - Routine Cardiovascular Exam Present: RRR, S1, S2 - Routine Extremities Exam Present: pulses intact - Urinary Catheter Management Indwelling Urethral Catheter Cath placed during this visit: yes Reason for continuing: Hourly intake/output Insertion date: 01/09/18 Insertion time: 19:14 Assessment and Plan - Assessment (1) CHF exacerbation Code(s): I50.9 - Heart failure, unspecified Status: Acute Plan: Improving, weaning off vent. (2) Aortic stenosis Code(s): I35.0 - Nonrheumatic aortic (valve) stenosis Status: Acute (3) S/P TAVR (transcatheter aortic valve replacement) Code(s): Z95.2 - Presence of prosthetic heart valve Status: Acute Plan: stable (4) Anemia Code(s): D64.9 - Anemia, unspecified Status: Acute (5) Ischemic cardiomyopathy Code(s): I25.5 - Ischemic cardiomyopathy Status: Acute Plan: ECHO results: The left ventricular systolic function is severely reduced with an estimated ejection fraction less than 20%. There is diffuse global hypokinesis with distinct regional wall motion abnormalities. Severely dilated left ventricle. Mild concentric left ventricular hypertrophy. The left atrial size is severely dilated. There is a pacemaker wire present in the right atrial cavity. Mitral annular calcification is present. Severe mitral valve regurgitation. There is an aortic valve prosthesis. Aortic valve area is 0.88 cm. Aortic valve mean gradient is 18 mmHg. Pacemaker wire is present within the right ventricular cavity. There is moderate tricuspid regurgitation. The estimated pulmonary arterial pressure is 63 mmHg. Mild pulmonary valve regurgitation. A left sided pleural effusion is present. (6) Hypoxia Code(s): R09.02 - Hypoxemia Status: Acute (7) V-tach Code(s): I47.2 - Ventricular tachycardia Status: Chronic Plan: NSVT, stable. S/P ICD (8) Mitral regurgitation Code(s): I34.0 - Nonrheumatic mitral (valve) insufficiency Status: Acute - Plan Continue diuresis. Monitor I&O, electrolytes, renal function. Continue beta vivi. Intolerance to ARB. Echo reviewed. Increase activity as tolerates. Discussed findings and plans with and staffing rn. Dr. King will see tomorrow 01/14. (1) CHF exacerbation Qualifiers: Heart failure type: unspecified Qualified Code(s): I50.9 - Heart failure, unspecified
[2018-01-13] MEDS: Chlorhexidine 0.12% Oral Kit 15 ML UDC OROPHARYNG SCH ×2 (09:19→21:01)
[2018-01-13] MEDS: Senna/Docusate Sodium 8.6/50 MG Tablet PO SCH ×2 (10:45→21:13)
[2018-01-13] MEDS: Famotidine PF Inj 20 MG/2 ML Vial IV.PUSH SCH ×2 (10:46→21:12)
[2018-01-13] MEDS: Budesonide-Formoterol 160/4.5 MCG 6 GM Inhaler INH SCH ×2 (10:47→21:13)
[2018-01-13] MEDS: EDOXABAN 30 MG PO SCH (10:47)
[2018-01-13] MEDS: Carvedilol 12.5 MG Tablet PO SCH ×2 (12:31→21:20)
[2018-01-14] MEDS: Insulin NovoLOG Aspart Correctional Sugar Inj SQ SCH ×7 (01:23→23:31)
[2018-01-14] MEDS: Oral Hygiene Kit OROPHARYNG SCH ×4 (01:23→18:11)
[2018-01-14] MEDS: Chlorhexidine Gluconate 2% 1 Pack (2 Cloths) TOPICAL SCH (05:17)
[2018-01-14 06:49] LABS: Calcium 8.5 mg/dL (8.5-10.1); Carbon Dioxide 37.6 meq/L (21.0-32.0); Phosphorus 4.6 mg/dL (2.5-4.9)
[2018-01-14 06:50] LABS: Baso % (Auto) 0.1 % (0.0-2.0); Hematocrit 28.4 % (39.0-51.0); Lymph # (Auto) 0.3 th/mm3 (1.0-4.8); Lymph % (Auto) 3.8 % (9.0-44.0); Mean Corpuscular HGB Conc 31.6 % (32.0-36.0); Mean Corpuscular Hemoglobin 29.8 pg (27.0-34.0); Mean Corpuscular Volume 94.1 fL (80.0-100.0); Mean Platelet Volume 9.2 fL (7.0-11.0); Mono # (Auto) 0.3 th/mm3 (0.0-0.9); Mono % (Auto) 3.9 % (0.0-8.0); Neut # (Auto) 7.8 th/mm3 (1.8-7.7); Neut % (Auto) 92.2 % (16.0-70.0); Platelet Count 174 th/mm3 (150-450); Red Blood Count 3.02 mil/mm3 (4.50-5.90); Red Cell Distribution Width 17.6 % (11.6-17.2); White Blood Count 8.4 th/mm3 (4.0-11.0)
[2018-01-14] MEDS: Famotidine PF Inj 20 MG/2 ML Vial IV.PUSH SCH ×2 (08:33→20:22)
[2018-01-14] MEDS: EDOXABAN 30 MG PO SCH (08:33)
[2018-01-14] MEDS: Senna/Docusate Sodium 8.6/50 MG Tablet PO SCH ×2 (08:33→20:22)
[2018-01-14] MEDS: Chlorhexidine 0.12% Oral Kit 15 ML UDC OROPHARYNG SCH ×2 (08:34→20:26)
[2018-01-14] MEDS: Budesonide-Formoterol 160/4.5 MCG 6 GM Inhaler INH SCH ×2 (08:35→20:22)
[2018-01-14] MEDS: Carvedilol 12.5 MG Tablet PO SCH ×2 (11:11→20:25)
[2018-01-14] MEDS: MethylPREDNISolone Sod Succinate Inj 125 MG/2 ML Vial IV.PUSH SCH ×3 (12:56→22:37)
--- NOTE | 2018-01-14 13:28 | P.PNCA ---
Subjective Interval history: The patient was extubated. He remains hemodynamically stable on nasal cannula. He denies SOB at rest, cough or wheezing. Edema improved. No chest pain or palpitation. Telemetry reveals sinus rhythm with runs of bigeminy and paced beats. He has had runs of NSVT. Physical Exam Vital signs: Vital Signs 01/13/18 14:00 01/13/18 16:00 01/13/18 16:27 Temperature Pulse Rate 76 69 59 L Respiratory Rate 24 28 H Blood Pressure 89/54 L Pulse Oximetry 93 L 94 L 01/13/18 17:00 01/13/18 17:06 01/13/18 18:00 Temperature Pulse Rate 56 L 75 57 L Respiratory Rate 23 23 24 Blood Pressure 96/53 L Pulse Oximetry 97 92 L 01/13/18 18:01 01/13/18 19:00 01/13/18 19:05 Temperature Pulse Rate 55 L 86 Respiratory Rate 13 23 Blood Pressure 102/55 L 135/55 L Pulse Oximetry 94 L 81 L 88 L 01/13/18 20:00 01/13/18 21:21 01/13/18 22:00 Temperature 98 F Pulse Rate 60 71 Respiratory Rate 17 Blood Pressure 108/51 L Pulse Oximetry 96 99 01/14/18 00:00 01/14/18 02:00 01/14/18 04:00 Temperature 98.3 F 98.3 F Pulse Rate 55 L 57 L 54 L Respiratory Rate 18 18 Blood Pressure 99/55 L 156/86 H Pulse Oximetry 98 98 01/14/18 04:41 01/14/18 04:42 01/14/18 06:00 Temperature Pulse Rate 73 50 L Respiratory Rate 20 Blood Pressure Pulse Oximetry 98 01/14/18 10:16 Temperature Pulse Rate 55 L Respiratory Rate 15 Blood Pressure Pulse Oximetry 96 Intake & Output 01/13/18 01/14/18 01/14/18 18:59 06:59 18:59 Intake Total 550 / 550 120 / 120 Output Total 850 / 850 600 / 600 Balance -300 / -300 -480 / -480 Weight 99 kg Intake: Oral 550 / 550 120 / 120 Oral Supplement 0 / 0 Tube Feeding 0 / 0 Tube Irrigant 0 / 0 Water Bolus Amount 0 / 0 Output: Urine 850 / 850 600 / 600 Stool 0 / 0 - Constitutional no acute distress - Routine HEENT Exam Head: Present: normocephalic, atraumatic Eye: Present: EOMI - Routine Neck Exam Present: supple - Routine Respiratory Exam Present: prolonged expiratory phase, rales - Routine Cardiovascular Exam Comments: RRR with ectopic beats - Routine Abdominal Exam Present: soft Comments: Abdominal ICD - Routine Extremities Exam Comments: No edema - Routine Skin Exam Present: intact - Routine Neurological Exam Present: alert, oriented X3 - Urinary Catheter Management Indwelling Urethral Catheter Cath placed during this visit: yes Reason for continuing: Hourly intake/output Insertion date: 01/09/18 Insertion time: 19:14 Assessment and Plan - Assessment (1) CHF exacerbation Code(s): I50.9 - Heart failure, unspecified Status: Acute (2) CKD (chronic kidney disease) stage 4, GFR 15-29 ml/min Code(s): N18.4 - Chronic kidney disease, stage 4 (severe) Status: Acute (3) COPD (chronic obstructive pulmonary disease) Code(s): J44.9 - Chronic obstructive pulmonary disease, unspecified Status: Acute (4) Ischemic cardiomyopathy Code(s): I25.5 - Ischemic cardiomyopathy Status: Acute (5) S/P TAVR (transcatheter aortic valve replacement) Code(s): Z95.2 - Presence of prosthetic heart valve Status: Acute - Plan Continue diuresis. Monitor I&O, electrolytes, renal function. Continue beta vivi. Intolerance to ARB. Increase activity as tolerates. The patient has recurrent CHF exacerbations requiring hospitalization. He will need outpatient CHF monitoring. The patient was seen and evaluated by Dr King who completed face to face encounter, physical exam and participated in evaluation and management. (1) CHF exacerbation Qualifiers: Heart failure type: unspecified Qualified Code(s): I50.9 - Heart failure, unspecified
--- NOTE | 2018-01-14 15:22 | P.PNIM ---
Subjective Interval history: Patient is resting in bed comfortably, on oxygen. He states he did not have much of a warning regarding his rapid onset of shortness of breath. He denies any slowly building up ankle edema, only gained 2 pounds according to the scale prior to his CHF exacerbation. Physical Exam Vital signs: Vital Signs 01/13/18 16:00 01/13/18 16:27 01/13/18 17:00 Temperature Pulse Rate 69 59 L 56 L Respiratory Rate 24 28 H 23 Blood Pressure 89/54 L 96/53 L Pulse Oximetry 93 L 94 L 97 01/13/18 17:06 01/13/18 18:00 01/13/18 18:01 Temperature Pulse Rate 75 57 L 55 L Respiratory Rate 23 24 13 Blood Pressure 102/55 L Pulse Oximetry 92 L 94 L 01/13/18 19:00 01/13/18 19:05 01/13/18 20:00 Temperature 98 F Pulse Rate 86 60 Respiratory Rate 23 17 Blood Pressure 135/55 L 108/51 L Pulse Oximetry 81 L 88 L 96 01/13/18 21:21 01/13/18 22:00 01/14/18 00:00 Temperature 98.3 F Pulse Rate 71 55 L Respiratory Rate 18 Blood Pressure 99/55 L Pulse Oximetry 99 98 01/14/18 02:00 01/14/18 04:00 01/14/18 04:41 Temperature 98.3 F Pulse Rate 57 L 54 L 73 Respiratory Rate 18 20 Blood Pressure 156/86 H Pulse Oximetry 98 01/14/18 04:42 01/14/18 06:00 01/14/18 10:16 Temperature Pulse Rate 50 L 55 L Respiratory Rate 15 Blood Pressure Pulse Oximetry 98 96 Intake & Output 01/13/18 01/14/18 01/14/18 18:59 06:59 18:59 Intake Total 550 / 550 120 / 120 Output Total 850 / 850 600 / 600 Balance -300 / -300 -480 / -480 Weight 99 kg Intake: Oral 550 / 550 120 / 120 Oral Supplement 0 / 0 Tube Feeding 0 / 0 Tube Irrigant 0 / 0 Water Bolus Amount 0 / 0 Output: Urine 850 / 850 600 / 600 Stool 0 / 0 Narrative: GENERAL: AAOx3, no acute distress SKIN: Warm and dry. No rashes HEAD: Atruamtic, normocephalic. EYES: No scleral icterus. No injection or drainage. ENT: Moist mucous membranes, patent nares, no erythema of oropharynx. NECK: Supple, trachea midline. No JVD or lymphadenopathy. Normal thyroid. CARDIOVASCULAR: Regular rate and rhythm. 1/6 systolic ejection murmur RESPIRATORY: Breath sounds clear equal bilaterally. Mild atelectatic sounds in bases. No accessory muscle use. GASTROINTESTINAL: Abdomen soft, non-tender, nondistended, normal active bowel sounds MUSCULOSKELETAL: No cyanosis, or edema. NEURO: CN II-XII grossly intact, no focal deficits, no slurring of speech - Urinary Catheter Management Indwelling Urethral Catheter Cath placed during this visit: yes, but has since been removed by the nurse Reason for continuing: Hourly intake/output Insertion date: 01/09/18 Insertion time: 19:14 Removal date: 01/13/18 Removal time: 18:30 Results - Labs CBC & Chem 7: 01/14/18 05:51 01/14/18 05:51 Laboratory Results - last 24 hr 01/10/18 01/13/18 01/13/18 09:12 17:21 20:58 WBC RBC Hgb Hct MCV MCH MCHC RDW Plt Count MPV Neut % (Auto) Lymph % (Auto) [place] % (Auto) Eos % (Auto) Baso % (Auto) Neut # (Auto) Lymph # (Auto) [place] # (Auto) Eos # (Auto) Baso # (Auto) WBC Differential Differential Comment Critical Value Yes Sodium Potassium Chloride Carbon Dioxide Anion Gap BUN Creatinine Estimated GFR POC Glucose 218 H 228 H Random Glucose Calcium Phosphorus Magnesium B-Natriuretic Peptide 01/14/18 01/14/18 01/14/18 00:37 05:11 05:51 WBC 8.4 RBC 3.02 L Hgb 9.0 L Hct 28.4 L MCV 94.1 MCH 29.8 MCHC 31.6 L RDW 17.6 H Plt Count 174 MPV 9.2 Neut % (Auto) 92.2 H Lymph % (Auto) 3.8 L [place] % (Auto) 3.9 Eos % (Auto) 0.0 Baso % (Auto) 0.1 Neut # (Auto) 7.8 H Lymph # (Auto) 0.3 L [place] # (Auto) 0.3 Eos # (Auto) 0.0 Baso # (Auto) 0.0 WBC Differential . Differential Comment Auto diff final Critical Value Sodium Potassium Chloride Carbon Dioxide Anion Gap BUN Creatinine Estimated GFR POC Glucose 208 H 190 H Random Glucose Calcium Phosphorus Magnesium B-Natriuretic Peptide 01/14/18 01/14/18 01/14/18 05:51 05:51 08:30 WBC RBC Hgb Hct MCV MCH MCHC RDW Plt Count MPV Neut % (Auto) Lymph % (Auto) [place] % (Auto) Eos % (Auto) Baso % (Auto) Neut # (Auto) Lymph # (Auto) [place] # (Auto) Eos # (Auto) Baso # (Auto) WBC Differential Differential Comment Critical Value Sodium 143 Potassium 4.0 Chloride 99 Carbon Dioxide 37.6 H Anion Gap 6 BUN 57 H Creatinine 1.53 H Estimated GFR 45 L POC Glucose 178 H Random Glucose 166 H Calcium 8.5 Phosphorus 4.6 Magnesium 3.0 H B-Natriuretic Peptide 630 H 01/14/18 12:06 WBC RBC Hgb Hct MCV MCH MCHC RDW Plt Count MPV Neut % (Auto) Lymph % (Auto) [place] % (Auto) Eos % (Auto) Baso % (Auto) Neut # (Auto) Lymph # (Auto) [place] # (Auto) Eos # (Auto) Baso # (Auto) WBC Differential Differential Comment Critical Value Sodium Potassium Chloride Carbon Dioxide Anion Gap BUN Creatinine Estimated GFR POC Glucose 334 H Random Glucose Calcium Phosphorus Magnesium B-Natriuretic Peptide Microbiology 01/09/18 19:00 Blood - Peripheral Aerobic Blood Culture - Final No growth in 5 days 01/09/18 19:00 Blood - Peripheral Anaerobic Blood Culture - Final No growth in 5 days Assessment and Plan - Plan Acute CHF exacerbation Onset was unexpected, following 2 pounds of weight gain, patient was exerting himself prior to onset of symptoms Echocardiogram shows ejection fraction of less than 20% Continuing diuresis with Lasix Continue Coreg, aspirin Appreciate cardiology consult COPD Next exacerbation, patient uses 3 L via nasal cannula oxygen at home Continue with oxygen, Solu-Medrol 60 every 8 hours, Symbicort, duo nebs Follow-up blood cultures Acute renal insufficiency Resolving DVT prophylaxis Edoxaban
[2018-01-15 03:48] LABS: Hematocrit 28.6 % (39.0-51.0); Hemoglobin 9.2 gm/dL (13.0-17.0); Mean Corpuscular HGB Conc 32.3 % (32.0-36.0); Mean Corpuscular Hemoglobin 29.7 pg (27.0-34.0); Mean Corpuscular Volume 91.8 fL (80.0-100.0); Mean Platelet Volume 9.6 fL (7.0-11.0); Platelet Count 207 th/mm3 (150-450); Red Blood Count 3.11 mil/mm3 (4.50-5.90); Red Cell Distribution Width 17.7 % (11.6-17.2); White Blood Count 9.5 th/mm3 (4.0-11.0)
[2018-01-15 04:15] LABS: Calcium 8.3 mg/dL (8.5-10.1); Carbon Dioxide 38.1 meq/L (21.0-32.0); Potassium 3.8 meq/L (3.5-5.1)
[2018-01-15] MEDS: Oral Hygiene Kit OROPHARYNG SCH ×3 (05:04→17:04)
[2018-01-15] MEDS: Insulin NovoLOG Aspart Correctional Sugar Inj SQ SCH ×5 (05:04→21:13)
[2018-01-15] MEDS: MethylPREDNISolone Sod Succinate Inj 125 MG/2 ML Vial IV.PUSH SCH (05:58)
[2018-01-15] MEDS: Famotidine PF Inj 20 MG/2 ML Vial IV.PUSH SCH ×2 (09:25→21:05)
[2018-01-15] MEDS: Budesonide-Formoterol 160/4.5 MCG 6 GM Inhaler INH SCH ×2 (09:25→21:07)
[2018-01-15] MEDS: Senna/Docusate Sodium 8.6/50 MG Tablet PO SCH ×2 (09:25→21:05)
[2018-01-15] MEDS: Carvedilol 12.5 MG Tablet PO SCH ×2 (09:49→21:05)
[2018-01-15] MEDS: Chlorhexidine 0.12% Oral Kit 15 ML UDC OROPHARYNG SCH ×2 (09:49→21:07)
[2018-01-15] MEDS: EDOXABAN 30 MG PO SCH (09:53)
--- NOTE | 2018-01-15 13:03 | P.PNCA ---
Subjective Interval history: He was transferred out of ICU. He admits to increased BLE edema today. He has SOB with minimal exertion. He continues to have some orthopnea symptoms and cough with noriega-colored sputum. He denies CP or palpitation. No further NSVT on telemetry. No I&O negative, weight decreased compared to admission. Physical Exam Vital signs: Vital Signs 01/14/18 14:00 01/14/18 16:00 01/14/18 18:00 Temperature 98.1 F Pulse Rate 65 50 L 56 L Respiratory Rate 20 Blood Pressure 151/64 H Pulse Oximetry 100 01/14/18 20:00 01/14/18 21:16 01/14/18 23:20 Temperature 97.3 F L Pulse Rate 69 76 52 L Respiratory Rate 18 Blood Pressure 113/63 Pulse Oximetry 93 L 92 L 01/14/18 23:25 01/15/18 00:57 01/15/18 03:51 Temperature 98.2 F Pulse Rate 50 L 54 L 68 Respiratory Rate 18 Blood Pressure 121/58 L Pulse Oximetry 93 L 01/15/18 04:38 01/15/18 08:00 01/15/18 09:43 Temperature 97.2 F L 98.2 F Pulse Rate 69 67 Respiratory Rate 18 20 Blood Pressure 106/52 L 119/75 Pulse Oximetry 99 97 97 01/15/18 10:00 Temperature Pulse Rate 55 L Respiratory Rate Blood Pressure Pulse Oximetry Intake & Output 01/14/18 01/15/18 01/15/18 18:59 06:59 18:59 Intake Total 650 / 650 360 / 360 240 / 240 Output Total 800 / 800 575 / 575 300 / 300 Balance -150 / -150 -215 / -215 -60 / -60 Weight 99 kg Intake: Oral 650 / 650 360 / 360 240 / 240 Output: Urine 800 / 800 575 / 575 300 / 300 Other: # Voids 1 Date of Last Bowel Movement 01/12/18 01/14/18 # Bowel Movements 0 - Constitutional no acute distress - Routine HEENT Exam Head: Present: normocephalic, atraumatic Eye: Present: EOMI ENT: Present: mucous membranes moist - Routine Neck Exam Present: supple - Routine Respiratory Exam Present: rales - Routine Cardiovascular Exam Present: RRR Comments: Abdominal ICD - Routine Abdominal Exam Present: soft - Routine Extremities Exam Present: edema - Routine Neurological Exam Present: alert, oriented X3 - Urinary Catheter Management Indwelling Urethral Catheter Cath placed during this visit: yes, but has since been removed by the nurse Reason for continuing: Hourly intake/output Insertion date: 01/09/18 Insertion time: 19:14 Removal date: 01/13/18 Removal time: 18:30 Assessment and Plan - Assessment (1) CHF exacerbation Code(s): I50.9 - Heart failure, unspecified Status: Acute (2) COPD (chronic obstructive pulmonary disease) Code(s): J44.9 - Chronic obstructive pulmonary disease, unspecified Status: Acute (3) Ischemic cardiomyopathy Code(s): I25.5 - Ischemic cardiomyopathy Status: Chronic (4) S/P TAVR (transcatheter aortic valve replacement) Code(s): Z95.2 - Presence of prosthetic heart valve Status: Chronic (5) CKD (chronic kidney disease) stage 3, GFR 30-59 ml/min Code(s): N18.3 - Chronic kidney disease, stage 3 (moderate) Status: Chronic - Plan Continue diuresis IV. Monitor I&O, electrolytes, renal function. Continue beta vivi. Intolerance to ARB. Increase activity as tolerates. The patient has recurrent CHF exacerbations requiring hospitalization. He will need outpatient CHF monitoring. The patient was seen and evaluated by Dr Levy who completed face to face encounter, physical exam and participated in evaluation and management. ABOVE, PATIENT INTERVIEWED AND EXAMINED WITH AT BEDSIDE. CONTINUES TO DO WELL. NO COMPLAINTS OF CHEST PAIN OR SOB CONTINUE NEGATIVE FLUID BALANCE SBP AND CREATININE TOLERATES. (1) CHF exacerbation Qualifiers: Heart failure type: systolic Qualified Code(s): I50.23 - Acute on chronic systolic (congestive) heart failure
--- NOTE | 2018-01-15 13:30 | P.PNIM ---
Subjective Interval history: Follow-up for COPD and CHF exacerbation Patient stated that his breathing has improved drastically. His is at the bedside during the interview. He had a lot of question in regards to preventing CHF. Patient remains afebrile. Patient stated that he has been using incentive spirometry which is helping him cough up mucus. Physical Exam Vital signs: Vital Signs 01/14/18 14:00 01/14/18 16:00 01/14/18 18:00 Temperature 98.1 F Pulse Rate 65 50 L 56 L Respiratory Rate 20 Blood Pressure 151/64 H Pulse Oximetry 100 01/14/18 20:00 01/14/18 21:16 01/14/18 23:20 Temperature 97.3 F L Pulse Rate 69 76 52 L Respiratory Rate 18 Blood Pressure 113/63 Pulse Oximetry 93 L 92 L 01/14/18 23:25 01/15/18 00:57 01/15/18 03:51 Temperature 98.2 F Pulse Rate 50 L 54 L 68 Respiratory Rate 18 Blood Pressure 121/58 L Pulse Oximetry 93 L 01/15/18 04:38 01/15/18 08:00 01/15/18 09:43 Temperature 97.2 F L 98.2 F Pulse Rate 69 67 Respiratory Rate 18 20 Blood Pressure 106/52 L 119/75 Pulse Oximetry 99 97 97 01/15/18 10:00 Temperature Pulse Rate 55 L Respiratory Rate Blood Pressure Pulse Oximetry Intake & Output 01/14/18 01/15/18 01/15/18 18:59 06:59 18:59 Intake Total 650 / 650 360 / 360 240 / 240 Output Total 800 / 800 575 / 575 300 / 300 Balance -150 / -150 -215 / -215 -60 / -60 Weight 99 kg Intake: Oral 650 / 650 360 / 360 240 / 240 Output: Urine 800 / 800 575 / 575 300 / 300 Other: # Voids 1 Date of Last Bowel Movement 01/12/18 01/14/18 # Bowel Movements 0 - Constitutional no acute distress - Routine Respiratory Exam Present: CTA bilaterally - Routine Cardiovascular Exam Present: RRR, S1, S2 Comments: No rubs murmurs or gallops. - Routine Abdominal Exam Present: soft, normoactive bowel sounds Comments: Negative for any tenderness palpation. - Routine Extremities Exam Comments: +1 lower extremity edema - Routine Neurological Exam Present: alert, oriented X3 - Urinary Catheter Management Indwelling Urethral Catheter Cath placed during this visit: yes, but has since been removed by the nurse Reason for continuing: Hourly intake/output Insertion date: 01/09/18 Insertion time: 19:14 Removal date: 01/13/18 Removal time: 18:30 Results - Labs CBC & Chem 7: 01/15/18 03:37 01/15/18 03:37 Laboratory Results - last 24 hr 01/10/18 01/14/18 01/14/18 09:12 18:10 19:54 WBC RBC Hgb Hct MCV MCH MCHC RDW Plt Count MPV Critical Value Yes Sodium Potassium Chloride Carbon Dioxide Anion Gap BUN Creatinine Estimated GFR POC Glucose 164 H 212 H Random Glucose Calcium 01/14/18 01/15/18 01/15/18 23:28 03:37 03:37 WBC 9.5 RBC 3.11 L Hgb 9.2 L Hct 28.6 L MCV 91.8 MCH 29.7 MCHC 32.3 RDW 17.7 H Plt Count 207 MPV 9.6 Critical Value Sodium 142 Potassium 3.8 Chloride 97 L Carbon Dioxide 38.1 H Anion Gap 7 BUN 57 H Creatinine 1.41 H Estimated GFR 49 L POC Glucose 173 H Random Glucose 161 H Calcium 8.3 L 01/15/18 01/15/18 01/15/18 04:33 09:21 13:19 WBC RBC Hgb Hct MCV MCH MCHC RDW Plt Count MPV Critical Value Sodium Potassium Chloride Carbon Dioxide Anion Gap BUN Creatinine Estimated GFR POC Glucose 172 H 187 H 298 H Random Glucose Calcium Microbiology 01/09/18 19:00 Blood - Peripheral Aerobic Blood Culture - Final No growth in 5 days 01/09/18 19:00 Blood - Peripheral Anaerobic Blood Culture - Final No growth in 5 days Assessment and Plan - Plan This is a 72-year-old male with history of CHF, COPD, and chronic respiratory failure on 3 L of home oxygen who presented with shortness of breathing Acute CHF exacerbation Onset was unexpected, following 2 pounds of weight gain, patient was exerting himself prior to onset of symptoms Echocardiogram shows ejection fraction of less than 20% Lie Detector Operator consulted and following. Clinically patient is improving per lead ramp agent continue with IV Lasix. Continue Coreg, aspirin COPD exacerbation/chronic respiratory failure on 3 L of oxygen at home Improving. patient uses 3 L [facility] 20 mg p.o. twice daily. Continue with nebulizers. Follow-up blood cultures Acute renal insufficiency Resolving DVT prophylaxis Edoxaban
--- NOTE | 2018-01-15 14:35 | P.DCO ---
- Diagnosis (2) CHF exacerbation - Physical Therapy Order: Evaluate and treat, Improve ambulation, Strength and gait training - Home Health Nursing Order: Medical education, Signs/symptoms of disease process, CHF education, Oxygen administration education, Medication education-adverse effect, Nursing assessment with vital signs - Case Management Consult Yes - Certification I have seen patient Edu Callejas on 01/15/18. My clinical findings support the need for the requested home health care services because: Limited mobility due to disease progression, Patient has SOB, Deconditioned with increased weakness I certify that my clinical findings support that this patient is homebound because: Hx COPD - exertion dyspnea/weakness, Poor cardiac reserve (2) CHF exacerbation Qualifiers: Heart failure type: systolic Qualified Code(s): I50.23 - Acute on chronic systolic (congestive) heart failure
[2018-01-15] MEDS: Spironolactone 25 MG Tablet PO SCH (17:04)
[2018-01-15] MEDS: predniSONE 20 MG Tablet PO SCH (21:05)
[2018-01-16] MEDS: Insulin NovoLOG Aspart Correctional Sugar Inj SQ SCH ×4 (00:18→12:49)
[2018-01-16] MEDS: Oral Hygiene Kit OROPHARYNG SCH ×3 (00:19→12:50)
[2018-01-16 04:35] VITALS: O2SAT 99
[2018-01-16 06:36] LABS: Carbon Dioxide 38.4 meq/L (21.0-32.0); Potassium 3.7 meq/L (3.5-5.1)
[2018-01-16] MEDS: EDOXABAN 30 MG PO SCH (09:35)
[2018-01-16] MEDS: Spironolactone 25 MG Tablet PO SCH (09:35)
[2018-01-16] MEDS: Senna/Docusate Sodium 8.6/50 MG Tablet PO SCH (09:35)
[2018-01-16] MEDS: Carvedilol 12.5 MG Tablet PO SCH (09:36)
[2018-01-16] MEDS: Chlorhexidine 0.12% Oral Kit 15 ML UDC OROPHARYNG SCH (09:36)
[2018-01-16] MEDS: predniSONE 20 MG Tablet PO SCH (09:38)
[2018-01-16] MEDS: Famotidine PF Inj 20 MG/2 ML Vial IV.PUSH SCH (09:38)
[2018-01-16] MEDS: Budesonide-Formoterol 160/4.5 MCG 6 GM Inhaler INH SCH (09:39)
[2018-01-16 10:10] VITALS: PULSE 50; RESP 16
--- NOTE | 2018-01-16 11:05 | P.PNIM ---
Subjective Interval history: Follow up COPD and CHF. Patient is sitting up in chair, doing well. Denies any sob, or chest pain. Tolerating diet and feels good to go home with [facility]. Physical Exam Vital signs: Vital Signs 01/15/18 12:00 01/15/18 14:00 01/15/18 15:57 Temperature 98.0 F Pulse Rate 55 L 62 60 Respiratory Rate 18 12 Blood Pressure 114/58 L Pulse Oximetry 95 01/15/18 16:00 01/15/18 18:00 01/15/18 20:00 Temperature 98.0 F Pulse Rate 73 62 62 Respiratory Rate 18 18 Blood Pressure 134/60 102/58 L Pulse Oximetry 94 L 98 01/15/18 22:00 01/16/18 00:00 01/16/18 04:00 Temperature 97.2 F L 97.4 F L Pulse Rate 62 49 L 50 L Respiratory Rate 16 18 Blood Pressure 95/54 L 97/50 L Pulse Oximetry 98 99 01/16/18 06:00 01/16/18 10:08 Temperature Pulse Rate 54 L 50 L Respiratory Rate 16 Blood Pressure Pulse Oximetry 99 Intake & Output 01/15/18 01/16/18 01/16/18 18:59 06:59 18:59 Intake Total 960 / 960 720 / 720 Output Total 750 / 750 750 / 750 Balance 210 / 210 -30 / -30 Weight 97.5 kg Intake: Oral 960 / 960 720 / 720 Output: Urine 750 / 750 750 / 750 Other: # Voids 3 Date of Last Bowel Movement 01/14/18 01/15/18 # Bowel Movements 1 Narrative: GENERAL: This is a well-nourished, well-developed patient, in no apparent distress. CARDIOVASCULAR: Regular rate and rhythm without murmurs, gallops, or rubs. RESPIRATORY: Clear to auscultation. Breath sounds equal bilaterally. No wheezes , rales, or rhonchi. GASTROINTESTINAL: Abdomen soft, non-tender, nondistended. Normal active bowel sounds MUSCULOSKELETAL: Extremities without clubbing, cyanosis, or edema. NEURO: Alert & Oriented x4 to person, place, time, situation. Moves all ext x4 - Urinary Catheter Management Indwelling Urethral Catheter Cath placed during this visit: yes, but has since been removed by the nurse Reason for continuing: Hourly intake/output Insertion date: 01/09/18 Insertion time: 19:14 Removal date: 01/13/18 Removal time: 18:30 Results - Labs CBC & Chem 7: 01/15/18 03:37 01/16/18 05:28 Laboratory Results - last 24 hr 01/15/18 01/15/18 01/15/18 13:19 16:55 21:04 Sodium Potassium Chloride Carbon Dioxide Anion Gap BUN Creatinine Estimated GFR POC Glucose 298 H 212 H 206 H Random Glucose Calcium 01/16/18 01/16/18 01/16/18 00:16 04:26 05:28 Sodium 141 Potassium 3.7 Chloride 96 L Carbon Dioxide 38.4 H Anion Gap 7 BUN 57 H Creatinine 1.43 H Estimated GFR 48 L POC Glucose 147 H 166 H Random Glucose 150 H Calcium 8.0 L 01/16/18 07:47 Sodium Potassium Chloride Carbon Dioxide Anion Gap BUN Creatinine Estimated GFR POC Glucose 156 H Random Glucose Calcium Assessment and Plan - Assessment (1) Chronic respiratory failure Code(s): J96.10 - Chronic respiratory failure, unspecified whether with hypoxia or hypercapnia Status: Acute (2) CHF exacerbation Code(s): I50.9 - Heart failure, unspecified Status: Acute (3) CKD (chronic kidney disease) stage 4, GFR 15-29 ml/min Code(s): N18.4 - Chronic kidney disease, stage 4 (severe) Status: Chronic (4) CHF (congestive heart failure) Code(s): I50.9 - Heart failure, unspecified Status: Acute (5) Hypoxia Code(s): R09.02 - Hypoxemia Status: Acute (6) COPD (chronic obstructive pulmonary disease) Code(s): J44.9 - Chronic obstructive pulmonary disease, unspecified Status: Acute (7) Renal insufficiency Code(s): N28.9 - Disorder of kidney and ureter, unspecified Status: Acute - Plan This is a 72-year-old male with history of CHF, COPD, and chronic respiratory failure on 3 L of home oxygen who presented with shortness of breathing Acute CHF exacerbation, improving Onset was unexpected, following 2 pounds of weight gain, patient was exerting himself prior to onset of symptoms Echocardiogram shows ejection fraction of less than 20% Fisher Quahog consulted and following. 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 patient uses 3 L via nasal cannula oxygen at home Will DC Solu-Medrol and start prednisone 20 mg p.o. twice daily, cont for 4 days once discharged. Continue with nebulizers. Blood cultures show no growth Acute renal insufficiency Resolving DVT prophylaxis Edoxaban Discussed Condition With: Patient and geographic information systems director Planning: Once cleared by cardiology and [facility] is set up (2) CHF exacerbation Qualifiers: Heart failure type: systolic Qualified Code(s): I50.23 - Acute on chronic systolic (congestive) heart failure
[2018-01-16 11:46] VITALS: BP 108/53; TEMP 98
--- NOTE | 2018-01-16 14:17 | P.DS ---
Date of admission: 01/09/18 20:25 Primary care physician: Marquez Fields MD Brief History from admission: 72-year-old male presents for shortness of breath. EMS states that he was going to come to the emergency department for shortness of breath via private vehicle, however, shortness of breath had progressed and he called EMS. EMS states when they arrived the patient was awake, alert, and oriented. The patient was placed on oxygen, however, his breathing progressively worsened in route to the emergency department. According to EMS the patient has a history of congestive heart failure and COPD, uses inhalers at home. In route to the hospital the patient became more lethargic and unresponsive, they started bagging the patient via bag valve ventilation as he arrived in the emergency department. The patient was unable to answer any questions or follow commands upon arrival and was emergently intubated by ED attending. DS: Diagnosis - Discharge Diagnosis (1) Chronic respiratory failure Status: Acute (2) CHF exacerbation Status: Acute (3) CKD (chronic kidney disease) stage 4, GFR 15-29 ml/min Status: Chronic (4) CHF (congestive heart failure) Status: Acute (5) Hypoxia Status: Acute (6) COPD (chronic obstructive pulmonary disease) Status: Acute (7) Renal insufficiency Status: Acute DS: Medications - Discharge Medications Prescriptions: prednisone 20 mg PO BID #8 tab DS: Summary Hospital Course: This is a 72-year-old male with history of CHF, COPD, and chronic respiratory failure on 3 L of home oxygen who presented with shortness of breathing Acute CHF exacerbation, improving Onset was unexpected, following 2 pounds of weight gain, patient was exerting himself prior to onset of symptoms Echocardiogram shows ejection fraction of less than 20% Fur Sorter consulted and following. Clinically patient is improving per family day carer continue with IV Lasix, cleared by cardiology for follow up outpatient, cont home lasix Continue home Coreg, aspirin COPD exacerbation/chronic respiratory failure on 3 L of oxygen at home Improving. patient uses 3 L via nasal cannula oxygen at home Will DC Solu-Medrol and start prednisone 20 mg p.o. twice daily, cont for 4 days once discharged. Continue with nebulizers. Blood cultures show no growth Acute renal insufficiency 1.7-->1.4, baseline 1.5 Resolving, back to baseline, cont to monitor and follow up with PCP - Time Spent with Patient Total time spent providing and/or coordinating discharge services: Greater than 30 minutes - Quality: VTE Deep Vein Thrombosis/Pulmonary Embolism Present on Admission: No Exam Vital signs: Vital Signs 01/15/18 15:57 01/15/18 16:00 01/15/18 18:00 Temperature Pulse Rate 60 73 62 Respiratory Rate 12 18 Blood Pressure 134/60 Pulse Oximetry 94 L 01/15/18 20:00 01/15/18 22:00 01/16/18 00:00 Temperature 98.0 F 97.2 F L Pulse Rate 62 62 49 L Respiratory Rate 18 16 Blood Pressure 102/58 L 95/54 L Pulse Oximetry 98 98 01/16/18 04:00 01/16/18 06:00 01/16/18 08:00 Temperature 97.4 F L 98 F Pulse Rate 50 L 54 L 54 L Respiratory Rate 18 18 Blood Pressure 97/50 L 108/53 L Pulse Oximetry 99 94 L 01/16/18 10:08 Temperature Pulse Rate 50 L Respiratory Rate 16 Blood Pressure Pulse Oximetry 99 Intake & Output 01/15/18 01/16/18 01/16/18 18:59 06:59 18:59 Intake Total 960 / 960 720 / 720 Output Total 750 / 750 750 / 750 Balance 210 / 210 -30 / -30 Weight 97.5 kg Intake: Oral 960 / 960 720 / 720 Output: Urine 750 / 750 750 / 750 Other: # Voids 3 Date of Last Bowel Movement 01/14/18 01/15/18 # Bowel Movements 1 Results Procedures completed during hospitalization: none Labs on day of discharge: Labs from last 24 hours 01/16/18 01/16/18 01/16/18 12:36 07:47 05:28 Sodium 141 Potassium 3.7 Chloride 96 L Carbon Dioxide 38.4 H Anion Gap 7 BUN 57 H Creatinine 1.43 H Estimated GFR 48 L POC Glucose 143 H 156 H Random Glucose 150 H Calcium 8.0 L 01/16/18 01/16/18 01/15/18 04:26 00:16 21:04 Sodium Potassium Chloride Carbon Dioxide Anion Gap BUN Creatinine Estimated GFR POC Glucose 166 H 147 H 206 H Random Glucose Calcium 01/15/18 16:55 Sodium Potassium Chloride Carbon Dioxide Anion Gap BUN Creatinine Estimated GFR POC Glucose 212 H Random Glucose Calcium - Impressions ITS Impressions Chest X-Ray 01/11/18 08:04 CONCLUSION: Stable appearance of the chest. Discharge Plan - Discharge Disposition Patient Disposition: Disch W/Home Health Service - Discharge Condition Condition: Critical - Discharge Order Discharge Orders: Discharge Order (Routine); Ordered 01/16/18 Ordered By: Nella Cerda - Discharge Details Anticipated Discharge Date: 01/16/18 - Physicians Team Primary Care Provider: Marquez Fields Attending Provider: Joo Franco Other Providers: Romel Hooks MD ; North Goins MD
== END 2018-01-16 15:02 | disposition home health service (06) ==
LOC: NEPE 18:31 → NEDA 20:25 → HIMC 21:45 → N06 01-14 21:11
PROVIDERS: ADMIT Internal Medicine; ATTEND Internal Medicine

== ENCOUNTER 2018-03-01 15:14 | Inpatient (IN) ==
--- NOTE | 2018-03-01 15:30 | ED ---
HPI General Chief complaint: Respiratory Symptoms Stated complaint: SOB Time Seen by Provider: 03/01/18 15:26 Source: patient Mode of arrival: ambulatory Limitations: no limitations History of Present Illness HPI narrative: 72-year-old male patient with history of CAD, pacemaker, CHF, multiple medical issues, following with Dr. King, presents to the ER today because he has had several days history of worsening dyspnea on exertion, shortness of breath, orthopnea.. 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 He has been taking Lasix and Bumex is normal. They deny any fevers , vomiting, abdominal pains, or other symptoms. He admits that his legs have been more swollen recently. Related Data Home Medications Medication Instructions Recorded Confirmed edoxaban 60 mg PO DAILY NEB 12/15/17 03/01/18 Previous Rx's Medication Instructions Recorded aspirin 81 mg PO DAILY #30 tab 12/17/17 carvedilol [Coreg] 25 mg PO BID #60 tab 12/17/17 furosemide 40 mg PO BID@0900,1800 #60 tab 12/18/17 Allergies Allergy/AdvReac Type Severity Reaction Status Date / Time sacubitril AdvReac Intermediate Shortness Verified 01/22/18 17:32 of Breath valsartan AdvReac Intermediate Shortness Verified 01/22/18 17:32 of Breath Review of Systems ROS: all other systems reviewed are negative FOR[facility]LY [facility], [facility] Medical History Medical History COPD (chronic obstructive pulmonary disease) (Acute) CHF (congestive heart failure) (Acute) Aortic stenosis (Chronic) V-tach (Chronic) Arteriosclerotic heart disease (ASHD) (Chronic) A-fib (Acute) Social History Social History Substance History: No History of Abuse Second Hand Smoke Exposure: No Smoking Status: Former smoker Tobacco Type: Cigarettes How Often Do You Have a Drink Containing Alcohol: Never Recent Travel in [facility] within the Last 8 Weeks: No Recent Out of Country Travel within the Last 8 Weeks: No Immunization History Tetanus Immunization: <5 Years Exam Narrative Exam Narrative: GENERAL: Well-developed elderly male patient currently in mild distress. Awake and oriented x3. SKIN: Focused skin assessment warm/dry. HEAD: Atraumatic. Normocephalic. EYES: Pupils equal and round. No scleral icterus. No injection or drainage. ENT: No nasal bleeding or discharge. Mucous membranes pink and moist. NECK: Trachea midline. No JVD. CARDIOVASCULAR: Regular rate and rhythm. No murmur appreciated. RESPIRATORY: Mild accessory muscle use. Decreased at the bases bilaterally. Breath sounds equal bilaterally. GASTROINTESTINAL: Abdomen soft, non-tender, nondistended. Hepatic and splenic margins not palpable. MUSCULOSKELETAL: No obvious deformities. No clubbing. No cyanosis. Bilateral pitting edema of the legs. NEUROLOGICAL: Awake and alert. No obvious cranial nerve deficits. Motor grossly within normal limits. Normal speech. PSYCHIATRIC: Appropriate mood and affect; insight and judgment normal. Course Initial Documented Vital Signs Temperature 96.4 F L 03/01/18 15:15 Pulse Rate 49 L 03/01/18 15:15 Respiratory Rate 34 H 03/01/18 15:15 Blood Pressure 157/70 H 03/01/18 15:15 Pulse Oximetry 93 L 03/01/18 15:15 Last Documented Vital Signs Temperature 96.4 F L 03/01/18 15:15 Pulse Rate 49 L 03/01/18 15:15 Respiratory Rate 34 H 03/01/18 15:15 Blood Pressure 157/70 H 03/01/18 15:15 Pulse Oximetry 100 03/01/18 15:56 Medical Decision Making MDM Narrative Medical decision making narrative: Chest x-ray shows significant pulmonary edema. BNP is 2800. BiPAP was initiated in the ER. Lasix was given in the. And at this point, my plan would be to admit him for further treatment. Case is discussed with Dr. Brian for admission. Medical Screen Exam Complete: Yes Emergency Medical Condition: Yes Differential Diagnosis Differential Diagnosis: CHF exacerbation versus pneumonia versus dysrhythmias versus COPD Lab Data Lab results reviewed: Yes I reviewed the patient's lab results. Result diagrams: 03/01/18 15:30 Lab Results 03/01/18 03/01/18 Range/Units 15:30 15:30 Sodium 137 (136-145) meq/L Potassium 3.9 (3.5-5.1) meq/L Chloride 96 L (98-107) meq/L Carbon Dioxide 31.6 (21.0-32.0) meq/L Anion Gap 9 (5-15) meq/L BUN 31 H (7-18) mg/dL Creatinine 1.77 H (0.60-1.30) mg/dL Estimated GFR 38 L (>89) mL/min Random Glucose 189 H (74-106) mg/dL Calcium 8.3 L (8.5-10.1) mg/dL Total Bilirubin 0.8 (0.2-1.0) mg/dL AST 29 (15-37) U/L ALT 46 (12-78) U/L Alkaline Phosphatase 79 (45-117) U/L Troponin I 0.03 (0.02-0.05) ng/mL B-Natriuretic Peptide 2834 H (0-100) pg/mL Total Protein 7.6 (6.4-8.2) g/dL Albumin 3.3 L (3.4-5.0) g/dL Imaging Data Attestation: I personally reviewed and interpreted this imaging study as follows : Radiologist's impression: Chest X-Ray 03/01/18 15:26 CONCLUSION: 1. Mild to moderate pulmonary vascular congestion. 2. Cardiomegaly. Discharge Plan Discharge Disposition Patient Disposition: 30 Still Patient Discharge Condition Condition: Good Discharge Details Anticipated Discharge Date: 03/01/18 Diagnosis: CHF (congestive heart failure) Physicians Team ED Provider: Lawrence Beauchamp Primary Care Provider: Marquez Fields Rxs /Orders / Referrals /Forms Prescriptions: No Action edoxaban 60 mg PO DAILY NEB RF: 0 carvedilol [Coreg] 12.5 mg Tablet 25 mg PO BID Qty: 60 RF: 0 aspirin 81 mg Tablet,Delayed Release (Dr/Ec) 81 mg PO DAILY Qty: 30 RF: 0 furosemide 40 mg Tablet 40 mg PO BID@0900,1800 Qty: 60 RF: 0 Status ED Status: With Doctor
--- NOTE | 2018-03-01 15:53 | XR ---
EXAM DATE: 03/01/2018 3:26 PM EDT AGE/SEX: 72 years / Male INDICATIONS: Short of breath. CLINICAL DATA: This is the patient's initial encounter. Patient reports that signs and symptoms have been present for 1 day and indicates a pain score of 6/10. MEDICAL/SURGICAL HISTORY: None. None. COMPARISON: Chest x-ray dated 01/22/2018. FINDINGS: The heart is enlarged. Mild to moderate pulmonary vascular congestion is noted. Left subclavian pacem matthew has its tip in the left ventricle. Valve stent is noted overlying the cardiac shadow. Small righ t pleural effusion is noted. CONCLUSION: 1. Mild to moderate pulmonary vascular congestion. 2. Cardiomegaly. Electronically signed by: Bob Ernst MD 03/01/2018 3:52 PM EDT
[2018-03-01 16:07] LABS: Alanine Aminotransferase 46 U/L (12-78); Albumin 3.3 g/dL (3.4-5.0); Anion Gap 9 meq/L (5-15); Aspartate Aminotransferase 29 U/L (15-37); Blood Urea Nitrogen 31 mg/dL (7-18); Calcium 8.3 mg/dL (8.5-10.1); Carbon Dioxide 31.6 meq/L (21.0-32.0); Chloride 96 meq/L (98-107); Glomerular Filtration Rate 38 mL/min (>89); Glucose,Random 189 mg/dL (74-106); Potassium 3.9 meq/L (3.5-5.1); Sodium 137 meq/L (136-145)
[2018-03-01 16:11] LABS: Alkaline Phosphatase 79 U/L (45-117); Total Protein 7.6 g/dL (6.4-8.2); Troponin I 0.03 ng/mL (0.02-0.05)
[2018-03-01] MEDS ORDERED: Acetaminophen 325 MG Tablet PO PRN (16:36)
--- NOTE | 2018-03-01 17:13 | P.HP ---
History of Present Illness Primary Care Physician: Marquez Fields MD History of Present Illness: 72-year-old male with a history of systolic CHF, atrial fib, V. tach, CAD, COPD presents to the ER with shortness of breath. 3 days ago he saw his uc architect after his defibrillator fired off and when it was interrogated there may have been a dysrhythmia which prompted cardiology to change his carvedilol to sotalol. Since that time he has had increasing ankle edema and onset of mild shortness of breath yesterday that became moderate to severe today. He has waited "too long" in the past and decided to come in earlier than later today. On presentation he had hypoxemia and was placed on BiPAP which has helped him breathe more comfortably. He denies any recent infections , denies fevers, denies upper respiratory symptoms or cough. He denies any change to his urinary habits, denies any new foods, denies any new medications aside from what was mentioned above. He denies any chest pain or diaphoresis. In the last year he has lost 50 pounds due to changing to a lower calorie diet. Review of Systems All other systems reviewed negative except as stated in HPI PMFSH - History History Provided By: Patient - Medical History Medical History: Medical History (Last Reviewed 03/01/18 @ 15:29 by Lawrence Beauchamp MD) COPD (chronic obstructive pulmonary disease) (Acute) CHF (congestive heart failure) (Acute) Aortic stenosis (Chronic) V-tach (Chronic) Arteriosclerotic heart disease (ASHD) (Chronic) A-fib - Tobacco History Second Hand Smoke Exposure: No Smoking Status: Former smoker Tobacco Type: Cigarettes - Alcohol History How Often Do You Have a Drink Containing Alcohol: Never - Substance Use History Substance History: No History of Abuse - Travel History Recent Travel in the [place] Within the Last 8 Weeks: No Recent Travel Out of the Country Within the Last 8 Weeks: No - Immunization History Tetanus Immunization: <5 Years Medications and Allergies Active Medications: Active Medications Acetaminophen (Tylenol) 650 mg PO Q4H PRN PRN Reason: Temp > 100.4 Al Hydroxide/Mg Hydroxide (Milk Of Magnesia Liq) 30 ml PO Q12H PRN PRN Reason: Mild Constipation Aspirin (Ecotrin) 81 mg PO DAILY ELENI Enoxaparin Sodium (Lovenox Inj) 40 mg SQ Q24H ELENI Furosemide (Lasix Inj) 40 mg IV.PUSH DAILY ELENI Ondansetron HCl (Zofran Inj) 4 mg IV.PUSH Q6H PRN PRN Reason: NAUSEA OR VOMITING Allergies Allergy/AdvReac Type Severity Reaction Status Date / Time sacubitril AdvReac Intermediate Shortness Verified 01/22/18 17:32 of Breath valsartan AdvReac Intermediate Shortness Verified 01/22/18 17:32 of Breath Home Medications Medication Instructions Recorded Confirmed Type edoxaban 60 mg PO DAILY NEB 12/15/17 03/01/18 History Exam Vital signs: Vital Signs 03/01/18 15:15 03/01/18 15:38 03/01/18 15:56 Temperature 96.4 F L Pulse Rate 49 L Respiratory Rate 34 H Blood Pressure 157/70 H Pulse Oximetry 93 L 93 L 100 Intake & Output 02/28/18 03/01/18 03/01/18 18:59 06:59 18:59 Weight 95.254 kg Narrative: GENERAL: AAOx3, moderate dyspnea, comfortable, conversive, obese SKIN: Warm and dry, no rashes. HEAD: Atraumatic. Normocephalic. EYES: Pupils equal, round, reactive to light. No scleral icterus. No injection or drainage. ENT: No nasal bleeding or discharge. Moist mucous membranes. Nonerythematous oropharynx. NECK: Trachea midline. No JVD. Thyroid size within normal limits. CARDIOVASCULAR: Bradycardia, heart rate 49. No murmur, no gallops, no rubs. RESPIRATORY: Diminished breath sounds in bilateral bases, crackles in upper and mid lung, anterior congestive sounds. No accessory muscle use. GASTROINTESTINAL: Abdomen soft, non-tender, nondistended, normal active bowel sounds. Hepatic and splenic margins not palpable. MUSCULOSKELETAL: Extremities without clubbing or cyanosis. No obvious deformities. 1+ edema to knees NEUROLOGICAL: Awake and alert. No obvious cranial nerve deficits. Motor grossly within normal limits. No focal deficits. Five out of 5 muscle strength in the arms and legs. Normal speech. PSYCHIATRIC: Appropriate mood and affect; insight and judgment normal. Results - Labs CBC & Chem 7: 03/01/18 15:30 Labs: Laboratory Results - last 24 hr 03/01/18 03/01/18 15:30 15:30 Sodium 137 Potassium 3.9 Chloride 96 L Carbon Dioxide 31.6 Anion Gap 9 BUN 31 H Creatinine 1.77 H Estimated GFR 38 L Random Glucose 189 H Calcium 8.3 L Total Bilirubin 0.8 AST 29 ALT 46 Alkaline Phosphatase 79 Troponin I 0.03 B-Natriuretic Peptide 2834 H Total Protein 7.6 Albumin 3.3 L - Imaging Impressions Chest X-Ray 03/01/18 15:26 CONCLUSION: 1. Mild to moderate pulmonary vascular congestion. 2. Cardiomegaly. Caprini VTE Risk Assessment Caprini VTE Risk Assessment: Moderate/High Risk (score >= 2) Caprini Risk Assessment Model: Point Value = 1 Point Value = 2 Point Value = 3 Point Value = 5 Age 41-60 Minor surgery BMI > 25 kg/m2 Swollen legs Varicose veins or History of unexplained or recurrent spontaneous Oral contraceptives or hormone replacement Sepsis (< 1 month) Serious lung disease, including pneumonia (< 1 month) Abnormal pulmonary function Acute myocardial infarction Congestive heart failure (< 1 month) History of inflammatory bowel disease Medical patient at bed rest Age 61-74 Arthroscopic surgery Major open surgery (> 45 min) Laparoscopic surgery (> 45 min) Malignancy Confined to bed (> 72 hours) Immobilizing plaster cast Central venous access Age >= 75 History of VTE Family history of VTE Factor V Leiden Prothrombin [id number] Lupus anticoagulant Anticardiolipin antibodies Elevated serum homocysteine Heparin-induced thrombocytopenia Other congenital or acquired thrombophilia Stroke (< 1 month) Elective arthroplasty Hip, pelvis, or leg fracture Acute spinal cord injury (< 1 month) Prophylaxis Regimen: Total Risk Factor Score Risk Level Prophylaxis Regimen 0-1 Low Early ambulation 2 Moderate Order ONE of the following: *Sequential Compression Device (SCD) *Heparin 5000 units SQ BID 3-4 Higher Order ONE of the following medications: *Heparin 5000 units SQ TID *Enoxaparin/Lovenox 40 mg SQ daily (WT < 150 kg, CrCl > 30 mL/min) *Enoxaparin/Lovenox 30 mg SQ daily (WT < 150 kg, CrCl > 10-29 mL/min) *Enoxaparin/Lovenox 30 mg SQ BID (WT < 150 kg, CrCl > 30 mL/min) AND/OR *Sequential Compression Device (SCD) 5 or more Highest Order ONE of the following medications: *Heparin 5000 units SQ TID (Preferred with Epidurals) *Enoxaparin/Lovenox 40 mg SQ daily (WT < 150 kg, CrCl > 30 mL/min) *Enoxaparin/Lovenox 30 mg SQ daily (WT < 150 kg, CrCl > 10-29 mL/min) *Enoxaparin/Lovenox 30 mg SQ BID (WT < 150 kg, CrCl > 30 mL/min) AND *Sequential Compression Device (SCD) Assessment and Plan - Plan Acute respiratory distress Workup shows BNP in the 5000s, history of CHF Patient is currently dependent on BiPAP for maintaining oxygen is above 90% Admit to [facility] and continue BiPAP with telemetry Treat CHF exacerbation with diuresis Acute exacerbation of diastolic CHF Etiology may be medication change, 3 days ago he stopped carvedilol and started sotalol Onset of his symptoms occurred 2 days ago and became worse today We will hold sotalol for now due to bradycardia at 49 Lasix 40 mg IV twice daily Cardiac diet Consult his cardiology group Chronic renal insufficiency Creatinine 1.77, lower than the 2.0 levels observed at last admission DVT prophylaxis Lovenox
[2018-03-01] MEDS ORDERED: Enoxaparin Inj 40 MG/0.4 ML Syringe SQ SCH (18:00)
[2018-03-01 22:50] LABS: Baso # (Auto) 0.1 th/mm3 (0.0-0.2); Baso % (Auto) 1.3 % (0.0-2.0); Eos % (Auto) 0.2 % (0.0-4.0); Hematocrit 33.4 % (39.0-51.0); Hemoglobin 10.5 gm/dL (13.0-17.0); Lymph # (Auto) 0.9 th/mm3 (1.0-4.8); Lymph % (Auto) 10.5 % (9.0-44.0); Mean Corpuscular HGB Conc 31.3 % (32.0-36.0); Mean Corpuscular Volume 89.4 fL (80.0-100.0); Mono # (Auto) 0.7 th/mm3 (0.0-0.9); Neut # (Auto) 7.1 th/mm3 (1.8-7.7); Platelet Count 215 th/mm3 (150-450); Red Blood Count 3.74 mil/mm3 (4.50-5.90); White Blood Count 8.9 th/mm3 (4.0-11.0)
--- NOTE | 2018-03-02 10:32 | P.PNIM ---
Subjective Interval history: Says he is feeling a little better than yesterday. Shortness of breath is improving but still present. denies any chest pain. Physical Exam Vital signs: Vital Signs 03/01/18 15:15 03/01/18 15:38 03/01/18 15:56 Temperature 96.4 F L Pulse Rate 49 L Respiratory Rate 34 H Blood Pressure 157/70 H Pulse Oximetry 93 L 93 L 100 03/01/18 18:33 03/01/18 19:00 03/01/18 20:00 Temperature 97.8 F Pulse Rate 49 L 50 L Respiratory Rate 20 Blood Pressure 130/76 Pulse Oximetry 98 98 03/01/18 21:00 03/01/18 22:00 03/01/18 22:35 Temperature Pulse Rate 48 L 48 L Respiratory Rate Blood Pressure Pulse Oximetry 97 03/01/18 23:00 03/02/18 00:00 03/02/18 01:00 Temperature Pulse Rate 51 L 48 L 48 L Respiratory Rate 24 Blood Pressure 132/76 Pulse Oximetry 96 03/02/18 02:00 03/02/18 03:00 03/02/18 04:00 Temperature Pulse Rate 50 L 49 L 48 L Respiratory Rate 20 Blood Pressure 111/73 Pulse Oximetry 100 03/02/18 05:00 03/02/18 06:00 03/02/18 07:42 Temperature Pulse Rate 48 L 48 L Respiratory Rate Blood Pressure Pulse Oximetry 98 03/02/18 08:00 Temperature 97.4 F L Pulse Rate 50 L Respiratory Rate 18 Blood Pressure 113/65 Pulse Oximetry 100 Intake & Output 03/01/18 03/02/18 03/02/18 18:59 06:59 18:59 Intake Total 240 / 240 Output Total 500 / 500 Balance -260 / -260 Weight 95.254 kg 96.2 kg Intake: Oral 240 / 240 Output: Urine 500 / 500 Other: Date of Last Bowel Movement 03/01/18 03/01/18 # Bowel Movements 0 Weight On Admission 96.162 kg Narrative: GENERAL: Patient sitting up on edge of bed. Appears comfortable. SKIN: Warm and dry. HEAD: Normocephalic. EYES: No scleral icterus. No injection or drainage. NECK: Supple, trachea midline. No JVD. CARDIOVASCULAR: Regular rate and rhythm without murmurs, gallops, or rubs. RESPIRATORY: Breath sounds equal bilaterally. No accessory muscle use. GASTROINTESTINAL: Abdomen soft, non-tender, nondistended. MUSCULOSKELETAL: No cyanosis. +2 bilateral lower extremity edema. BACK: Nontender without obvious deformity. No CVA tenderness. Results - Labs CBC & Chem 7: 03/01/18 22:41 03/01/18 15:30 Laboratory Results - last 24 hr 03/01/18 03/01/18 03/01/18 15:30 15:30 22:41 WBC 8.9 RBC 3.74 L Hgb 10.5 L Hct 33.4 L MCV 89.4 MCH 28.0 MCHC 31.3 L RDW 19.0 H Plt Count 215 MPV 9.0 Neut % (Auto) 80.0 H Lymph % (Auto) 10.5 [place] % (Auto) 8.0 Eos % (Auto) 0.2 Baso % (Auto) 1.3 Neut # (Auto) 7.1 Lymph # (Auto) 0.9 L [place] # (Auto) 0.7 Eos # (Auto) 0.0 Baso # (Auto) 0.1 WBC Differential . Differential Comment Auto diff final Sodium 137 Potassium 3.9 Chloride 96 L Carbon Dioxide 31.6 Anion Gap 9 BUN 31 H Creatinine 1.77 H Estimated GFR 38 L Random Glucose 189 H Calcium 8.3 L Total Bilirubin 0.8 AST 29 ALT 46 Alkaline Phosphatase 79 Troponin I 0.03 B-Natriuretic Peptide 2834 H Total Protein 7.6 Albumin 3.3 L - Imaging Impressions Chest X-Ray 03/01/18 15:26 CONCLUSION: 1. Mild to moderate pulmonary vascular congestion. 2. Cardiomegaly. Assessment and Plan - Plan Acute respiratory distress Workup shows BNP in the 5000s, history of CHF Patient is currently dependent on BiPAP for maintaining oxygen is above 90% Admit to [facility] and continue BiPAP with telemetry Treat CHF exacerbation with diuresis = 03/02. Shortness of breath improving. Off BiPAP. We will continue diuresis. Follow-up electrolytes today. Follow-up cardiology recommendations. Acute exacerbation of diastolic CHF History of TAVR Etiology may be medication change, 3 days ago he stopped carvedilol and started sotalol Onset of his symptoms occurred 2 days ago and became worse today We will hold sotalol for now due to bradycardia at 49 Lasix 40 mg IV twice daily Cardiac diet Consult his cardiology group =03/02 BMP in the on admission. improving with diuresis. Continue scheduled IV Lasix. Patient is on EDOXABAN at home for recent TAVR. Will stop Lovenox. Plan to start EDOXABAN tomorrow if okay with cardiology and no procedures will be planned. Chronic renal insufficiency Creatinine 1.77, lower than the 2.0 levels observed at last admission DVT prophylaxis Lovenox Discharge Planning: Pending improvement. Pending cardiology consultation. PT consult pending. = Likely home within 2 days
[2018-03-02 13:11] LABS: Albumin 3.2 g/dL (3.4-5.0); Anion Gap 8 meq/L (5-15); Aspartate Aminotransferase 26 U/L (15-37); Blood Urea Nitrogen 32 mg/dL (7-18); Calcium 8.6 mg/dL (8.5-10.1); Carbon Dioxide 33.5 meq/L (21.0-32.0); Chloride 95 meq/L (98-107); Glomerular Filtration Rate 43 mL/min (>89); Glucose,Random 149 mg/dL (74-106); Potassium 3.5 meq/L (3.5-5.1); Sodium 136 meq/L (136-145)
[2018-03-02 13:12] LABS: Alanine Aminotransferase 51 U/L (12-78)
[2018-03-02 13:14] LABS: Alkaline Phosphatase 75 U/L (45-117); Total Protein 7.6 g/dL (6.4-8.2)
--- NOTE | 2018-03-02 14:23 | MB ---
cc: Glenn Dolan MD DATE: 03/02/2018 CARDIOLOGY CONSULTATION HISTORY OF PRESENT ILLNESS: Mr. Callejas is a 72-year-old white male, a patient of Dr. King, with history of chronic systolic congestive heart failure, atrial fibrillation, ventricular tachycardia, coronary artery disease, COPD and defibrillator placement. He saw Dr. King last week after he got shocked by his defibrillator. His carvedilol was changed to sotalol. Since last , the patient has had a 5-pound weight gain, increased ankle edema and increased shortness of breath. He presented to the emergency room, was hypoxemic, and was started on BiPAP. He has been diuresing well, but still complains of shortness of breath and peripheral edema. He has not had any angina. PAST MEDICAL HISTORY: Positive for systolic congestive heart failure, atrial fibrillation, ventricular tachycardia, coronary artery disease, COPD, defibrillator placement, aortic stenosis. MEDICATIONS: Include: 1. Edoxaban. 2. Sotalol. 3. Aspirin. 4. Carvedilol. 5. Furosemide. ALLERGIES: SACUBITRIL AND VALSARTAN. SOCIAL HISTORY: The patient does not smoke, but used to smoke in the past. He does not drink alcohol. He is , accompanied by his . FAMILY HISTORY: Negative for heart disease. REVIEW OF SYSTEMS: Otherwise negative. PHYSICAL EXAMINATION: VITAL SIGNS: Blood pressure 113/65, pulse 50 and regular. HEENT: Negative 2+ carotid upstrokes, no bruits. PULMONARY: Lungs with bibasilar crackles. Decreased breath sounds at bases. HEART: Regular. No murmur or gallop. ABDOMEN: Soft. EXTREMITIES: 1+ pitting edema, 1+ pulses. NEUROLOGIC: Grossly nonfocal. DIAGNOSTIC DATA: EKG was reviewed and showed sinus rhythm and ventricular pacing at 50 beats per minute. LABORATORY DATA: Hemoglobin 10.5, potassium 3.9, creatinine 1.77. AST 29, ALT 46. BNP 2834. IMPRESSION: 1. Acute exacerbation of chronic congestive heart failure. 2. History of TAVR. 3. Chronic renal insufficiency. 4. Coronary artery disease. 5. Chronic obstructive pulmonary disease. 6. History of ventricular tachycardia. 7. Paroxysmal atrial fibrillation. PLAN: Mr. Callejas will be monitored on telemetry. We will continue diuresis with IV furosemide. We will continue baby aspirin. He can be started back on his edoxaban. He is bradycardic and paced at 50 beats per minute. His slow rate will likely need to be reprogrammed unless his heart rate improves off beta vivi and sotalol. Dr. King, his primary melter loader, we will see him tomorrow. MD JESS Ragsdale/falguni , 10:45 AM , 10:56 AM FITO
--- NOTE | 2018-03-02 22:27 | ECG ---
Date Performed: 03/01/2018 Time Performed: 16:35:49 PTAGE: 72 years EKG: ELECTRONIC VENTRICULAR PACEMAKER ABNORMAL RHYTHM ECG PREVIOUS TRACING : 01/22/2018 17.51 Since the previous tracing, no significant change noted DOCTOR: Glenn Dolan Interpretating Date/Time 03/02/2018 22:26:04
[2018-03-03 07:01] LABS: Albumin 3.1 g/dL (3.4-5.0); Calcium 8.4 mg/dL (8.5-10.1); Carbon Dioxide 35.7 meq/L (21.0-32.0); Magnesium 2.4 mg/dL (1.5-2.5); Potassium 3.7 meq/L (3.5-5.1)
[2018-03-03] MEDS: EDOXABAN 30 MG PO SCH (09:46)
--- NOTE | 2018-03-03 14:08 | P.PNCA ---
Subjective Interval history: This morning, the patient feels better compared to admission. Shortness of breath is improved. Continues to have bilateral lower extremity edema that is greater compared to his baseline. Telemetry reviewed, continues primarily paced rhythm at approximately 50 bpm. Since admission, sotalol and Coreg were held. Medications and Allergies Allergies Allergy/AdvReac Type Severity Reaction Status Date / Time sacubitril AdvReac Intermediate Shortness Verified 01/22/18 17:32 of Breath valsartan AdvReac Intermediate Shortness Verified 01/22/18 17:32 of Breath Home Medications Medication Instructions Recorded Confirmed Type edoxaban 60 mg PO DAILY NEB 12/15/17 03/01/18 History edoxaban 60 mg PO DAILY 03/01/18 03/01/18 History Active Medications: Active Medications Acetaminophen (Tylenol) 650 mg PO Q4H PRN PRN Reason: Temp > 100.4 Al Hydroxide/Mg Hydroxide (Milk Of Magntabitha Liq) 30 ml PO Q12H PRN PRN Reason: Mild Constipation Albuterol (Duoneb Neb (Prn)) 1 ampul NEB Q4HR NEB PRN PRN Reason: SHORTNESS OF BREATH/WHEEZING Last Admin: 03/03/18 12:09 Dose: 1 ampul Aspirin (Ecotrin) 81 mg PO DAILY [facility] Last Admin: 03/03/18 09:46 Dose: 81 mg Edoxaban (Savaysa) 30 mg PO DAILY [facility] Last Admin: 03/03/18 09:46 Dose: 30 mg Furosemide (Lasix Inj) 40 mg IV.PUSH BID@0900,1800 [facility] Last Admin: 03/03/18 09:46 Dose: 40 mg Ondansetron HCl (Zofran Inj) 4 mg IV.PUSH Q6H PRN PRN Reason: NAUSEA OR VOMITING Physical Exam Vital signs: Vital Signs 03/02/18 15:00 03/02/18 16:00 03/02/18 17:00 Temperature 97.8 F Pulse Rate 48 L 50 L 48 L Respiratory Rate 20 Blood Pressure 117/68 Pulse Oximetry 98 03/02/18 18:00 03/02/18 18:13 03/02/18 19:00 Temperature Pulse Rate 48 L 50 L 50 L Respiratory Rate 16 Blood Pressure Pulse Oximetry 03/02/18 20:00 03/02/18 21:00 03/02/18 22:00 Temperature 98.1 F Pulse Rate 52 L 51 L 51 L Respiratory Rate 20 Blood Pressure 116/73 Pulse Oximetry 100 03/02/18 23:00 03/03/18 00:00 03/03/18 01:00 Temperature 98.3 F Pulse Rate 52 L 50 L 49 L Respiratory Rate 18 Blood Pressure 126/71 Pulse Oximetry 99 03/03/18 02:00 03/03/18 03:00 03/03/18 04:00 Temperature 98 F Pulse Rate 49 L 48 L 50 L Respiratory Rate 18 Blood Pressure 122/67 Pulse Oximetry 99 03/03/18 05:00 03/03/18 05:59 03/03/18 07:00 Temperature Pulse Rate 51 L 51 L 51 L Respiratory Rate Blood Pressure Pulse Oximetry 03/03/18 08:00 03/03/18 09:00 03/03/18 10:00 Temperature 98.0 F Pulse Rate 48 L 48 L 48 L Respiratory Rate 18 Blood Pressure 125/66 Pulse Oximetry 97 03/03/18 11:00 03/03/18 12:00 03/03/18 12:11 Temperature 98.0 F Pulse Rate 49 L 48 L 59 L Respiratory Rate 18 18 Blood Pressure 121/72 Pulse Oximetry 98 96 03/03/18 13:00 Temperature Pulse Rate 60 Respiratory Rate Blood Pressure Pulse Oximetry Intake & Output 03/02/18 03/03/18 03/03/18 18:59 06:59 18:59 Intake Total 480 / 480 480 / 480 Output Total 525 / 525 500 / 500 Balance -45 / -45 -20 / -20 Weight 96.3 kg Intake: Oral 480 / 480 480 / 480 Output: Urine 525 / 525 500 / 500 Other: Date of Last Bowel Movement 03/01/18 # Bowel Movements 0 - Constitutional no acute distress - Routine HEENT Exam Head: Present: normocephalic Eye: Present: EOMI ENT: Present: mucous membranes moist - Routine Neck Exam Present: supple, JVD - Routine Respiratory Exam Present: decreased breath sounds, crackles - Routine Cardiovascular Exam Comments: Bradycardic rate, regular rhythm, ICD in abdomen - Routine Abdominal Exam Present: soft - Routine Extremities Exam Present: edema - Routine Skin Exam Present: intact - Routine Neurological Exam Present: alert, oriented X3 Results 03/01/18 22:41 03/03/18 05:03 Cardiac Enzymes 03/01/18 03/01/18 03/02/18 Range/Units 15:30 15:30 11:17 AST 29 26 (15-37) U/L Troponin I 0.03 (0.02-0.05) ng/mL B-Natriuretic Peptide 2834 H (0-100) pg/mL Coagulation 03/01/18 Range/Units 15:30 B-Natriuretic Peptide 2834 H (0-100) pg/mL CBC 03/01/18 Range/Units 22:41 WBC 8.9 (4.0-11.0) th/mm3 RBC 3.74 L (4.50-5.90) mil/mm3 Hgb 10.5 L (13.0-17.0) gm/dL Hct 33.4 L (39.0-51.0) % Plt Count 215 (150-450) th/mm3 Neut # (Auto) 7.1 (1.8-7.7) th/mm3 Lymph # (Auto) 0.9 L (1.0-4.8) th/mm3 [place] # (Auto) 0.7 (0.0-0.9) th/mm3 Eos # (Auto) 0.0 (0.0-0.4) th/mm3 Baso # (Auto) 0.1 (0.0-0.2) th/mm3 Comprehensive Metabolic Panel 03/01/18 03/02/18 03/03/18 Range/Units 15:30 11:17 05:03 Sodium 137 136 138 (136-145) meq/L Potassium 3.9 3.5 3.7 (3.5-5.1) meq/L Chloride 96 L 95 L 96 L (98-107) meq/L Carbon Dioxide 31.6 33.5 H 35.7 H (21.0-32.0) meq/L BUN 31 H 32 H 33 H (7-18) mg/dL Creatinine 1.77 H 1.59 H 1.54 H (0.60-1.30) mg/dL Calcium 8.3 L 8.6 8.4 L (8.5-10.1) mg/dL AST 29 26 (15-37) U/L ALT 46 51 (12-78) U/L Alkaline Phosphatase 79 75 (45-117) U/L Total Protein 7.6 7.6 (6.4-8.2) g/dL Albumin 3.3 L 3.2 L 3.1 L (3.4-5.0) g/dL Intake and Output 03/02/18 03/03/18 03/03/18 22:59 06:59 14:59 Intake Total 480 / 480 480 / 480 Output Total 525 / 525 500 / 500 Balance -45 / -45 -20 / -20 Intake: Oral 480 / 480 480 / 480 Output: Urine 525 / 525 500 / 500 Other: Date of Last Bowel Movement 03/01/18 # Bowel Movements 0 Weight 96.3 kg - Imaging and Cardiology Imaging: Impressions Chest X-Ray 03/01/18 15:26 CONCLUSION: 1. Mild to moderate pulmonary vascular congestion. 2. Cardiomegaly. Assessment and Plan - Plan Acute on chronic systolic congestive heart failure exacerbation Ischemic and nonischemic cardiomyopathy. AICD Atrial fibrillation, anticoagulation Sayvasa COPD Resolved hypoxic respiratory failure treated with BiPAP due to above Recent AICD shock for ventricular fibrillation Atherosclerotic heart disease Aortic stenosis status post TAVR Plan: Increase base rate to 60 bpm on device Resume Coreg 3.125 mg twice daily After prolonged discussion with the patient, elected to resume sotalol 40 mg twice daily vs amiodarone for rhythm control management. Continue IV diuresis with careful monitoring of renal and electrolytes The patient was seen and evaluated by Dr. King who completed [id number] encounter and physical exam of participating in evaluation and management The exam, history, and the medical decision-making described in the above note were completed with the assistance of the mid-level provider. I reviewed and agree with the findings presented. I attest that I had a [id number] encounter with the patient on the same day, and personally performed and documented my assessment and findings in the medical record. Overall stable doing better.
--- NOTE | 2018-03-03 23:11 | P.PNIM ---
Subjective Interval history: patient says he is feeling better yesterday. Denies any chest pain . Says shortness of breath is improving. Physical Exam Vital signs: Vital Signs 03/03/18 00:00 03/03/18 01:00 03/03/18 02:00 Temperature 98.3 F Pulse Rate 50 L 49 L 49 L Respiratory Rate 18 Blood Pressure 126/71 Pulse Oximetry 99 03/03/18 03:00 03/03/18 04:00 03/03/18 05:00 Temperature 98 F Pulse Rate 48 L 50 L 51 L Respiratory Rate 18 Blood Pressure 122/67 Pulse Oximetry 99 03/03/18 05:59 03/03/18 07:00 03/03/18 08:00 Temperature 98.0 F Pulse Rate 51 L 51 L 48 L Respiratory Rate 18 Blood Pressure 125/66 Pulse Oximetry 97 03/03/18 09:00 03/03/18 10:00 03/03/18 11:00 Temperature Pulse Rate 48 L 48 L 49 L Respiratory Rate Blood Pressure Pulse Oximetry 03/03/18 12:00 03/03/18 12:11 03/03/18 13:00 Temperature 98.0 F Pulse Rate 48 L 59 L 60 Respiratory Rate 18 18 Blood Pressure 121/72 Pulse Oximetry 98 96 03/03/18 14:00 03/03/18 15:00 03/03/18 16:00 Temperature 98.0 F Pulse Rate 60 59 L 60 Respiratory Rate 18 Blood Pressure 127/67 Pulse Oximetry 96 03/03/18 17:00 03/03/18 18:00 03/03/18 19:00 Temperature Pulse Rate 60 60 60 Respiratory Rate Blood Pressure Pulse Oximetry 03/03/18 20:00 03/03/18 21:00 03/03/18 22:00 Temperature 97.5 F L Pulse Rate 59 L 64 63 Respiratory Rate 17 Blood Pressure 117/61 Pulse Oximetry 100 Intake & Output 03/03/18 03/03/18 03/04/18 06:59 18:59 06:59 Intake Total 480 / 480 620 / 620 Output Total 500 / 500 700 / 700 Balance -20 / -20 -80 / -80 Weight 96.3 kg Intake: Oral 480 / 480 620 / 620 Output: Urine 500 / 500 700 / 700 Other: # Bowel Movements 0 Narrative: GENERAL: Patient sitting up in chair at bedside. Appears comfortable. SKIN: Warm and dry. HEAD: Normocephalic. EYES: No scleral icterus. No injection or drainage. NECK: Supple, trachea midline. No JVD. CARDIOVASCULAR: Regular rate and rhythm without murmurs, gallops, or rubs. RESPIRATORY: Breath sounds equal bilaterally. No accessory muscle use. GASTROINTESTINAL: Abdomen soft, non-tender, nondistended. MUSCULOSKELETAL: No cyanosis. +2 bilateral lower extremity edema. BACK: Nontender without obvious deformity. No CVA tenderness. Results - Labs CBC & Chem 7: 03/01/18 22:41 03/03/18 05:03 Laboratory Results - last 24 hr 03/03/18 05:03 Sodium 138 Potassium 3.7 Chloride 96 L Carbon Dioxide 35.7 H Anion Gap 6 BUN 33 H Creatinine 1.54 H Estimated GFR 44 L Random Glucose 88 Calcium 8.4 L Phosphorus 4.0 Magnesium 2.4 Albumin 3.1 L Assessment and Plan - Plan Acute respiratory distress Workup shows BNP in the 4999s, history of CHF Patient is currently dependent on BiPAP for maintaining oxygen is above 90% Admit to [facility] and continue BiPAP with telemetry Treat CHF exacerbation with diuresis = 03/02. Shortness of breath improving. Off BiPAP. We will continue diuresis. Follow-up electrolytes today. Follow-up cardiology recommendations. =03/03. Cardiac output has been increased with increase in pacer rate from 50- 60 bpm. Appreciate cardiology assistance. Continue IV diuresis and monitor. Acute exacerbation of diastolic CHF History of TAVR Etiology may be medication change, 3 days ago he stopped carvedilol and started sotalol Onset of his symptoms occurred 2 days ago and became worse today We will hold sotalol for now due to bradycardia at 49 Lasix 40 mg IV twice daily Cardiac diet Consult his cardiology group =03/02 BMP in the on admission. improving with diuresis. Continue scheduled IV Lasix. Patient is on EDOXABAN at home for recent TAVR. Will stop Lovenox. =edoxaban restarted. Chronic renal insufficiency creatinine 1.5 improving. DVT prophylaxis Lovenox Discharge Planning: Pending improvement. Pending cardiology consultation. PT recommends home with home health. = Likely home in the next 1-2 days when cleared by cardiology
[2018-03-04 06:28] LABS: Baso % (Auto) 0.5 % (0.0-2.0); Eos # (Auto) 0.1 th/mm3 (0.0-0.4); Eos % (Auto) 1.4 % (0.0-4.0); Hematocrit 33.5 % (39.0-51.0); Hemoglobin 10.4 gm/dL (13.0-17.0); Lymph # (Auto) 0.8 th/mm3 (1.0-4.8); Lymph % (Auto) 9.3 % (9.0-44.0); Mean Corpuscular Hemoglobin 28.2 pg (27.0-34.0); Mean Corpuscular Volume 91.1 fL (80.0-100.0); Mean Platelet Volume 9.1 fL (7.0-11.0); Mono # (Auto) 0.9 th/mm3 (0.0-0.9); Mono % (Auto) 9.9 % (0.0-8.0); Neut # (Auto) 6.9 th/mm3 (1.8-7.7); Neut % (Auto) 78.9 % (16.0-70.0); Platelet Count 215 th/mm3 (150-450); Red Blood Count 3.68 mil/mm3 (4.50-5.90); Red Cell Distribution Width 19.6 % (11.6-17.2); White Blood Count 8.7 th/mm3 (4.0-11.0)
[2018-03-04 06:59] LABS: Albumin 3.1 g/dL (3.4-5.0); Calcium 8.6 mg/dL (8.5-10.1); Carbon Dioxide 35.2 meq/L (21.0-32.0); Magnesium 2.4 mg/dL (1.5-2.5); Potassium 3.7 meq/L (3.5-5.1)
[2018-03-04 07:00] LABS: Phosphorus 3.7 mg/dL (2.5-4.9)
--- NOTE | 2018-03-04 08:59 | P.PNCA ---
Subjective Interval history: Since yesterday, the patient states he has less shortness of breath with exertion, and overall feels better. Continues to have lower extremity edema and bibasilar rales. He is currently in negative fluid balance patient had asymptomatic nonsustained ventricular tachycardia. Sotalol reinitiated yesterday. Currently, patient is paced at 60 bpm. Had runs of sleetmute ventricular bigeminy with paced beats. Medications and Allergies Allergies Allergy/AdvReac Type Severity Reaction Status Date / Time sacubitril AdvReac Intermediate Shortness Verified 01/22/18 17:32 of Breath valsartan AdvReac Intermediate Shortness Verified 01/22/18 17:32 of Breath Home Medications Medication Instructions Recorded Confirmed Type edoxaban 60 mg PO DAILY NEB 12/15/17 03/01/18 History edoxaban 60 mg PO DAILY 03/01/18 03/01/18 History Active Medications: Active Medications Acetaminophen (Tylenol) 650 mg PO Q4H PRN PRN Reason: Temp > 100.4 Al Hydroxide/Mg Hydroxide (Milk Of Atnonio Riley) 30 ml PO Q12H PRN PRN Reason: Mild Constipation Albuterol (Duoneb Neb (Prn)) 1 ampul NEB Q4HR NEB PRN PRN Reason: SHORTNESS OF BREATH/WHEEZING Last Admin: 03/03/18 12:09 Dose: 1 ampul Aspirin (Ecotrin) 81 mg PO DAILY [facility] Last Admin: 03/03/18 09:46 Dose: 81 mg Carvedilol (Coreg) 3.125 mg PO BID [facility] Edoxaban (Savaysa) 30 mg PO DAILY [facility] Last Admin: 03/03/18 09:46 Dose: 30 mg Furosemide (Lasix Inj) 40 mg IV.PUSH BID@0900,1800 [facility] Last Admin: 03/03/18 17:19 Dose: 40 mg Miscellaneous (Pill Splitter) 1 each OTHER UNSCH PRN PRN Reason: SEE LABEL COMMENTS Ondansetron HCl (Zofran Inj) 4 mg IV.PUSH Q6H PRN PRN Reason: NAUSEA OR VOMITING Sotalol HCl (Betapace) 40 mg PO Q12H [facility] Last Admin: 03/04/18 03:57 Dose: 40 mg Physical Exam Vital signs: Vital Signs 03/03/18 09:00 03/03/18 10:00 03/03/18 11:00 Temperature Pulse Rate 48 L 48 L 49 L Respiratory Rate Blood Pressure Pulse Oximetry 03/03/18 12:00 03/03/18 12:11 03/03/18 13:00 Temperature 98.0 F Pulse Rate 48 L 59 L 60 Respiratory Rate 18 18 Blood Pressure 121/72 Pulse Oximetry 98 96 03/03/18 14:00 03/03/18 15:00 03/03/18 16:00 Temperature 98.0 F Pulse Rate 60 59 L 60 Respiratory Rate 18 Blood Pressure 127/67 Pulse Oximetry 96 03/03/18 17:00 03/03/18 18:00 03/03/18 19:00 Temperature Pulse Rate 60 60 60 Respiratory Rate Blood Pressure Pulse Oximetry 03/03/18 20:00 03/03/18 21:00 03/03/18 22:00 Temperature 97.5 F L Pulse Rate 59 L 64 63 Respiratory Rate 17 Blood Pressure 117/61 Pulse Oximetry 100 03/03/18 23:00 03/04/18 00:00 03/04/18 01:00 Temperature 97.9 F Pulse Rate 61 60 64 Respiratory Rate 16 Blood Pressure 111/58 L Pulse Oximetry 100 03/04/18 02:00 03/04/18 03:00 03/04/18 04:00 Temperature 98.0 F Pulse Rate 57 L 62 67 Respiratory Rate 17 Blood Pressure 134/76 Pulse Oximetry 99 03/04/18 05:00 03/04/18 06:00 03/04/18 08:00 Temperature 97.5 F L Pulse Rate 62 65 67 Respiratory Rate 20 Blood Pressure 110/59 L Pulse Oximetry 100 Intake & Output 03/03/18 03/04/18 03/04/18 18:59 06:59 18:59 Intake Total 620 / 620 240 / 240 Output Total 700 / 700 850 / 850 Balance -80 / -80 -610 / -610 Weight 94.3 kg Intake: Oral 620 / 620 240 / 240 Output: Urine 700 / 700 850 / 850 - Constitutional no acute distress - Routine HEENT Exam Head: Present: normocephalic Eye: Present: EOMI ENT: Present: mucous membranes moist - Routine Neck Exam Present: supple, JVD - Routine Respiratory Exam Present: rales - Routine Cardiovascular Exam Present: RRR - Routine Abdominal Exam Present: soft Comments: Abdominal AICD - Routine Extremities Exam Present: edema - Routine Skin Exam Present: intact - Routine Psychiatric Exam Present: normal affect, normal thought process Results 03/04/18 04:42 03/04/18 04:42 Cardiac Enzymes 03/02/18 Range/Units 11:17 AST 26 (15-37) U/L CBC 03/04/18 Range/Units 04:42 WBC 8.7 (4.0-11.0) th/mm3 RBC 3.68 L (4.50-5.90) mil/mm3 Hgb 10.4 L (13.0-17.0) gm/dL Hct 33.5 L (39.0-51.0) % Plt Count 215 (150-450) th/mm3 Neut # (Auto) 6.9 (1.8-7.7) th/mm3 Lymph # (Auto) 0.8 L (1.0-4.8) th/mm3 [place] # (Auto) 0.9 (0.0-0.9) th/mm3 Eos # (Auto) 0.1 (0.0-0.4) th/mm3 Baso # (Auto) 0.0 (0.0-0.2) th/mm3 Comprehensive Metabolic Panel 03/02/18 03/03/18 03/04/18 Range/Units 11:17 05:03 04:42 Sodium 136 138 140 (136-145) meq/L Potassium 3.5 3.7 3.7 (3.5-5.1) meq/L Chloride 95 L 96 L 97 L (98-107) meq/L Carbon Dioxide 33.5 H 35.7 H 35.2 H (21.0-32.0) meq/L BUN 32 H 33 H 30 H (7-18) mg/dL Creatinine 1.59 H 1.54 H 1.51 H (0.60-1.30) mg/dL Calcium 8.6 8.4 L 8.6 (8.5-10.1) mg/dL AST 26 (15-37) U/L ALT 51 (12-78) U/L Alkaline Phosphatase 75 (45-117) U/L Total Protein 7.6 (6.4-8.2) g/dL Albumin 3.2 L 3.1 L 3.1 L (3.4-5.0) g/dL Intake and Output 03/03/18 03/04/1803/04/18 22:59 06:59 14:59 Intake Total 620 / 620 240 / 240 Output Total 700 / 700 850 / 850 Balance -80 / -80 -610 / -610 Intake: Oral 620 / 620 240 / 240 Output: Urine 700 / 700 850 / 850 Other: Weight 94.3 kg Assessment and Plan - Plan Acute on chronic systolic congestive heart failure exacerbation Ischemic and nonischemic cardiomyopathy. AICD Atrial fibrillation, anticoagulation Sayvasa NSVT COPD Resolved hypoxic respiratory failure treated with BiPAP due to above Recent AICD shock for ventricular fibrillation Atherosclerotic heart disease Aortic stenosis status post TAVR Plan: Continue telemetry monitoring Continue careful monitoring of renal function and electrolytes. Continue IV diuresis to maintain negative fluid Resume Coreg 3.125 mg twice daily Continue sotalol 40 mg twice daily The patient was seen and evaluated by Dr. King who completed [id number] encounter and physical exam and participating in evaluation and management The exam, history, and the medical decision-making described in the above note were completed with the assistance of the mid-level provider. I reviewed and agree with the findings presented. I attest that I had a [id number] encounter with the patient on the same day, and personally performed and documented my assessment and findings in the medical record. had some NSVT will continue sotalol
[2018-03-04] MEDS: EDOXABAN 30 MG PO SCH (09:14)
--- NOTE | 2018-03-04 15:36 | P.PNIM ---
Subjective Interval history: Patient says he is feeling better than yesterday. Shortness of breath is much improved. Denies any chest pain. Physical Exam Vital signs: Vital Signs 03/03/18 16:00 03/03/18 17:00 03/03/18 18:00 Temperature 98.0 F Pulse Rate 60 60 60 Respiratory Rate 18 Blood Pressure 127/67 Pulse Oximetry 96 03/03/18 19:00 03/03/18 20:00 03/03/18 21:00 Temperature 97.5 F L Pulse Rate 60 59 L 64 Respiratory Rate 17 Blood Pressure 117/61 Pulse Oximetry 100 03/03/18 22:00 03/03/18 23:00 03/04/18 00:00 Temperature 97.9 F Pulse Rate 63 61 60 Respiratory Rate 16 Blood Pressure 111/58 L Pulse Oximetry 100 03/04/18 01:00 03/04/18 02:00 03/04/18 03:00 Temperature Pulse Rate 64 57 L 62 Respiratory Rate Blood Pressure Pulse Oximetry 03/04/18 04:00 03/04/18 05:00 03/04/18 06:00 Temperature 98.0 F Pulse Rate 67 62 65 Respiratory Rate 17 Blood Pressure 134/76 Pulse Oximetry 99 03/04/18 08:00 03/04/18 11:25 Temperature 97.5 F L Pulse Rate 67 60 Respiratory Rate 20 20 Blood Pressure 110/59 L 128/68 Pulse Oximetry 100 Intake & Output 03/03/18 03/04/18 03/04/18 18:59 06:59 18:59 Intake Total 620 / 620 240 / 240 Output Total 700 / 700 850 / 850 Balance -80 / -80 -610 / -610 Weight 94.3 kg Intake: Oral 620 / 620 240 / 240 Output: Urine 700 / 700 850 / 850 Narrative: GENERAL: Patient sitting up in chair at bedside as before. Appears comfortable. SKIN: Warm and dry. HEAD: Normocephalic. EYES: No scleral icterus. No injection or drainage. NECK: Supple, trachea midline. No JVD. CARDIOVASCULAR: Regular rate and rhythm without murmurs, gallops, or rubs. RESPIRATORY: Breath sounds equal bilaterally. No accessory muscle use. GASTROINTESTINAL: Abdomen soft, non-tender, nondistended. MUSCULOSKELETAL: No cyanosis. +2 bilateral lower extremity edema still present. BACK: Nontender without obvious deformity. No CVA tenderness. Results - Labs CBC & Chem 7: 03/04/18 04:42 03/04/18 04:42 Laboratory Results - last 24 hr 03/04/18 03/04/18 04:42 04:42 WBC 8.7 RBC 3.68 L Hgb 10.4 L Hct 33.5 L MCV 91.1 MCH 28.2 MCHC 31.0 L RDW 19.6 H Plt Count 215 MPV 9.1 Neut % (Auto) 78.9 H Lymph % (Auto) 9.3 [place] % (Auto) 9.9 H Eos % (Auto) 1.4 Baso % (Auto) 0.5 Neut # (Auto) 6.9 Lymph # (Auto) 0.8 L [place] # (Auto) 0.9 Eos # (Auto) 0.1 Baso # (Auto) 0.0 WBC Differential . Differential Comment Auto diff final Sodium 140 Potassium 3.7 Chloride 97 L Carbon Dioxide 35.2 H Anion Gap 8 BUN 30 H Creatinine 1.51 H Estimated GFR 45 L Random Glucose 100 Calcium 8.6 Phosphorus 3.7 Magnesium 2.4 Albumin 3.1 L Assessment and Plan - Plan Acute respiratory distress Workup shows BNP in the 4999s, history of CHF Patient is currently dependent on BiPAP for maintaining oxygen is above 90% Admit to [facility] and continue BiPAP with telemetry Treat CHF exacerbation with diuresis = 03/02. Shortness of breath improving. Off BiPAP. We will continue diuresis. Follow-up electrolytes today. Follow-up cardiology recommendations. =03/03. Cardiac output has been increased with increase in pacer rate from 50- 60 bpm. Appreciate cardiology assistance. Continue IV diuresis and monitor. = 03/04. Discussed with cardiology. Continue to watch patient. Patient had some bigeminy with paced beats overnight. We will continue diuresis Acute exacerbation of diastolic CHF History of TAVR Etiology may be medication change, 3 days ago he stopped carvedilol and started sotalol Onset of his symptoms occurred 2 days ago and became worse today We will hold sotalol for now due to bradycardia at 49 Lasix 40 mg IV twice daily Cardiac diet Consult his cardiology group =03/02 BMP in the on admission. improving with diuresis. Continue scheduled IV Lasix. Patient is on EDOXABAN at home for recent TAVR. Will stop Lovenox. =edoxaban restarted. = 03/04. Continue diuresis as above. Appreciate cardiology assistance. //Contraction alkalosis. Bicarb 35 will order some Diamox. Chronic renal insufficiency creatinine 1.5 improving. = 03/04. Kidney function stable from yesterday. Likely cardiorenal syndrome on admission. Continue to monitor DVT prophylaxis On edoxeban Discharge Planning: Pending improvement. Pending cardiology consultation. PT recommends home with home health. = Likely home in the next 1-2 days when cleared by cardiology
[2018-03-05] MEDS: EDOXABAN 30 MG PO SCH (09:58)
--- NOTE | 2018-03-05 10:15 | P.PNIM ---
Subjective Interval history: Patient says he is feeling well. Denies any chest pain or shortness of breath. Physical Exam Vital signs: Vital Signs 03/04/18 11:00 03/04/18 11:25 03/04/18 12:00 Temperature 98.5 F Pulse Rate 62 60 60 Respiratory Rate 20 20 Blood Pressure 128/68 128/68 Pulse Oximetry 98 03/04/18 13:00 03/04/18 14:00 03/04/18 15:00 Temperature Pulse Rate 60 60 60 Respiratory Rate Blood Pressure Pulse Oximetry 03/04/18 16:00 03/04/18 17:00 03/04/18 18:00 Temperature Pulse Rate 60 60 62 Respiratory Rate 18 Blood Pressure 115/53 L Pulse Oximetry 98 03/04/18 19:00 03/04/18 20:00 03/04/18 21:00 Temperature 97.5 F L Pulse Rate 60 60 63 Respiratory Rate 16 Blood Pressure 114/71 Pulse Oximetry 98 03/04/18 22:00 03/04/18 23:00 03/05/18 00:17 Temperature 97.7 F Pulse Rate 58 L 63 62 Respiratory Rate 16 Blood Pressure 93/52 L Pulse Oximetry 99 03/05/18 01:00 03/05/18 02:00 03/05/18 03:00 Temperature Pulse Rate 66 63 62 Respiratory Rate Blood Pressure Pulse Oximetry 03/05/18 04:00 03/05/18 05:00 03/05/18 06:00 Temperature 97.5 F L Pulse Rate 62 59 L 59 L Respiratory Rate 17 Blood Pressure 105/63 Pulse Oximetry 98 03/05/18 07:00 03/05/18 07:50 03/05/18 08:00 Temperature 97.4 F L 97.4 F L Pulse Rate 60 63 60 Respiratory Rate 18 18 Blood Pressure 116/58 L 116/58 L Pulse Oximetry 99 99 03/05/18 09:00 03/05/18 10:00 Temperature Pulse Rate 62 62 Respiratory Rate Blood Pressure Pulse Oximetry 99 Intake & Output 03/04/18 03/05/18 03/05/18 18:59 06:59 18:59 Intake Total 930 / 930 240 / 240 Output Total 900 / 900 575 / 575 Balance 30 / 30 -335 / -335 Weight 94.5 kg Intake: Oral 930 / 930 240 / 240 Output: Urine 900 / 900 575 / 575 Other: Date of Last Bowel Movement 03/05/18 # Bowel Movements 1 Narrative: GENERAL: Patient sitting up in chair at bedside as before. Appears comfortable. No change on exam. SKIN: Warm and dry. HEAD: Normocephalic. EYES: No scleral icterus. No injection or drainage. NECK: Supple, trachea midline. No JVD. CARDIOVASCULAR: Regular rate and rhythm without murmurs, gallops, or rubs. RESPIRATORY: Breath sounds equal bilaterally. No accessory muscle use. GASTROINTESTINAL: Abdomen soft, non-tender, nondistended. MUSCULOSKELETAL: No cyanosis. +2 bilateral lower extremity edema still present , however improved from yesterday. BACK: Nontender without obvious deformity. No CVA tenderness. Results - Labs CBC & Chem 7: 03/04/18 04:42 03/04/18 04:42 Assessment and Plan - Plan Acute respiratory distress Workup shows BNP in the 5000s, history of CHF Patient is currently dependent on BiPAP for maintaining oxygen is above 90% Admit to [facility] and continue BiPAP with telemetry Treat CHF exacerbation with diuresis = 03/02. Shortness of breath improving. Off BiPAP. We will continue diuresis. Follow-up electrolytes today. Follow-up cardiology recommendations. =03/03. Cardiac output has been increased with increase in pacer rate from 50- 60 bpm. Appreciate cardiology assistance. Continue IV diuresis and monitor. = 03/04. Discussed with cardiology. Continue to watch patient. Patient had some bigeminy with paced beats overnight. We will continue diuresis = 03/05. 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 Patient did have 10 beats of asymptomatic V. tach overnight. Uncertain of patient's V. tach burden at baseline. Appreciate cardiology assistance. Acute exacerbation of diastolic CHF History of TAVR Etiology may be medication change, 3 days ago he stopped carvedilol and started sotalol Onset of his symptoms occurred 2 days ago and became worse today We will hold sotalol for now due to bradycardia at 49 Lasix 40 mg IV twice daily Cardiac diet Consult his cardiology group =03/02 BMP in the on admission. improving with diuresis. Continue scheduled IV Lasix. Patient is on EDOXABAN at home for recent TAVR. Will stop Lovenox. =edoxaban restarted. = 03/04. Continue diuresis as above. Appreciate cardiology assistance. = 03/05. Continue diuresis. Cardiology following. Appreciate assistance. //Contraction alkalosis. -Mild can be monitored inpatient or outpatient. Chronic renal insufficiency creatinine 1.5 improving. = 03/04. Kidney function stable from yesterday. Likely cardiorenal syndrome on admission. Continue to monitor = can monitor renal function as inpatient or outpatient. DVT prophylaxis On edoxeban Discharge Planning: Pending improvement. Pending cardiology consultation. PT recommends home with home health. = Likely home in the next 1-2 days when cleared by cardiology
--- NOTE | 2018-03-05 10:33 | P.PNCA ---
Subjective Interval history: Patient sitting up in [facility], denies any complaints. Reports his breathing has improved significantly overnight. He denies any chest pain. Medications and Allergies Allergies Allergy/AdvReac Type Severity Reaction Status Date / Time sacubitril AdvReac Intermediate Shortness Verified 01/22/18 17:32 of Breath valsartan AdvReac Intermediate Shortness Verified 01/22/18 17:32 of Breath Home Medications Medication Instructions Recorded Confirmed Type edoxaban 60 mg PO DAILY NEB 12/15/17 03/01/18 History edoxaban 60 mg PO DAILY 03/01/18 03/01/18 History Active Medications: Active Medications Acetaminophen (Tylenol) 650 mg PO Q4H PRN PRN Reason: Temp > 100.4 Al Hydroxide/Mg Hydroxide (Milk Of Antonio Riley) 30 ml PO Q12H PRN PRN Reason: Mild Constipation Albuterol (Duoneb Neb (Prn)) 1 ampul NEB Q4HR NEB PRN PRN Reason: SHORTNESS OF BREATH/WHEEZING Last Admin: 03/03/18 12:09 Dose: 1 ampul Aspirin (Ecotrin) 81 mg PO DAILY [facility] Last Admin: 03/05/18 09:58 Dose: 81 mg Carvedilol (Coreg) 3.125 mg PO BID [facility] Last Admin: 03/05/18 09:58 Dose: 3.125 mg Edoxaban (Savaysa) 30 mg PO DAILY [facility] Last Admin: 03/05/18 09:58 Dose: 30 mg Furosemide (Lasix Inj) 40 mg IV.PUSH BID@0900,1800 [facility] Last Admin: 03/05/18 09:59 Dose: 40 mg Miscellaneous (Pill Splitter) 1 each OTHER UNSCH PRN PRN Reason: SEE LABEL COMMENTS Ondansetron HCl (Zofran Inj) 4 mg IV.PUSH Q6H PRN PRN Reason: NAUSEA OR VOMITING Sotalol HCl (Betapace) 40 mg PO Q12H [facility] Last Admin: 03/05/18 03:38 Dose: 40 mg Physical Exam Vital signs: Vital Signs 03/04/18 11:00 03/04/18 11:25 03/04/18 12:00 Temperature 98.5 F Pulse Rate 62 60 60 Respiratory Rate 20 20 Blood Pressure 128/68 128/68 Pulse Oximetry 98 03/04/18 13:00 03/04/18 14:00 03/04/18 15:00 Temperature Pulse Rate 60 60 60 Respiratory Rate Blood Pressure Pulse Oximetry 03/04/18 16:00 03/04/18 17:00 03/04/18 18:00 Temperature Pulse Rate 60 60 62 Respiratory Rate 18 Blood Pressure 115/53 L Pulse Oximetry 98 03/04/18 19:00 03/04/18 20:00 03/04/18 21:00 Temperature 97.5 F L Pulse Rate 60 60 63 Respiratory Rate 16 Blood Pressure 114/71 Pulse Oximetry 98 03/04/18 22:00 03/04/18 23:00 03/05/18 00:17 Temperature 97.7 F Pulse Rate 58 L 63 62 Respiratory Rate 16 Blood Pressure 93/52 L Pulse Oximetry 99 03/05/18 01:00 03/05/18 02:00 03/05/18 03:00 Temperature Pulse Rate 66 63 62 Respiratory Rate Blood Pressure Pulse Oximetry 03/05/18 04:00 03/05/18 05:00 03/05/18 06:00 Temperature 97.5 F L Pulse Rate 62 59 L 59 L Respiratory Rate 17 Blood Pressure 105/63 Pulse Oximetry 98 03/05/18 07:00 03/05/18 07:50 03/05/18 08:00 Temperature 97.4 F L 97.4 F L Pulse Rate 60 63 60 Respiratory Rate 18 18 Blood Pressure 116/58 L 116/58 L Pulse Oximetry 99 99 03/05/18 09:00 03/05/18 10:00 Temperature Pulse Rate 62 62 Respiratory Rate Blood Pressure Pulse Oximetry 99 Intake & Output 03/04/18 03/05/18 03/05/18 18:59 06:59 18:59 Intake Total 930 / 930 240 / 240 Output Total 900 / 900 575 / 575 Balance -335 / -335 Weight 94.5 kg Intake: Oral 930 / 930 240 / 240 Output: Urine 900 / 900 575 / 575 Other: Date of Last Bowel Movement 03/05/18 # Bowel Movements 1 - Constitutional no acute distress, obese - Routine HEENT Exam Head: Present: normocephalic, atraumatic Eye: Present: PERRL, normal accommodation ENT: Present: mucous membranes moist - Routine Neck Exam Present: supple - Routine Respiratory Exam Present: rales - Routine Cardiovascular Exam Comments: paced - Routine Abdominal Exam Present: soft - Routine Extremities Exam Present: edema - Routine Skin Exam Present: intact - Routine Neurological Exam Present: alert, oriented X3 - Detailed Neurological Exam: Coma Scale Eye Opening: Spontaneous Verbal Response: Oriented Motor Response: Obey commands [place] Coma Scale Total: 15 - Routine Psychiatric Exam Present: normal affect Results 03/04/18 04:42 03/04/18 04:42 CBC 03/04/18 Range/Units 04:42 WBC 8.7 (4.0-11.0) th/mm3 RBC 3.68 L (4.50-5.90) mil/mm3 Hgb 10.4 L (13.0-17.0) gm/dL Hct 33.5 L (39.0-51.0) % Plt Count 215 (150-450) th/mm3 Neut # (Auto) 6.9 (1.8-7.7) th/mm3 Lymph # (Auto) 0.8 L (1.0-4.8) th/mm3 [place] # (Auto) 0.9 (0.0-0.9) th/mm3 Eos # (Auto) 0.1 (0.0-0.4) th/mm3 Baso # (Auto) 0.0 (0.0-0.2) th/mm3 Comprehensive Metabolic Panel 03/04/18 Range/Units 04:42 Sodium 140 (136-145) meq/L Potassium 3.7 (3.5-5.1) meq/L Chloride 97 L (98-107) meq/L Carbon Dioxide 35.2 H (21.0-32.0) meq/L BUN 30 H (7-18) mg/dL Creatinine 1.51 H (0.60-1.30) mg/dL Calcium 8.6 (8.5-10.1) mg/dL Albumin 3.1 L (3.4-5.0) g/dL Intake and Output 03/04/18 03/05/18 03/05/18 22:59 06:59 14:59 Intake Total 930 / 930 240 / 240 Output Total 900 / 900 575 / 575 Balance 30 -335 / -335 Intake: Oral 930 / 930 240 / 240 Output: Urine 900 / 900 575 / 575 Other: Date of Last Bowel Movement 03/04/18 03/05/18 # Bowel Movements 1 Weight 94.5 kg Assessment and Plan - Plan Assessment Acute on chronic systolic congestive heart failure exacerbation Ischemic and nonischemic cardiomyopathy. AICD Atrial fibrillation, anticoagulation Sayvasa NSVT COPD Resolved hypoxic respiratory failure treated with BiPAP due to above Recent AICD shock for ventricular fibrillation Atherosclerotic heart disease Aortic stenosis status post TAVR Plan: Continue telemetry monitoring Continue careful monitoring of renal function and electrolytes. Continue IV diuresis to maintain negative fluid Resume Coreg 3.125 mg twice daily Continue sotalol 40 mg twice daily Will DC home on Coreg and Sotalol Will change diuretic to torsemide 20mg PO BID. Advised to follow up in office next week. Pt will need BMP in 1 week. The patient was seen and evaluated by Dr. King who completed [id number] encounter and physical exam and participating in evaluation and management The exam, history, and the medical decision-making described in the above note were completed with the assistance of the mid-level provider. I reviewed and agree with the findings presented. I attest that I had a [id number] encounter with the patient on the same day, and personally performed and documented my assessment and findings in the medical record. Slow improvement. Code Status: Full Code Discussed Condition With: Dr. Franco
[2018-03-05 10:58] VITALS: RESP 20; TEMP 97.6
[2018-03-05 16:23] VITALS: BP 96/59; O2SAT 100
--- NOTE | 2018-03-05 16:46 | P.DS ---
Date of admission: 03/01/18 18:40 Primary care physician: Marquez Fields MD Brief History from admission: 72-year-old male with a history of systolic CHF, atrial fib, V. tach, CAD, COPD presents to the ER with shortness of breath. 3 days ago he saw his big data admin after his defibrillator fired off and when it was interrogated there may have been a dysrhythmia which prompted cardiology to change his carvedilol to sotalol. Since that time he has had increasing ankle edema and onset of mild shortness of breath yesterday that became moderate to severe today. He has waited "too long" in the past and decided to come in earlier than later today. On presentation he had hypoxemia and was placed on BiPAP which has helped him breathe more comfortably. He denies any recent infections , denies fevers, denies upper respiratory symptoms or cough. He denies any change to his urinary habits, denies any new foods, denies any new medications aside from what was mentioned above. He denies any chest pain or diaphoresis. In the last year he has lost 50 pounds due to changing to a lower calorie diet. DS: Diagnosis - Discharge Diagnosis (1) CHF exacerbation Status: Acute DS: Medications - Discharge Medications Prescriptions: aspirin 81 mg PO DAILY #30 tab edoxaban [Savaysa] 30 mg PO DAILY 30 Days #30 tab torsemide 20 mg PO BID@0900,1800 30 Days tab DS: Summary Hospital Course: Acute respiratory distress Workup shows BNP in the 5000s, history of CHF Patient is currently dependent on BiPAP for maintaining oxygen is above 90% Admit to [facility]IC and continue BiPAP with telemetry Treat CHF exacerbation with diuresis = 03/02. Shortness of breath improving. Off BiPAP. We will continue diuresis. Follow-up electrolytes today. Follow-up cardiology recommendations. =03/03. Cardiac output has been increased with increase in pacer rate from 50- 60 bpm. Appreciate cardiology assistance. Continue IV diuresis and monitor. = 03/04. Discussed with cardiology. Continue to watch patient. Patient had some bigeminy with paced beats overnight. We will continue diuresis = 03/05. 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 Patient did have 10 beats of asymptomatic V. tach overnight. Uncertain of patient's V. tach burden at baseline. Appreciate cardiology assistance. Acute exacerbation of diastolic CHF History of TAVR Etiology may be medication change, 3 days ago he stopped carvedilol and started sotalol Onset of his symptoms occurred 2 days ago and became worse today We will hold sotalol for now due to bradycardia at 49 Lasix 40 mg IV twice daily Cardiac diet Consult his cardiology group =03/02 BMP in the on admission. improving with diuresis. Continue scheduled IV Lasix. Patient is on EDOXABAN at home for recent TAVR. Will stop Lovenox. =edoxaban restarted. = 03/04. Continue diuresis as above. Appreciate cardiology assistance. = 03/05. Continue diuresis. Cardiology following. Appreciate assistance. //Contraction alkalosis. -Mild can be monitored inpatient or outpatient. Chronic renal insufficiency creatinine 1.5 improving. = 03/04. Kidney function stable from yesterday. Likely cardiorenal syndrome on admission. Continue to monitor = can monitor renal function as inpatient or outpatient. DVT prophylaxis On edoxeban Discharge Planning: Pending improvement. Pending cardiology consultation. PT recommends home with home health. = Likely home in the next 1-2 days when cleared by cardiology - Time Spent with Patient Total time spent providing and/or coordinating discharge services: Greater than 30 minutes - Quality: VTE Deep Vein Thrombosis/Pulmonary Embolism Present on Admission: No Exam Vital signs: Vital Signs 03/04/18 17:00 03/04/18 18:00 03/04/18 19:00 Temperature Pulse Rate 60 62 60 Respiratory Rate Blood Pressure Pulse Oximetry 03/04/18 20:00 03/04/18 21:00 03/04/18 22:00 Temperature 97.5 F L Pulse Rate 60 63 58 L Respiratory Rate 16 Blood Pressure 114/71 Pulse Oximetry 98 03/04/18 23:00 03/05/18 00:17 03/05/18 01:00 Temperature 97.7 F Pulse Rate 63 62 66 Respiratory Rate 16 Blood Pressure 93/52 L Pulse Oximetry 99 03/05/18 02:00 03/05/18 03:00 03/05/18 04:00 Temperature 97.5 F L Pulse Rate 63 62 62 Respiratory Rate 17 Blood Pressure 105/63 Pulse Oximetry 98 03/05/18 05:00 03/05/18 06:00 03/05/18 07:00 Temperature Pulse Rate 59 L 59 L 60 Respiratory Rate Blood Pressure Pulse Oximetry 03/05/18 07:50 03/05/18 08:00 03/05/18 09:00 Temperature 97.4 F L 97.4 F L Pulse Rate 63 60 62 Respiratory Rate 18 18 Blood Pressure 116/58 L 116/58 L Pulse Oximetry 99 99 99 03/05/18 10:00 03/05/18 10:57 03/05/18 11:00 Temperature 97.6 F Pulse Rate 62 60 60 Respiratory Rate 20 Blood Pressure 106/63 Pulse Oximetry 98 03/05/18 12:00 03/05/18 13:00 03/05/18 14:00 Temperature Pulse Rate 60 64 68 Respiratory Rate Blood Pressure 106/63 Pulse Oximetry 99 03/05/18 15:00 03/05/18 16:00 Temperature Pulse Rate 60 60 Respiratory Rate 20 Blood Pressure 96/59 L Pulse Oximetry 100 Intake & Output 03/04/18 03/05/18 03/05/18 18:59 06:59 18:59 Intake Total 930 / 930 240 / 240 Output Total 900 / 900 575 / 575 Balance -335 / -335 Weight 94.5 kg Intake: Oral 930 / 930 240 / 240 Output: Urine 900 / 900 575 / 575 Other: Date of Last Bowel Movement 03/05/18 # Bowel Movements 1 Results - Impressions ITS Impressions Chest X-Ray 03/01/18 15:26 CONCLUSION: 1. Mild to moderate pulmonary vascular congestion. 2. Cardiomegaly. Discharge Plan - Discharge Disposition Patient Disposition: /Home Health Service - Discharge Condition Condition: Good - Discharge Order Discharge Orders: Cardiology Clear for Discharge (Routine); Ordered 03/05/18 Ordered By: August Shadeed - Discharge Details Anticipated Discharge Date: 03/05/18 - Physicians Team Primary Care Provider: Marquez Fields Attending Provider: Joo Franco Other Providers: Lashon King MD
--- NOTE | 2018-03-05 16:46 | P.DCO ---
- Diagnosis (1) CHF exacerbation Status: Acute - Physical Therapy Order: Evaluate and treat - Home Health Nursing Order: Medical education, CHF education, Oxygen administration education Instructions: nurse for medication management. daily weights. call MD if weight up by more than 3 pounds in 3 days or more than 5 pounds in a week. - Preforms Laminator Order: To provide: Long range planning - Case Management Consult Yes - Certification I have seen patient Edu Callejas on 03/05/18. My clinical findings support the need for the requested home health care services because: Limited mobility due to disease progression I certify that my clinical findings support that this patient is homebound because: Unsafe to leave home unassisted (1) CHF exacerbation Qualifiers: Heart failure type: systolic Qualified Code(s): I50.23 - Acute on chronic systolic (congestive) heart failure
[2018-03-05] MEDS ORDERED: Torsemide 20 MG Tablet PO SCH (18:00)
[2018-03-05 18:03] VITALS: PULSE 60
== END 2018-03-05 18:40 | disposition home health service (06) ==
LOC: NEDA 15:14 → NEPE 15:14 → HCIS 18:43
PROVIDERS: ADMIT Internal Medicine; ATTEND Internal Medicine

== ENCOUNTER 2018-07-02 12:24 | Inpatient (IN) ==
[2018-07-02 18:36] LABS: Hematocrit 39.3 % (39.0-51.0); Hemoglobin 12.6 gm/dL (13.0-17.0); Mean Corpuscular Hemoglobin 29.7 pg (27.0-34.0); Mean Platelet Volume 9.2 fL (7.0-11.0); Platelet Count 257 th/mm3 (150-450); Red Blood Count 4.23 mil/mm3 (4.50-5.90); Red Cell Distribution Width 18.5 % (11.6-17.2); White Blood Count 9.8 th/mm3 (4.0-11.0)
[2018-07-02 18:41] LABS: Activated Partial Thrombo Time 29.1 sec (23.4-31.7)
[2018-07-02 18:42] LABS: Prothrombin Time 20.2 sec (9.8-11.6)
--- NOTE | 2018-07-02 18:48 | ED ---
HPI General Chief complaint: Respiratory Symptoms Stated complaint: COPD/Cardiac Time Seen by Provider: 07/02/18 17:42 Source: patient Mode of arrival: ambulatory Limitations: no limitations History of Present Illness HPI narrative: Patient is a 72 year old male who comes in complaining of shortness of breath. He says that he has been feeling increasingly short of breath for the past week and a half. He says the shortness of breath is worse on exertion and with laying flat. He has had increased swelling of both of his legs. He denies any chest pain. He denies fevers or chills. He has had coughing. He says his doctor recently added an additional water pill to his medication regimen, but he does not seem to be producing more urine. He does have a history of COPD, but says that his albuterol has not been helping. Severity is moderate. Related Data Home Medications Medication Instructions Recorded Confirmed Saysava 30 mg PO DAILY 07/02/18 07/02/18 albuterol sulfate 2.5 mg INHALATION Q4-6H PRN 07/02/18 07/02/18 arformoterol [Brovana] 15 mcg INHALATION BID 07/02/18 07/02/18 carvedilol 3.125 mg PO BID 07/02/18 07/02/18 furosemide 40 mg PO BID 07/02/18 07/02/18 sotalol 80 mg PO Q12H 07/02/18 07/02/18 Previous Rx's Medication Instructions Recorded aspirin 81 mg PO DAILY #30 tab 03/05/18 Allergies Allergy/AdvReac Type Severity Reaction Status Date / Time sacubitril AdvReac Intermediate Shortness Verified 07/02/18 18:06 of Breath valsartan AdvReac Intermediate Shortness Verified 01/22/18 17:32 of Breath Review of Systems ROS: all other systems reviewed are negative Constitutional Denies chills and Denies fever(s) ENT Denies dizziness Cardiovascular Denies chest pain, Reports edema and Reports dyspnea on exertion Respiratory Reports cough Gastrointestinal Denies abdominal pain, Denies nausea and Denies vomiting Musculoskeletal Denies myalgias and Denies arthralgias Integumentary/Breasts Denies sores and Denies wounds Neurologic Denies focal weakness and Denies numbness [facility] Medical History Medical History COPD (chronic obstructive pulmonary disease) (Acute) CHF (congestive heart failure) (Acute) Aortic stenosis (Chronic) V-tach (Chronic) Arteriosclerotic heart disease (ASHD) (Chronic) A-fib (Acute) Social History Social History Substance History: No History of Abuse Second Hand Smoke Exposure: No Smoking Status: Never smoker Tobacco Type: Cigarettes How Often Do You Have a Drink Containing Alcohol: Never Recent Travel in [facility] within the Last 8 Weeks: No Recent Out of Country Travel within the Last 8 Weeks: No Immunization History Tetanus Immunization: <5 Years Exam Narrative Exam Narrative: GENERAL: Awake and alert, in no acute distress. SKIN: Focused skin assessment warm/dry. HEAD: Atraumatic. Normocephalic. EYES: Pupils equal and round. No scleral icterus. No injection or drainage. ENT: Mucous membranes pink and moist. NECK: Trachea midline. No JVD. CARDIOVASCULAR: Regular rate and rhythm. No murmur appreciated. RESPIRATORY: No accessory muscle use. Decreased breath sounds at both bases. Breath sounds equal bilaterally. GASTROINTESTINAL: Abdomen soft, non-tender, nondistended. MUSCULOSKELETAL: No obvious deformities. No clubbing. No cyanosis. 1+ pitting edema of bilateral lower extremities. NEUROLOGICAL: Awake and alert. No obvious cranial nerve deficits. Motor grossly within normal limits. Normal speech. PSYCHIATRIC: Appropriate mood and affect; insight and judgment normal. Course Initial Documented Vital Signs Temperature 97.9 F 07/02/18 12:55 Pulse Rate 60 07/02/18 12:55 Respiratory Rate 24 07/02/18 12:55 Blood Pressure 135/92 H 07/02/18 12:55 Pulse Oximetry 93 L 07/02/18 12:55 Last Documented Vital Signs Temperature 97.9 F 07/02/18 12:55 Pulse Rate 69 07/02/18 18:41 Respiratory Rate 16 07/02/18 18:41 Blood Pressure 150/88 H 07/02/18 18:12 Pulse Oximetry 100 07/02/18 18:12 Medical Decision Making [facility] Narrative Medical decision making narrative: Patient is a 72-year-old male who comes in complaining of shortness of breath, worse on exertion and laying flat. Exam shows decreased breath sounds to bilateral lower lungs as well as bilateral lower extremity edema. IV established, labs sent. Labs concerning worsening renal function, creatinine went from 1.5-2.53. Liver enzymes are elevated as well. Chest x-ray concerning for pulmonary edema. Patient given a small dose of Bumex. Patient will be admitted for further management. Medical Screen Exam Complete: Yes Emergency Medical Condition: Yes Differential Diagnosis Differential Diagnosis: CHF versus pneumonia versus COPD versus ACS Medical Records Medical records reviewed: Yes I reviewed the patient's medical records. Lab Data Lab results reviewed: Yes I reviewed the patient's lab results. Result diagrams: 07/02/18 17:50 07/02/18 17:50 Lab Results 07/02/18 07/02/18 07/02/18 Range/Units 17:50 17:50 17:50 WBC 9.8 (4.0-11.0) th/mm3 RBC 4.23 L (4.50-5.90) mil/mm3 Hgb 12.6 L (13.0-17.0) gm/dL Hct 39.3 (39.0-51.0) % MCV 93.0 (80.0-100.0) fL MCH 29.7 (27.0-34.0) pg MCHC 32.0 (32.0-36.0) % RDW 18.5 H (11.6-17.2) % Plt Count 257 (150-450) th/mm3 MPV 9.2 (7.0-11.0) fL Prelim Diff (Auto) Manual diff required WBC Differential Manual diff final Seg Neuts % (Manual) 83 H (16-70) % Band Neuts % (Manual) 1 (0-6) % Lymphocytes % (Manual) 11 (9-44) % Monocytes % (Manual) 5 (0-8) % Abs Neuts (Manual) 8.2 H (1.8-7.7) th/mm3 Differential Comment . Platelet Estimate Normal (Normal) Platelet Morphology Normal (Normal) Spherocytes Occ H (None) Ovalocytes 1+ H (None) PT 20.2 H (9.8-11.6) sec INR 2.0 Ratio APTT 29.1 (23.4-31.7) sec Sodium 137 (136-145) meq/L Potassium 4.1 (3.5-5.1) meq/L Chloride 97 L (98-107) meq/L Carbon Dioxide 28.4 (21.0-32.0) meq/L Anion Gap 12 (5-15) meq/L BUN 62 H (7-18) mg/dL Creatinine 2.53 H (0.60-1.30) mg/dL Estimated GFR 25 L (>89) mL/min Random Glucose 153 H (74-106) mg/dL Calcium 8.5 (8.5-10.1) mg/dL Total Bilirubin 1.4 H (0.2-1.0) mg/dL AST 433 H (15-37) U/L ALT 425 H (12-78) U/L Alkaline Phosphatase 108 (45-117) U/L Total Creatine Kinase 83 (39-308) U/L Troponin I 0.04 (0.02-0.05) ng/mL Total Protein 8.2 (6.4-8.2) g/dL Albumin 3.3 L (3.4-5.0) g/dL Imaging Data Radiologist's impression: Chest X-Ray 07/02/18 17:43 CONCLUSION: Cardiomegaly with pulmonary vascular engorgement similar to the prior examination. Tiny bilateral pleural effusions. ECG Data EKG Prior to Arrival: No Attestation: I personally reviewed and interpreted this ECG as follows: Interpretation: ECG shows a paced rhythm Discharge Plan Discharge Order Discharge Orders: ED Use Only Admit Order (Routine); Ordered 07/02/18 Ordered By: Majo Madrid Physicians Team ED Provider: Majo Madrid Primary Care Provider: Marquez Fields Rxs /Orders / Referrals /Forms Prescriptions: No Action aspirin 81 mg Tablet,Delayed Release (Dr/Ec) 81 mg PO DAILY Qty: 30 RF: 0 furosemide 40 mg Tablet 40 mg PO BID RF: 0 sotalol 80 mg Tablet 80 mg PO Q12H RF: 0 carvedilol 3.125 mg Tablet 3.125 mg PO BID RF: 0 albuterol sulfate 2.5 mg /3 mL (0.083 %) Solution For Nebulization 2.5 mg INHALATION Q4-6H PRN (Reason: Respiratory Distress) RF: 0 arformoterol [Brovana] 15 mcg/2 mL Solution For Nebulization 15 mcg INHALATION BID RF: 0 Saysava 30 mg PO DAILY RF: 0 Discharge Interventions Interventions: Vital Signs Last Done: 07/02/18 18:12 Status ED Status: Pending Admission
[2018-07-02 18:51] LABS: Alanine Aminotransferase 425 U/L (12-78)
[2018-07-02 18:56] LABS: Albumin 3.3 g/dL (3.4-5.0); Alkaline Phosphatase 108 U/L (45-117); Anion Gap 12 meq/L (5-15); Aspartate Aminotransferase 433 U/L (15-37); Blood Urea Nitrogen 62 mg/dL (7-18); Calcium 8.5 mg/dL (8.5-10.1); Carbon Dioxide 28.4 meq/L (21.0-32.0); Chloride 97 meq/L (98-107); Glomerular Filtration Rate 25 mL/min (>89); Glucose,Random 153 mg/dL (74-106); Potassium 4.1 meq/L (3.5-5.1); Sodium 137 meq/L (136-145); Total Protein 8.2 g/dL (6.4-8.2); Troponin I 0.04 ng/mL (0.02-0.05)
--- NOTE | 2018-07-02 18:58 | XR ---
EXAM DATE: 07/02/2018 6:25 PM EST AGE/SEX: 72 years / Male INDICATIONS: Short of breath. CLINICAL DATA: This is the patient's initial encounter. Patient reports that signs and symptoms have been present for 4 - 6 days and indicates a pain score of 2/10. MEDICAL/SURGICAL HISTORY: . Hypothyroidism. Myocardial infarction. Hypertension. Anticoagulant therapy. COPD. Dyspnea. Kidney stones. Prostate enlargement. . Pacemaker. Eye surgery. Left knee surg lauren. Aortic valve replacement. . [place] [facility] [place]. . FINDINGS: A single AP view of the chest demonstrates moderate cardiomegaly. Pulmonary vascular engorgement note d. No discrete infiltrate. Tiny effusions bilaterally which are stable. A stent overlies the region o f the aortic outflow tract. Pacer lead overlies left chest coursing inferiorly off the inferior mino n of the film. No pneumothorax. CONCLUSION: Cardiomegaly with pulmonary vascular engorgement similar to the prior examination. Tiny bilateral ple ural effusions. Electronically signed by: Martin Palma MD Board Certified Radiologist 07/02/2018 6:56 PM EST
[2018-07-02 19:03] LABS: Creatine Kinase 83 U/L (39-308)
[2018-07-02 19:16] LABS: Lymphocytes 11 % (9-44); Monocytes 5 % (0-8)
[2018-07-02 19:17] LABS: Ovalocytes 1+; Spherocytes Occ
[2018-07-02 19:18] LABS: Platelet Estimate Normal (Normal); Platelet Morphology Normal (Normal)
--- NOTE | 2018-07-02 19:29 | ECG ---
Date Performed: 07/02/2018 Time Performed: 18:05:45 PTAGE: 72 years EKG: V Paced Since PREVIOUS TRACING , no significant change noted PREVIOUS TRACIN03/01/2018 16.35 DOCTOR: Adriana Gamble Interpretating Date/Time 07/02/2018 19:28:51
[2018-07-02] MEDS ORDERED: Bisacodyl 10 MG Supp RECTAL PRN (20:57)
[2018-07-02] MEDS ORDERED: Heparin - SQ 10,000 UNITS/ML Vial SQ SCH (22:00)
--- NOTE | 2018-07-03 04:05 | P.HPIM ---
History of Present Illness Primary Care Physician: Marquez Fields MD 72-year-old male with a past medical history significant for congestive heart failure, COPD on 2-1/2 L of oxygen at home, coronary artery disease, atrial fibrillation anticoagulated on Savaysa and hypertension presents to the emergency department for the evaluation of shortness of breath. The patient reports he has had shortness of breath for the past 2 weeks however it acutely worsened earlier yesterday. He also states he has had lower extremity swelling for the past 3 days. He denies any chest pain. No abdominal pain. No nausea/ vomiting/diarrhea. No focal neurologic deficits. No fever/chills. No increased cough or sputum production. Inpatient Certification Inpatient Certification: I certify that the inpatient services were ordered in accordance with Medicare regulations governing the order. This includes certification that hospital inpatient services are reasonable and necessary and in the case of services not specified as inpatient-only under 42 CFR 419.22(n), that they are appropriately provided as inpatient services in accordance to with the 2-midnight benchmark under 43 CFR 412.3(e) Estimated Total Length of Stay (Days): 3 Plans for Post Hospital Care: Not yet determined Review of Systems Review of Systems: all other systems reviewed are negative PMFSH Medical History Medical History COPD (chronic obstructive pulmonary disease) (Acute) CHF (congestive heart failure) (Acute) Aortic stenosis (Chronic) V-tach (Chronic) Arteriosclerotic heart disease (ASHD) (Chronic) A-fib (Acute) Surgical History Surgical History History of aortic valve replacement (Acute) Family History Family History Other Family history normal Social History Social History Substance History: No History of Abuse Second Hand Smoke Exposure: No Smoking Status: Never smoker Tobacco Type: Cigarettes How Often Do You Have a Drink Containing Alcohol: Never Recent Travel in [place] within the Last 8 Weeks: No Recent Out of Country Travel within the Last 8 Weeks: No Immunization History Tetanus Immunization: <5 Years Medications and Allergies Allergies Allergy/AdvReac Type Severity Reaction Status Date / Time sacubitril AdvReac Intermediate Shortness Verified 07/02/18 18:06 of Breath valsartan AdvReac Intermediate Shortness Verified 01/22/18 17:32 of Breath Home Medications Medication Instructions Recorded Confirmed Type albuterol sulfate 2.5 mg INHALATION Q4-6H PRN 07/02/18 07/02/18 History arformoterol [Brovana] 15 mcg INHALATION BID 07/02/18 07/02/18 History carvedilol 3.125 mg PO BID 07/02/18 07/02/18 History furosemide 40 mg PO BID 07/02/18 07/02/18 History sotalol 80 mg PO Q12H 07/02/18 07/02/18 History edoxaban [Savaysa] 30 mg PO DAILY 07/03/18 07/03/18 History Active Medications: Active Medications Bisacodyl (Dulcolax Supp) 10 mg RECTAL DAILY PRN PRN Reason: SEVERE CONSITIPATION Bumetanide (Bumex Inj) 1 mg IV.PUSH BID@0900,1800 [facility] Heparin Sodium (Porcine) (Heparin Inj) 5,000 units SQ Q8H [facility] Last Admin: 07/02/18 23:43 Dose: 5,000 units Lactulose (Lactulose Liq) 30 ml PO DAILY PRN PRN Reason: SEVERE CONSITIPATION Ondansetron HCl (Zofran Inj) 4 mg IV.PUSH Q6H PRN PRN Reason: NAUSEA OR VOMITING Sennosides (Senokot) 17.2 mg PO Q12H PRN PRN Reason: Moderate Constipation Sodium Chloride (Ns Flush) 2 ml IV.FLUSH BID [facility] Last Admin: 07/02/18 23:43 Dose: 2 ml Sodium Chloride (Ns Flush) 2 ml IV.FLUSH PRN PRN PRN Reason: FLUSH AFTER USING IV ACCESS Physical Exam Vital signs: Vital Signs 07/02/18 12:55 07/02/18 18:12 07/02/18 18:41 Temperature 97.9 F Pulse Rate 60 63 69 Respiratory Rate 24 27 H 16 Blood Pressure 135/92 H 150/88 H Pulse Oximetry 93 L 100 07/02/18 21:30 07/02/18 21:46 07/03/18 02:08 Temperature Pulse Rate 84 63 Respiratory Rate 22 16 Blood Pressure 145/65 H 149/83 H Pulse Oximetry 98 100 99 Intake & Output 07/02/18 07/02/18 07/03/18 06:59 18:59 06:59 Output Total 220 / 220 Balance -220 / -220 Weight 96.162 kg Output: Urine 220 / 220 Other: # Voids 1 Narrative: Gen.: No acute distress Head: Normocephalic. Atraumatic. EENT: Pupils equal round and reactive to light. Nose without drainage. Airway intact. Throat without injection. Cardiovascular: Regular rate and rhythm. No murmurs, rubs or gallops. Respiratory: Bilateral expiratory wheezes Abdomen: Soft, nontender, nondistended. No peritoneal signs. Musculoskeletal: No gross deformities. 2+ bilateral lower extremity pitting edema Skin: No obvious rashes or erythema. Neuro: Sensory and motor grossly intact. Cranial nerves II through XII grossly intact. Results Labs CBC & Chem 7: 07/02/18 17:50 07/02/18 17:50 Imaging Impressions Chest X-Ray 07/02/18 17:43 CONCLUSION: Cardiomegaly with pulmonary vascular engorgement similar to the prior examination. Tiny bilateral pleural effusions. Caprini VTE Risk Assessment Caprini VTE Risk Assessment: Moderate/High Risk (score >= 2) Caprini Risk Assessment Model: Point Value = 1 Point Value = 2 Point Value = 3 Point Value = 5 Age 41-60 Minor surgery BMI > 25 kg/m2 Swollen legs Varicose veins or History of unexplained or recurrent spontaneous Oral contraceptives or hormone replacement Sepsis (< 1 month) Serious lung disease, including pneumonia (< 1 month) Abnormal pulmonary function Acute myocardial infarction Congestive heart failure (< 1 month) History of inflammatory bowel disease Medical patient at bed rest Age 61-74 Arthroscopic surgery Major open surgery (> 45 min) Laparoscopic surgery (> 45 min) Malignancy Confined to bed (> 72 hours) Immobilizing plaster cast Central venous access Age >= 75 History of VTE Family history of VTE Factor V Leiden Prothrombin [id number] Lupus anticoagulant Anticardiolipin antibodies Elevated serum homocysteine Heparin-induced thrombocytopenia Other congenital or acquired thrombophilia Stroke (< 1 month) Elective arthroplasty Hip, pelvis, or leg fracture Acute spinal cord injury (< 1 month) Prophylaxis Regimen: Total Risk Factor Score Risk Level Prophylaxis Regimen 0-1 Low Early ambulation 2 Moderate Order ONE of the following: *Sequential Compression Device (SCD) *Heparin 5000 units SQ BID 3-4 Higher Order ONE of the following medications: *Heparin 5000 units SQ TID *Enoxaparin/Lovenox 40 mg SQ daily (WT < 150 kg, CrCl > 30 mL/min) *Enoxaparin/Lovenox 30 mg SQ daily (WT < 150 kg, CrCl > 10-29 mL/min) *Enoxaparin/Lovenox 30 mg SQ BID (WT < 150 kg, CrCl > 30 mL/min) AND/OR *Sequential Compression Device (SCD) 5 or more Highest Order ONE of the following medications: *Heparin 5000 units SQ TID (Preferred with Epidurals) *Enoxaparin/Lovenox 40 mg SQ daily (WT < 150 kg, CrCl > 30 mL/min) *Enoxaparin/Lovenox 30 mg SQ daily (WT < 150 kg, CrCl > 10-29 mL/min) *Enoxaparin/Lovenox 30 mg SQ BID (WT < 150 kg, CrCl > 30 mL/min) AND *Sequential Compression Device (SCD) Assessment and Plan Plan Assessment/plan: 1. Shortness of breath Patient with history of COPD and CHF Duo nebs, IV steroids IV Bumex Supplemental oxygen 2. Acute renal failure BUN/Creatinine 62/2.53 Baseline creatinine 1.5 Nephrology consulted, appreciate assistance with diuresis in the setting of acute renal failure 3. Atrial fibrillation Continue anticoagulation with Savaysa Resume home beta-vivi once medication reconciliation completed 4. Transaminitis Patient with newly elevated LFTs Hepatitis profile pending Monitor CMP FEN Heart healthy and renal diet Electrolytes: Monitor and replete as needed Savaysa
[2018-07-03] MEDS: MethylPREDNISolone Sod Succinate Inj 40 MG/ML Vial IV.PUSH SCH ×3 (05:26→20:55)
[2018-07-03 06:09] LABS: Baso # (Auto) 0.1 th/mm3 (0.0-0.2); Baso % (Auto) 0.7 % (0.0-2.0); Eos % (Auto) 0.2 % (0.0-4.0); Hematocrit 38.5 % (39.0-51.0); Hemoglobin 12.7 gm/dL (13.0-17.0); Lymph # (Auto) 0.7 th/mm3 (1.0-4.8); Mean Corpuscular Hemoglobin 30.5 pg (27.0-34.0); Mean Corpuscular Volume 92.2 fL (80.0-100.0); Mean Platelet Volume 9.3 fL (7.0-11.0); Mono # (Auto) 0.6 th/mm3 (0.0-0.9); Mono % (Auto) 6.1 % (0.0-8.0); Neut # (Auto) 8.8 th/mm3 (1.8-7.7); Platelet Count 231 th/mm3 (150-450); Red Blood Count 4.17 mil/mm3 (4.50-5.90); Red Cell Distribution Width 18.2 % (11.6-17.2); White Blood Count 10.2 th/mm3 (4.0-11.0)
[2018-07-03 06:53] LABS: Alanine Aminotransferase 605 U/L (12-78); Albumin 3.3 g/dL (3.4-5.0); Alkaline Phosphatase 113 U/L (45-117); Anion Gap 11 meq/L (5-15); Blood Urea Nitrogen 72 mg/dL (7-18); Calcium 8.7 mg/dL (8.5-10.1); Carbon Dioxide 27.1 meq/L (21.0-32.0); Chloride 97 meq/L (98-107); Glomerular Filtration Rate 24 mL/min (>89); Glucose,Random 134 mg/dL (74-106); Sodium 135 meq/L (136-145); Total Protein 8.2 g/dL (6.4-8.2)
[2018-07-03 06:54] LABS: Aspartate Aminotransferase 767 U/L (15-37); Potassium 5.2 meq/L (3.5-5.1)
[2018-07-03] MEDS: EDOXABAN 30 MG PO SCH (10:11)
--- NOTE | 2018-07-03 10:29 | P.CONNP ---
History of Present Illness Service: Nephrology Consult date: 07/03/18 Reason for Consult: Acute and chronic kidney disease Primary Care Provider: Marquez Fields MD History of Present Illness: Patient is a 72-year-old male with history of congestive heart failure EF of less than 20%, he came in with increasing shortness of breath and peripheral edema of the past several days and has been admitted, creatinine is noted to increase last year he had a creatinine of 1.7 this time he came in with a creatinine of 2.5 increased to 2.63 today after diuretic, patient denies knowledge of kidney problems, kidney stones or prostate issues in the past. Review of Systems Constitutional: Denies lack of energy, Denies weight gain Eyes: Denies blind spots, Denies blurry vision, Denies bulging eyes, Denies change in vision, Denies double vision, Denies discharge, Denies dry eyes, Denies floaters, Denies irritation, Denies itchy eyes, Denies loss of vision, Denies pain, Denies requires corrective lenses, Denies sensitivity to light, Denies other Ears, Nose, Mouth, and Throat: Denies abnormal hearing, Denies bleeding gums, Denies bad breath, Denies change in voice, Denies dental pain, Denies difficulty swallowing, Denies dizziness, Denies dry mouth, Denies ear discharge , Denies ear pain, Denies facial pain, Denies headache(s), Denies hearing loss, Denies hoarseness, Denies lip swelling, Denies nosebleed, Denies mouth lesions, Denies mouth pain, Denies nasal congestion, Denies nasal discharge, Denies nasal obstruction, Denies nasal trauma, Denies neck lump, Denies neck pain, Denies nose pain, Denies pain with swallowing, Denies poor balance, Denies post nasal drip, Denies ringing in the ears, Denies sinus pain, Denies sinus pressure , Denies sore throat, Denies throat swelling, Denies tongue swelling, Denies other Cardiovascular: Reports shortness of breath, Reports shortness of breath with activity, Denies foot swelling, Denies irregular heart rhythm Respiratory: Reports shortness of breath, Reports shortness of breath with activity Gastrointestinal: Denies abdominal pain, Denies belching, Denies black, tarry stools, Denies bloating, Denies bright, red blood in stools, Denies change in bowel habits, Denies constant urge to pass stool, Denies change in stools, Denies coffee ground vomit, Denies constipation, Denies cramping, Denies difficulty swallowing, Denies excessive passing of gas, Denies feeling full early, Denies heartburn, Denies incontinent of stools, Denies loose stools, Denies nausea, Denies pain with swallowing, Denies vomiting, Denies vomiting blood, Denies other Genitourinary: Reports other Musculoskeletal: Reports muscle weakness Skin/Breast: Denies acne, Denies bleeding lesions, Denies boil, Denies breast swelling, Denies breast skin changes, Denies breast pain, Denies breast lump, Denies change in breast shape, Denies change in hair, Denies change in skin color, Denies changing lesions, Denies dry skin, Denies excessive hair growth, Denies hair loss, Denies itching, Denies lesions, Denies nail changes, Denies new lesions, Denies nipple discharge, Denies non-healing lesions, Denies redness , Denies sensitivity to light, Denies rash, Denies skin pain, Denies skin ulcer , Denies sores, Denies stretch lindquist, Denies unusual bruising, Denies wounds, Denies yellowing of the skin, Denies other Neurologic: Reports weakness Psychiatric: Denies abnormal sleep pattern, Denies anxiety, Denies behavioral changes, Denies change in appetite, Denies change in sex drive, Denies confusion , Denies depression, Denies difficulty concentrating, Denies hearing things others do not hear, Denies hopelessness, Denies irritability, Denies lack of enjoyment, Denies memory loss, Denies mood swings, Denies panic attacks, Denies paranoia, Denies seeing things others do not see, Denies sensing things others do not sense, Denies tactile hallucinations, Denies thoughts of hurting/killing others, Denies thoughts of hurting/killing yourself, Denies other Endocrine: Denies cold intolerance, Denies excessive sweating, Denies flushing, Denies heat intolerance, Denies increased hunger, Denies increased thirst, Denies increased urination, Denies rapid, pounding, or irregular heartbeat, Denies other Hematologic/Lymphatic: Denies easy bleeding, Denies easy bruising, Denies enlarged lymph nodes, Denies other Allergic/Immunologic: Denies GI upset with certain foods, Denies hives, Denies itchy eyes, Denies lip swelling, Denies seasonal runny nose, Denies throat swelling, Denies tongue swelling, Denies wheezing, Denies other PMFSH - History History Provided By: Patient, Family Member - Medical History Medical History: Medical History (Last Reviewed 07/03/18 @ 04:08 by Suellen Greene MD) COPD (chronic obstructive pulmonary disease) (Acute) CHF (congestive heart failure) (Acute) Aortic stenosis (Chronic) V-tach (Chronic) Arteriosclerotic heart disease (ASHD) (Chronic) A-fib - Surgical History Surgical History: Surgical History (Last Updated 07/03/18 @ 04:10 by Suellen Greene MD) History of aortic valve replacement - Family History Family History: Family History (Last Reviewed 07/02/18 @ 18:47 by Majo Madrid MD) Other Family history normal - Tobacco History Second Hand Smoke Exposure: No Smoking Status: Never smoker Tobacco Type: Cigarettes - Alcohol History How Often Do You Have a Drink Containing Alcohol: Never - Substance Use History Substance History: No History of Abuse - Travel History Recent Travel in the [place] Within the Last 8 Weeks: No Recent Travel Out of the Country Within the Last 8 Weeks: No - Immunization History Tetanus Immunization: <5 Years Medications and Allergies Active Medications: Active Medications Albuterol (Duoneb Neb (Prn)) 1 ampul NEB Q4HR NEB PRN PRN Reason: SOB/Wheezing Last Admin: 07/03/18 05:02 Dose: 1 ampul Bisacodyl (Dulcolax Supp) 10 mg RECTAL DAILY PRN PRN Reason: SEVERE CONSITIPATION Bumetanide (Bumex Inj) 1 mg IV.PUSH BID@0900,1800 [facility] Last Admin: 07/03/18 10:10 Dose: 1 mg Edoxaban (Savaysa) 30 mg PO DAILY [facility] Last Admin: 07/03/18 10:11 Dose: 30 mg Lactulose (Lactulose Liq) 30 ml PO DAILY PRN PRN Reason: SEVERE CONSITIPATION Methylprednisolone Sodium Succinate (Solumedrol Inj) 40 mg IV.PUSH Q8HR [facility] Last Admin: 07/03/18 05:26 Dose: 40 mg Ondansetron HCl (Zofran Inj) 4 mg IV.PUSH Q6H PRN PRN Reason: NAUSEA OR VOMITING Sennosides (Senokot) 17.2 mg PO Q12H PRN PRN Reason: Moderate Constipation Sodium Chloride (Ns Flush) 2 ml IV.FLUSH BID [facility] Last Admin: 07/03/18 10:13 Dose: 2 ml Sodium Chloride (Ns Flush) 2 ml IV.FLUSH PRN PRN PRN Reason: FLUSH AFTER USING IV ACCESS Allergies Allergy/AdvReac Type Severity Reaction Status Date / Time sacubitril AdvReac Intermediate Shortness Verified 07/02/18 18:06 of Breath valsartan AdvReac Intermediate Shortness Verified 01/22/18 17:32 of Breath Home Medications Medication Instructions Recorded Confirmed Type albuterol sulfate 2.5 mg INHALATION Q4-6H PRN 07/02/18 07/02/18 History arformoterol [Brovana] 15 mcg INHALATION BID 07/02/18 07/02/18 History carvedilol 3.125 mg PO BID 07/02/18 07/02/18 History furosemide 40 mg PO BID 07/02/18 07/02/18 History sotalol 80 mg PO Q12H 07/02/18 07/02/18 History edoxaban [Savaysa] 30 mg PO DAILY 07/03/18 07/03/18 History Exam Vital signs: Vital Signs 07/02/18 12:55 07/02/18 18:12 07/02/18 18:41 Temperature 97.9 F Pulse Rate 60 63 69 Respiratory Rate 24 27 H 16 Blood Pressure 135/92 H 150/88 H Pulse Oximetry 93 L 100 07/02/18 21:30 07/02/18 21:46 07/03/18 02:08 Temperature Pulse Rate 84 63 Respiratory Rate 22 16 Blood Pressure 145/65 H 149/83 H Pulse Oximetry 98 100 99 07/03/18 05:04 07/03/18 06:37 07/03/18 08:09 Temperature Pulse Rate 66 60 59 L Respiratory Rate 20 24 17 Blood Pressure 156/87 H 98/62 L Pulse Oximetry 99 98 Intake & Output 07/02/18 07/03/18 07/03/18 18:59 06:59 18:59 Output Total 220 / 220 Balance -220 / -220 Weight 96.162 kg Output: Urine 220 / 220 Other: # Voids 1 Narrative: GENERAL: Well-nourished, well-developed patient. SKIN: Warm and dry. HEAD: Normocephalic. EYES: No scleral icterus. No injection or drainage. NECK: Supple, trachea midline. No JVD or lymphadenopathy. CARDIOVASCULAR: Regular rate and rhythm without murmurs, gallops, or rubs. RESPIRATORY: Breath sounds diminished at bases GASTROINTESTINAL: Abdomen soft, non-tender, nondistended. EXTREMITIES: 1+ edema NEUROLOGICAL: Awake, alert, and oriented x 3. Non-focal. Results - Lab Results 07/03/18 05:49 07/03/18 05:47 Most recent lab results Calcium 8.7 mg/dL (8.5-10.1) 07/03/18 05:47 Assessment and Plan - Assessment (1) Acute renal failure Code(s): N17.9 - Acute kidney failure, unspecified Status: Acute Plan: Due to cardiorenal syndrome EF of less than 20%, patient will need cardiology consult consider diuretics and inotropic agents Check urine sodium Strict intake and output Limit fluid intake Limit sodium intake Follow BMP Avoid nephrotoxic agents (2) Chronic respiratory failure Code(s): J96.10 - Chronic respiratory failure, unspecified whether with hypoxia or hypercapnia Status: Acute (3) CHF exacerbation Code(s): I50.9 - Heart failure, unspecified Status: Acute
--- NOTE | 2018-07-03 11:38 | US ---
EXAM DATE: 07/03/2018 11:30 AM EST AGE/SEX: 72 years / Male INDICATIONS: Increased BUN. CLINICAL DATA: This is the patient's subsequent encounter. Patient reports that signs and symptoms h ave been present for 1 day and indicates a pain score of 0/10. MEDICAL/SURGICAL HISTORY: . A-fib. Aortic stenosis. ASHD. CHF. COPD. V-Tach. . Aortic valve re placement. [place] [facility] [place]/15/2017. . MEASUREMENTS: Right Kidney:__10.4 x 5.7 x 7.1 cm Left Kidney:__9.9 x 4.1 x 5.8 cm FINDINGS: Right Kidney: Mildly increased echogenicity and cortical thickness. No mass or hydronephrosis. Minima lly complex cyst measures 16 x 12 x 17 mm and 13 x 12 x 13 mm Left Kidney: Mildly increased echogenicity and cortical thickness. No mass or hydronephrosis. Bladder: Within normal limits given the degree of distension. Other: None. CONCLUSION: 1. Kidneys are slightly echogenic characteristic of medical renal disease. 2. Minimally complex right renal cysts. Electronically signed by: Nain Dodson MD Board Certified Radiologist 07/03/2018 11:37 AM EST
[2018-07-03 15:21] LABS: Hepatitis A IgM Antibody Nonreactive (Nonreactive); Hepatitits B Surface Antigen Nonreactive (Nonreactive)
--- NOTE | 2018-07-03 16:55 | ECG ---
Date Performed: 07/03/2018 Time Performed: 16:39:26 PTAGE: 72 years EKG: POSSIBLE VENTRICULAR PACED RHYTHM TRACKING ATRIAL FIBRILLATION NONSPECIFIC INTRAVENTRICULAR CONDUCTION DELAY LEFT AXIS DEVIATION ABNORMAL ECG PREVIOUS TRACING : 07/02/2018 18.05 Compared to previous tracing, heart rate has increased. DOCTOR: Tawanda Ballesteros Interpretating Date/Time 07/03/2018 16:55:24
[2018-07-03 18:25] LABS: Calcium 8.3 mg/dL (8.5-10.1); Magnesium 2.5 mg/dL (1.5-2.5); Potassium 3.3 meq/L (3.5-5.1)
[2018-07-04] MEDS: MethylPREDNISolone Sod Succinate Inj 40 MG/ML Vial IV.PUSH SCH ×2 (02:53→06:06)
[2018-07-04] MEDS: EDOXABAN 30 MG PO SCH (09:36)
--- NOTE | 2018-07-04 10:22 | P.PNIM ---
Subjective Interval history: Patient reports he is feeling slightly better today. Breathing more comfortably. Lower extremity edema is improved. Physical Exam Vital signs: Vital Signs 07/03/18 11:03 07/03/18 12:30 07/03/18 15:40 Temperature 97.2 F L 97.2 F L Pulse Rate 71 62 80 Respiratory Rate 20 16 16 Blood Pressure 147/78 H 121/94 H 115/72 Pulse Oximetry 96 98 99 07/03/18 15:51 07/03/18 20:00 07/03/18 20:22 Temperature 97.5 F L Pulse Rate 76 87 86 Respiratory Rate 18 17 Blood Pressure 102/61 Pulse Oximetry 96 99 07/03/18 20:45 07/04/18 00:00 07/04/18 04:00 Temperature 97.1 F L Pulse Rate 96 H 86 Respiratory Rate 17 Blood Pressure 105/62 Pulse Oximetry 96 99 07/04/18 04:15 07/04/18 08:00 Temperature 97.3 F L 97.3 F L Pulse Rate 101 H 83 Respiratory Rate 17 18 Blood Pressure 98/68 L 116/75 Pulse Oximetry 99 100 Intake & Output 07/03/18 07/04/18 07/04/18 18:59 06:59 18:59 Intake Total 960 / 960 0 / 0 Output Total 675 / 675 1200 / 1200 Balance 285 / 285 -1200 / -1200 Weight 100.4 kg 101.2 kg Intake: Oral 960 / 960 0 / 0 Output: Urine 675 / 675 1200 / 1200 Other: # Bowel Movements 0 0 Weight On Admission 96.162 kg Narrative: GENERAL: Elderly male in no acute distress CARDIOVASCULAR: Normal rate and irregular rhythm without significant murmurs, gallops, or rubs. RESPIRATORY: Good respiratory efforts. Diminished breath sounds at the bases. Faint bibasilar crackles. GASTROINTESTINAL: Abdomen soft, non-tender, non-distended. Normal active bowel sounds MUSCULOSKELETAL: 1+ bilateral lower extremity edema. NEURO: Alert & Oriented x4 to person, place, time, situation. Moves all ext x4 PSYCH: Appropriate mood and affect. Results Labs CBC & Chem 7: 07/03/18 05:49 07/03/18 17:39 Imaging Imaging: Impressions Abdomen/Bladder Ultrasound 07/03/18 10:29 CONCLUSION: 1. Kidneys are slightly echogenic characteristic of medical renal disease. 2. Minimally complex right renal cysts. Assessment and Plan (1) Acute renal failure: Code(s): N17.9 - Acute kidney failure, unspecified Status: Acute (2) Chronic respiratory failure: Code(s): J96.10 - Chronic respiratory failure, unspecified whether with hypoxia or hypercapnia Status: Acute (3) CHF exacerbation: Code(s): I50.9 - Heart failure, unspecified Status: Acute Plan 72-year-old male with severe CHF admitted with acute exacerbation of systolic CHF Acute on chronic respiratory failure secondary to acute on chronic systolic CHF and COPD exacerbation: -Continue IV Bumex. He is responding well. Improvement in his symptoms. - Okay to transition to oral steroids for COPD. Breathing treatments as needed - Supplemental oxygen as needed - Consult his assistant case manager Acute renal failure -Appreciate nephrology following. Cardiorenal etiology -Renal function slightly improved. -Follow I/O. Continue to monitor renal functions Atrial fibrillation Continue anticoagulation with Savaysa Resume home beta-vivi once medication reconciliation completed Transaminitis -Likely shock liver from CHF. - Continue to monitor. -Viral hepatitis profile negative. GI prophylaxis: Stool softener PRN constipation. DVT PPx: Patient on Savaysa. Progress Note: Quality VTE Deep Vein Thrombosis/Pulmonary Embolism Present on Admission: No _ (1) CHF exacerbation Qualifiers: Heart failure type: (2) Acute renal failure Qualifiers: Acute renal failure type: (3) Chronic respiratory failure Qualifiers: Respiratory failure complication:
--- NOTE | 2018-07-04 14:35 | P.CONCA ---
History of Present Illness Service: Cardiology Consult date: 07/04/18 Requesting Physician: Lonnie Wahl Reason for Consult: CHF Primary Care Provider: Marquez Fields MD History of Present Illness: This is a 68-year-old male known to Dr. King with a past medical history of CHF, COPD on home oxygen, TAVR on 05/2016, coronary artery disease, atrial fibrillation anticoagulated on the Savaysa, and hypertension. He presented to the emergency department on 07/02/18 with complaints of increased shortness of breath and lower extremity edema. He states that he noticed his legs had increased swelling on Saturday and he called Dr. King's office for advise. He was prescribed a one time dose of Metolazone 5 mg. He states that he woke up on Saturday without any improvement in the edema or his breathing. His stated that at this time she decided to bring him to the emergency department for further evaluation and treatment. He had an echo on 01/11/18 which showed global hypokinesis , severely dilated left ventricle, LVH, LAE, pacemaker wire present in right atrial cavity, MAC, severe MR, aortic valve prosthesis, moderate TR and mild PI with an EF of 20%. Currently he denies any CP, pressure, palpitations or dizziness. He does complain of improving SOB and edema in the lower extremities. Review of Systems All other systems reviewed negative except as stated in HPI PMFSH - History History Provided By: Patient, Family Member - Medical History Medical History: Medical History (Last Reviewed 07/03/18 @ 04:08 by Suellen Greene MD) COPD (chronic obstructive pulmonary disease) (Acute) CHF (congestive heart failure) (Acute) Aortic stenosis (Chronic) V-tach (Chronic) Arteriosclerotic heart disease (ASHD) (Chronic) A-fib - Surgical History Surgical History: Surgical History (Last Updated 07/03/18 @ 04:10 by Suellen Greene MD) History of aortic valve replacement - Family History Family History: Family History (Last Reviewed 07/02/18 @ 18:47 by Majo Madrid MD) Other Family history normal - Tobacco History Second Hand Smoke Exposure: No Tobacco Use In Past 30 Days: No Smoking Status: Former smoker Tobacco Type: Cigarettes - Alcohol History How Often Do You Have a Drink Containing Alcohol: Never - Substance Use History Substance History: No History of Abuse - Travel History Recent Travel in the [place] Within the Last 8 Weeks: No Recent Travel Out of the Country Within the Last 8 Weeks: No - Immunization History Tetanus Immunization: Unsure Hx Influenza Vaccine This Season: No Medications and Allergies Allergies Allergy/AdvReac Type Severity Reaction Status Date / Time sacubitril AdvReac Intermediate Shortness Verified 07/02/18 18:06 of Breath valsartan AdvReac Intermediate Shortness Verified 01/22/18 17:32 of Breath Home Medications Medication Instructions Recorded Confirmed Type albuterol sulfate 2.5 mg INHALATION Q4-6H PRN 07/02/18 07/02/18 History arformoterol [Brovana] 15 mcg INHALATION BID 07/02/18 07/02/18 History carvedilol 3.125 mg PO BID 07/02/18 07/02/18 History furosemide 40 mg PO BID 07/02/18 07/02/18 History sotalol 80 mg PO Q12H 07/02/18 07/02/18 History edoxaban [Savaysa] 30 mg PO DAILY 07/03/18 07/03/18 History Active Medications: Active Medications Albuterol (Duoneb Neb (Prn)) 1 ampul NEB Q4HR NEB PRN PRN Reason: SOB/Wheezing Last Admin: 07/03/18 15:47 Dose: 1 ampul Aspirin (Ecotrin) 81 mg PO DAILY [facility] Last Admin: 07/04/18 09:35 Dose: 81 mg Bisacodyl (Dulcolax Supp) 10 mg RECTAL DAILY PRN PRN Reason: SEVERE CONSITIPATION Bumetanide (Bumex Inj) 1 mg IV.PUSH BID@0900,1800 [facility] Last Admin: 07/04/18 09:35 Dose: 1 mg Carvedilol (Coreg) 3.125 mg PO BID [facility] Last Admin: 07/04/18 09:35 Dose: 3.125 mg Edoxaban (Savaysa) 30 mg PO DAILY [facility] Last Admin: 07/04/18 09:36 Dose: 30 mg Lactulose (Lactulose Liq) 30 ml PO DAILY PRN PRN Reason: SEVERE CONSITIPATION Ondansetron HCl (Zofran Inj) 4 mg IV.PUSH Q6H PRN PRN Reason: NAUSEA OR VOMITING Prednisone (Deltasone) 20 mg PO BID [facility] Sennosides (Senokot) 17.2 mg PO Q12H PRN PRN Reason: Moderate Constipation Sodium Chloride (Ns Flush) 2 ml IV.FLUSH BID [facility] Last Admin: 07/04/18 09:36 Dose: 2 ml Sodium Chloride (Ns Flush) 2 ml IV.FLUSH PRN PRN PRN Reason: FLUSH AFTER USING IV ACCESS Sotalol HCl (Betapace) 80 mg PO Q12H [facility] Last Admin: 07/04/18 06:06 Dose: 80 mg Exam Vital signs: Vital Signs 07/03/18 15:40 07/03/18 15:51 07/03/18 20:00 Temperature 97.2 F L Pulse Rate 80 76 87 Respiratory Rate 16 18 Blood Pressure 115/72 Pulse Oximetry 99 96 07/03/18 20:22 07/03/18 20:45 07/04/18 00:00 Temperature 97.5 F L 97.1 F L Pulse Rate 86 96 H Respiratory Rate 17 17 Blood Pressure 102/61 105/62 Pulse Oximetry 99 96 99 07/04/18 04:00 07/04/18 04:15 07/04/18 08:00 Temperature 97.3 F L 97.3 F L Pulse Rate 86 101 H 83 Respiratory Rate 17 18 Blood Pressure 98/68 L 116/75 Pulse Oximetry 99 99 Intake & Output 07/03/18 07/04/18 07/04/18 18:59 06:59 18:59 Intake Total 960 / 960 0 / 0 Output Total 675 / 675 1200 / 1200 Balance 285 / 285 -1200 / -1200 Weight 100.4 kg 101.2 kg Intake: Oral 960 / 960 0 / 0 Output: Urine 675 / 675 1200 / 1200 Other: # Bowel Movements 0 0 Weight On Admission 96.162 kg - Constitutional no acute distress - Routine HEENT Exam Head: Present: normocephalic Eye: Present: PERRL ENT: Present: mucous membranes moist - Routine Neck Exam Present: full ROM - Routine Respiratory Exam Present: crackles Comments: fine crackles bilateral lower lobes. - Routine Cardiovascular Exam Present: S1, S2, irregular rhythm Comments: [employer] single ICD set @ 60. - Routine Abdominal Exam Present: normoactive bowel sounds - Routine Extremities Exam Present: edema, full ROM, pulses intact, normal capillary refill. Absent: cyanosis, clubbing - Routine Skin Exam Present: intact - Routine Neurological Exam Present: oriented X3 Results 07/04/18 14:31 07/04/18 14:31 Cardiac Enzymes 07/02/18 07/02/18 07/03/18 Range/Units 17:50 17:50 05:47 AST 433 H 767 H (15-37) U/L Troponin I 0.04 (0.02-0.05) ng/mL B-Natriuretic Peptide 943 H (0-100) pg/mL Coagulation 07/02/18 07/02/18 Range/Units 17:50 17:50 PT 20.2 H (9.8-11.6) sec APTT 29.1 (23.4-31.7) sec B-Natriuretic Peptide 943 H (0-100) pg/mL CBC 07/02/18 07/03/18 Range/Units 17:50 05:49 WBC 9.8 10.2 (4.0-11.0) th/mm3 RBC 4.23 L 4.17 L (4.50-5.90) mil/mm3 Hgb 12.6 L 12.7 L (13.0-17.0) gm/dL Hct 39.3 38.5 L (39.0-51.0) % Plt Count 257 231 (150-450) th/mm3 Neut # (Auto) 8.8 H (1.8-7.7) th/mm3 Lymph # (Auto) 0.7 L (1.0-4.8) th/mm3 Angelina # (Auto) 0.6 (0.0-0.9) th/mm3 Eos # (Auto) 0.0 (0.0-0.4) th/mm3 Baso # (Auto) 0.1 (0.0-0.2) th/mm3 Comprehensive Metabolic Panel 07/02/18 07/03/18 07/03/18 Range/Units 17:50 05:47 17:39 Sodium 137 135 L 135 L (136-145) meq/L Potassium 4.1 5.2 H D 3.3 L D (3.5-5.1) meq/L Chloride 97 L 97 L 94 L (98-107) meq/L Carbon Dioxide 28.4 27.1 30.0 (21.0-32.0) meq/L BUN 62 H 72 H 81 H (7-18) mg/dL Creatinine 2.53 H 2.63 H 2.46 H (0.60-1.30) mg/dL Calcium 8.5 8.7 8.3 L (8.5-10.1) mg/dL AST 433 H 767 H (15-37) U/L ALT 425 H 605 H (12-78) U/L Alkaline Phosphatase 108 113 (45-117) U/L Total Protein 8.2 8.2 (6.4-8.2) g/dL Albumin 3.3 L 3.3 L (3.4-5.0) g/dL Intake and Output 07/03/18 07/04/18 07/04/18 22:59 06:59 14:59 Intake Total 960 / 960 0 / 0 Output Total 475 / 475 1200 / 1200 Balance 485 / 485 -1200 / -1200 Intake: Oral 960 / 960 0 / 0 Output: Urine 475 / 475 1200 / 1200 Other: # Bowel Movements 0 0 Weight 101.2 kg - Imaging and Cardiology Imaging: Impressions Chest X-Ray 07/02/18 17:43 CONCLUSION: Cardiomegaly with pulmonary vascular engorgement similar to the prior examination. Tiny bilateral pleural effusions. Abdomen/Bladder Ultrasound 07/03/18 10:29 CONCLUSION: 1. Kidneys are slightly echogenic characteristic of medical renal disease. 2. Minimally complex right renal cysts. Assessment and Plan - Assessment (1) CHF exacerbation Code(s): I50.9 - Heart failure, unspecified Status: Acute (2) Acute renal failure Code(s): N17.9 - Acute kidney failure, unspecified Status: Acute (3) COPD (chronic obstructive pulmonary disease) Code(s): J44.9 - Chronic obstructive pulmonary disease, unspecified Status: Acute (4) Elevated troponin Code(s): R74.8 - Abnormal levels of other serum enzymes Status: Acute (5) Ischemic cardiomyopathy Code(s): I25.5 - Ischemic cardiomyopathy Status: Chronic (6) S/P TAVR (transcatheter aortic valve replacement) Code(s): Z95.2 - Presence of prosthetic heart valve Status: Chronic - Plan Continue diuresis with Bumex 1 mg IV BID and Coreg 3.125 mg BID for CHF exacerbation. Acute renal insufficiency, nephrology evaluation and treatment in progress. Continue anticoagulation with Savaysa. Continue sotalol. Continue to increase his activity as he tolerates. Continue to monitor the patient on telemetry. We will continue to monitor the patient during his hospitalization and he is to follow up with his primary delivery table feeder, Dr. King after discharge from the hospital. The patient was seen and evaluated by Dr. Dolan who participated in care, management and decision making. - Attending Attestation Patient seen and examined. I reviewed and agree with the evaluation and plan as presented. Still fluid overloaded; continue tx for CHF. Continue anticoagulation. Antiarrhythmic tx with sotalol. Monitor on tele. (1) CHF exacerbation Qualifiers: Heart failure type: systolic Qualified Code(s): I50.23 - Acute on chronic systolic (congestive) heart failure
[2018-07-04 15:07] LABS: Hematocrit 37.7 % (39.0-51.0); Mean Corpuscular HGB Conc 31.9 % (32.0-36.0); Mean Corpuscular Hemoglobin 29.9 pg (27.0-34.0); Mean Corpuscular Volume 93.5 fL (80.0-100.0); Mean Platelet Volume 9.1 fL (7.0-11.0); Platelet Count 208 th/mm3 (150-450); Red Blood Count 4.03 mil/mm3 (4.50-5.90); Red Cell Distribution Width 18.2 % (11.6-17.2); White Blood Count 10.8 th/mm3 (4.0-11.0)
[2018-07-04 15:23] LABS: Calcium 7.8 mg/dL (8.5-10.1); Carbon Dioxide 33.6 meq/L (21.0-32.0); Potassium 3.1 meq/L (3.5-5.1)
[2018-07-04] MEDS: predniSONE 20 MG Tablet PO SCH (20:38)
[2018-07-05 07:16] LABS: Creatinine,Urine Random 51 mg/dL (27-300); Sodium,Urine Random 21 meq/L
[2018-07-05 07:20] LABS: Bilirubin,Urine Negative (Negative); Clarity,Urine Clear (Clear); Color,Urine Yellow (Yellw/Straw); Glucose,Urine (UA) Negative (Negative); Hyaline Casts,Urine 37 /lpf (0-3); Leukocyte Esterase,Urine Negative (Negative); Mucus,Urine Few /lpf (Occasional); Nitrite,Urine Negative (Negative); Specific Gravity,Urine 1.012 (1.002-1.035); Squamous Epithelial Cell,Urine <1 /hpf (0-5)
[2018-07-05] MEDS: EDOXABAN 30 MG PO SCH (09:09)
[2018-07-05] MEDS: predniSONE 20 MG Tablet PO SCH ×2 (09:09→21:18)
--- NOTE | 2018-07-05 10:26 | P.PNIM ---
Subjective Interval history: Patient reports he is feeling better today. Breathing more comfortably. Lower extremity edema improving. Physical Exam Vital signs: Vital Signs 07/04/18 12:00 07/04/18 16:00 07/04/18 20:00 Temperature 97.5 F L 97.9 F 97.1 F L Pulse Rate 59 L 59 L 96 H Respiratory Rate 20 18 18 Blood Pressure 109/66 124/63 126/70 Pulse Oximetry 100 99 100 07/04/18 21:52 07/05/18 00:00 07/05/18 04:00 Temperature 97.9 F Pulse Rate 51 L 76 100 H Respiratory Rate 16 18 Blood Pressure 112/74 Pulse Oximetry 99 99 07/05/18 04:40 07/05/18 08:00 Temperature 97.2 F L 97.6 F Pulse Rate 100 H 60 Respiratory Rate 18 18 Blood Pressure 118/69 109/69 Pulse Oximetry 99 100 Intake & Output 07/04/18 07/05/18 07/05/18 18:59 06:59 18:59 Intake Total 480 / 480 Output Total 1350 / 1350 Balance -870 / -870 Weight 100.6 kg Intake: Oral 480 / 480 Output: Urine 1350 / 1350 Urine/Stool Mix 0 / 0 Other: Date of Last Bowel Movement 07/04/18 Narrative: GENERAL: Elderly male in no acute distress CARDIOVASCULAR: Normal rate and irregular rhythm without significant murmurs, gallops, or rubs. RESPIRATORY: Good respiratory efforts. Diminished breath sounds at the bases. Faint bibasilar crackles. GASTROINTESTINAL: Abdomen soft, non-tender, non-distended. Normal active bowel sounds MUSCULOSKELETAL: 1+ bilateral lower extremity edema. NEURO: Alert & Oriented x4 to person, place, time, situation. Moves all ext x4 PSYCH: Appropriate mood and affect. Results Labs CBC & Chem 7: 07/05/18 10:30 07/05/18 10:30 Assessment and Plan (1) CHF exacerbation: Code(s): I50.9 - Heart failure, unspecified Status: Acute (2) Acute renal failure: Code(s): N17.9 - Acute kidney failure, unspecified Status: Acute (3) COPD (chronic obstructive pulmonary disease): Code(s): J44.9 - Chronic obstructive pulmonary disease, unspecified Status: Acute (4) Elevated troponin: Code(s): R74.8 - Abnormal levels of other serum enzymes Status: Acute (5) Ischemic cardiomyopathy: Code(s): I25.5 - Ischemic cardiomyopathy Status: Chronic (6) S/P TAVR (transcatheter aortic valve replacement): Code(s): Z95.2 - Presence of prosthetic heart valve Status: Chronic Plan 72-year-old male with severe CHF admitted with acute exacerbation of systolic CHF Acute on chronic respiratory failure secondary to acute on chronic systolic CHF and COPD exacerbation: -Continue IV Bumex. He is responding well. Improvement in his symptoms. - Okay to transition to oral steroids for COPD. Breathing treatments as needed - Supplemental oxygen as needed -Appreciate cardiology following. Continue IV diuretics for 1 more day. Acute renal failure -Appreciate nephrology following. Cardiorenal etiology -Renal function improving -Follow I/O. Continue to monitor renal functions Atrial fibrillation Continue anticoagulation with Savaysa Resume home beta-vivi once medication reconciliation completed Hypokalemia: Replace and monitor. Transaminitis -Likely shock liver from CHF. - Continue to monitor. -Viral hepatitis profile negative. GI prophylaxis: Stool softener PRN constipation. DVT PPx: Patient on Savaysa. Dispo: Continue IV diuretics. Anticipate discharge in next 24-48 hours if he continues to improve. Progress Note: Quality VTE Deep Vein Thrombosis/Pulmonary Embolism Present on Admission: No _ (1) CHF exacerbation Qualifiers: Heart failure type: systolic Qualified Code(s): I50.23 - Acute on chronic systolic (congestive) heart failure (2) Acute renal failure Qualifiers: Acute renal failure type: (3) COPD (chronic obstructive pulmonary disease) Qualifiers: COPD type: Chronic bronchitis type: Emphysema type:
[2018-07-05 11:04] LABS: Hematocrit 37.9 % (39.0-51.0); Hemoglobin 12.2 gm/dL (13.0-17.0); Mean Corpuscular HGB Conc 32.1 % (32.0-36.0); Mean Corpuscular Hemoglobin 30.1 pg (27.0-34.0); Mean Corpuscular Volume 93.6 fL (80.0-100.0); Platelet Count 201 th/mm3 (150-450); Red Blood Count 4.05 mil/mm3 (4.50-5.90); Red Cell Distribution Width 17.8 % (11.6-17.2); White Blood Count 10.9 th/mm3 (4.0-11.0)
[2018-07-05 11:49] LABS: Calcium 8.3 mg/dL (8.5-10.1); Carbon Dioxide 33.7 meq/L (21.0-32.0)
[2018-07-05 12:52] LABS: Potassium 2.9 meq/L (3.5-5.1)
--- NOTE | 2018-07-05 16:13 | P.PNNP ---
Subjective Interval history: Continues to diurese well on IV Bumex. Presented with shortness of breath CHF exacerbation, EF of 20%, has a defibrillator. Still with some edema to bilateral lower extremities +1. No complaints of shortness of breath or chest pain at this time. <Luciana Sears - Last Filed: 07/05/18 17:45> Physical Exam Vital signs: Vital Signs 07/04/18 20:00 07/04/18 21:52 07/05/18 00:00 Temperature 97.1 F L 97.9 F Pulse Rate 96 H 51 L 76 Respiratory Rate 18 16 18 Blood Pressure 126/70 112/74 Pulse Oximetry 100 99 99 07/05/18 04:00 07/05/18 04:40 07/05/18 08:00 Temperature 97.2 F L 97.6 F Pulse Rate 100 H 100 H 80 Respiratory Rate 18 18 Blood Pressure 118/69 109/69 Pulse Oximetry 99 100 07/05/18 12:00 Temperature 98.3 F Pulse Rate 53 L Respiratory Rate 18 Blood Pressure 109/82 Pulse Oximetry 98 Intake & Output 07/04/18 07/05/18 07/05/18 18:59 06:59 18:59 Intake Total 480 / 480 Output Total 1350 / 1350 Balance -870 / -870 Weight 100.6 kg Intake: Oral 480 / 480 Output: Urine 1350 / 1350 Urine/Stool Mix 0 / 0 Other: Date of Last Bowel Movement 07/04/18 07/04/18 Narrative: GENERAL: Well-nourished, well-developed patient. SKIN: Warm and dry. HEAD: Normocephalic. EYES: No scleral icterus. No injection or drainage. NECK: Supple, trachea midline. No JVD or lymphadenopathy. CARDIOVASCULAR: Regular rate and rhythm without murmurs, gallops, or rubs. RESPIRATORY: Breath sounds diminished at bases GASTROINTESTINAL: Abdomen soft, non-tender, nondistended. EXTREMITIES: 1+ edema NEUROLOGICAL: Awake, alert, and oriented x 3. Non-focal. <Luciana Sears - Last Filed: 07/05/18 17:45> Vital signs: Vital Signs 07/04/18 20:00 07/04/18 21:52 07/05/18 00:00 Temperature 97.1 F L 97.9 F Pulse Rate 96 H 51 L 76 Respiratory Rate 18 16 18 Blood Pressure 126/70 112/74 Pulse Oximetry 100 99 99 07/05/18 04:00 07/05/18 04:40 07/05/18 08:00 Temperature 97.2 F L 97.6 F Pulse Rate 100 H 100 H 80 Respiratory Rate 18 18 Blood Pressure 118/69 109/69 Pulse Oximetry 99 100 07/05/18 12:00 07/05/18 16:00 07/05/18 16:09 Temperature 98.3 F 97.5 F L Pulse Rate 53 L 60 60 Respiratory Rate 18 18 14 Blood Pressure 109/82 118/90 Pulse Oximetry 98 98 Intake & Output 07/04/18 07/05/18 07/05/18 18:59 06:59 18:59 Intake Total 480 / 480 Output Total 1350 / 1350 Balance -870 / -870 Weight 100.6 kg Intake: Oral 480 / 480 Output: Urine 1350 / 1350 Urine/Stool Mix 0 / 0 Other: Date of Last Bowel Movement 07/04/18 07/04/18 <Floyd Cooper - Last Filed: 07/05/18 18:54> Assessment and Plan - Assessment (1) Acute renal failure Code(s): N17.9 - Acute kidney failure, unspecified Status: Acute Plan: Due to cardiorenal syndrome EF of less than 20%, has AICD has improved currently 2.1, [employer] Fractional excretion of sodium, 1.84%, patient has been on diuretics, and it causes fractional excretion of sodium to be unreliable. Edema has improved, trace edema to bilateral lower extremities -Strict intake and output, voiding well -Limit fluid intake -Limit sodium intake -Follow BMP -Avoid nephrotoxic agents -Continue with diuresing, has been changed to p.o. starting tomorrow -Possibly cleared for discharge by nephrology standpoint by tomorrow dependent on creatinine trend. (2) Chronic respiratory failure Code(s): J96.10 - Chronic respiratory failure, unspecified whether with hypoxia or hypercapnia Status: Acute (3) CHF exacerbation Code(s): I50.9 - Heart failure, unspecified Status: Acute Plan: EF of 20%, defibrillator CHF exacerbation presented with shortness of breath Continues to be diuresing well with Bumex Still has some edema to lower extremities, +1. Voiding well -Continue to monitor volume status, electrolytes -Monitor BMP -Strict fluid restriction, sodium restriction -Bumex is already been changed to p.o. by tomorrow <Luciana Sears - Last Filed: 07/05/18 17:45> - Assessment (1) Acute renal failure Code(s): N17.9 - Acute kidney failure, unspecified Status: Acute (2) Chronic respiratory failure Code(s): J96.10 - Chronic respiratory failure, unspecified whether with hypoxia or hypercapnia Status: Acute (3) CHF exacerbation Code(s): I50.9 - Heart failure, unspecified Status: Acute - Attending Attestation I have seen and examined him and agree with above assessment and plan, patient with congestive heart failure EF 20% Acute renal failure resolving Okay from nephrology point of view to discharge <Floyd Cooper - Last Filed: 07/05/18 18:54>
[2018-07-05] MEDS: Potassium Chlor 20 mEq Premix 20 MEQ/100 ML PIGGYBACK IV.SIG SCH ×2 (16:14→17:22)
--- NOTE | 2018-07-05 16:39 | P.PNCA ---
Subjective Interval history: Patient denies any CP, pressure, palpitations, dizziness or SOB. He does complain of edema in the lower extremities. Medications and Allergies Allergies Allergy/AdvReac Type Severity Reaction Status Date / Time sacubitril AdvReac Intermediate Shortness Verified 07/02/18 18:06 of Breath valsartan AdvReac Intermediate Shortness Verified 01/22/18 17:32 of Breath Home Medications Medication Instructions Recorded Confirmed Type albuterol sulfate 2.5 mg INHALATION Q4-6H PRN 07/02/18 07/02/18 History arformoterol [Brovana] 15 mcg INHALATION BID 07/02/18 07/02/18 History carvedilol 3.125 mg PO BID 07/02/18 07/02/18 History furosemide 40 mg PO BID 07/02/18 07/02/18 History sotalol 80 mg PO Q12H 07/02/18 07/02/18 History edoxaban [Savaysa] 30 mg PO DAILY 07/03/18 07/03/18 History Active Medications: Active Medications Albuterol (Duoneb Neb (Prn)) 1 ampul NEB Q4HR NEB PRN PRN Reason: SOB/Wheezing Last Admin: 07/05/18 16:04 Dose: 1 ampul Aspirin (Ecotrin) 81 mg PO DAILY [facility] Last Admin: 07/05/18 09:09 Dose: 81 mg Bisacodyl (Dulcolax Supp) 10 mg RECTAL DAILY PRN PRN Reason: SEVERE CONSITIPATION Bumetanide (Bumex) 1 mg PO DAILY [facility] Carvedilol (Coreg) 3.125 mg PO BID [facility] Last Admin: 07/05/18 09:09 Dose: 3.125 mg Edoxaban (Savaysa) 30 mg PO DAILY [facility] Last Admin: 07/05/18 09:09 Dose: 30 mg Potassium Chloride (Kcl 20 Meq Premix Inj) 20 meq in 100 mls @ 50 mls/hr IV.SIG Q2H [facility] Stop: 07/05/18 19:59 Last Admin: 07/05/18 16:14 Dose: 50 mls/hr Lactulose (Lactulose Liq) 30 ml PO DAILY PRN PRN Reason: SEVERE CONSITIPATION Miscellaneous (Pill Splitter) 1 each OTHER UNSCH PRN PRN Reason: SEE LABEL COMMENTS Ondansetron HCl (Zofran Inj) 4 mg IV.PUSH Q6H PRN PRN Reason: NAUSEA OR VOMITING Potassium Chloride (K-Dur) 20 meq PO BID [facility] Prednisone (Deltasone) 20 mg PO BID [facility] Last Admin: 07/05/18 09:09 Dose: 20 mg Sennosides (Senokot) 17.2 mg PO Q12H PRN PRN Reason: Moderate Constipation Sodium Chloride (Ns Flush) 2 ml IV.FLUSH BID [facility] Last Admin: 07/05/18 09:10 Dose: 2 ml Sodium Chloride (Ns Flush) 2 ml IV.FLUSH PRN PRN PRN Reason: FLUSH AFTER USING IV ACCESS Sotalol HCl (Betapace) 40 mg PO Q12HR [facility] Last Admin: 07/05/18 09:09 Dose: 40 mg Physical Exam Vital signs: Vital Signs 07/04/18 20:00 07/04/18 21:52 07/05/18 00:00 Temperature 97.1 F L 97.9 F Pulse Rate 96 H 51 L 76 Respiratory Rate 18 16 18 Blood Pressure 126/70 112/74 Pulse Oximetry 100 99 99 07/05/18 04:00 07/05/18 04:40 07/05/18 08:00 Temperature 97.2 F L 97.6 F Pulse Rate 100 H 100 H 80 Respiratory Rate 18 18 Blood Pressure 118/69 109/69 Pulse Oximetry 99 100 07/05/18 12:00 07/05/18 16:09 Temperature 98.3 F Pulse Rate 53 L 60 Respiratory Rate 18 14 Blood Pressure 109/82 Pulse Oximetry 98 Intake & Output 07/04/18 07/05/18 07/05/18 18:59 06:59 18:59 Intake Total 480 / 480 Output Total 1350 / 1350 Balance -870 / -870 Weight 100.6 kg Intake: Oral 480 / 480 Output: Urine 1350 / 1350 Urine/Stool Mix 0 / 0 Other: Date of Last Bowel Movement 07/04/18 07/04/18 - Constitutional no acute distress - Routine HEENT Exam Head: Present: normocephalic Eye: Present: PERRL ENT: Present: mucous membranes moist - Routine Neck Exam Present: full ROM - Routine Respiratory Exam Present: CTA bilaterally - Routine Cardiovascular Exam Present: S1, S2, irregular rhythm Comments: atrial fib/pacemaker and PVC's - Routine Abdominal Exam Present: normoactive bowel sounds - Routine Extremities Exam Present: edema, full ROM, pulses intact, normal capillary refill. Absent: cyanosis, clubbing Comments: 2+edema in the lower extremities. - Routine Skin Exam Present: intact - Routine Neurological Exam Present: oriented X3 - Detailed Neurological Exam: Coma Scale Eye Opening: Spontaneous Verbal Response: Oriented Motor Response: Obey commands [place] Coma Scale Total: 15 - Routine Psychiatric Exam Present: normal affect Results 07/05/18 10:30 07/05/18 10:30 CBC 07/04/18 07/05/18 Range/Units 14:31 10:30 WBC 10.8 10.9 (4.0-11.0) th/mm3 RBC 4.03 L 4.05 L (4.50-5.90) mil/mm3 Hgb 12.0 L 12.2 L (13.0-17.0) gm/dL Hct 37.7 L 37.9 L (39.0-51.0) % Plt Count 208 201 (150-450) th/mm3 Comprehensive Metabolic Panel 07/03/18 07/04/18 07/05/18 Range/Units 17:39 14:31 10:30 Sodium 135 L 134 L 134 L (136-145) meq/L Potassium 3.3 L D 3.1 L 2.9 L* (3.5-5.1) meq/L Chloride 94 L 90 L 89 L (98-107) meq/L Carbon Dioxide 30.0 33.6 H 33.7 H (21.0-32.0) meq/L BUN 81 H 85 H 79 H (7-18) mg/dL Creatinine 2.46 H 2.47 H 2.11 H (0.60-1.30) mg/dL Calcium 8.3 L 7.8 L 8.3 L (8.5-10.1) mg/dL Intake and Output 07/05/18 07/05/18 07/05/18 06:59 14:59 22:59 Intake Total 480 / 480 Output Total 1350 / 1350 Balance -870 / -870 Intake: Oral 480 / 480 Output: Urine 1350 / 1350 Urine/Stool Mix 0 / 0 Other: Date of Last Bowel Movement 07/04/18 Weight 100.6 kg Assessment and Plan - Assessment (1) CHF exacerbation Code(s): I50.9 - Heart failure, unspecified Status: Acute (2) Acute renal failure Code(s): N17.9 - Acute kidney failure, unspecified Status: Acute (3) COPD (chronic obstructive pulmonary disease) Code(s): J44.9 - Chronic obstructive pulmonary disease, unspecified Status: Acute (4) Elevated troponin Code(s): R74.8 - Abnormal levels of other serum enzymes Status: Acute (5) Ischemic cardiomyopathy Code(s): I25.5 - Ischemic cardiomyopathy Status: Chronic (6) S/P TAVR (transcatheter aortic valve replacement) Code(s): Z95.2 - Presence of prosthetic heart valve Status: Chronic - Plan There are no new cardiac issues noted at this time. Continue tx for CHF. Nephrology evaluation and treatment for acute renal insufficiency. Continue anticoagulation with Savaysa. Continue to increase his activity as he tolerates. Continue to monitor the patient on telemetry. We will continue to monitor the patient during his hospitalization and he is to follow up with his primary broadcast designer, Dr. King after discharge from the hospital. The patient was seen and evaluated by Dr. Dolan who participated in care, management and decision making. - Attending Attestation Patient seen and examined. I reviewed and agree with the evaluation and plan as presented. Still fluid overloaded, continue tx for CHF including diuresis. Increase activity. D/w pt and . (1) CHF exacerbation Qualifiers: Heart failure type: systolic Qualified Code(s): I50.23 - Acute on chronic systolic (congestive) heart failure
--- NOTE | 2018-07-05 18:15 | ECG ---
Date Performed: 07/05/2018 Time Performed: 07:19:54 PTAGE: 72 years EKG: ELECTRONIC VENTRICULAR PACEMAKER ABNORMAL ECG PREVIOUS TRACING : 07/03/2018 16.39 Compared to previous tracing, AF with RVR no longer presen t DOCTOR: Glenn Dolan Interpretating Date/Time 07/05/2018 18:14:54
[2018-07-06 08:19] VITALS: PULSE 68; RESP 14
[2018-07-06] MEDS: EDOXABAN 30 MG PO SCH (09:19)
[2018-07-06] MEDS: predniSONE 20 MG Tablet PO SCH (09:19)
[2018-07-06 09:22] VITALS: BP 116/67; TEMP 97.4; O2SAT 99
[2018-07-06 10:21] LABS: Calcium 8.5 mg/dL (8.5-10.1); Carbon Dioxide 34.9 meq/L (21.0-32.0); Potassium 3.6 meq/L (3.5-5.1)
--- NOTE | 2018-07-06 10:46 | P.DCO ---
Diagnosis (1) Acute renal failure: Status: Acute (2) Chronic respiratory failure: Status: Acute (3) CHF exacerbation: Status: Acute Home Health Nursing Order: Medical education, Signs/symptoms of disease process, CHF education and Oxygen administration education Case Management Consult Case Management Consult-Home Health: Yes I have seen patient Edu Callejas on 07/06/18. My clinical findings support the need for the requested home health care services because: Patient has SOB I certify that my clinical findings support that this patient is homebound because: Hx COPD - exertion dyspnea/weakness and Poor cardiac reserve _ (1) Acute renal failure Qualifiers: Acute renal failure type: (2) Chronic respiratory failure Qualifiers: Respiratory failure complication: (3) CHF exacerbation Qualifiers: Heart failure type:
--- NOTE | 2018-07-06 12:31 | P.PNCA ---
Subjective Interval history: Patient denies any CP, pressure, palpitations, dizziness, edema or SOB. Medications and Allergies Allergies Allergy/AdvReac Type Severity Reaction Status Date / Time sacubitril AdvReac Intermediate Shortness Verified 07/02/18 18:06 of Breath valsartan AdvReac Intermediate Shortness Verified 01/22/18 17:32 of Breath Home Medications Medication Instructions Recorded Confirmed Type albuterol sulfate 2.5 mg INHALATION Q4-6H PRN 07/02/18 07/02/18 History arformoterol [Brovana] 15 mcg INHALATION BID 07/02/18 07/02/18 History carvedilol 3.125 mg PO BID 07/02/18 07/02/18 History edoxaban [Savaysa] 30 mg PO DAILY 07/03/18 07/03/18 History Physical Exam Vital signs: Vital Signs 07/05/18 16:00 07/05/18 16:09 07/05/18 20:00 Temperature 97.5 F L 98.0 F Pulse Rate 106 H 60 111 H Respiratory Rate 18 14 16 Blood Pressure 118/90 130/60 Pulse Oximetry 98 99 07/05/18 21:50 07/06/18 00:00 07/06/18 04:00 Temperature 97.4 F L 97.1 F L Pulse Rate 101 H 92 H Respiratory Rate 16 16 Blood Pressure 105/64 119/69 Pulse Oximetry 97 99 98 07/06/18 08:00 07/06/18 08:18 Temperature 97.4 F L Pulse Rate 97 H 68 Respiratory Rate 18 14 Blood Pressure 116/67 Pulse Oximetry 99 Intake & Output 07/05/18 07/06/18 07/06/18 18:59 06:59 18:59 Intake Total 50 / 50 Output Total 1000 / 1000 Balance -950 / -950 Weight 96.21 kg Intake: IV 50 / 50 KCl 20 mEq Premix Inj 20 meq In 50 / 50 100 ml @ 50 mls/hr IV.SIG Q2H [facility] Rx#:[id number] Output: Urine 1000 / 1000 Other: Date of Last Bowel Movement 07/04/18 07/05/18 - Constitutional no acute distress - Routine HEENT Exam Head: Present: normocephalic Eye: Present: PERRL ENT: Present: mucous membranes moist - Routine Neck Exam Present: full ROM - Routine Respiratory Exam Present: CTA bilaterally - Routine Cardiovascular Exam Present: S1, S2, irregular rhythm Comments: atrial fibrillation/pacemaker/PVC's - Routine Abdominal Exam Present: normoactive bowel sounds - Routine Extremities Exam Present: edema, full ROM, pulses intact, normal capillary refill. Absent: cyanosis, clubbing Comments: edema improved. - Routine Skin Exam Present: intact - Routine Neurological Exam Present: oriented X3 - Detailed Neurological Exam: Coma Scale Eye Opening: Spontaneous Verbal Response: Oriented Motor Response: Obey commands [place] Coma Scale Total: 15 - Routine Psychiatric Exam Present: normal affect Results 07/05/18 10:30 07/06/18 09:45 CBC 07/04/18 07/05/18 Range/Units 14:31 10:30 WBC 10.8 10.9 (4.0-11.0) th/mm3 RBC 4.03 L 4.05 L (4.50-5.90) mil/mm3 Hgb 12.0 L 12.2 L (13.0-17.0) gm/dL Hct 37.7 L 37.9 L (39.0-51.0) % Plt Count 208 201 (150-450) th/mm3 Comprehensive Metabolic Panel 07/04/18 07/05/18 07/06/18 Range/Units 14:31 10:30 09:45 Sodium 134 L 134 L 134 L (136-145) meq/L Potassium 3.1 L 2.9 L* 3.6 (3.5-5.1) meq/L Chloride 90 L 89 L 89 L (98-107) meq/L Carbon Dioxide 33.6 H 33.7 H 34.9 H (21.0-32.0) meq/L BUN 85 H 79 H 68 H (7-18) mg/dL Creatinine 2.47 H 2.11 H 1.74 H (0.60-1.30) mg/dL Calcium 7.8 L 8.3 L 8.5 (8.5-10.1) mg/dL Intake and Output 07/05/18 07/06/18 07/06/18 22:59 06:59 14:59 Intake Total 50 / 50 Output Total 1000 / 1000 Balance 50 / 50 -1000 / -1000 Intake: IV 50 / 50 KCl 20 mEq Premix Inj 20 meq In 50 / 50 100 ml @ 50 mls/hr IV.SIG Q2H [facility] Rx#:[id number] Output: Urine 1000 / 1000 Other: Date of Last Bowel Movement 07/05/18 Weight 96.21 kg Assessment and Plan - Assessment (1) CHF exacerbation Code(s): I50.9 - Heart failure, unspecified Status: Acute (2) Acute renal failure Code(s): N17.9 - Acute kidney failure, unspecified Status: Acute (3) COPD (chronic obstructive pulmonary disease) Code(s): J44.9 - Chronic obstructive pulmonary disease, unspecified Status: Acute (4) Elevated troponin Code(s): R74.8 - Abnormal levels of other serum enzymes Status: Acute (5) Ischemic cardiomyopathy Code(s): I25.5 - Ischemic cardiomyopathy Status: Chronic (6) S/P TAVR (transcatheter aortic valve replacement) Code(s): Z95.2 - Presence of prosthetic heart valve Status: Chronic - Plan Renal function continues to improve, nephrology evaluation and treatment in progress. He remains stable from a cardiology standpoint. Continue anticoagulation with Savaysa. He can be cleared for discharge from a cardiology standpoint. We will continue to monitor the patient during his hospitalization and he is to follow up with his primary upper inspector, Dr. King after discharge from the hospital. The patient was seen and evaluated by Dr. Dolan who participated in care, management and decision making. - Attending Attestation Patient seen and examined. I reviewed and agree with the evaluation and plan as presented. CHF improved. Continue diuresis. DC home. F/u w Dr. King as outpatient. (1) CHF exacerbation Qualifiers: Heart failure type: systolic Qualified Code(s): I50.23 - Acute on chronic systolic (congestive) heart failure
--- NOTE | 2018-07-06 15:14 | P.DS ---
DS: Providers Date of admission: 07/02/18 20:32 Primary care physician: Marquez Fields MD Consults: 07/03/18 04:15 Consult to Nephrology Routine Consulting Provider: Floyd Cooper Does the patient have a Application Operations Engineer who follows them?: No Preferred Nephrology Hematology Nurse:: Wind Energy Project Manager Physician Reason for Consultation: ARF with CHF Notified:: Service Spoke with:: Lin Date Notified:: 07/03/18 Time Notified:: 04:35 Ordering Provider: NICK 07/04/18 10:19 Consult to Cardiology Routine Consulting Provider: Lashon King Does the patient have a Planner Chief who follows them?: Yes Preferred Clarifier:: Lashon King Reason for Consultation: CHF. Pt. known to you. Notified:: Office Spoke with:: Penny Date Notified:: 07/04/18 Time Notified:: 10:24 Ordering Provider: OTTONIEL Brief History from admission: HPI as documented by the admitting physician 72-year-old male with a past medical history significant for congestive heart failure, COPD on 2-1/2 L of oxygen at home, coronary artery disease, atrial fibrillation anticoagulated on Savaysa and hypertension presents to the emergency department for the evaluation of shortness of breath. The patient reports he has had shortness of breath for the past 2 weeks however it acutely worsened earlier yesterday. He also states he has had lower extremity swelling for the past 3 days. He denies any chest pain. No abdominal pain. No nausea/ vomiting/diarrhea. No focal neurologic deficits. No fever/chills. No increased cough or sputum production. Patient update on day of discharge: Patient reports he is feeling much better today. He is breathing comfortably. Stable on 2.5 L nasal cannula. DS: Diagnosis Discharge Diagnosis (1) CHF exacerbation: Status: Acute (2) Acute renal failure: Status: Acute (3) COPD (chronic obstructive pulmonary disease): Status: Acute (4) Elevated troponin: Status: Acute (5) Ischemic cardiomyopathy: Status: Chronic (6) S/P TAVR (transcatheter aortic valve replacement): Status: Chronic DS: Summary 72-year-old male with severe CHF admitted with acute exacerbation of systolic CHF. Evaluation and treatment course detailed below: Acute on chronic respiratory failure secondary to acute on chronic systolic CHF and COPD exacerbation: -Patient treated with IV Bumex. He responded well with significant improvement in his symptoms. He was treated with IV steroids and eventually transition to oral steroids. He was followed by cardiology. He is discharged on oral Bumex, Coreg. Renal functions not stable enough for ACEI. Acute renal failure -Cardiorenal etiology. The patient was followed by nephrology. His renal functions steadily improved. He is advised to follow-up outpatient with PCP and nephrology. Atrial fibrillation Continue anticoagulation with Savaysa Continue rate control with beta-blockers. Hypokalemia: Replaced Transaminitis -Likely shock liver from CHF. -Viral hepatitis profile negative. -LFTs improved. Time Spent with Patient Total time spent providing and/or coordinating discharge services: Greater than 30 minutes Quality: VTE Deep Vein Thrombosis/Pulmonary Embolism Present on Admission: No Results Labs on day of discharge: Labs from last 24 hours 07/06/18 09:45 Sodium 134 L Potassium 3.6 Chloride 89 L Carbon Dioxide 34.9 H Anion Gap 10 BUN 68 H Creatinine 1.74 H Estimated GFR 39 L Random Glucose 205 H Calcium 8.5 Impressions ITS Impressions Chest X-Ray 07/02/18 17:43 CONCLUSION: Cardiomegaly with pulmonary vascular engorgement similar to the prior examination. Tiny bilateral pleural effusions. Abdomen/Bladder Ultrasound 07/03/18 10:29 CONCLUSION: 1. Kidneys are slightly echogenic characteristic of medical renal disease. 2. Minimally complex right renal cysts. Discharge Plan Discharge Disposition Patient Disposition: W/Home Health Service Discharge Condition Condition: Stable Discharge Order Discharge Orders: Discharge Order (Routine); Ordered 07/06/18 Ordered By: Lonnie Wahl Physicians Team Primary Care Provider: Marquez Fields Attending Provider: Lonnie Wahl Other Providers: Floyd Cooper ; Lashon King Rxs /Orders / Referrals /Forms Prescriptions: New bumetanide 1 mg Tablet 1 mg PO DAILY Qty: 30 RF: 0 potassium chloride 10 mEq capsule, extended release 10 meq PO DAILY Qty: 30 RF: 0 prednisone 10 mg tablet 10 mg PO DAILY Qty: 4 RF: 0 Continue aspirin 81 mg Tablet,Delayed Release (Dr/Ec) 81 mg PO DAILY Qty: 30 RF: 0 carvedilol 3.125 mg Tablet 3.125 mg PO BID RF: 0 albuterol sulfate 2.5 mg /3 mL (0.083 %) Solution For Nebulization 2.5 mg INHALATION Q4-6H PRN (Reason: Respiratory Distress) RF: 0 arformoterol [Brovana] 15 mcg/2 mL Solution For Nebulization 15 mcg INHALATION BID RF: 0 edoxaban [Savaysa] 30 mg Tablet 30 mg PO DAILY RF: 0 Changed sotalol 80 mg Tablet 40 mg PO Q12H Qty: 0 RF: 0 Discontinued furosemide 40 mg Tablet 40 mg PO BID RF: 0 Referrals: [facility], [Agency] - See Instructions Lashon King MD [Physician] - See Instructions (Call for appointment) Marquez Fields MD [Primary Care Provider] - See Instructions Discharge Instructions Patient Printed Instructions: Bumetanide (By mouth), Prednisone (By mouth), Potassium Chloride (By mouth) Additional Instructions: Your Health Problems: Goals to Promote Your Health: * To prevent worsening of your condition * To maintain your health at the optimal level Directions to Meet Your Goals: * Take your medications as prescribed * Follow your dietary instruction * Follow activity as directed * Keep your appointments as scheduled * Take your immunizations and boosters as scheduled * If your symptoms worsen call your PCP * If no PCP go to Urgent Care or Emergency Room Smoking is dangerous to your health. Avoid second hand smoke. You may reach the 24-hour crisis hotline for domestic abuse at . Post Discharge Care Plan Care Plan Goals: Discharge Care Plan Goals for Congestive Heart Failure Directions to Meet your Goals: 1. Diet: Limit your salt by doing the following: * Limit canned, dried, packaged, and fast foods. * Don't add salt to your food. * Season foods with herbs instead of salt. * Watch how much liquids you drink. Drinking too much can make heart failure worse. Talk with your health care provider about how much you should drink each day. * Limit the amount of alcohol you drink. It may harm your heart. Women should have no more than 1 drink a day and men should have no more than 2. * When you eat out, request that your meals have no added salt. 2. Activity: * You can benefit from simple activities such as walking or gardening. * Exercising most days of the week can make you feel better. * Don't be discouraged if your progress is slow at first. * Rest as needed. * Stop activity if you develop symptoms such as chest pain, lightheadedness, or significant shortness of breath. * Find activities that you enjoy, such as brisk walking, dancing, swimming, or gardening. These will help you stay active and strengthen your heart. 3. Medicine: * Take your medicines exactly as prescribed. * Learn the names and purpose of each of your medicines. * Keep an accurate medicine list and current dosages with you at all times. Don' t skip doses. * If you miss a dose of your medicine, take it as soon as you remember. * If you miss a dose and it's almost time for your next dose, just wait and take your next dose at the normal time. Don't take a double dose. * If you are unsure, call your doctor's office. Make sure not to mix up your medicines or forget what you've taken the same day. 4. Weight Monitoring: * Weigh yourself every day. A sudden weight gain can mean your heart failure is getting worse. * Weigh yourself at the same time of day and in the same kind of clothes. * Ideally, weigh yourself first thing in the morning after you empty your bladder, but before you eat breakfast. * If your weight goes up by more than 2 pounds in 1 day, 5 pounds in 1 week, or whatever weight gain you were told by your doctor, this is a sign that you are retaining more fluid than you should be. * Clues to weight gain include checking your ankles for swelling, or noticing you are short of breath when you lie down. 5. When to call your doctor: Call your doctor right away if you have any of these signs of worsening heart failure: Sudden weight gain (more than 2 pounds in 1 day or 5 pounds in 1 week, or whatever weight gain you were told to report by your doctor) Trouble breathing not related to being active New or increased swelling of your legs or ankles Swelling or pain in your abdomen Breathing trouble at night (waking up short of breath, needing more pillows to breathe) Frequent coughing that doesn't go away Feeling much more tired than usual 6. Follow up: Do Not miss your follow-up appointment. Keep up with all your appointments and yearly check ups Call 911 right away if you have: Severe shortness of breath, such that you can't catch your breath even while resting Severe chest pain that does not resolve with rest or nitroglycerin [place], foamy mucus with cough and shortness of breath A continuous rapid or irregular heartbeat Passing out or fainting Stroke symptoms such as sudden numbness or weakness on one side of your face , arm, or leg or sudden confusion, trouble speaking or vision changes Discharge Care Plan Goals for COPD You have been diagnosed with chronic obstructive pulmonary disease (COPD). This is a name given to a group of diseases that limit the flow of air in and out of your lungs. This makes it harder to breathe. With COPD, you are also more likely to get lung infections. COPD includes chronic bronchitis and emphysema. COPD is most often caused by heavy, long-term cigarette smoking. Directions to Meet your Goals: 1. Quit smoking: * If you smoke, quit. It is the best thing you can do for your COPD and your overall health. * Join a stop-smoking program. There are even telephone, text message, and Internet programs to help you quit. * Ask your doctor about medicines or other methods to help you quit. * Ask family members to quit smoking as well. * Don't allow people to smoke in your home, in your car, or when they are around you. 2. Protect yourself from infection: * Wash your hands often. Do your best to keep your hands away from your face. Most germs are spread from your hands to your mouth. * Get a flu shot every year. Also ask your provider about pneumonia vaccines. * Avoid crowds. It's especially important to do this in the winter when more people have colds and flu. * To stay healthy, get enough sleep, exercise regularly, and eat a balanced diet. You should: -Get about 8 hours of sleep every night. -Try to exercise for at least 30 minutes on most days. -Have healthy foods including fruits and vegetables, 100% whole grains, lean meats and fish, and low-fat dairy products. -Try to stay away from foods high in fats and sugar. 3. Take your medicines: * Take your medicines exactly as directed. Don't skip doses. 4. Manage you stress: Stress can make COPD worse. Use this stress management technique: * Find a quiet place and sit or lie in a comfortable position. * Close your eyes and perform breathing exercises for several minutes. 5. Pulmonary rehabilitation: * Pulmonary rehab can help you feel better. These programs include exercise, breathing techniques, information about COPD, counseling, and help for smokers. * Ask your doctor or your local hospital about programs in your area. 6. When to call your doctor: Call doctor immediately if you have any of the following: Shortness of breath, wheezing, or coughing Increased mucus Yellow, green, bloody, or smelly mucus Fever or chills Tightness in your chest that does not go away with rest or medicine An irregular heartbeat or a feeling that your heart is beating very fast Swollen ankles 7. Follow-up: Do Not miss your follow-up appointment. Keep up with all your appointments and yearly check ups Status ED Status: Left Department Discharge Information Discharge Date/Time: 07/06/18 11:47
== END 2018-07-06 11:47 | disposition home health service (06) | DRG 291 ==
LOC: NEPE 12:24 → NEDA 20:32 → NEDH 07-03 02:27 → N04 07-03 11:09
PROVIDERS: ADMIT Family Medicine; ATTEND Family Medicine
DX: I13.0 Hypertensive heart and chronic kidney disease with heart failure and stage 1 through stage 4 chronic kidney disease, or unspecified chronic kidney disease; K72.00 Acute and subacute hepatic failure without coma; Z95.2 Presence of prosthetic heart valve; E87.6 Hypokalemia; I48.91 Unspecified atrial fibrillation; Z87.891 Personal history of nicotine dependence; I08.3 Combined rheumatic disorders of mitral, aortic and tricuspid valves; Z95.810 Presence of automatic (implantable) cardiac defibrillator; I25.10 Atherosclerotic heart disease of native coronary artery without angina pectoris; I25.5 Ischemic cardiomyopathy; R74.8 Abnormal levels of other serum enzymes; Z99.81 Dependence on supplemental oxygen; I50.23 Acute on chronic systolic (congestive) heart failure; J96.20 Acute and chronic respiratory failure, unspecified whether with hypoxia or hypercapnia; Z79.01 Long term (current) use of anticoagulants; N17.9 Acute kidney failure, unspecified; J44.1 Chronic obstructive pulmonary disease with (acute) exacerbation; N18.9 Chronic kidney disease, unspecified
CPT/HCPCS: 71010; 71045; 76775; 80048; 80053; 80074; 80307; 81001; 82550; 82570; 83520; 83735; 83880; 84300; 84484; 85025; 85027; 85610; 85730; 93005; 94640; 94664; 94665; 99285; J1644; J2920; J3480; J7506; J7512